=== PATIENT | female | born 1990 | race Caucasian/White ===

== ENCOUNTER 2023-05-03 17:18 | Observation (INO) ==
--- NOTE | 2023-05-03 20:21 | History & Physical Report ---
Date of Service May 03, 2023 Assessment & Plan (1) Hypothyroidism: (2) Pre-diabetes: (3) PCOS (polycystic ovarian syndrome): (4) Class 2 obesity: Plan I reviewed with the patient and her that I don't feel the criteria are met for gestational hypertension and that she is pre-term at 37 weeks and would run the risk of increased likelihood of prolonged induction due to unripe cervix with possible . She will be continued to be monitored in the office with NST's and BP check with office visits. I informed her that if she experiences any change of symptoms to call us. Her BP has not been elevated here in the hospital while on the monitor and she is fine with the plan to go home and f/u in the office. Admission and Anticipated Discharge Date Admission Date: May 03, 2023 History of Present Illness Chief Complaint: induction of labor Primary Care Provider: Lorelei Mccormack 32 F P0000 at 37.3 weeks seen on L&D for IOL for gestational hypertension. No symptoms of headaches, visual changes, nausea or vomiting, dizziness, swelling of face, hands or feet. Normal BP by patient at home numerous occasions. No protein in urine today or previously. Allergies Allergy/AdvReac Type Severity Reaction Status Date / Time No Known Allergies Allergy Unverified 05/03/23 18:22 Home Medications Medication Instructions Recorded Confirmed Type oxycodone 5 mg tablet 5 mg PO Q6H PRN pain #10 tabs 06/28/22 Rx Vitamin D3 2,000 units PO DAILY 05/03/23 05/03/23 History aspirin 81 mg chewable tablet 81 mg PO DAILY 05/03/23 05/03/23 History bismuth txhm-qjlvkt-IpKp-resor BID 05/03/23 History rectal suppository levothyroxine 75 mcg tablet 75 mcg PO DAILY 05/03/23 05/03/23 History potassium 20 mg chewable tablet 20 mg PO TID 05/03/23 05/03/23 History prenat.vits,del,sxw-wbxg-dkcvj 1 tab PO DAILY 05/03/23 05/03/23 History Patient History Medical History Hypothyroidism Pre-diabetes PCOS (polycystic ovarian syndrome) Surgical History History of tonsillectomy Social History Smoking Status: Never smoker Hx Alcohol Use: No Hx Substance Use: No Preferred Language: Ukrainian Supervisor Of Communications Required: No Beliefs That Will Affect Care: None marital status: Current Living Situation: Spouse Current Living Situation Comment: mother in law lives with patient and Feels Safe at Home: Yes Assistive Devices: None 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 no RUQ pain Musculoskeletal: Extremities: extremities normal to inspection Skin: no rashes, warm and dry Neurologic: patellar DTR's 2+ bilat, sensation intact Psychiatric: A+Ox3, euthymic affect Genitourinary: no vaginal lesions, no adnexal mass OB Exam Abdomen: + fundal height and + vertex OB Exam Monitor Tracing: + external FHT monitor used, + external uterine monitor used, + category I and + normal FHT variability Cervix is long/thick/closed/posterior/firm Vertex high patient with unripe cervix Results & Data Vital Signs (Past 12 Hours) Vital Signs Temp Pulse Resp BP 05/03/23 19:21 114 H 124/70 05/03/23 19:17 37.0 C 20 05/03/23 18:44 117 H 130/81 05/03/23 18:37 37.3 C 19 05/03/23 18:34 121 H 128/72 05/03/23 18:24 126 H 126/81 05/03/23 18:15 123 H 122/72 05/03/23 18:04 121 H 117/77 Code Status & VTE Plan VTE Prophylaxis Plan VTE Prophylaxis will be ordered: No Monitoring External Monitor NST Cat 1 no ctx (1) Hypothyroidism Hypothyroidism type: acquired Qualified Code(s): E03.9 - Hypothyroidism, unspecified
--- OUTSIDE RECORDS SUMMARY | 2023-05-04 07:38 | External Medical Summary | Summary of Care ---
Author Name Unknown Organization [facility] Address [address] [place] [address] Phone [phone] Care Team Providers Care Video Library Assistant Name Role Phone Lorelei Mccormack DO Primary Care Provider Encounter Details Date Type Department Care Team (Late st Contact Info) Description 04/26/2023 9:30 AM EDT Office Visit [facility] [employer] Obstetrics Maternal Medicine, [address] [place] [address] Margaret Rosenthal DO [address] [place] [address] Obesity in , antepartum*; Gestational hypertension without significant proteinuria in third trimester; Ultrasound for screening for growth restriction; 36 weeks gestation of Allergies No known active allergiesdocumented as of this encounter (statuses as of 04/26/2023) Medications Medication Sig Dispensed Refills Start Date End Date Status metFORMIN HCl ER 500 MG Oral Tablet Extended Release 24 Hour (Glucophage XR) 0 04/14/2022 Active Levothyroxine Sodium 75 MCG Oral Tablet (Levoxyl) TAKE ONE TABLET BY MOUTH EVERY DAY ON AN EMPTY STOMACH 0 05/21/2022 Active Vitamin D (Cholecalciferol) 50 MCG (1999) Oral Capsule Take by mouth. 0 Active 6.75-0.2 MG Oral Tablet Take by mouth. 0 Active Metoclopramide HCl 10 MG Oral Tablet (Reglan)Indication s: related nausea, antepartum Take 0.5 Tablets by mouth every 8 hours as needed for Nausea. 30 Tablet 0 10/27/2022 Active Additional Information Patient not taking.Reported on 03/23/2023 Aspirin 81 MG Oral Capsule Take by mouth. 0 Active Potassium Chloride Lilibeth ER 20 MEQ Oral Tablet Extended Release Take 1 Tablet by mouth in the morning and 1 Tablet before bedtime. 180 Tablet 3 04/03/2023 Active documented as of this encounter (statuses as of 04/26/2023) Active Problems Problem Noted Date Diagnosed Date High-risk 04/16/2023 Gestational hypertension wit hout significant proteinuria in third trimester 04/03/2023 Overview: Per MFM: Recommend patient be seen by her primary OB provider on weekly basis for BP check, and labwork with AST/ALT and platelets, and urine protein screen. Recommend twice weekly NST or BPP with BP check. Strict bedrest is NOT recommended for these patients. Recommend Maternal Medicine ultrasound for growth within 1 week of GHTN diagnosis and then every 4 weeks thereafter. Recommend delivery at 37w0d or shortly thereafter. If gestational hypertension (GHTN) diagnosis is made after 37 weeks, then delivery should occur within 24-48 hours. Recommend close monitoring of BP s for 72 hours and then again at 7-10 days . BP Readings from Last 9 Encounters: 04/03/23 118/66 03/30/23 122/70 03/30/23 125/81 03/30/23 140/68 03/23/23 126/83 03/23/23 143/84 03/12/23 128/64 02/23/23 120/70 01/26/23 124/66 Currently on aspirin 81 mg therapy Baseline Preeclampsia Labs Lab Results Component Value Date/Time CREATININE - [facility] 0.5 04/13/2023 09:52 AM AST - [facility] 7 (L) 04/13/2023 09:52 AM ALT - [facility] 10 04/13/2023 09:52 AM PROTEIN/ CREATININE RATIO, URINE - [facility] 200 (H) 04/13/2023 09:56 AM Last Assessment & Plan: CONSIDERATIONS: Explained to patient that a woman who has always had normal blood pressures, gestational hypertension (GHTN) is defined as persistent elevations in her BP after 20 weeks gestation. Elevated BP is defined as greater than or equal to 140mmHg systolic or greater than 90mmHg diastolic on two separate occasions at least 4 hours apart after 20 weeks gestation. If the blood pressures are greater than or equal to 160mmHg systolic or greater than or equal to 110mmHg diastolic, gestational hypertension can be confirmed within minutes and appropriate management in the hospital should then occur. RECOMMENDATIONS: Recommend patient be seen by her primary OB provider on weekly basis for BP check, and labwork with AST/ALT and platelets, and urine protein screen. Recommend twice weekly NST or BPP with BP check. Strict bedrest is NOT recommended for these patients. Recommend Maternal Medicine ultrasound for growth within 1 week of GHTN diagnosis and then every 4 weeks thereafter. Recommend delivery at 37w0d or shortly thereafter. If gestational hypertension (GHTN) diagnosis is made after 37 weeks, then delivery should occur within 24-48 hours. Recommend close monitoring of BP s for 72 hours and then again at 7-10 days . Iron deficiency anemia, unspecified 03/20/2023 Antepartum anemia complicating 024 Overview: Hgb 10.5 at 28 weeks IV iron referral placed Obesity in , antepartum 10/30/2022 Overview: Pre gravid BMI: 35.0 Class 2 obesity Pre gravid BMI: 35.0 Class 2 obesity 1 hour GTT ordered but not yet completed by patient - scheduled 11/14/2022 No results found for: 50-G GESTATIONAL GLUCOSE, 100-G GESTATIONAL GLUCOSE, HEMOGLOBIN A1C - [facility] Baseline Preeclampsia Labs Lab Results Component Value Date/Time PLATELET AUTO - [facility] 338 10/27/2022 02:30 PM Last Assessment & Plan: She presents for follow-up of growth secondary to class II obesity and hypothyroidism. Today's ultrasound notes the following: The estimated weight is appropriate for gestational age in the 38th percentile. The visualized anatomy is unremarkable in appearance. The KASSANDRA is normal. Hypothyroidism complicating 10/27/2022 Overview: Managed with Levothyroxine 75 mcg daily Lab Results Component Value Date/Time TSH - [facility] 1.17 02/23/2023 09:04 AM 05/19/2022 TSH = 0.71 Follows with [facility] endocrinology. Follows with Endocrinology every 6 weeks Last Assessment & Plan: TSH Results: Lab Results Component Value Date/Time TSH - [facility] 1.17 02/23/2023 09:04 AM TSH - [facility] 1.085 10/15/2022 12:00 AM Prediabetes 10/27/2022 Overview: On Metformin through Endocrinology. Has since stopped at direction of endocrinology. First trimester A1C was 5.0 achieved with Clomid Class 2 obesity 10/27/2022 Overview: PCOS (polycystic ovarian syndrome) 05/31/2022 Estimated Date of Delivery Comme nts Yes 05/21/2023 Based on Ultraso und documented as of this encounter (statuses as of 04/26/2023) Resolved Problems Problem Noted Date Diagnosed Date Resolved Date with 11 completed weeks gestation 10/31/2022 12/29/2022 Normal 10/30/2022 04/16/2023 Supervision of high risk pre gnancy in first trimester 10/30/2022 04/16/2023 documented as of this encounter (statuses as of 04/26/2023) Immunizations Name Administration Dates Next Due TDAP (age 10 and older)(Boostrix) 02/23/2023 documented as of this encounter Social History Tobacco Use Types Packs/Day Years Used Date Smoking Tobacco: Never Smokeless Tobacco: Never Alcohol Use Standard Drinks/Week Comments Not Currently 0 (1 standard drink = 0.6 oz pur e alcohol) occ PHQ-2 Answer Date Recorded PHQ Adult Total Score 0 04/19/2023 Hunger Vital Sign Answer Date Recorded Within the past 12 months, y ou worried that your food would run out before you got the money to buy more. Never true 12/09/19 23 Within the past 12 months, t he food you bought just didn't last and you didn't have money to get more. Never true 12/08/2022 [place] Depression Scale Answer Date Recorded [place] Depression Scale Total 0 03/12/2023 The thought of harming myself has occurred to me . Never 03/12/2023 Estimated Date of Delivery Comme nts Yes 05/21/2023 Based on Ultraso und Sex and Gender Information Value Date Recorded Sex Assigned at Female 05/31/2022 8:17 AM EDT Gender Identity Female 05/31/2022 8:17 AM EDT Sexual Orientation Straight 05/31/2022 8: 17 AM EDT Job Start Date Occupation Industry Not on file Not on file Not on file documented as of this encounter Progress Notes * Margaret Rosenthal DO - 04/26/2023 11:10 AM EDT Sara presented today at 36w3d for an ultrasound for the following indications: Obesity in , antepartum Gestational hypertension without significant proteinuria in third trimester Ultrasound for screening for growth restriction 36 weeks gestation of Ultrasound summary: Patient presented at 36w 3d for growth assessment. Normal growth with EFW 2911 g at 51%ile. Normal KASSANDRA at 16.3 cm. Cephalic presentation. BPP 09/12. I reviewed the ultrasound images. Sara was given the opportunity to meet with me if she had any questions. Please refer to the ultrasound report for additional details about today's ultrasound examination. RECOMMENDATIONS: Follow up with MFM for ultrasound as clinically indicated. See prior formal MFM consultation note. Thank you for allowing us to participate in the care of this patient. Please call with any questions. Margaret Rosenthal DO 04/26/2023 11:11 AM documented in this encounter Plan of Treatment Upcoming Encounters Date Type Department Care Team (Late st Contact Info) Description 05/01/2023 9:30 AM EDT Office Visit Gynecology/Obstetrics [facility]ag[facility] [address] [place] [address] Miriam Abdi CRNP [address] [place] [address] [place] Non Stress Tests [place] [address] [place] [address] 05/04/2023 2:15 PM EDT Office Visit Gynecology/Obstetrics [facility] Villagomez [address] [place] [address] Miriam Abdi CRNP [address] [place] [address] [place], Non Stress Tests [place] [address] [place] [address] 11/23/2023 1:40 PM EDT Office Visit Nephrology, [facility] [address] [place] [address] Simona Gutierrez MD [address] [facility] [place], [place] [id number] Health Maintenance Due Date Last Done Comments Hepatitis B (1 of 3 - 19+ 3-dose series) 2009 COVID-19 Vaccine (2022-24 season) 2022 Influenza Vaccine (FLU shot) (#1) 2022 TSH 02/24/2024 02/23/2023, 10/15/2022 Depression Screening 04/18/2024 04/19/2023 GFR 04/23/2024 04/24/2023, 04/05, 04/13/2023, Additional history exists Pap Smear 05/31/2025 05/31/2022 Cervical Cancer Screening 06/01/2027 HPV/Co-Test 06/01/2027 05/31/2022 DTaP,Tdap,and Td Vaccines (2 - Td or Tdap) 02/23/2033 02/23/2023 GARDASIL-HPV IMMUNIZATION SERIES Aged Out No longer eligible based on patient's age to complete this topic MENINGOCOCCAL (MENACTRA/MENVEO) Aged Out No longer eligible based on patient's age to complete this topic Pneumococcal Vaccine: Pediatrics (0 to 5 Years) and At-Risk Patients (6 to 64 Years) Aged Out No longer eligible based on patient's age to complete this topic documented as of this encounter Medical Devices Not on filedocumented as of this encounter Visit Diagnoses Diagnosis Obesity in , antepartum- Primary Obesity complicating , childbirth, or the puerperium, antepartum condition or complication Gestational hypertension without significant proteinuria in third trimester Transient hypertension of , antepartum Ultrasound for screening for growth restriction screening for growth retardation using ultrasonics 36 weeks gestation of state, incidental documented in this encounter Care Teams Video Library Assistant Relationship Specialty Start Date End Date Lorelei Mccormack DO [address] [facility] [place] [address] PCP - General Family Medicine 03/07/22 documented as of this encounter
--- OUTSIDE RECORDS SUMMARY | 2023-05-04 07:38 | External Medical Summary | Summary of Care ---
Author Name Unknown Organization [facility] Address [address] [place] [address] Phone [phone] Care Team Providers Care Instruments Sales Representative Name Role Phone Lorelei Mccormack DO Primary Care Provider Reason for Visit * Reason Onset Date Comments Test Results 04/03/2023 Encounter Details Date Type Department Care Team (Late st Contact Info) Description 04/03/2023 Telephone Nephrology, [address] [address] Simona Gutierrez MD [address] [place] [id number] Test Results Allergies No known active allergiesdocumented as of this encounter (statuses as of 05/01/2023) Medications Medication Sig Dispensed Refills Start Date End Date Status metFORMIN HCl ER 500 MG Oral Tablet Extended Release 24 Hour (Glucophage XR) 0 04/14/2022 Active Levothyroxine Sodium 75 MCG Oral Tablet (Levoxyl) TAKE ONE TABLET BY MOUTH EVERY DAY ON AN EMPTY STOMACH 0 05/21/2022 Active Vitamin D (Cholecalciferol ) 50 MCG (1999) Oral Capsule Take by mouth. 0 Acti ve 6.75-0.2 MG Oral Tablet Take by mouth. 0 Active Metoclopramide HCl 10 MG Oral Tablet (Reglan)Indicati ons: related nausea, antepartum Take 0.5 Tablets by [...] before bedtime. 180 Tablet 3 04/03/2023 Active Potassium Chloride Lilibeth ER 20 MEQ Oral Tablet Extended Release Take 1 Tablet by mouth in the morning. 90 Tablet 3 03/23/2023 4 Discontinued documented as of this encounter (statuses as of 05/01/2023) Active Problems Problem Noted Date Diagnosed Date [...] as of this encounter (statuses as of 05/01/2023) Resolved Problems Problem Noted Date Diagnosed Date Resolved Date with 11 completed weeks gestation 10/31/2022 12/29/2022 Normal 10/30/2022 04/16/2023 Supervision of high risk pre gnancy in first trimester 10/30/2022 04/16/2023 documented as of this encounter (statuses as of 05/01/2023) Immunizations Name Administration Dates Next Due TDAP (age 10 and older)(Boostrix) 02/23/2023 documented as of this encounter Social History Tobacco Use Types Packs/Day Years Used Date Smoking Tobacco: Never Smokeless Tobacco: Never Alcohol Use Standard Drinks/Week Comments Yes 0 (1 standard drink = 0.6 oz [...] money to get more. Never true 12/08/2022 [place] Depression Scale Answer Date Recorded [place] Depression Scale Total 0 03/12/2023 The thought [...] on file documented as of this encounter Miscellaneous Notes * Addendum Note - Lila Denton LPN - 05/01/2023 8:38 AM EDTAddended by: LILA DENTON on: 05/01/2023 08:38 AM Modules accepted: Orders * Telephone Encounter - Lila Denton LPN - 05/01/2023 8:36 AM EDT Simona Gutierrez MD Repeat BMP in a week JM Pt is aware. Order placed. * Telephone Encounter - Lila Denton LPN - 04/17/2023 8:09 AM EDT Please see MyG and advise. * Telephone Encounter - Lila Denton LPN - 04/04/2023 2:40 PM EST Let patient know to get blood work on Sunday and I sent prescription for increased dose of potassium chloride 1 [facility] [place]. Detailed message left. Will also send MyG. Lab order in epic. * Telephone Encounter - Simona Gutierrez MD - 04/03/2023 9:56 AM EST Please let patient know to get blood work on Sunday. Dr. Gutierrez documented in this encounter Plan of Treatment Upcoming Encounters Date Type Department Care Team (Late st Contact Info) Description 05/01/2023 9:30 AM EDT Office Visit Gynecology/Obstetrics [facility] [place] [address] [place] [address] Miriam Abdi CRNP [address] [place] [address] [place], Non Stress Tests [place] [address] [place] [address] 11/23/2023 1:40 PM EDT Office Visit Nephrology, [facility] [address] [place] [address] Simona Gutierrez MD [address] [place] [address] [place] [address] Scheduled Orders Name Type Priority Associated Diagnoses Orde r Schedule BASIC METABOLIC PANEL Lab Routine Hypokalemia Expected: 05/08/2023 (Approximate), Expires: 04/30/2024 Health Maintenance Due Date Last Done Comments Hepatitis B (1 of 3 - 19+ 3-dose series) 2009 COVID-19 Vaccine ( - 2022- season) 2022 Influenza Vaccine (FLU shot) (#1) [...] Not on filedocumented as of this encounter Results * (ABNORMAL) BASIC METABOLIC PANEL (04/09/2023 7:15 AM EST) BUN 5(L) 6 - 20 mg/dL 04/09/2023 8:53 AM EST [facility] Creatinine 0.5 0.5 - 1.0 mg/dL 04/09/2023 8:53 AM EST [facility] Estimated Glomerular Filtration Rate >90 >=60 mL/min 04/09/2023 8:53 AM EST [facility] Comment:eGFR is calculated b ased on the CKD-EPI 2020 equation Sodium 140 135 - 146 mmol/L 04/09/2023 8:53 AM EST [facility] Potassium 3.3(L) 3.5 - 5.1 mmol/L 04/09/2023 8:53 AM EST [facility] Chloride 105 98 - 107 mmol/L 04/09/2023 8:53 AM EST [facility] CO2 20(L) 22 - 32 mmol/L 04/09/2023 8:53 AM EST [facility] Anion Gap 15 7 - 15 mmol/L 04/09/2023 8:53 AM EST [facility] Glucose 103 70 - 120 mg/dL 04/09/2023 8:53 AM EST [facility] Calcium 9.3 8.4 - 10.2 mg/dL 04/09/2023 8:53 AM EST [facility] Blood Venous blood specimen / Unknown Venipuncture / Unknown 04/09/2023 7:15 AM EST 04/09/2023 7:15 AM EST Simona Gutierrez MD LAB BLOOD ORDERABLES Performing Organization Address City/State/[facility] Co de Phone Number [phone] [facility] [place] [address] documented in this encounter Visit Diagnoses Diagnosis Hypokalemia- Primary Hypopotassemia documented in this encounter Care Teams Instruments Sales Representative Relationship Specialty Start Date End Date Lorelei Mccormack DO [address] [place] [address] PCP - General Family Medicine 03/07/22 documented as of this encounter
--- OUTSIDE RECORDS SUMMARY | 2023-05-04 07:38 | External Medical Summary | Summary of Care ---
Author Name Unknown Organization [facility] Address [address] [address] Phone [phone] Care Team Providers Care Motor Rebuilder Name Role Phone Lorelei Mccormack DO Primary Care Provider [phone] Reason for Visit * Reason Comments Infusion Venofer / Encounter Details Date Type Department Care Team (Latest Contact Info) Description 03/23/2023 10:15 AM EST Hem/Onc Treatment Hematology/Oncology Treatment, [address] [address] Yandy, Chair 10 Hem Onc [address] [address] Antepartum anemia complicating *; Iron deficiency anemia, unspecified iron deficiency anemia type Allergies No known active allergiesdocumented as of this encounter (statuses as of 04/24/2023) Medications Medication Sig Dispensed Refills Start Date End Date Status metFORMIN HCl ER 500 MG Oral Tablet Extended Release 24 Hour (Glucophage XR) 0 04/14/2022 Acti ve Levothyroxine Sodium 75 MCG Oral Tablet (Levoxyl) TAKE ONE TABLET BY MOUTH EVERY DAY ON AN EMPTY STOMACH 0 05/21/2022 Active Vitamin D (Cholecalciferol) 50 MCG (1999) Oral Capsule Take by mouth. 0 Active 6.75-0.2 MG Oral Tablet Take by mouth. 0 Active Metoclopramide HCl 10 MG Oral Tablet (Reglan)Indications:P regnancy related nausea, antepartum Take 0.5 Tablets by mouth every 8 hours as needed for Nausea. 30 Tablet 0 10/27/2022 Active Aspirin 81 MG Oral Capsule Take by mouth. 0 Active documented as of this encounter (statuses as of 04/24/2023) Active Problems Problem Noted Date Diagnosed Date Iron deficiency anemia, unspecified 03/20/2023 Antepartum anemia [...] as of this encounter (statuses as of 04/24/2023) Resolved Problems Problem Noted Date Diagnosed Date Resolved Date with 11 completed weeks gestation 10/31/2022 12/29/2022 Normal 10/30/2022 04/16/2023 Supervision of high risk pre gnancy in first trimester 10/30/2022 04/16/2023 documented as of this encounter (statuses as of 04/24/2023) Immunizations Name Administration Dates Next Due TDAP (age 10 and older)(Boostrix) 02/23/2023 documented as of this encounter Social History Tobacco Use Types Packs/Day Years Used Date Smoking Tobacco: Never Smokeless Tobacco: Never Alcohol Use Standard Drinks/Week Comments Yes 0 (1 standard drink = 0.6 oz pur e alcohol) occ Hunger Vital Sign Answer Date Recorded Within the past 12 months, y ou worried that your food would run out before you got the money to buy more. Never true 12/09/19 Within the past 12 months, t he food you bought just didn't last and you didn't have money to get more. Never true 12/08/2022 [place] Depression Scale Answer Date Recorded [place] Depression Scale Total 0 03/12/2023 The thought [...] on file documented as of this encounter Last Filed Vital Signs Vital Sign Reading Time Taken Comments Blood Pressure 143/84 03/23/2023 11:53 AM EST Pulse 103 03/23/2023 11:53 AM EST Temperature 36.6 C (97.9 F) 03/23/2023 11:[address] Respiratory Rate 18 03/23/2023 11:53 AM EST Oxygen Saturation 98% 03/23/2023 11:53 AM EST Inhaled Oxygen Concentration - - Weight - - Height - - Body Mass Index - - documented in this encounter Nursing Notes * Arabella Grant LPN - 03/23/2023 12:56 PM EST 1220: Pt tolerated Venofer infusion well. PIV removed intact. Pt to return in one week. Discharged in stable condition. * Arabella Grant LPN - 03/23/2023 11:54 AM EST 1040: Pt arrived for Venofer 1/3 infusion. PIV in LFA. Pt tolerated well. VSS. No complaints at this time. documented in this encounter Plan of Treatment Upcoming Encounters Date Type Department Care Team (Late st Contact Info) Description 04/26/2023 7:30 AM EDT Imaging Maternal Medicine Imaging, [place] Villagomez [address] [place] [phone] 04/26/2023 7:30 AM EDT Office Visit Tire Service Supervisor Obstetrics Maternal Medicine, [place] Villagomez [address] [place] [address] Margaret Rosenthal, DO [address] [place] [address] 04/27/2023 7:45 AM EDT Office Visit Gynecology/Obstetrics Codey Mendozas [address] [place] [address] Karlie Infante PA-C [address] [place] [address] 05/01/2023 9:30 AM EDT Office Visit Gynecology/Obstetrics Yangraleigh Villagomez [address] [place] [address] Miriam Abdi CRNP [address] [place] [address] [place], Non Stress Tests [place] [address] [place] [address] 05/04/2023 2:15 PM EDT Office Visit Gynecology/Obstetrics Codey Villagomez [address] [facility] [address] Miriam Abdi CRNP [address] [place] [address] Villagomez Non Stress Tests [place] [address] [place] [address] 11/23/2023 1:40 PM EDT Office Visit Nephrology, [facility] [address] [place] [address] Simona Gutierrez MD 400 [facility] [place] [phone] Health Maintenance Due Date Last Done Comments Hepatitis B (1 of 3 - 19+ 3-dose series) 2009 COVID-19 Vaccine ( - 2022-24 season) 2022 Influenza Vaccine (FLU shot) (#1) [...] as of this encounter Visit Diagnoses Diagnosis Antepartum anemia complicating - Primary Anemia, antepartum Iron deficiency anemia, unspecified iron deficiency anemia type documented in this encounter Administered Medications Inactive Administered Medications - up to 3 most recent administrations Medication Order MAR Action Action Date Dose Rate Site Iron Sucrose (Venofer) 300 mg in NSS 250 mL ivpb 300 mg, IV Piggyback, ONCE, 1 dose, On Sun03/23/23 at 1215, Administer over 90 Minutes Start Infusion 03/23/2023 10:43 AM EST 300 mg 166.67 mL/hr NSS infusion 500 mL, Intravenous, at 50 mL/hr, CONTINUOUS, Starting on Sun03/23/23 at 1145, Until Sun03/23/23 at 1300 Start Infusion 03/23/2023 10:42 AM EST 500 mL 50 mL/hr documented in this encounter Care Teams Motor Rebuilder Relationship Specialty Start Date End Date Lorelei Mccormack DO [address] [place] [address] PCP - General Family Medicine 03/07/22 documented as of this encounter
--- OUTSIDE RECORDS SUMMARY | 2023-05-04 07:38 | External Medical Summary | Summary of Care ---
Author Name Unknown Organization [facility] Address [address] [facility] [place] [address] Phone [phone] Care Team Providers Care Mastic Man Name Role Phone Lorelei Mccormack DO Primary Care Provider [phone] Reason for Visit * Reason Comments Return Visit Non Stress Test Encounter Details Date Type Department Care Team (Late st Contact Info) Description 05/01/2023 9:30 AM EDT Office Visit Gynecology/Obstetric s [facility] [place] [address] [facility] [place] [address] Miriam Abdi CRNP [address] [place] [address] [place], Non Stress Tests [place] [address] [place] [address] High-risk in third trimester*; Hypothyroidism affecting , antepartum; Prediabetes; Class 2 obesity; Obesity in , antepartum; Antepartum anemia complicating ; Gestational hypertension without significant proteinuria in third trimester Allergies No known active allergiesdocumented as of [...] 05/21/2022 Active Vitamin D (Cholecalciferol) 50 MCG (1999 [place]) Oral Capsule Take by mouth. 0 Active [...] before bedtime. 180 Tablet 3 04/03/2023 Active Hydrocortisone Acetate 25 MG Rectal Suppository (Anusol HC)Indications:Hem orrhoids without complication Administer 1 Suppository into the rectum 2 times a day in the morning and at bedtime as needed for Hemorrhoids. 28 Suppository 0 04/26/2023 Active documented as of this encounter (statuses [...] money to get more. Never true 12/08/2022 [place] Depression Scale Answer Date Recorded [place] Depression Scale Total 0 03/12/2023 The thought [...] Sign Reading Time Taken Comments Blood Pressure 128/66 05/01/2023 9:33 AM EDT Pulse - - Temperature - - Respiratory Rate - - Oxygen Saturation - - Inhaled Oxygen Concentration - - Weight 100.2 kg (221 lb) 05/01/2023 9:33 AM EDT Height 162.6 cm (5' 4") 05/01/2023 9:33 AM EDT Body Mass Index 37.93 05/01/2023 9:33 AM EDT documented in this encounter Progress Notes * Miriam Abdi CRNP - 05/01/2023 9:59 AM EDT 37w1d IOL in 2 days for gestational HTN, nervous about this. No concerns. Baby is active. No contractions, no bleeding or LOF ASSESSMENT assessment with Non-stress Test completed on 05/01/2023 at 37.1weeks gestation for indication of gestational HTN heart baseline: 130 bpm Variability: Moderate Decelerations: absent Accelerations: present Contractions: None NST start time: 925 NST stop time: 950 NST strip reviewed, interpreted, and approved by OB provider, BISI Miles . NST strip stored in clinic storage file documented in this encounter Nursing Notes * Katherine Ny LPN - 05/01/2023 9:41 AM EDT 37w1d NST, JERRY IOL 05/02. documented in this encounter Plan of Treatment Upcoming Encounters Date Type Department Care Team (Late st Contact Info) Description 11/23/2023 1:40 PM EDT Office Visit Nephrology, [facility] 200 [place] [address] Simona Gutierrez MD 400 [facility] [place] [address] Health Maintenance Due Date Last Done Comments [...] as of this encounter Visit Diagnoses Diagnosis High-risk in third trimester- Primary Hypothyroidism affecting , antepartum Prediabetes Other abnormal glucose Class 2 obesity Obesity in , antepartum Obesity complicating , childbirth, or the puerperium, antepartum condition or complication Antepartum anemia complicating Anemia, antepartum Gestational hypertension without significant proteinuria in third trimester Transient hypertension of , antepartum documented in this encounter Care Teams Mastic Man Relationship Specialty Start Date End Date Lorelei Mccormack DO [address] [facility] [place] [address] PCP - General Family Medicine 03/07/22 documented as of this encounter
--- OUTSIDE RECORDS SUMMARY | 2023-05-04 07:38 | External Medical Summary | Summary of Care ---
Author Name Unknown Organization [facility] Address [address] [facility] [place] [address] Phone [phone] Care Team Providers Care Events Assistant Name Role Phone Lorelei Mccormack DO Primary Care Provider [phone] Reason for Visit * Reason Comments Return Visit Non Stress Test Encounter Details Date Type Department Care Team (Late st Contact Info) Description 05/01/2023 9:30 AM EDT Office Visit Gynecology/Obstetric s [facility] [place] [address] [facility] [place] [address] Miriam Abdi CRNP [address] [place] [address] [place], Non Stress Tests [place] [address] [place] [address] High-risk in third trimester*; Hypothyroidism affecting , [...] money to get more. Never true 12/08/2022 [place] Depression Scale Answer Date Recorded [place] Depression Scale Total 0 03/12/2023 The thought [...] 11/23/2023 1:40 PM EDT Office Visit Nephrology, [facility] 200 [place] [address] Simona Gutierrez MD 400 [facility] [place] [address] Health Maintenance Due Date Last [...] antepartum documented in this encounter Care Teams Events Assistant Relationship Specialty Start Date End Date Lorelei Mccormack DO 1400 [facility] [place] [address] PCP - General Family Medicine 03/07/22 documented as of this encounter
--- OUTSIDE RECORDS SUMMARY | 2023-05-04 07:38 | External Medical Summary | Summary of Care ---
Author Name Unknown Organization [facility] Address [address] [place] [facility] [place] [place] [address] Phone [phone] Care Team Providers Care Screen Examiner Name Role Phone Lorelei Mccormack DO Primary Care Provider [phone] Reason for Visit * Reason Comments Return Visit Encounter Details Date Type Department Care Team (Late st Contact Info) Description 04/26/2023 10:30 AM EDT Office Visit Gynecology/Obstetric [facility] 132 [facility] [place] [address] Selina Smith CNM 400 [facility] [place] [address] High-risk in third trimester*; Hemorrhoids without complication Allergies No known active allergiesdocumented as of [...] Active Metoclopramide HCl 10 MG Oral Tablet (Reglan)Indicatio ns: related nausea, antepartum Take 0.5 Tablets by [...] Hydrocortisone Acetate 25 MG Rectal Suppository (Anusol HC)Indications:He morrhoids without complication Administer 1 Suppository into the rectum 2 times a day in the morning and at bedtime as needed for Hemorrhoids. 28 Suppository 0 04/26/2023 Active Hydrocortisone Acetate 25 MG Rectal Suppository (Anusol HC)Indications:He morrhoids without complication Administer 1 Suppository into the rectum 2 times a day in the morning and at bedtime as needed for Hemorrhoids. 28 Suppository 0 04/24/2023 04/26/19 24 Discontinu ed(Refill) documented as of this encounter (statuses as [...] money to get more. Never true 12/08/2022 [place] Depression Scale Answer Date Recorded [place] Depression Scale Total 0 03/12/2023 The thought [...] Sign Reading Time Taken Comments Blood Pressure 122/58 04/26/2023 9:56 AM EDT Pulse - - Temperature - - Respiratory Rate - - Oxygen Saturation - - Inhaled Oxygen Concentration - - Weight 99.3 kg (219 lb) 04/26/2023 9:56 AM EDT Height 162.6 cm (5' 4") 04/26/2023 9:56 AM EDT Body Mass Index 37.59 04/26/2023 9:56 AM EDT documented in this encounter Progress Notes * Selina Smith CNM - 04/26/2023 10:13 AM EDT Patient was here for BPP. BPP 09/12. She had an NST and JERRY visit on 04/24/23. Asking about suppository treatments. Re-ordered Anusol suppositories. Prior pharmacy was not able to fill Rx. Updated pharmacy. This correspondence occurred via nurse Katherine Graff LPN. Patient was not seen today by provider as no visit was indicated. Return for JERRY and NST on 05/01/23. Selina Smith CNM 04/26/23 10:14 AM documented in this encounter Nursing Notes * Katherine Ny LPN - 04/26/2023 10:17 AM EDT Patient seen by ABENA ROWLEY 09/12. Had provider visit on 04/24/23. Having difficulty getting supp from pharmacy. Selina sent to pharmacy and will try to potato picker fromthere. Not seen by provider today. documented in this encounter Plan of Treatment Upcoming Encounters Date Type Department Care Team (Late st Contact Info) Description 05/01/2023 9:30 AM EDT Office Visit Gynecology/Obstetrics Codey Mendozas [address] [place] [address] Miriam Abdi CRNP [address] [place] [address] Jodi Villagomez Stress Tests [place] [address] [place] [address] 05/04/2023 2:15 PM EDT Office Visit Gynecology/Obstetrics Codey Villagomez [address] [place] [address] Miriam Abdi CRNP [address] [place] [address] Jodi Villagomez Stress Tests [place] [address] [place] [address] 11/23/2023 1:40 PM EDT Office Visit Nephrology, Edgardo Lathrop 200 [place] [address] Simona Gutierrez MD [address] [place] [address] [place] [address] Health Maintenance Due Date Last Done Comments Hepatitis B (1 of 3 - 19+ 3-dose series) 2009 COVID-19 Vaccine (1 - 2022-24 season) 2022 Influenza Vaccine (FLU [...] Diagnoses Diagnosis High-risk in third trimester- Primary Hemorrhoids without complication Unspecified hemorrhoids without mention of complication documented in this encounter Care Teams Screen Examiner Relationship Specialty Start Date End Date Lorelei Mccormack DO 1400 [facility] [place] [address] PCP - General Family Medicine 03/07/22 documented as of this encounter
--- OUTSIDE RECORDS SUMMARY | 2023-05-04 07:38 | External Medical Summary | Summary of Care ---
Author Name Unknown Organization [facility] Address [address] [facility] [address] Phone [phone] Care Team Providers Care Re Dye Hand Name Role Phone Lorelei Mccormack DO Primary Care Provider Reason for Visit * Reason Comments IV Therapy Venofer 2/3 Encounter Details Date Type Department Care Team (Latest Contact Info) Description 03/30/2023 8:30 AM EST Hem/Onc Treatment Hematology/Oncology Treatment, [address] [address] [place], Chair 4 Hem Onc [address] [address] Antepartum anemia complicating *; Iron deficiency anemia, [...] money to get more. Never true 12/08/2022 [place] Depression Scale Answer Date Recorded [place] Depression Scale Total 0 03/12/2023 The thought [...] Sign Reading Time Taken Comments Blood Pressure 125/81 03/30/2023 8:40 AM EST Pulse 114 03/30/2023 8:40 AM EST Temperature 36.9 C (98.5 F) 03/30/2023 8:40 AM ES T Respiratory Rate 16 03/30/2023 8:40 AM EST Oxygen Saturation 97% 03/30/2023 8:40 AM EST Inhaled Oxygen Concentration - - Weight - - Height - - Body Mass Index - - documented in this encounter Nursing Notes * Payton Doshi RN - 03/30/2023 10:33 AM EST Goals: Patient will remain free from injury. Possible barriers to meeting goals: ambulating with IV pole Stability of the patient: Moderately stable - low risk of patient condition declining or worsening Summary regarding today's goals: Met: pt remained free of harm today Patient tolerated treatment well without any acute issues or problems, but did feel slightly nauseas and diaphoretic at the end of the infusion. Patient has been having nausea during , however. Patient given water and cranberry juice, and started to feel better. Patient left facility in stable condition and denied any further needs. * Payton Dohsi RN - 03/30/2023 9:06 AM EST Chair 10. IV inserted. Patient here for Venofer 2/3, feeling well overall, no issues with first Venofer infusion. Patient states her BP was in the 140s SBP before she came in here today at her visit this AM and she has to go back at 3pm to have this rechecked. BP here was 125/81. Patient is comfortable and denies further needs at this time. Safety and Risk for Injury Patient will remain free from injury. Ensure appropriate safety devices are available. Provide and maintain safe environment. documented in this encounter Plan of Treatment Upcoming Encounters Date Type Department Care Team (Late st Contact Info) Description 04/24/2023 1:20 PM EDT Laboratory Laboratory, Codey Villagomez [place] 132 [facility] [place] [phone] [facility] [facility] [address] [place] [address] Gestational hypertension without significant proteinuria in third trimester 04/26/2023 7:30 AM EDT Imaging Maternal Medicine Imaging, [place] [address] [place] [address] 04/26/2023 7:30 AM EDT Office Visit Construction Code Administrator Obstetrics Maternal Medicine, [place] [address] [place] [address] Margaret Rosenthal, DO [address] [place] [facility] [place] [address] 04/27/2023 7:45 AM EDT Office Visit Gynecology/Obstetric s Codey Villagomez [address] [place] [address] Karlie Infante PA-C [address] [place] [address] 05/01/2023 9:30 AM EDT Office Visit Gynecology/Obstetric s Codey Villagomez [address] [place] [address] Miriam Abdi CRNP [address] [place] [address] [place], Non Stress Tests [place] [address] [place] [address] 05/04/2023 2:15 PM EDT Office Visit Gynecology/Obstetric s Codey Villagomez [address] [place] [address] Miraim Abdi CRNP [address] [place] [address] [place], Non Stress Tests [place] [address] [place] [address] 11/23/2023 1:40 PM EDT Office Visit Nephrology, [facility] 200 [facility] [address] Simona Gutierrez MD [address] [place] [address] Health Maintenance Due Date Last Done Comments Hepatitis B (1 of 3 - 19+ 3-dose series) 2009 COVID-19 Vaccine ( - season) 2022 Influenza Vaccine (FLU shot) (#1) 2022 TSH 02/24/2024 02/23/2023, 10/15/2022 Depression Screening 04/18/2024 04/19/2023 GFR 04/20/2024 04/21/2023, 0309/2023, 04/09/2023, Additional history exists Pap Smear 05/31/2025 05/31/2022 [...] deficiency anemia, unspecified iron deficiency anemia type Gestational hypertension without significant proteinuria in third trimester Transient hypertension of , antepartum documented in this encounter Administered Medications Inactive Administered Medications - up to 3 most recent administrations Medication Order MAR Action Action Date Dose Rate Site Iron Sucrose (Venofer) 300 mg in NSS 250 mL ivpb 300 mg, IV Piggyback, ONCE, 1 dose, On Sun03/30/23 at 1030, Administer over 90 Minutes Start Infusion 03/30/2023 8:55 AM EST 300 mg 166.67 mL/hr NSS infusion 500 mL, Intravenous, at 50 mL/hr, CONTINUOUS, Starting on Sun03/30/23 at 1000, Until Sun03/30/23 at 1246 Start Infusion 03/30/2023 8:55 AM EST 500 mL 50 mL/hr documented in this encounter Care Teams Re Dye Hand Relationship Specialty Start Date End Date Lorelei Mccormack DO [address] [facility] [place] [address] PCP - General Family Medicine 03/07/22 documented as of this encounter
--- OUTSIDE RECORDS SUMMARY | 2023-05-04 07:38 | External Medical Summary | Summary of Care ---
Author Name Unknown Organization [facility] Address [address] [place] [address] Phone [phone] Care Team Providers Care Cryptologic Technician Name Role Phone Lorelei Mccormack DO Primary Care Provider Encounter Details Date Type Department Care Team (Late st Contact Info) Description 04/26/2023 9:30 AM EDT Office Visit Production Consultant Obstetrics Maternal Medicine, [address] [place] [address] Margaret Rosenthal DO [address] [place] [address] Obesity in , antepartum*; Gestational [...] money to get more. Never true 12/08/2022 [place] Depression Scale Answer Date Recorded [place] Depression Scale Total 0 03/12/2023 The thought [...] Gynecology/Obstetrics Codey Villagomez [address] [place] [address] Miriam Abdi CRNP [address] [place] [address] [place] Non Stress Tests [place] [address] [place] [address] 05/04/2023 2:15 PM EDT Office Visit Gynecology/Obstetrics Codey Villagomez [address] [place] [address] Miriam Abdi CRNP [address] [place] [address] [place], Non Stress Tests [place] [address] [place] [address] 11/23/2023 1:40 PM EDT Office Visit Nephrology, [facility] 200 [place] [address] Simona Gutierrez MD 400 [facility] [place], [place] [phone] Health Maintenance Due Date Last Done Comments [...] incidental documented in this encounter Care Teams Cryptologic Technician Relationship Specialty Start Date End Date Lorelei Mccormack DO 1400 [facility] [place] [address] PCP - General Family Medicine 03/07/22 documented as of this encounter
--- OUTSIDE RECORDS SUMMARY | 2023-05-04 07:39 | External Medical Summary | Summary of Care ---
Author Name Unknown Organization [facility] Address [address] [place] [place] [address] Phone [phone] Care Team Providers Care Hvac Service Technician Name Role Phone Lorelei Mccormack DO Primary Care Provider Reason for Visit * Reason Comments Outpatient Testing Encounter Details Date Type Department Care Team (Late st Contact Info) Description 04/21/2023 12:20 PM EDT Laboratory Laboratory, [facility] [address] [place] [phone] [facility] [address] [place] [address] Hypokalemia Allergies No known active allergiesdocumented as of this encounter (statuses as of 04/21/2023) Medications Medication Sig Dispensed Refills Start Date [...] as of this encounter (statuses as of 04/21/2023) Active Problems Problem Noted Date Diagnosed Date [...] as of this encounter (statuses as of 04/21/2023) Resolved Problems Problem Noted Date Diagnosed Date Resolved Date with 11 completed weeks gestation 10/31/2022 12/29/2022 Normal 10/30/2022 04/16/2023 Supervision of high risk pre gnancy in first trimester 10/30/2022 04/16/2023 documented as of this encounter (statuses as of 04/21/2023) Immunizations Name Administration Dates Next Due TDAP [...] money to get more. Never true 12/08/2022 [place] Depression Scale Answer Date Recorded [place] Depression Scale Total 0 03/12/2023 The thought [...] on file documented as of this encounter Plan of Treatment Upcoming Encounters Date Type Department Care Team (Late st Contact Info) Description 04/24/2023 10:15 AM EDT Office Visit Gynecology/Obstetrics TreyKippanda Villagomez [address] [place] [address] Valentine Barclay CRNP [address] [place] [address] Jodi Villagomez Stress Tests [place] [address] [place] [address] 04/26/2023 7:30 AM EDT Imaging Maternal Medicine Imaging, [place] Villagomez [address] [place] [phone] 04/27/2023 7:45 AM EDT Office Visit Gynecology/Obstetrics Treyraleigh Villagomez [address] [place] [address] Karlie Infante PA-C [address] [place] [address] 05/01/2023 9:30 AM EDT Office Visit Gynecology/Obstetrics Treyraleigh Villagomez [address] [place] [address] Miriam Abdi CRNP [address] [place] [address] Jodi Villagomez Stress Tests [place] [address] [place] [address] 05/04/2023 2:15 PM EDT Office Visit Gynecology/Obstetrics Yang[facility] Villagomez [address] [place] [address] Miriam Abdi CRNP [address] [place] [address] Villagomez, Non Stress Tests [place] [address] [place] [address] 05/08/2023 9:30 AM EDT Office Visit Gynecology/Obstetrics Yang's Villagomez [address] [place] [address] Miriam Abdi CRNP [address] [place] [address] [place] Non Stress Tests [place] [address] [place] [address] 05/11/2023 11:00 AM EDT Office Visit Gynecology/Obstetrics Yang's Villagomez [address] [place] [address] BackValentine mauricio CRNP [address] [place] [address] [place] Non Stress Tests [place] [address] [place] [address] 05/15/2023 11:15 AM EDT Office Visit Gynecology/Obstetrics Yang's Villagomez [address] [place] [address] BackValentine mauricio CRNP [address] [place] [address] Villagomez, Non Stress Tests [place] [address] [place] [address] 05/18/2023 9:15 AM EDT Office Visit Gynecology/Obstetrics Yang[facility] Villagomez [address] [place] [address] Ana Edwards PA-C [address] [place] [address] Villagomez, Non Stress Tests [place] [address] [place] [address] 11/23/2023 1:40 PM EDT Office Visit Nephrology, [address] [place] [address] Simona Gutierrez MD [address] [place] [address] Pending Results Name Type Priority Associated Diagnoses Date /Time BASIC METABOLIC PANEL Lab Routine Hypokalemia 04/21/2023 12:17 PM EDT Health Maintenance Due Date Last Done Comments Hepatitis B (1 of 3 - 19+ 3-dose series) 2009 COVID-19 Vaccine (2022- season) 2022 Influenza Vaccine (FLU shot) (#1) 2022 TSH 02/24/2024 02/23/2023, 10/15/2022 GFR 04/12/2024 04/13/2023, 03/0 05/2023, 03/30/2023, Additional history exists Depression Screening 04/18/2024 04/19/2023 Pap Smear 05/31/2025 05/31/2022 Cervical Cancer Screening [...] as of this encounter Visit Diagnoses Diagnosis Hypokalemia Hypopotassemia documented in this encounter Care Teams Hvac Service Technician Relationship Specialty Start Date End Date Lorelei Mccormack DO [address] [facility] [place] [address] PCP - General Family Medicine 03/07/22 documented as of this encounter
--- OUTSIDE RECORDS SUMMARY | 2023-05-04 07:39 | External Medical Summary | Summary of Care ---
Author Name Unknown Organization [facility] Address [address] [facility] [address] Phone [phone] Care Team Providers Care Fine Arts Packer Name Role Phone Lorelei Mccormack DO Primary Care Provider Reason for Visit * Reason Comments Return Visit Non Stress Test Encounter Details Date Type Department Care Team (Late st Contact Info) Description 04/24/2023 10:15 AM EDT Office Visit Gynecology/Obstetric s [facility] Villagomez [address] [place] [address] Valentine Barclay CRNP [address] [place] [address] [place], Non Stress Tests [place] [address] [place] [address] High-risk in third trimester*; Hypothyroidism affecting in third trimester; Prediabetes; Class 2 obesity; Obesity in , antepartum; Antepartum anemia complicating ; Gestational hypertension without significant proteinuria in third trimester; Hemorrhoids without complication Allergies No known active [...] needed for Hemorrhoids. 28 Suppository 0 04/24/2023 Active documented as of this encounter (statuses [...] 126/83 03/23/23 143/84 03/12/23 128/64 02/23/23 120/70 12/22/23 124/66 Currently on aspirin 81 mg therapy [...] money to get more. Never true 12/08/2022 [place] Depression Scale Answer Date Recorded [place] Depression Scale Total 0 03/12/2023 The thought [...] Sign Reading Time Taken Comments Blood Pressure 138/70 04/24/2023 10:17 AM EDT Pulse - - Temperature - - Respiratory Rate - - Oxygen Saturation - - Inhaled Oxygen Concentration - - Weight 98.9 kg (218 lb) 04/24/2023 10:17 AM EDT Height - - Body Mass Index 37.42 04/13/2023 9:07 AM EST documented in this encounter Progress Notes * Valentine Barclay CRNP - 04/24/2023 10:38 AM EDT 36w1d Doing well. No regular ctx, bleeding. Baby is active. No new MILLAN or epigastric pain. Occasional blurry vision, inconsistent. NST reactive. GHTN, planning induction next week. Will repeat preE labs today. Painful hemorrhoid, tried OTC remedies. Reviewed constipation treatment, Rx Anusol. Discussed induction process. GBS today. Return later in the week for NST. Operations Label Clerk Documentation Provider requested director online marketing. Name of director online marketing: Crystal Goff LPN ASSESSMENT assessment with Non-stress Test completed on 04/24/2023 at 36.1 weeks gestation for indicationof gestational hypertension heart baseline: 140 bpm Variability: Moderate Decelerations: absent Accelerations: present Contractions: None NST start time: 1011 NST stop time: 1044 NST strip reviewed, interpreted, and approved by OB provider, BISI Mcgregor . NST strip stored in clinic storage file documented in this encounter Plan of Treatment Upcoming Encounters Date Type Department Care Team (Late st Contact Info) Description 04/24/2023 1:20 PM EDT [facility] [address] [place] [phone] Nato Villagomez [address] [place] [address] Gestational hypertension without significant proteinuria in third trimester 04/26/2023 7:30 AM EDT Imaging Maternal Medicine Imaging, [place] Villagomez [address] [place] [phone] 04/26/2023 7:30 AM EDT Office Visit Computer Aide Obstetrics Maternal Medicine, [place] [address] Margaret Rosenthal, DO [address] [place] [address] 04/27/2023 7:45 AM EDT Office Visit Gynecology/Obstetric s Codey Villagomez [address] [place] [address] Karlie Infante PA-C [address] [place] [address] 05/01/2023 9:30 AM EDT Office Visit Gynecology/Obstetric s Codey Villagomez [address] [place] [address] Miriam Abdi CRNP [address] [place] [address] [place], Non Stress Tests [place] [address] [facility] [place] [address] 05/04/2023 2:15 PM EDT Office Visit Gynecology/Obstetric s Codey Villagomez [address] [facility] [place] [address] Miriam Abdi CRNP [address] [place] [address] [place], Non Stress Tests [place] [address] [facility] [place] [address] 11/23/2023 1:40 PM EDT Office Visit Nephrology, [address] [place] [address] Simona Gutierrez MD [address] [place] [address] Pending Results Name Type Priority Associated Diagnoses Date /Time GROUP B STREP CULTURE/PCR Lab Routine High-risk in third trimester 04/24/2023 11:24 AM EDT COMPREHENSIVE METABOLIC PANEL Lab Routine Gestational hypertension without significant proteinuria in third trimester 04/24/2023 11:31 AM EDT CBC Lab Routine Gestational hypertension without significant proteinuria in third trimester 04/24/2023 11:31 AM EDT Scheduled Orders Name Type Priority Associated Diagnoses Orde r Schedule COMPREHENSIVE METABOLIC PANEL Lab Routine Gestational hypertension without significant proteinuria in third trimester Expected: 04/24/2023 (Approximate), Expires: 04/23/2024 CBC Lab Routine Gestational hypertension without significant proteinuria in third trimester Expected: 04/24/2023 (Approximate), Expires: 04/23/2024 Health Maintenance Due Date Last Done Comments [...] Not on filedocumented as of this encounter Procedures Procedure Name Priority Date/Time Associated Diagnosis Comments URINALYSIS, POINT OF CARE (ENTER/EDIT) Routine 04/24/2023 High-risk in third trimester Gestational hypertension without significant proteinuria in third trimester documented in this encounter Results * URINALYSIS, POINT OF CARE (ENTER/EDIT) (04/24/2023) Color, Urine Yellow Yellow or Light Yellow Clarity, Urine Clear Clear Glucose, Urine Negative Negative mg/dL Bilirubin, Urine Negative Negative Ketone, Urine Trace Negative mg/dL Specific [place], Urine 1.020 1.003 - 1.030 Blood, Urine Trace-intact Negative pH, Urine 7.0 5.0 - 7.5 units Protein, Urine Negative Negative mg/dL Urobilinogen, Urine 0.2 0.2 - 1.0 mg/dL Nitrite, Urine Negative Negative Esterase, Urine Trace Negative Urine 04/24/2023 Valentine MATHEWS LAB POINT O F CARE TEST ENTER/EDIT ORDERABLES documented in this encounter Visit Diagnoses Diagnosis High-risk in third trimester- Primary Hypothyroidism affecting in third trimester Prediabetes Other abnormal glucose Class 2 obesity Obesity in , antepartum Obesity complicating , childbirth, or the puerperium, antepartum condition or complication Antepartum anemia complicating Anemia, antepartum Gestational hypertension without significant proteinuria in third trimester Transient hypertension of , antepartum Hemorrhoids without complication Unspecified hemorrhoids without mention of complication Gestational hypertension without significant proteinuria in third trimester Transient hypertension of , antepartum documented in this encounter Care Teams Fine Arts Packer Relationship Specialty Start Date End Date Lorelei Mccormack DO [address] [facility] [place] [address] PCP - General Family Medicine 03/07/22 documented as of this encounter
--- OUTSIDE RECORDS SUMMARY | 2023-05-04 07:39 | External Medical Summary ---
Author Name Unknown Address Unknown Organization [facility] [address] [place] [address] Laboratory Report Ordering Provider Test Date Status CARLOZ CRAWFORD 04/21/2023 12:17:33 Final Observation Date Value Abnormality Reference (Units ) Status BUN 04/21/2023 12:17:33 6 6-20 (mg/dL) Final Creatinine 04/21/2023 12:17:33 0.5 0.5-1.0 (mg/dL) Final Glomerular filtration rate/1.73 sq M.predicted [Volume Rate/Area] in Serum, Plasma or Blood by Creatinine-based formula (CKD-EPI) 04/21/2023 12:17:33 >90 >=60 (mL/min) Final eGFR is calculated based on the CKD-EPI 2020 equation SODIUM 04/21/2023 12:17:33 137 135-146 (m mol/L) Final Potassium 04/21/2023 12:17:33 4.0 3.5-5.1 (m mol/L) Final Cl 04/21/2023 12:17:33 103 98-107 (mm ol/L) Final CO2 04/21/2023 12:17:33 22 22-32 (mmo l/L) Final Anion gap 04/21/2023 12:17:33 12 7-15 (mmol /L) Final Glucose 04/21/2023 12:17:33 108 70-120 (mg /dL) Final Calcium 04/21/2023 12:17:33 9.8 8.4-10.2 ( mg/dL) Final [facility] [address] [place] [address]
--- OUTSIDE RECORDS SUMMARY | 2023-05-04 07:39 | External Medical Summary | Summary of Care ---
Author Name Unknown Organization [facility] Address [address] [place] [place] [address] Phone [phone] Care Team Providers Care Senior Net Software Developer Name Role Phone Lorelei Mccormack DO Primary Care Provider Reason for Visit * Reason Comments Non Stress Test Encounter Details Date Type Department Care Team (Late st Contact Info) Description 04/19/2023 1:00 PM EDT Office Visit Gynecology/Obstetri cs Codey Villagomez [address] [facility] [place] [address] Mary Oliveira, ADAM [address] [facility] [place], [place] [id number] [place] Non Stress Tests [place] [address] [place] [address] Hypothyroidism affecting in third trimester*; Prediabetes; Class 2 obesity; Obesity in , antepartum; Antepartum anemia complicating ; Gestational hypertension without significant proteinuria in third trimester; High-risk in third trimester Allergies No known active allergiesdocumented as of this encounter (statuses as of 04/19/2023) Medications Medication Sig Dispensed Refills Start Date [...] as of this encounter (statuses as of 04/19/2023) Active Problems Problem Noted Date Diagnosed Date [...] as of this encounter (statuses as of 04/19/2023) Resolved Problems Problem Noted Date Diagnosed Date Resolved Date with 11 completed weeks gestation 10/31/2022 12/29/2022 Normal 10/30/2022 04/16/2023 Supervision of high risk pre gnancy in first trimester 10/30/2022 04/16/2023 documented as of this encounter (statuses as of 04/19/2023) Immunizations Name Administration Dates Next Due TDAP [...] money to get more. Never true 12/08/2022 [place] Depression Scale Answer Date Recorded [place] Depression Scale Total 0 03/12/2023 The thought [...] Sign Reading Time Taken Comments Blood Pressure 118/62 04/19/2023 1:00 PM EDT Pulse - - Temperature - - Respiratory Rate - - Oxygen Saturation - - Inhaled Oxygen Concentration - - Weight 99.3 kg (219 lb) 04/19/2023 1:00 PM EDT Height - - Body Mass Index 37.59 04/13/2023 9:07 AM EST documented in this encounter Progress Notes * Mary Oliveira CNM - 04/19/2023 1:15 PM EDT ASSESSMENT assessment with Non-stress Test completed on 04/19/2023 at 35weeks gestation for indication ofgestational hypertension heart baseline: 130 bpm Variability: Moderate Decelerations: absent Accelerations: present Contractions: None NST start time: 1255 NST stop time: 1317 NST strip reviewed, interpreted, and approved by OB provider, Dexter Oliveira CNM. NST strip stored in clinic storage file documented in this encounter Plan of Treatment Upcoming Encounters Date Type Department Care Team (Late st Contact Info) Description 04/24/2023 10:15 AM EDT Office Visit Gynecology/Obstetrics Codey Villagomez [address] [place] [address] Valentine Barclay CRNP [address] [place] [address] Villag[place], Non Stress Tests [place] [address] [place] [address] 04/26/2023 7:30 AM EDT Imaging Maternal Medicine Imaging, [place] Villagomez [address] [place] [address] 04/27/2023 7:45 AM EDT Office Visit Gynecology/Obstetrics Codey Mendozas [address] [place] [address] Karlie Infante PA-C [address] [place] [address] 05/01/2023 9:30 AM EDT Office Visit Gynecology/Obstetrics Codey Mendozas [address] [place] [address] Miriam Abdi CRNP [address] [place] [address] [place] Non Stress Tests [place] [address] [place] [address] 05/04/2023 2:15 PM EDT Office Visit Gynecology/Obstetrics Codey Mendozas [address] [place] [address] Miriam Abdi CRNP [address] [place] [address] [place], Non Stress Tests [place] [address] [place] [address] 05/08/2023 9:30 AM EDT Office Visit Gynecology/Obstetrics Codey Mendozas [address] [place] [address] Miriam Abdi CRNP [address] [place] [address] [place] Non Stress Tests [place] [address] [place] [address] 05/11/2023 11:00 AM EDT Office Visit Gynecology/Obstetrics Codey Villagomez [address] [place] [address] Valentine Barclay CRNP [address] [place] [address] [place] Non Stress Tests [place] [address] [place] [address] 05/15/2023 11:15 AM EDT Office Visit Gynecology/Obstetrics Codey Villagomez [address] [place] [address] BackValentine mauricio CRNP [address] [place] [address] [place] Non Stress Tests [place] [address] [place] [address] 05/18/2023 9:15 AM EDT Office Visit Gynecology/Obstetrics Codey Villagomez [address] [place] [address] Ana Edwards PA-C [address] [place] [address] [place] Non Stress Tests [place] [address] [place] [address] 11/23/2023 1:40 PM EDT Office Visit Nephrology, [facility] [address] [facility] [place] [address] Simona Gutierrez MD [address] [place] [address] Health Maintenance Due Date Last Done Comments Depression Screening 2002 Hepatitis B (1 of 3 - 19+ 3-dose series) 2009 COVID-19 Vaccine (1 - 2022-24 season) 2022 Influenza Vaccine (FLU shot) (#1) 2022 TSH 02/24/2024 02/23/2023, 10/15/2022 GFR 04/12/2024 04/13/2023, 03/0 05/2023, 03/30/2023, Additional history exists Pap Smear 05/31/2025 05/31/2022 [...] as of this encounter Visit Diagnoses Diagnosis Hypothyroidism affecting in third trimester- Primary Prediabetes Other abnormal glucose Class 2 obesity Obesity in , antepartum Obesity complicating , childbirth, or the puerperium, antepartum condition or complication Antepartum anemia complicating Anemia, antepartum Gestational hypertension without significant proteinuria in third trimester Transient hypertension of , antepartum High-risk in third trimester documented in this encounter Care Teams Senior Net Software Developer Relationship Specialty Start Date End Date Lorelei Mccormack DO [address] [place] [address] PCP - General Family Medicine 03/07/22 documented as of this encounter
--- OUTSIDE RECORDS SUMMARY | 2023-05-04 07:39 | External Medical Summary ---
Author Name Unknown Address Unknown Organization [facility] [place] [place] [address] [place] [address] Laboratory Report Ordering Provider Test Date Status ROMARIO TERRAZAS 04/24/2023 11:31:46 Final Observation Date Value Abnormality Reference (Units ) Status BUN 04/24/2023 11:31:46 6 6-20 (mg/dL) Final Creatinine 04/24/2023 11:31:46 0.5 0.5-1.0 (mg/dL) Final Glomerular filtration rate/1.73 sq M.predicted [Volume Rate/Area] in Serum, Plasma or Blood by Creatinine-based formula (CKD-EPI) 04/24/2023 11:31:46 >90 >=60 (mL/min) Final eGFR is calculated based on the CKD-EPI 2020 equation SODIUM 04/24/2023 11:31:46 137 135-146 (m mol/L) Final Potassium 04/24/2023 11:31:46 3.9 3.5-5.1 (m mol/L) Final Cl 04/24/2023 11:31:46 104 98-107 (mm ol/L) Final CO2 04/24/2023 11:31:46 21 Below low normal 22- 32 (mmol/L) Final Anion gap 04/24/2023 11:31:46 12 7-15 (mmol /L) Final Glucose 04/24/2023 11:31:46 99 70-120 (mg /dL) Final Albumin 04/24/2023 11:31:46 3.6 Below low normal 3.8 -5.0 (g/dL) Final AST (Aspartate aminotransferase) 04/24/2023 11:31:46 15 10-35 (U/L) Fin al Alk Phos 04/24/2023 11:31:46 118 35-130 (U/ L) Final Bilirubin, Total 04/24/2023 11:31:46 0.2 <=1 .2 (mg/dL) Final Calcium 04/24/2023 11:31:46 10.2 8.4-10.2 ( mg/dL) Final Protein 04/24/2023 11:31:46 6.3 6.0-8.3 (g /dL) Final ALT (Alanine aminotransferase) 04/24/2023 11:31:46 12 10-35 (U/L) John haynes Performing Location [facility] [place] [address] [facility] [address]
--- OUTSIDE RECORDS SUMMARY | 2023-05-04 07:39 | External Medical Summary | Summary of Care ---
Author Name Unknown Organization [facility] Address [address] [place] [address] Phone [phone] Care Team Providers Care Perioperative Educator Name Role Phone Lorelei Mccormack DO Primary Care Provider Reason for Visit * Reason Onset Date Comments Test Results 04/17/2023 Encounter Details Date Type Department Care Team (Late st Contact Info) Description 04/17/2023 Telephone Nephrology, [address] [address] Simona Gutierrez MD [address] [place] [id number] Test Results Allergies No known active [...] money to get more. Never true 12/08/2022 [place] Depression Scale Answer Date Recorded [place] Depression Scale Total 0 03/12/2023 The thought [...] as of this encounter Miscellaneous Notes * Telephone Encounter - Suki Doyle LPN - 04/17/2023 9:06 AM EDT Pt aware of recommendations from Dr Peters who was coving for Dr Gutierrez Pt will repeat BMP in 5 days Lab orders placed at [employer] system Dr Matt GLOVER * Telephone Encounter - Suki Doyle LPN - 04/17/2023 9:05 AM EDT ----- Message from Mague Peters MD sent at 04/13/2023 3:47 PM EST ----- Kidney labs stable and potassium normalized; continue same. Repeat basic metabolic panel in 5 days>> renal nurses please enter order under primary publicity manager documented in this encounter Plan of Treatment Upcoming Encounters Date Type Department Care Team (Late st Contact Info) Description 04/19/2023 1:00 PM EDT Office Visit Gynecology/Obstetrics Codey Villagomez [address] [place] [address] Mary Oliveira, ADAM [address] [place] [address] [place], Non Stress Tests [place] [address] [place] [address] 04/24/2023 10:15 AM EDT Office Visit Gynecology/Obstetrics Codey Villagomez [address] [place] [address] Backer, Valentine Hernandez, COMMUNICATIONS DEPARTMENT HEAD [address] [place] [address] [place] Non Stress Tests [place] [address] [place] [address] 04/26/2023 7:30 AM EDT Imaging Maternal Medicine Imaging, [place] Villagomez [address] [place] [phone] 04/27/2023 7:45 AM EDT Office Visit Gynecology/Obstetrics Codey Mendozas [address] [place] [address] Karlie Infante PA-C [address] [place] [address] 05/01/2023 9:30 AM EDT Office Visit Gynecology/Obstetrics Codey Mendozas [address] [place] [address] Miriam Abdi CRNP [address] [place] [address] [place] Non Stress Tests [place] [address] [place] [address] 05/04/2023 2:15 PM EDT Office Visit Gynecology/Obstetrics Codey Mendozas [address] [place] [address] Miriam Abdi CRNP [address] [place] [address] [place] Non Stress Tests [place] [address] [place] [address] 05/08/2023 9:30 AM EDT Office Visit Gynecology/Obstetrics Codey Mendozas [address] [place] [address] Miriam Abdi CRNP [address] [place] [address] [place] Non Stress Tests [place] [address] [place] [address] 05/11/2023 11:00 AM EDT Office Visit Gynecology/Obstetrics Codey Villagomez [address] [place] [address] Valentine Barclay CRNP [address] [place] [address] [place] Non Stress Tests [place] [address] [place] [address] 05/15/2023 11:15 AM EDT Office Visit Gynecology/Obstetrics Codey Villagomez [address] [place] [address] Valentine Barclay CRNP [address] [place] [address] [place] Non Stress Tests [place] [address] [place] [address] 05/18/2023 9:15 AM EDT Office Visit Gynecology/Obstetrics Codey Villagomez [address] [place] [address] Ana Edwards PA-C [address] [place] [address] [place] Non Stress Tests [place] [address] [place] [address] 11/23/2023 1:40 PM EDT Office Visit Nephrology, [facility] [address] [place] [address] Simona Gutierrez MD [address] [place] [address] Scheduled Orders Name Type Priority Associated Diagnoses Orde r Schedule BASIC METABOLIC PANEL Lab Routine Hypokalemia Expected: 04/17/2023 (Approximate), Expires: 04/16/2024 Health Maintenance Due Date Last Done Comments Depression Screening 2002 Hepatitis B (1 of 3 - 19+ 3-dose series) 2009 COVID-19 Vaccine (2022- season) 2022 Influenza Vaccine (FLU shot) (#1) 2022 TSH 02/24/2024 02/23/2023, 10/15/2022 GFR 04/12/2024 04/13/2023, 05/2023, 03/30/2023, Additional history exists Pap Smear [...] as of this encounter Visit Diagnoses Diagnosis Hypokalemia- Primary Hypopotassemia documented in this encounter Care Teams Perioperative Educator Relationship Specialty Start Date End Date Lorelei Mccormack DO [address] [facility] [place] [address] PCP - General Family Medicine 03/07/22 documented as of this encounter
--- OUTSIDE RECORDS SUMMARY | 2023-05-04 07:39 | External Medical Summary ---
Author Name Unknown Address Unknown Organization [id number]:[facility] [place] [address] Laboratory Report Ordering Provider Test Date Status ROMARIO TERRAZAS 04/24/2023 11:31:46 Final Observation Date Value Abnormality Reference (Units ) Status WBC, Total 04/24/2023 11:31:46 14.17 Above high normal 4 .00-10.80 (K/uL) Final RBC 04/24/2023 11:31:46 3.79 3.85-5.15 (M/uL) Final Hemoglobin 04/24/2023 11:31:46 11.7 Below low normal 12 .0-15.3 (g/dL) Final HCT 04/24/2023 11:31:46 34.6 Below low normal 36. 0-45.2 (%) Final MCV 04/24/2023 11:31:46 91.3 81.5-97.5 (fL) Final MCH 04/24/2023 11:31:46 30.9 27.0-34.0 (pg) Final MCHC 04/24/2023 11:31:46 33.8 32.0-36.0 (g/dL) Final RDW 04/24/2023 11:31:46 16.2 11.5-15.5 (%) Final Platelets 04/24/2023 11:31:46 289 140-400 (K /uL) Final MPV 04/24/2023 11:31:46 9.7 6.6-11.1 ( fL) Final [facility] [address] [facility] [address] [place] [address]
--- OUTSIDE RECORDS SUMMARY | 2023-05-04 07:39 | External Medical Summary | Summary of Care ---
Author Name Unknown Organization [facility] Address [address] [facility] [facility] [address] Phone [phone] Care Team Providers Care Drug Clerk Name Role Phone Lorelei Mccormack DO Primary Care Provider [phone] Reason for Visit * Reason Comments Return Visit Non Stress Test Encounter Details Date Type Department Care Team (Late st Contact Info) Description 04/24/2023 10:15 AM EDT Office Visit Gynecology/Obstetric s [facility] Villagomez [address] [place] [address] Valentine Barclay CRNP [address] [place] [address] [place], Non Stress Tests [place] [address] [place] [address] High-risk in third trimester*; Hypothyroidism affecting in [...] money to get more. Never true 12/08/2022 [place] Depression Scale Answer Date Recorded [place] Depression Scale Total 0 03/12/2023 The thought [...] Return later in the week for NST. 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 Name of practicing md anesthesiologist: Crystal Goff LPN ASSESSMENT assessment with Non-stress [...] [place] Villagomez [address] [place] [phone] 04/26/2023 7:30 AM EDT Office Visit [place] Assessor Obstetrics Maternal Medicine, [place] Villagomez [address] [place] [address] Margaret Rosenthal, DO [address] [place] [address] 04/27/2023 7:45 AM EDT Office Visit Gynecology/Obstetrics [facility] Villagomez [address] [place] [address] Karlie Infante PA-C [address] [place] [address] 05/01/2023 9:30 AM EDT Office Visit Gynecology/Obstetrics [facility] Villagomez [address] [place] [address] Miriam Abdi CRNP [address] [place] [address] [place] Non Stress Tests [place] [address] [place] [address] 05/04/2023 2:15 PM EDT Office Visit Gynecology/Obstetrics [facility]rey[facility]anda Villagomez [address] [place] [address] Miriam Abdi CRNP [address] [place] [address] [place], Non Stress Tests [place] [address] [place] [address] 11/23/2023 1:40 PM EDT Office Visit Nephrology, [address] [place] [address] Simona Gutierrez MD [address] [facility] [place], [place] [phone] Pending Results Name Type Priority Associated Diagnoses Date /Time GROUP B STREP CULTURE/PCR Lab Routine High-risk in third trimester 04/24/2023 11:24 AM EDT Scheduled Orders Name Type Priority [...] Depression Screening 04/18/2024 04/19/2023 GFR 04/20/2024 04/21/2023, 03/0 09/2023, 04/09/2023, Additional history exists Pap Smear 05/31/2025 [...] Negative Ketone, Urine Trace Negative mg/dL Specific [place], Urine 1.020 1.003 - 1.030 Blood, Urine [...] complication documented in this encounter Care Teams Drug Clerk Relationship Specialty Start Date End Date Lorelei Mccormack DO [address] [facility] [place] [address] PCP - General Family Medicine 03/07/22 documented as of this encounter
--- OUTSIDE RECORDS SUMMARY | 2023-05-04 07:39 | External Medical Summary | Summary of Care ---
Author Name Unknown Organization [facility] Address [address] [place] [place] [place] [address] Phone [phone] Care Team Providers Care Tissue Inserter Name Role Phone Lorelei Mccormack DO Primary Care Provider Reason for Visit * Reason Comments Outpatient Testing Encounter Details Date Type Department Care Team (Late st Contact Info) Description 04/24/2023 1:20 PM EDT Laboratory Laboratory, [facility] [address] [place] [phone] [facility] [address] [place] [address] Gestational hypertension without significant proteinuria in third [...] GLUCOSE, 100-G GESTATIONAL GLUCOSE, HEMOGLOBIN A1C - [employer] Baseline Preeclampsia Labs Lab Results Component Value [...] money to get more. Never true 12/08/2022 [place] Depression Scale Answer Date Recorded [place] Depression Scale Total 0 03/12/2023 The thought [...] Medicine Imaging, [place] Villagomez [address] [place] [address] 04/26/2023 7:30 AM EDT Office Visit Department Coordinator Obstetrics Maternal Medicine, [place] Villagomez [address] [place] [address] Margaret Rosenthal, DO [address] [place] [address] 04/27/2023 7:45 AM EDT Office Visit Gynecology/Obstetrics Codey Villagomez [address] [place] [address] Karlie Infante PA-C [address] [place] [address] 05/01/2023 9:30 AM EDT Office Visit Gynecology/Obstetrics Codey Villagomez [address] [place] [address] Miriam Abdi CRNP [address] [place] [address] Jodi Villagomez Stress Tests [place] [address] [place] [address] 05/04/2023 2:15 PM EDT Office Visit Gynecology/Obstetrics Codey Villagomez [address] [place] [address] Miriam Abdi CRNP [address] [place] [address] [place], Non Stress Tests [place] [address] [place] [address] 11/23/2023 1:40 PM EDT Office Visit Nephrology, [facility] [address] [place] [address] Simona Gutierrez MD [address] [facility] [place] [address] Pending Results Name Type Priority Associated Diagnoses Date /Time COMPREHENSIVE METABOLIC PANEL Lab Routine Gestational hypertension without significant proteinuria in third trimester 04/24/2023 11:31 AM EDT CBC Lab Routine Gestational hypertension without significant proteinuria in third trimester 04/24/2023 11:31 AM EDT Health Maintenance Due Date Last Done Comments Hepatitis B (1 of 3 - 19+ 3-dose series) 2009 COVID-19 Vaccine ( season) 2022 Influenza Vaccine (FLU shot) (#1) [...] as of this encounter Visit Diagnoses Diagnosis Gestational hypertension without significant proteinuria in third trimester Transient hypertension of , antepartum documented in this encounter Care Teams Tissue Inserter Relationship Specialty Start Date End Date Lorelei Mccormack DO [address] [facility] [place] [address] PCP - General Family Medicine 03/07/22 documented as of this encounter
--- OUTSIDE RECORDS SUMMARY | 2023-05-04 07:39 | External Medical Summary ---
Author Name Unknown Address Unknown Organization [id number][facility] [place] [facility] [address] [facility] [address] Laboratory Report Ordering Provider Test Date Status ROMARIO TERRAZAS 04/24/2023 11:24:59 Final Observation Date Value Abnormality Reference (Units ) Status Streptococcus agalactiae DNA [Presence] in Specimen by HUANG with probe detection 04/24/2023 11:24:59 Negative Negative Final No Group B Streptococcus det ected by culture-enhanced PCR (amplified probe).
The collection of vaginal/rectal swab specimen combinations (FDA approved specimen type) is optimal for the detection of Group B Streptococcus. Single source collection (vaginal only or rectal only) or alternate specimen sources may lead to false negative results. Performing Location [facility] [place] [address] [place] [address]
--- OUTSIDE RECORDS SUMMARY | 2023-05-04 07:40 | External Medical Summary ---
Author Name Unknown Address Unknown Organization [id number][facility] [place] [facility] [address] [place] [address] Laboratory Report Ordering Provider Test Date Status ISABEL PHAN 04/13/2023 09:56:23 Final Normal: <150 mg/ g creatinine
High: 150-500 mg/g creatinine
Very High: >500 mg/g creatinine
Nephrotic: >3000 mg/g creatinine Observation Date Value Abnormality Reference (Units ) Status Protein/Creatinine [Ratio] in Urine 04/13/2023 09:56:23 200 Above high normal <150 (mg/g ) Final Protein, Urine 04/13/2023 09:56:23 7 (mg/dL) Final Creatinine, Urine 04/13/2023 09:56:23 35 (mg/dL) Final Performing Location [facility] [place] [address] [place] [address]
--- OUTSIDE RECORDS SUMMARY | 2023-05-04 07:40 | External Medical Summary ---
Author Name Unknown Address Unknown Organization K0G:[facility] [address] - [address] [place] [address] Laboratory Report Ordering Provider Test Date Status ISABEL PHAN 04/13/2023 09:52:53 Final Observation Date Value Abnormality Reference (Units ) Status AST (Aspartate aminotransferase) 04/13/2023 09:52:53 7 Below low normal 10-35 (U/L) Final Performing Location [facility] [address] [place] [address]
--- OUTSIDE RECORDS SUMMARY | 2023-05-04 07:40 | External Medical Summary | Summary of Care ---
Author Name Unknown Organization [facility] Address [address] [place] [address] Phone [phone] Care Team Providers Care Payroll Services Analyst Name Role Phone Lorelei Mccormack DO Primary Care Provider [phone] Reason for Visit * Reason Comments Consultation Gestational hyperten antwan * Evaluate & Treat - Unlimited Visits (Within 10 days (routine)) - Authorized Specialty Diagnoses / Procedures Referred By Olu roman Referred To Contact Obstetrics/Gynecology / Maternal Medicine Diagnoses Gestational hypertension without significant proteinuria in third trimester Karlie Infante PA-C [address] [place] [address] Referral ID Status Reason Start Date Expiration Date Visits Requested Visits Authorized [id number] Authorized Specialty Services Required 04/02/2023 04/02/2024 [id number] Encounter Details Date Type Department Care Team ([facility] st Contact Info) Description 04/18/2023 7:30 AM EDT Telemedicine Bag Machine Set Up Operator Obstetrics Maternal Medicine, [place] [address] [facility] [address] [place] [address] Stanislav Frances CRNP [address] [facility] [address] [place] [address] Gestational hypertension without significant proteinuria in third trimester*; Supervision of high risk , antepartum, third trimester; 35 weeks gestation of Allergies No known active allergiesdocumented as of this encounter (statuses as of 04/18/2023) Medications Medication Sig Dispensed Refills Start Date End Date Status metFORMIN HCl ER 500 MG Oral Tablet Extended Release 24 Hour (Glucophage XR) 0 04/14/2022 Active Levothyroxine Sodium 75 MCG Oral Tablet (Levoxyl) TAKE ONE TABLET BY MOUTH EVERY DAY ON AN EMPTY STOMACH 0 05/21/2022 Active Vitamin D (Cholecalciferol) 50 MCG (2000 UT) Oral Capsule Take by mouth. 0 [...] as of this encounter (statuses as of 04/18/2023) Active Problems Problem Noted Date Diagnosed Date [...] as of this encounter (statuses as of 04/18/2023) Resolved Problems Problem Noted Date Diagnosed Date Resolved Date with 11 completed weeks gestation 10/31/2022 12/29/2022 Normal 10/30/2022 04/16/2023 Supervision of high risk pre gnancy in first trimester 10/30/2022 04/16/2023 documented as of this encounter (statuses as of 04/18/2023) Immunizations Name Administration Dates Next Due TDAP [...] money to get more. Never true 12/08/2022 Newcastle Depression Scale Answer Date Recorded Newcastle Depression Scale Total 0 03/12/2023 The thought [...] as of this encounter Progress Notes * Stanislav Frances CRNP - 04/18/2023 7:45 AM EDT MATERNAL MEDICINE CONSULT Sara Basurto 04/18/23 REFERRING PROVIDER: Karlie Infante PA-C Patient location: HOME. I was in a hospital or clinic location. After connecting through [employer],patient was verified with two unique identifiers. Patient (or authorized legal termite control service representative) was then informed that this was a Telemedicine visit and being conducted confidentially over secure lines. Methods to assure confidentiality were taken. Patient acknowledged consent and understanding of pr ivacy and security of the Telemedicine visit. The patient agreed to participate. Sara Basurto is a 32 year old with intrauterine at 35w2d (Estimated Date of Delivery: 05/21/23 by 8w2d ultrasound) who presents today for an MFM consult due to gestational hypertension. Ms. Basurto had a full MFM consult on 10/31/22 due to hypothyroidism, class II obesity and prediabetes Please refer to prior MFM consult and notes for details regarding additional risk factors and recommendations. HPI/CURRENT : pre- BMI=class 2 obesity (92.5 kg (204 lb); 5' 4"); FOB #1; complicated by above. Genetic testing: Opted out OB [facility] Villag[facility] Problems (from 10/19/22 to present) Problem Noted Resolved High-risk Gestational hypertension without significant proteinuria in third trimester Overview Addendum 04/18/2023 7:30 AM by Stanislav Frances CRNP BP Readings from Last 9 Encounters: 04/03/23 [...] - [facility] 200 (H) 04/13/2023 09:56 AM I have reviewed this patient's previous OB ultrasound reports, pertinent labwork and testing provided by her referring OB provider. Current Outpatient Medications Medication Sig Dispense Refill Aspirin 81 MG Oral Capsule Take by mouth. Levothyroxine Sodium 75 MCG Oral Tablet (Levoxyl) TAKE ONE TABLET BY MOUTH EVERY DAY ON AN EMPTY STOMACH metFORMIN HCl ER 500 MG Oral Tablet Extended Release 24 Hour (Glucophage XR) (Patient not taking: Reported on 04/18/2023) Metoclopramide HCl 10 MG Oral Tablet (Reglan) Take 0.5 Tablets by mouth every 8 hours as needed forNausea. (Patient not taking: Reported on 03/23/2023) 30 Tablet 0 Potassium Chloride Lilibeth ER 20 MEQ Oral Tablet Extended Release Take 1 Tablet by mouth in the morning and 1 Tablet before bedtime. 180 Tablet 3 6.75-0.2 MG Oral Tablet Take by mouth. Vitamin D (Cholecalciferol) 50 MCG (2000 UT) Oral Capsule Take by mouth. No current facility-administered medications for this visit. Review of patient's allergies indicates: No Known Allergies OB History Para Term AB Living 1 0 0 0 0 0 SAB IAB Ectopic Multiple Live Births 0 0 0 0 0 # Outcome Date GA Lbr Stephen/2nd Weight Sex Delivery Anes PTL Lv 1 Current Obstetric Comments 2023 FOB Wilfrid Basurto, age 32(she), healthy, no other children Past Medical History: Diagnosis Date Gestational hypertension without significant proteinuria in third trimester 04/03/2023 BP Readings from Last 9 Encounters: 04/03/23 118/66 03/30/23 122/70 03/30/23 125/81 03/30/23 140/ 126/83 03/23/23 143/84 03/12/23 128/64 02/23/23 120/70 01/26/23 124/66 Currently on aspirin 81 mg therapy Hypothyroidism 2011 PCOS (polycystic ovarian syndrome) Vitamin D deficiency Past Surgical History: Procedure Laterality Date CA TONSILLECTOMY & ADENOIDECTOMY AGE 12 OR MORE Family History Problem Relation Age of Onset Autoimmune disease Mother Stomach cancer Grandmother (Paternal) Social History Tobacco Use Smoking status: Never Smokeless tobacco: Never Substance Use Topics Alcohol use: Not Currently Comment: occ Drug use: Never REVIEW OF SYSTEMS: headaches: no nausea/vomiting: denies reports movement: yes abdominal pain/tenderness/cramping/contractions: no vaginal bleeding: no vaginal leaking of fluid: no all other systems negative PHYSICAL EXAM: LMP 08/02/2022 General: Well appearing Psych: Alert to time, place, and person and Pleasant DISCUSSION/RECOMMENDATIONS: Problem List Items Addressed This Visit OB [facility] Gestational hypertension without significant proteinuria in third trimester - Primary CONSIDERATIONS: Explained to patient that a woman [...] If the blood pressures are greater than orequal to 160mmHg systolic or greater than or equal to 110mmHg diastolic, gestational hypertension can be confirmed within minutes and appropriate management in the hospital should then occur. RECOMMENDATIONS: Recommend patient be seen by her primary OB provider on weekly basis for BP check, and labwork withAST/ALT and platelets, and urine protein screen. Recommend [...] within 24-48 hours. Recommend close monitoring of BPs for 72 hours and then again at 7-10 days . Other Visit Diagnoses Supervision of high risk , antepartum, third trimester 35 weeks gestation of Follow up ultrasound with Maternal Medicine is scheduled on 04/26/[address] Rosenthal for growthscan Patient is aware of upcoming MFM appointment. BISI Glynn 04/18/2023 7:58 AM documented in this encounter Miscellaneous Notes * Pt Handout (on AVS) - Stanislav Frances CRNP - 04/18/2023 7:38 AM EDT Images from the original note were not included. [id number] Understanding Preeclampsia Preeclampsia is a condition that can happen in . It includes high blood pressure (hypertension), swelling, and signs of organ problems. It can show up around week 20 of . It often goes away by 12 weeks after you give . It can lead to serious health risks for you and your baby. During your , your healthcare provider will watch your blood pressure. Your blood pressure will be monitored regularly throughout your to help check for preeclampsia. Dangers of preeclampsia If not treated, preeclampsia can cause problems for you and your baby. The placenta is the organ that nourishes your baby. It may tear away from the wall of the uterus. This can put the baby at risk for health problems ( distress). It can put the baby at risk for . Preeclampsia can also cause these health problems in you: Kidney failure or other organ damage Seizures Stroke Who?s at risk for preeclampsia? No one knows what causes preeclampsia. It can happen in any person. But there are things that increase your risk. You may need to take a daily low dose of aspirin if you are at risk for preeclampsia. You?re at higher risk for preeclampsia if you have any of these: Diabetes High blood pressure Obesity Kidney disease Autoimmune disease such as lupus A family history of preeclampsia You?re at higher risk if any of these apply to you: This is your first You are having twins or more You?re under age 18 or over age 40 You used in vitro fertilization You are Black And you?re at higher risk if you had any of these in a past : Preeclampsia Intrauterine growth restriction (IUGR) Placental abruption Symptoms A common symptom of preeclampsia is high blood pressure. Other symptoms may include: Fast weight gain Protein in your urine Headache Belly (abdominal) pain on your right side Vision problems such as flashes or spots Swelling (edema) in your face or hands (this often happens near the end of a normal ) Tests you may have Your healthcare provider will want to check your blood pressure. This will need to be done often inyour . If your blood pressure is high, you may have these tests: Urine tests to look for protein Blood tests to confirm preeclampsia monitoring to make sure that your baby is healthy Treating preeclampsia Preeclampsia almost always ends soon after you give . Until then, your healthcare provider canhelp you manage it. If your symptoms are mild, you may to: Limit your activity Rest in bed Not do heavy lifting If your symptoms are severe, you will stay in the hospital. Treatment here may include: Limits to your activity. This is to help control your blood pressure. You should not lift anything heavy. You will need to spend 8 hours a day lying down with your feet up. Magnesium IV (intravenous) drip. This is done during labor. It's to prevent seizures Induced labor or section. When to call your healthcare provider Call your healthcare provider if your symptoms start quickly or are severe. This includes swelling,weight gain, or other symptoms. Some cases of preeclampsia are more severe than others. Your symptoms also may change or get worse as you get closer to your due date. Once you give In most cases, preeclampsia goes away on its own soon after you give . This is often by the 12th week after you deliver. Within days after you give , your blood pressure, swelling, and other symptoms should get better. But for some people, problems from preeclampsia can continue after . preeclampsia Preeclampsia that starts after is rare. There are 2 types: preeclampsia. This may start in the first 48 hours after . Late-onset preeclampsia. This starts more than 48 hours after . Both of these types are rare. But call your healthcare provider right away if you have symptoms of preeclampsia after you give . How daily issues affect your health Many things in your daily life impact your health. This can include transportation, money problems,housing, access to food, and child care lead teacher. If you can?t get to medical appointments, you may not receive the care you need. When money is tight, it may be difficult to pay for medicines. And living farfrom a grocery store can make it hard to buy healthy food. If you have concerns in any of these or other areas, talk with your healthcare team. They may know of local resources to assist you. Or they may have a staff person who can help. Last Reviewed Date: 11/05/202019995602-2747 [employer]. All rights reserved. This information is not intended as a substitute for professional medical care. Always follow your healthcare professional's instructions. * Pt Handout (on AVS) - Stanislav Frances CRNP - 04/18/2023 7:38 AM EDT [id number] Gestational Hypertension What is gestational hypertension? Gestational hypertension is high blood pressure in . It occurs in about 3 in 50 pregnancies. This condition is different from chronic hypertension. Chronic hypertension happens when a person has high blood pressure before they get . It?s also different from preeclampsia and eclampsia. These are other blood pressure problems in . Gestational hypertension often starts in the second half of . It normally goes away after your baby is born. What causes gestational hypertension? Healthcare providers don't know what causes this condition. The following things may increase your risk: Having high blood pressure before or with a past Having kidney disease Having diabetes Being younger than 20 years of age or older than 40 years of age Being with multiples, such as twins or triplets Being What are the symptoms of gestational hypertension? Symptoms can occur a bit differently in each . The main symptom is high blood pressure in the second half of . High blood pressure in can lead to other serious issues. These can include preeclampsia. You should watch for signs of high blood pressure, but some people don't have any symptoms. They caninclude: Headache that doesn?t go away Edema (swelling) Sudden weight gain Vision changes, such as blurred or double vision Nausea or vomiting Pain in the upper right side of your belly, or pain around your stomach Making small amounts of urine How is gestational hypertension diagnosed? If your blood pressure increases, your healthcare provider may diagnose you with this condition. You may also have the following tests to check for this issue: Blood pressure readings Urine testing to check for protein, which is a sign that your kidneys aren?t working well Checking for swelling Checking your weight more often Liver and kidney function tests Blood clotting tests How is gestational hypertension treated? Blood pressure monitoring Your healthcare provider may check your blood pressure more often. You should also tell your healthcare provider if you have any new symptoms. monitoring Your healthcare provider may do tests to check the health of your baby. These tests may include: movement counting. You?ll keep track of your baby?s kicks and movements. A change in the number of kicks or how often your baby kicks may mean your baby is under stress. Nonstress testing. This test measures your baby?s heart rate in response to its movements. Biophysical profile. This test combines a nonstress test with an ultrasound to watch your baby. Doppler flow studies. This test is a type of ultrasound that uses sound waves to measure the flow of your baby?s blood through a blood vessel. Lab testing Your healthcare provider may test your urine and blood at every checkup. This testing willtell if your condition is getting worse. Medicine Your healthcare provider may give you corticosteroids. These medicines can help your baby?s lungs mature. You?ll get these medicines if it looks like your baby is going to be born early. What are possible complications of gestational hypertension? High blood pressure can affect your blood vessels. It may decrease blood flow in your liver, kidneys, brain, uterus, and placenta. This condition can get worse. It can lead to preeclampsia and eclampsia. These are serious blood pressure problems. These issues can cause the following problems: Placental abruption, when the placenta pulls away from the uterus too early Poor growth (intrauterine growth restriction) Stillbirth Seizures (eclampsia) of the mother and baby Because of these risks, your healthcare provider may decide that you need to have your baby early. This may happen before 37 weeks of . Even if your blood pressure goes back to normal after childbirth, you have a higher chance of having high blood pressure in the future. Can gestational hypertension be prevented? Having this issue diagnosed and treated early may help reduce your risk for complications. That's why it?s important to go to your checkups. Doing so may keep your condition from getting worse. When should I call my healthcare provider? Call your healthcare provider right away if you have signs of high blood pressure. Symptoms can include a headache that doesn?t go away, blurred or double vision, swelling, or making less urine than normal. Crowe points about gestational hypertension Gestational hypertension is a form of high blood pressure in . It occurs in about 3 in 50 pregnancies. This condition can affect the health of both the parent and the baby, depending on how severe the issue is. Call your healthcare provider right away if you have signs of high blood pressure. Symptoms can include a headache that doesn?t go away, blurred or double vision, swelling, or making less urine than normal. The goal of treatment is to prevent the condition from getting worse and causing other problems. Next steps Tips to help you get the most from a visit to your healthcare provider: Know the reason for your visit and what you want to happen. Before your visit, write down questions you want answered. Bring someone with you to help you ask questions and remember what your provider tells you. At the visit, write down the name of a new diagnosis and any new medicines, treatments, or tests. Also write down any new instructions your provider gives you. Know why a new medicine or treatment is prescribed and how it will help you. Also know what the side effects are. Ask if your condition can be treated in other ways. Know why a test or procedure is recommended and what the results could mean. Know what to expect if you do not take the medicine or have the test or procedure. If you have a follow-up appointment, write down the date, time, and purpose for that visit. Know how you can contact your provider if you have questions. Last Reviewed Date: 04/05/202219997785-1445 [employer]. All rights reserved. This information is not intended as a substitute for professional medical care. Always follow your healthcare professional's instructions. * Assessment & Plan Note - Stanislav Frances CRNP - 04/18/2023 7:29 AM EDT Associated Problem(s): Gestational hypertension without significant proteinuria in third trimester CONSIDERATIONS: Explained to patient that a woman [...] If the blood pressures are greater than orequal to 160mmHg systolic or greater than or equal to 110mmHg diastolic, gestational hypertension can be confirmed within minutes and appropriate management in the hospital should then occur. RECOMMENDATIONS: Recommend patient be seen by her primary OB provider on weekly basis for BP check, and labwork withAST/ALT and platelets, and urine protein screen. Recommend [...] within 24-48 hours. Recommend close monitoring of BPs for 72 hours and then again at 7-10 days . documented in this encounter Plan of Treatment Upcoming Encounters Date Type Department Care Team (Late st Contact Info) Description 04/19/2023 1:00 PM EDT Office Visit Gynecology/Obstetrics Codey Villagomez [address] [place] [address] Mary Oliveira, ADAM [address] [facility] [place] [address] [place] Non Stress Tests Austin [address] [place] [address] 04/24/2023 10:15 AM EDT Office Visit Gynecology/Obstetrics Codey Villagomez [address] [place] [address] Backer, Valentine Hernandez, CHIEF MEDICAL TECHNOLOGIST [address] [place] [address] [place], Non Stress Tests Austin [address] [place] [address] 04/26/2023 7:30 AM EDT Imaging Maternal Medicine Imaging, Austin Villagomez [address] [place] [address] 04/27/2023 7:45 AM EDT Office Visit Gynecology/Obstetrics Codey Mendozas [address] [place] [address] Karlie Infante PA-C [address] [place] [address] 05/01/2023 9:30 AM EDT Office Visit Gynecology/Obstetrics Codey Villagomez [address] [place] [address] Miriam Abdi CRNP [address] [place] [address] [place] Non Stress Tests Austin [address] [place] [address] 05/04/2023 2:15 PM EDT Office Visit Gynecology/Obstetrics Codey Mendozas [address] [place] [address] Miriam Abdi CRNP [address] [place] [address] [place] Non Stress Tests Austin [address] [place] [address] 05/08/2023 9:30 AM EDT Office Visit Gynecology/Obstetrics Codey Mendozas [address] [place] [address] Miriam Abdi CRNP [address] [place] [address] [place] Non Stress Tests Austin [address] [place] [address] 05/11/2023 11:00 AM EDT Office Visit Gynecology/Obstetrics Codey Villagomez [address] [place] [address] Valentine Barclay CRNP [address] [place] [address] [place] Non Stress Tests Austin [address] [place] [address] 05/15/2023 11:15 AM EDT Office Visit Gynecology/Obstetrics Codey Villagomez [address] [place] [address] Valentine Barclay CRNP [address] [place] [address] [place] Non Stress Tests Austin [address] [place] [address] 05/18/2023 9:15 AM EDT Office Visit Gynecology/Obstetrics Codey Villagomez [address] [place] [address] Ana Edwards PA-C [address] [place] [address] [place] Non Stress Tests Austin [address] [place] [address] 11/23/2023 1:40 PM EDT Office Visit Nephrology, [facility] [address] [place] [address] Simona Gutierrez MD [address] [place] [address] Scheduled Referrals Name Type Priority Associated Diagnoses Orde r Schedule MATERNAL MEDICINE REFERRAL OP Referral Within 10 days (routine) Gestational hypertension without significant proteinuria in third trimester Ordered: 04/02/2023 Health Maintenance Due Date Last Done Comments [...] Gestational hypertension without significant proteinuria in third trimester- Primary Transient hypertension of , antepartum Supervision of high risk , antepartum, third trimester 35 weeks gestation of state, incidental documented in this encounter Care Teams Payroll Services Analyst Relationship Specialty Start Date End Date Lorelei Mccormack DO [address] [facility] [place] [address] PCP - General Family Medicine 03/07/22 documented as of this encounter
--- OUTSIDE RECORDS SUMMARY | 2023-05-04 07:40 | External Medical Summary ---
Author Name Unknown Address Unknown Organization K01:[facility] [place] - [address] [place] [address] Laboratory Report Ordering Provider Test Date Status ROMARIO TERRAZAS 04/16/2023 10:50:32 Final Observation Date Value Abnormality Reference (Units) Status Bacteria identified in Specimen by Culture 04/16/2023 10:50:32 No significant growth Final Test: Culture, Urine, Quant itative
Specimen Source: Urine, Clean Catch
Specimen Type: Urine
Specimen Date: 04/16/2023 10:50 AM
Result Date: 04/17/2023 11:07 AM
Result Status: Final result
Resulting Lab: [facility]
[address]
[place] [id number]

CULTURE

No significant growth

null Performing Location [facility] [place] - [address] [place] [id number]
--- OUTSIDE RECORDS SUMMARY | 2023-05-04 07:40 | External Medical Summary | Summary of Care ---
Author Name Unknown Organization [facility] Address [address] [place] [address] Phone [phone] Care Team Providers Care Otr Truck Driver Name Role Phone Lorelei Mccormack DO Primary Care Provider Reason for Visit * Reason Onset Date Comments Test Results 04/09/2023 Encounter Details Date Type Department Care Team (Late st Contact Info) Description 04/09/2023 Telephone NephrologyEdgardo [address] [place] [address] Mague Peters MD [address] [place] [address] Test Results Allergies No known active allergiesdocumented as of this encounter (statuses as of 04/10/2023) Medications Medication Sig Dispensed Refills Start Date [...] as of this encounter (statuses as of 04/10/2023) Active Problems Problem Noted Date Diagnosed Date Gestational hypertension wit hout significant proteinuria in third trimester 04/03/2023 Overview: BP Readings from Last 9 Encounters: 04/03/23 118/66 03/30/23 122/70 03/30/23 125/81 03/30/23 140/68 03/23/23 126/83 03/23/23 143/84 03/12/23 128/64 02/23/23 120/70 01/26/23 124/66 Currently on aspirin 81 mg therapy Iron deficiency anemia, unspecified 03/20/2023 Antepartum anemia complicating 024 Overview: Hgb 10.5 at 28 weeks IV iron referral placed Normal 10/30/2022 Supervision of high risk in first trim julio 10/30/2022 Obesity in , antepartum 10/30/2022 Overview: Pre gravid BMI: 35.0 Class 2 obesity Pre gravid BMI: 35.0 Class 2 obesity 1 hour GTT ordered but not yet completed by patient - scheduled 11/14/2022 No results found for: 50-G GESTATIONAL GLUCOSE, 100-G GESTATIONAL GLUCOSE, HEMOGLOBIN A1C - [facility] Baseline Preeclampsia Labs Lab Results Component Value [...] Overview: Managed with Levothyroxine 75 mcg daily No results found for: TSH - [facility] 05/19/2022 TSH = 0.71 Follows with Richard [...] as of this encounter (statuses as of 04/10/2023) Resolved Problems Problem Noted Date Diagnosed Date Resolved Date with 11 completed weeks gestation 10/31/2022 12/29/2022 documented as of this encounter (statuses as of 04/10/2023) Immunizations Name Administration Dates Next Due TDAP [...] encounter Miscellaneous Notes * Addendum Note - Geoffrey Doyle LPN - 04/10/2023 12:51 PM ESTAddended by: GEOFFREY DOYLE on: 04/10/2023 12:51 PM Modules accepted: Orders * Telephone Encounter - Geoffrey Doyle LPN - 04/10/2023 12:48 PM EST Pt is made aware Will increase cirrent K+ dosing to tid Reviewed Potassium rich food list with pt She will get BMP I'm 1 week Order placed in eduPad system * Telephone Encounter - Geoffrey Doyle LPN - 04/10/2023 11:07 AM EST LMM to return call regarding lab results and further recommendations * Telephone Encounter - Mague Peters MD - 04/10/2023 9:25 AM EST Noted and appreciated. Can't use meds we'd often use for low K d/t Recommend -3 servings high K food daily > banana; dark leafy greens; citrus; tomato, potato; black or red beans; if already doing this increase to 5 servings/day -increase K supplement to tid -repeat bmp one week * Telephone Encounter - Geoffrey Doyle LPN - 04/10/2023 8:53 AM EST Spoke with pt Pt has increased K to bid on 04/05/23 Pt does note nausea due to but no vomiting No diarrhea or laxative use Please advise * Telephone Encounter - Krista Recio OSA - 04/10/2023 8:49 AM EST PT returning call [phone] best call back number * Telephone Encounter - Geoffrey Doyle LPN - 04/09/2023 4:14 PM EST LMM to return call to our office * Telephone Encounter - Geoffrey Doyle LPN - 04/09/2023 4:14 PM EST ----- Message from Mague Peters MD sent at 04/09/2023 1:12 PM EST ----- Stable kidney labs but K low still >>pls ask if any n/v, diarrhea, if any laxative use -did she increase potassium to twice daily as advised last week? If not, needs to; if she did increase, when did she do it? If increased last 48 hrs, pls recheck after 4-5 days on higher dose; if already increased, will unfortunately need to increase to 3X daily 20 mEq and recheck BMP plus MAG after 4 days. documented in this encounter Plan of Treatment Upcoming Encounters Date Type Department Care Team (Late st Contact Info) Description 04/10/2023 2:15 PM EST Office Visit Gynecology/Obstetrics Codey Villagomez [address] [place] [address] Miriam Abdi CRNP [address] [place] [address] Jodi Villagomez Stress Tests [place] [address] [place] [address] 04/13/2023 9:15 AM EST Office Visit Gynecology/Obstetrics Codey Villagomez [address] [place] [address] Karlie Infante PA-C [address] [place] [address] [place], Non Stress Tests [place] [address] [place] [address] 04/16/2023 10:15 AM EDT Office Visit Gynecology/Obstetrics Codey Villagomez [address] [place] [address] Valentine Barclay CRNP [address] [place] [address] [place] Non Stress Tests [place] [address] [place] [address] 04/18/2023 7:30 AM EDT Telemedicine Supervising Chef Obstetrics Maternal Medicine, [address] [address] Stanislav Frances CRNP 190 [facility] 112 [place] [address] 04/19/2023 1:00 PM EDT Office Visit Gynecology/Obstetrics Codey Villagomez [address] [place] [address] Mary Oliveira, ADAM 400 [facility] [place] [address] [place] Non Stress Tests [place] [address] [place] [address] 04/24/2023 10:15 AM EDT Office Visit Gynecology/Obstetrics Codey Villagomez [address] [place] [address] Valentine Barclay CRNP [address] [place] [address] [place] Non Stress Tests [place] [address] [place] [address] 04/26/2023 7:30 AM EDT Imaging Maternal Medicine Imaging, [place] Villagomez [address] [place] [address] 04/27/2023 7:45 AM EDT Office Visit Gynecology/Obstetrics Codey Mendozas [address] [place] [address] Karlie Infante PA-C [address] [place] [address] 05/01/2023 9:30 AM EDT Office Visit Gynecology/Obstetrics Codey Mendozas [address] [place] [address] Miriam Abdi CRNP [address] [place] [address] [place] Non Stress Tests [place] [address] [place] [address] 05/04/2023 2:15 PM EDT Office Visit Gynecology/Obstetrics Codey Mendozas [address] [place] [address] Miriam Abdi CRNP [address] [place] [address] [place] Non Stress Tests [place] [address] [place] [address] 05/08/2023 9:30 AM EDT Office Visit Gynecology/Obstetrics Codey Mendozas [address] [place] [address] Miriam Abdi CRNP [address] [place] [address] [place] Non Stress Tests [place] [address] [place] [address] 05/11/2023 11:00 AM EDT Office Visit Gynecology/Obstetrics Codey Villagomez [address] [place] [address] Valentine Barclay CRNP [address] [place] [address] Jodi Villagomez Stress Tests [place] [address] [place] [address] 05/15/2023 11:15 AM EDT Office Visit Gynecology/Obstetrics Codey Villagomez [address] [place] [address] Valentine Barclay CRNP [address] [place] [address] Jodi Villagomez Stress Tests [place] [address] [place] [address] 05/18/2023 9:15 AM EDT Office Visit Gynecology/Obstetrics Codey Villagomez [address] [place] [address] Ana Edwards PA-C [address] [place] [address] [place] Non Stress Tests [place] [address] [place] [address] 11/23/2023 1:40 PM EDT Office Visit Nephrology, [facility] 200 [place] [address] Simona Gutierrez MD [address] [place] [address] Scheduled Orders Name Type Priority Associated Diagnoses Orde r Schedule BASIC METABOLIC PANEL Lab Routine Hypokalemia Expected: 04/10/2023 (Approximate), Expires: 04/09/2024 Health Maintenance Due Date Last Done Comments Depression Screening 2002 Hepatitis B (1 of 3 - 19+ 3-dose series) 2009 COVID-19 Vaccine (1 - 2022-2 4 season) 2022 Influenza Vaccine (FLU shot) (#1) 2022 TSH 02/24/2024 02/23/2023, 10/15/2022 GFR 04/08/2024 04/09/2023, 03/30/2023, 02/23/2023 Pap Smear 05/31/2025 05/31/2022 Cervical Cancer Screening 06/01/2027 HPV/Co-Test 06/01/2027 05/31/2022 DTaP,Tdap,and Td Vaccines (2 - Td or Tdap) 02/23/2033 02/23/2023 GARDASIL-HPV IMMUNIZATION SERIES Aged Out No longer eligible b ased on patient's age to complete this topic MENINGOCOCCAL (MENACTRA/MENVEO) Aged Out No longer eligible b ased on patient's age to complete this topic Pneumococcal Vaccine: Pediatrics (0 to 5 Years) and At-Risk Patients (6 to 64 Years) Aged Out No longer eligible b ased on patient's age to complete this topic documented as of this encounter Medical Devices Not on filedocumented as of this encounter Visit Diagnoses Diagnosis Hypokalemia- Primary Hypopotassemia documented in this encounter Care Teams Otr Truck Driver Relationship Specialty Start Date End Date Lorelei Mccormack DO [address] [facility] [place] [address] PCP - General Family Medicine 03/07/22 documented as of this encounter
--- OUTSIDE RECORDS SUMMARY | 2023-05-04 07:40 | External Medical Summary | Summary of Care ---
Author Name Unknown Organization [facility] Address [address] [facility] [place] [address] Phone [phone] Care Team Providers Care Clinical Operations Specialist Name Role Phone Lorelei Mccormack DO Primary Care Provider Reason for Visit * Reason Comments Outpatient Testing Encounter Details Date Type Department Care Team (Late st Contact Info) Description 04/13/2023 10:10 AM EST Laboratory Laboratory, [facility] 132 [place] [phone] [facility] 132 [place] [address] Hypokalemia; Supervision of high risk in first trimester; Gestational hypertension without significant proteinuria in third trimester Allergies No known active allergiesdocumented as of this encounter (statuses as of 04/13/2023) Medications Medication Sig Dispensed Refills Start Date [...] as of this encounter (statuses as of 04/13/2023) Active Problems Problem Noted Date Diagnosed Date [...] Normal 10/30/2022 Supervision of [facility] in [facility] julio 10/30/2022 Obesity in , antepartum 10/30/2022 [...] daily No results found for: TSH - [facility] 05/19/2022 TSH = 0.71 Follows with Richard [...] as of this encounter (statuses as of 04/13/2023) Resolved Problems Problem Noted Date Diagnosed Date Resolved Date with 11 completed weeks gestation 10/31/2022 12/29/2022 documented as of this encounter (statuses as of 04/13/2023) Immunizations Name Administration Dates Next Due TDAP [...] money to get more. Never true 12/08/2022 [place] Depression Scale Answer Date Recorded [place] Depression Scale Total 0 03/12/2023 The thought [...] Care Team (Late st Contact Info) Description 04/16/2023 10:15 AM EDT Office Visit Gynecology/Obstetrics Treyraleigh [place] [address] [place] [address] Valentine Barclay CRNP [address] [place] [address] [place] Non Stress Tests [place] [address] [place] [address] 04/18/2023 7:30 AM EDT Telemedicine Echo Tech Obstetrics Maternal Medicine, [address] [place] [address] Stanislav Frances CRNP 190 [facility] 112 [place] [address] 04/19/2023 1:00 PM EDT Office Visit Gynecology/Obstetrics Yangraleigh [place] [address] [place] [address] Mary Oliveira, LLOYD 400 [facility] [place] [address] [place] Non Stress Tests [place] [address] [place] [address] 04/24/2023 10:15 AM EDT Office Visit Gynecology/Obstetrics Cdoey [place] [address] [place] [address] Valentine Barclay CRNP [address] [place] [address] Villagomez, Non Stress Tests [place] [address] [place] [address] 04/26/2023 7:30 AM EDT Imaging Maternal Medicine Imaging, [place] Villagomez [address] [place] [address] 04/27/2023 7:45 AM EDT Office Visit Gynecology/Obstetrics Codey Villagomez [address] [place] [address] Karlie Infante PA-C [address] [place] [address] 05/01/2023 9:30 AM EDT Office Visit Gynecology/Obstetrics Codey Villagomez [address] [place] [address] Miriam Abdi CRNP [address] [place] [address] [place] Non Stress Tests [place] [address] [place] [address] 05/04/2023 2:15 PM EDT Office Visit Gynecology/Obstetrics Codey Villagomez [address] [place] [address] Miriam Abdi CRNP [address] [place] [address] [place] Non Stress Tests [place] [address] [place] [address] 05/08/2023 9:30 AM EDT Office Visit Gynecology/Obstetrics Codey Villagomez [address] [place] [address] Miriam Abdi [employer]IOR [employer] [address] [place] [address] [place], Non Stress Tests [place] [address] [place] [address] 05/11/2023 11:00 AM EDT Office Visit Gynecology/Obstetrics Codey Villagomez [address] [place] [address] Backer, BISI Duncan [address] [place] [address] [place] Non Stress Tests [place] [address] [place] [address] 05/15/2023 11:15 AM EDT Office Visit Gynecology/Obstetrics Codey Villagomez [address] [place] [address] Backer, BISI Duncan [address] [place] [address] [place] Non Stress Tests [place] [address] [place] [address] 05/18/2023 9:15 AM EDT Office Visit Gynecology/Obstetrics Codey Villagomez [address] [place] [address] Ana Edwards PA-C [address] [place] [address] [place] Non Stress Tests [place] [address] [place] [address] 11/23/2023 1:40 PM EDT Office Visit Nephrology, [facility] 200 [facility] [place] [address] Simona Gutierrez MD [address] [place] [address] Pending Results Name Type Priority Associated Diagnoses Date /Time BASIC METABOLIC PANEL Lab Routine Hypokalemia 04/13/2023 9:52 AM EST AST Lab Routine Supervision of high risk in first trimester Gestational hypertension without significant proteinuria in third trimester 04/13/2023 9:52 AM EST ALT Lab Routine Supervision of high risk in first trimester Gestational hypertension without significant proteinuria in third trimester 04/13/2023 9:52 AM EST Health Maintenance Due Date Last Done Comments [...] Procedure Name Priority Date/Time Associated Diagnosis Comments PLT Routine 04/13/2023 9:52 AM EST Supervision of high risk in first trimester Gestational hypertension without significant proteinuria in third trimester documented in this encounter Results * PLT (04/13/2023 9:52 AM EST) PLT 312 140 - 400 K/uL 04/13/2023 10:12 AM EST LABORATORY [place] 57-10 Blood Venous blood specimen / Unknown Venipuncture / Unknown 04/13/2023 9:52 AM EST 04/13/2023 9:52 AM EST Karlie Infante PA-C LAB BLOOD ORDERABLES LABORATORY [place] 57-10 132 [facility] [place] [address] documented in this encounter Visit Diagnoses Diagnosis Hypokalemia Hypopotassemia Supervision of high risk in first trimester Unspecified high-risk Gestational hypertension without significant proteinuria in third trimester Transient hypertension of , antepartum documented in this encounter Care Teams Clinical Operations Specialist Relationship Specialty Start Date End Date Lorelei Mccormack DO 1400 [facility] [place] [address] PCP - General Family Medicine 03/07/22 documented as of this encounter
--- OUTSIDE RECORDS SUMMARY | 2023-05-04 07:40 | External Medical Summary | Summary of Care ---
Author Name Unknown Organization [facility] Address [address] [place] [address] Phone [phone] Care Team Providers Care Pulling Unit Floorhand Name Role Phone Lorelei Mccormack DO Primary Care Provider Encounter Details Date Type Department Care Team (Late st Contact Info) Description 04/09/2023 Telephone Nephrology, Edgardo Kebede 200 [facility] [place] [address] Mague Peters MD 200 [facility] [place] [address] Allergies No known active allergiesdocumented as of [...] GLUCOSE, 100-G GESTATIONAL GLUCOSE, HEMOGLOBIN A1C - [facility] Baseline Preeclampsia Labs Lab Results Component Value [...] daily No results found for: TSH - KENDY 05/19/2022 TSH = 0.71 Follows with Richard [...] money to get more. Never true 12/08/2022 Shepherd Depression Scale Answer Date Recorded Shepherd Depression Scale Total 0 03/12/2023 The thought [...] Telephone Encounter - Suki Doyle LPN - 04/10/2023 11:07 AM EST [...] bmp one week * Telephone Encounter - Suki Doyle LPN - 04/10/2023 8:53 AM EST Spoke with pt Pt has increased K to bid on 04/05/23 Pt does note nausea due to but no vomiting No diarrhea or laxative use Please advise * Telephone Encounter - Krista Recio OSA - 04/10/2023 8:49 AM EST PT returning call [phone] best call back number * Telephone Encounter - Suki Doyle LPN - 04/09/2023 4:14 PM EST LMM to return call to our office * Telephone Encounter - Suki Doyle LPN - 04/09/2023 4:14 PM EST [...] 04/10/2023 2:15 PM EST Office Visit Gynecology/Obstetrics Yang[facility] [address] [place] [address] Miriam Abdi CRNP [address] [place] [address] [place] Non Stress Tests [facility] [address] [place] [address] 04/13/2023 9:15 AM EST Office Visit Gynecology/Obstetrics Codey [facility] [address] [place] [address] Karlie Infante PA-C [address] [place] [address] [place] Non Stress Tests [place] [address] [place] [address] 04/16/2023 10:15 AM EDT Office Visit Gynecology/Obstetrics Codey Mendozas [address] [place] [address] Valentine Barclay CRNP [address] [place] [address] [place] Non Stress Tests [place] [address] [place] [address] 04/18/2023 7:30 AM EDT Telemedicine Drapery Counselor Obstetrics Maternal Medicine, [place] [facility] 114 [place] [address] Stanislav Frances CRNP 190 [facility] 112 [place] [address] 04/19/2023 1:00 PM EDT Office Visit Gynecology/Obstetrics Codey Mendozas [address] [place] [address] Mary Oliveira, LLOYD [address] [place] [address] [place] Non Stress Tests [place] [address] [place] [address] 04/24/2023 10:15 AM EDT Office Visit Gynecology/Obstetrics Codey Mendozas [address] [place] [address] Valentine Barclay CRNP [address] [place] [address] [place] Non Stress Tests [place] [address] [place] [address] 04/26/2023 7:30 AM EDT Imaging Maternal Medicine Imaging, [place] Mendozas [address] [place] [phone] 04/27/2023 7:45 AM EDT Office Visit Gynecology/Obstetrics Codey Villagomez [address] [place] [address] Karlie Infante PA-C [address] [place] [address] 05/01/2023 9:30 AM EDT Office Visit Gynecology/Obstetrics Trey's Villagomez [address] [place] [address] Miriam Abdi CRNP [address] [place] [address] [place] Non Stress Tests [place] [address] [place] [address] 05/04/2023 2:15 PM EDT Office Visit Gynecology/Obstetrics Trey's Villagomez [address] [place] [address] Miriam Abdi CRNP [address] [place] [address] [place] Non Stress Tests [place] [address] [place] [address] 05/08/2023 9:30 AM EDT Office Visit Gynecology/Obstetrics Codey Mendozas [address] [place] [address] Miriam Abdi CRNP [address] [place] [address] [place] Non Stress Tests [place] [address] [place] [address] 05/11/2023 11:00 AM EDT Office Visit Gynecology/Obstetrics Zains Villagomez [address] [place] [address] Valentine Barclay CRNP [address] [place] [address] [place] Non Stress Tests [place] [address] [place] [address] 05/15/2023 11:15 AM EDT Office Visit Gynecology/Obstetrics Codey Villagomez [address] [facility] [place] [address] Valentine Barclay CRNP [address] [facility] [place] [address] [place] Non Stress Tests [place] [address] [place] [address] 05/18/2023 9:15 AM EDT Office Visit Gynecology/Obstetrics Codey Villagomez [address] [facility] [place] [address] Ana Edwards PA-C 400 [place], [place] [phone] VillagomezJodi Stress Tests [place] [address] [place] [address] 11/23/2023 1:40 PM EDT Office Visit Nephrology, [facility] 200 [place] [address] Simona Gutierrez MD 400 [place], [place] [phone] Health Maintenance Due Date Last Done Comments Depression Screening 2002 Hepatitis B (1 of 3 - 19+ 3-dose series) 2009 COVID-19 Vaccine (2022-2 4 season) 2022 Influenza Vaccine (FLU shot) [...] Not on filedocumented as of this encounter Care Teams Pulling Unit Floorhand Relationship Specialty Start Date End Date Lorelei Mccormack DO 1400 [facility] [place] [address] PCP - General Family Medicine 03/07/22 documented as of this encounter
--- OUTSIDE RECORDS SUMMARY | 2023-05-04 07:40 | External Medical Summary ---
Author Name Unknown Address Unknown Organization [facility]:LABORATORY [facility] 57-[address] - [address] [place] [address] Laboratory Report Ordering Provider Test Date Status ISABEL PHAN 04/13/2023 09:52:53 Final Observation Date Value Abnormality Reference (Units ) Status Platelets 04/13/2023 09:52:53 312 140-400 (K /uL) Final Performing Location [facility] 0 - [address] [place] [address]
--- OUTSIDE RECORDS SUMMARY | 2023-05-04 07:40 | External Medical Summary ---
Author Name Unknown Address Unknown Organization [facility]:LABORATORY [facility] [place] 57-[address] - [address] [place] [address] Laboratory Report Ordering Provider Test Date Status ANSHUL NAGEL 04/13/2023 09:52:53 Final Observation Date Value Abnormality Reference (Units ) Status BUN 04/13/2023 09:52:53 4 Below low normal 6-20 (mg/dL) Final Creatinine 04/13/2023 09:52:53 0.5 0.5-1.0 (mg/dL) Final Glomerular filtration rate/1.73 sq M.predicted [Volume Rate/Area] in Serum, Plasma or Blood by Creatinine-based formula (CKD-EPI) 04/13/2023 09:52:53 >90 >=60 (mL/min) Final eGFR is calculated based on the CKD-EPI 2020 equation SODIUM 04/13/2023 09:52:53 136 135-146 (m mol/L) Final Potassium 04/13/2023 09:52:53 4.0 3.5-5.1 (m mol/L) Final Cl 04/13/2023 09:52:53 103 98-107 (mm ol/L) Final CO2 04/13/2023 09:52:53 19 Below low normal 22- 32 (mmol/L) Final Anion gap 04/13/2023 09:52:53 14 7-15 (mmol /L) Final Glucose 04/13/2023 09:52:53 82 70-120 (mg /dL) Final Calcium 04/13/2023 09:52:53 9.7 8.4-10.2 ( mg/dL) Final Performing Location LABORATORY [facility] [place] 57-1 0 - [address] [place] [address]
--- OUTSIDE RECORDS SUMMARY | 2023-05-04 07:40 | External Medical Summary | Summary of Care ---
Author Name Unknown Organization [facility] Address [address] [facility] [place] [address] Phone [phone] Care Team Providers Care Box Repairer Name Role Phone Lorelei Mccormack DO Primary Care Provider [phone] Reason for Visit * Reason Comments Return Visit Non Stress Test Encounter Details Date Type Department Care Team (Latest Contact Info) Description 04/10/2023 2:15 PM EST Office Visit Gynecology/Obstetri zi Villagomez [address] [facility] [place] [address] Miriam Abdi CRNP [address] [place] [address] [place] Non Stress Tests [place] [address] [place] [address] Hypothyroidism affecting , antepartum*; Supervision of high risk in third trimester; Prediabetes; Class 2 obesity; [...] Normal 10/30/2022 Supervision of high risk in [facility] 10/30/2022 Obesity in , antepartum 10/30/2022 Overview: [...] money to get more. Never true 12/08/2022 Townsend Depression Scale Answer Date Recorded Townsend Depression Scale Total 0 03/12/2023 The thought [...] Sign Reading Time Taken Comments Blood Pressure 116/62 04/10/2023 2:07 PM EST Pulse - - Temperature - - Respiratory Rate - - Oxygen Saturation - - Inhaled Oxygen Concentration - - Weight 100.2 kg (221 lb) 04/10/2023 2:07 PM EST Height 162.6 cm (5' 4") 04/10/2023 2:07 PM EST Body Mass Index 37.93 04/10/2023 2:07 PM EST documented in this encounter Progress Notes * Miriam Abdi CRNP - 04/10/2023 3:56 PM EST ASSESSMENT assessment with Non-stress Test completed on 04/10/2023 at 34.1weeks gestation for indication of chronic hypertension heart baseline: 130 bpm Variability: Moderate Decelerations: absent Accelerations: present Contractions: None NST start time: 1407 NST stop time: 1433 NST strip reviewed, interpreted, and approved by OB providerMiriam CRNP . NST strip stored in clinic storage file documented in this encounter Nursing Notes * Katherine Ny LPN - 04/10/2023 2:38 PM EST 34w1d NST Denies concerns. documented in this encounter Plan of Treatment Upcoming Encounters Date Type Department Care Team (Late st Contact Info) Description 04/13/2023 9:15 AM EST Office Visit Gynecology/Obstetrics Codey Mendozas [address] [place] [address] Karile Infante PA-C [address] [place] [address] [place], Non Stress Tests [place] [address] [place] [address] 04/16/2023 10:15 AM EDT Office Visit Gynecology/Obstetrics Codey Mendozas [address] [place] [address] Valentine Barclay CRNP [address] [place] [address] [place] Non Stress Tests [place] [address] [place] [address] 04/18/2023 7:30 AM EDT Telemedicine Washtub Worker Helper Obstetrics Maternal Medicine, [place] [address] [facility] 114 [place] [address] Stanislav Frances CRNP [address] [facility] 112 [place] [address] 04/19/2023 1:00 PM EDT Office Visit Gynecology/Obstetrics Codey Villagomez [address] [place] [address] Mary Oliveira, ADAM 400 [facility] [place] [address] [place], Non Stress Tests [place] [address] [place] [address] 04/24/2023 10:15 AM EDT Office Visit Gynecology/Obstetrics Codey Mendozas [address] [place] [address] Valentine Barclay CRNP [address] [place] [address] [place], Non Stress Tests [place] [address] [place] [address] 04/26/2023 7:30 AM EDT Imaging Maternal Medicine Imaging, [place] Villagomez [address] [place] [address] 04/27/2023 7:45 AM EDT Office Visit Gynecology/Obstetrics Codey Mendozas [address] [place] [address] Karlie Infante PA-C [address] [place] [address] 05/01/2023 9:30 AM EDT Office Visit Gynecology/Obstetrics Codey Mendozas [address] [place] [address] Miriam Abdi CRNP [address] [place] [address] [place] Non Stress Tests [place] [address] [place] [address] 05/04/2023 2:15 PM EDT Office Visit Gynecology/Obstetrics Zains Villagomez [address] [place] [address] Miriam Abdi CRNP [address] [place] [address] [place] Non Stress Tests [place] [address] [place] [address] 05/08/2023 9:30 AM EDT Office Visit Gynecology/Obstetrics Codey Mendozas [address] [place] [address] Miriam Abdi CRNP [address] [place] [address] [place] Non Stress Tests [place] [address] [place] [address] 05/11/2023 11:00 AM EDT Office Visit Gynecology/Obstetrics Codey Villagomez [address] [place] [address] Valentine Barclay CRNP [address] [place] [address] [place] Non Stress Tests [place] [address] [place] [address] 05/15/2023 11:15 AM EDT Office Visit Gynecology/Obstetrics Treyraleigh Villagomez [address] [place] [address] Valentine Barclay CRNP [address] [place] [address] [place] Non Stress Tests [place] [address] [place], [place] [address] 05/18/2023 9:15 AM EDT Office Visit Gynecology/Obstetrics Yangraleigh Villagomez [address] [place] [address] Ana Edwards PA-C [address] [place] [address] [place] [address] [place] Non Stress Tests [place] [address] [place] [address] 11/23/2023 1:40 PM EDT Office Visit Nephrology, [facility] 200 [facility] [place] [address] Simona Gutierrez MD [address] [place] [address] Health Maintenance Due Date Last Done Comments [...] this encounter Visit Diagnoses Diagnosis Hypothyroidism affecting , antepartum- Primary Supervision of high risk in third trimester Unspecified high-risk Prediabetes Other abnormal glucose Class 2 obesity Obesity in , antepartum Obesity complicating , childbirth, or the puerperium, antepartum condition or complication Antepartum anemia complicating Anemia, antepartum Gestational hypertension without significant proteinuria in third trimester Transient hypertension of , antepartum documented in this encounter Care Teams Box Repairer Relationship Specialty Start Date End Date Lorelei Mccormack DO [address] [place] [address] PCP - General Family Medicine 03/07/22 documented as of this encounter
--- OUTSIDE RECORDS SUMMARY | 2023-05-04 07:40 | External Medical Summary | Summary of Care ---
Author Name Unknown Organization [facility] Address [address] [facility] [place] [address] Phone [phone] Care Team Providers Care Oral Hygienist Name Role Phone Lorelei Mccormack DO Primary Care Provider [phone] Reason for Visit * Reason Comments Non Stress Test Encounter Details Date Type Department Care Team (Late st Contact Info) Description 04/16/2023 10:15 AM EDT Office Visit Gynecology/Obstetric s [facility] [place] [address] [facility] [place] [address] Valentine Barclay CRNP [address] [place] [address] [place] Non Stress Tests [place] [address] [place] [address] High-risk in third trimester*; Hypothyroidism affecting in third trimester; Prediabetes; Obesity in , antepartum; Antepartum anemia complicating ; Gestational hypertension without significant proteinuria in third trimester Allergies No known active allergiesdocumented as of this encounter (statuses as of 04/16/2023) Medications Medication Sig Dispensed Refills Start Date [...] as of this encounter (statuses as of 04/16/2023) Active Problems Problem Noted Date Diagnosed Date [...] as of this encounter (statuses as of 04/16/2023) Resolved Problems Problem Noted Date Diagnosed Date Resolved Date with 11 completed weeks gestation 10/31/2022 12/29/2022 Normal 10/30/2022 04/16/2023 Supervision of high risk pre gnancy in first trimester 10/30/2022 04/16/2023 documented as of this encounter (statuses as of 04/16/2023) Immunizations Name Administration Dates Next Due TDAP [...] money to get more. Never true 12/08/2022 [place] Depression Scale Answer Date Recorded [place]cad[place] Depression Scale Total 0 03/12/2023 The thought [...] Sign Reading Time Taken Comments Blood Pressure 108/62 04/16/2023 10:20 AM EDT Pulse - - Temperature - - Respiratory Rate - - Oxygen Saturation - - Inhaled Oxygen Concentration - - Weight 99.3 kg (219 lb) 04/16/2023 10:20 AM EDT Height - - Body Mass Index 37.59 04/13/2023 9:07 AM EST documented in this encounter Progress Notes * Valentine Barclay CRNP - 04/16/2023 10:14 AM EDT ASSESSMENT assessment with Non-stress Test completed on 04/16/2023 at 35 weeks gestation for indication of gestational hypertension heart baseline: 130 bpm Variability: Moderate Decelerations: absent Accelerations: present Contractions: None NST start time: 09 NST stop time: 936 Time not changed on EFM to reflect DST NST strip reviewed, interpreted, and approved by OB provider, BISI Mcgregor NST strip stored in clinic storage file Urine cloudy with + leuks, sending culture. BISI Mcgregor documented in this encounter Plan of Treatment Upcoming Encounters Date Type Department Care Team (Late st Contact Info) Description 04/18/2023 7:30 AM EDT Telemedicine Supervisor Speech Obstetrics Maternal Medicine, [place] [address] Stanislav Frances CRNP [address] [address] 04/19/2023 1:00 PM EDT Office Visit Gynecology/Obstetrics Codey Villagomez [address] [place] [address] Mary Oliveira, LLOYD 400 [facility] [place] [address] [place], Non Stress Tests [place] [address] [place] [address] 04/24/2023 10:15 AM EDT Office Visit Gynecology/Obstetrics Codey Villagomez [address] [place] [address] Valentine Barclay CRNP [address] [place] [address] [place] Non Stress Tests [place] [address] [place] [address] 04/26/2023 7:30 AM EDT Imaging Maternal Medicine Imaging, [place] Villagomez [address] [place] [id number] 04/27/2023 7:45 AM EDT Office Visit Gynecology/Obstetrics Codey Villagomez [address] [place] [address] Karlie Infante PA-C [address] [place] [address] 05/01/2023 9:30 AM EDT Office Visit Gynecology/Obstetrics Codey Villagomez [address] [place] [address] Miriam Abdi CRNP [address] [place] [address] [place], Non Stress Tests [place] [address] [place] [address] 05/04/2023 2:15 PM EDT Office Visit Gynecology/Obstetrics Trey's Villagomez [address] [place] [address] Miriam Abdi CRNP [address] [place] [address] [place], Non Stress Tests [place] [address] [place] [address] 05/08/2023 9:30 AM EDT Office Visit Gynecology/Obstetrics Zains Villagomez [address] [place] [address] Miriam Abdi CRNP [address] [place] [address] [place] Non Stress Tests [place] [address] [place] [address] 05/11/2023 11:00 AM EDT Office Visit Gynecology/Obstetrics Zains Villagomez [address] [place] [address] Valentine Barclay CRNP [address] [place] [address] [place], Non Stress Tests [place] [address] [place] [address] 05/15/2023 11:15 AM EDT Office Visit Gynecology/Obstetrics Trey's Villagomez [address] [place] [address] BackValentine mauricio CRNP [address] [place] [address] [place], Non Stress Tests [place] [address] [facility] [place] [address] 05/18/2023 9:15 AM EDT Office Visit Gynecology/Obstetrics Codey Villagomez [address] [place] [address] Ana Edwards PA-C [address] [place] [phone] [place], Non Stress Tests [place] 132 [facility] [place] [address] 11/23/2023 1:40 PM EDT Office Visit Nephrology, [address] [place] [address] Simona Gutierrez MD 400 [facility] [place] [id number] Pending Results Name Type Priority Associated Diagnoses Date /Time CULTURE, URINE, QUANTITATIVE Lab Routine High-risk in third trimester Gestational hypertension without significant proteinuria in third trimester 04/16/2023 10:50 AM EDT Health Maintenance Due Date Last [...] Comments URINALYSIS, POINT OF CARE (ENTER/EDIT) Routine 04/16/2023 High-risk in third trimester Gestational hypertension without significant proteinuria in third trimester documented in this encounter Results * URINALYSIS, POINT OF CARE (ENTER/EDIT) (04/16/2023) Color, Urine Yellow Yellow or Light Yellow Clarity, Urine Slightly Cloudy Clear Glucose, Urine Negative Negative mg/dL Bilirubin, Urine Negative Negative Ketone, Urine Negative Negative mg/dL Specific Marion, Urine 1.020 1.003 - 1.030 Blood, Urine Trace-intact Negative pH, Urine 7.5 5.0 - 7.5 units Protein, Urine Negative Negative mg/dL Urobilinogen, Urine 0.2 0.2 - 1.0 mg/dL Nitrite, Urine Negative Negative Esterase, Urine Small Negative Urine 04/16/2023 Valentine MATHEWS LAB POINT O F CARE TEST ENTER/EDIT ORDERABLES documented in this encounter Visit Diagnoses Diagnosis High-risk in third trimester- Primary Hypothyroidism affecting in third trimester Prediabetes Other abnormal glucose Obesity in , antepartum Obesity complicating , childbirth, or the puerperium, antepartum condition or complication Antepartum anemia complicating Anemia, antepartum Gestational hypertension without significant proteinuria in third trimester Transient hypertension of , antepartum documented in this encounter Care Teams Oral Hygienist Relationship Specialty Start Date End Date Lorelei Mccormack DO [address] [place] [address] PCP - General Family Medicine 03/07/22 documented as of this encounter
--- OUTSIDE RECORDS SUMMARY | 2023-05-04 07:40 | External Medical Summary ---
Author Name Unknown Address Unknown Organization [facility] [address] [place] [address] Laboratory Report Ordering Provider Test Date Status ISABEL PHAN 04/13/2023 09:52:53 Final Observation Date Value Abnormality Reference (Units ) Status ALT (Alanine aminotransferase) 04/13/2023 09:52:53 10 10-35 (U/L) Final Performing Location [facility] [place] [address]
--- OUTSIDE RECORDS SUMMARY | 2023-05-04 07:40 | External Medical Summary | Summary of Care ---
Author Name Unknown Organization [facility] Address [address] [place] [address] Phone [phone] Care Team Providers Care Solutions Consultant Name Role Phone Lorelei Mccormack DO Primary Care Provider Reason for Visit * Reason Onset Date Comments Test Results 04/03/2023 Encounter Details Date Type Department Care Team (Late st Contact Info) Description 04/03/2023 Telephone Nephrology, [address] [address] Simona Gutierrez MD [address] [place] [id number] Test Results Allergies No known active allergiesdocumented as of this encounter (statuses as of 04/17/2023) Medications Medication Sig Dispensed Refills Start Date [...] in the morning. 90 Tablet 3 03/23/2023 Discontinued documented as of this encounter (statuses as of 04/17/2023) Active Problems Problem Noted Date Diagnosed Date [...] as of this encounter (statuses as of 04/17/2023) Resolved Problems Problem Noted Date Diagnosed Date Resolved Date with 11 completed weeks gestation 10/31/2022 12/29/2022 Normal 10/30/2022 04/16/2023 Supervision of high risk pre gnancy in first trimester 10/30/2022 04/16/2023 documented as of this encounter (statuses as of 04/17/2023) Immunizations Name Administration Dates Next Due TDAP [...] money to get more. Never true 12/08/2022 [place] Depression Scale Answer Date Recorded Wil[place] Depression Scale Total 0 03/12/2023 The thought [...] encounter Miscellaneous Notes * Telephone Encounter - Palak Denton LPN - 04/17/2023 8:09 AM EDT Please see MyG and advise. * Telephone Encounter - Palak Denton LPN - 04/04/2023 2:40 PM EST Let patient know to get blood work on Sunday and I sent prescription for increased dose of potassium chloride 1 tablet twice daily to her pharmacy [address] Matt ROWLAND by phone. Detailed message left. Will also send MyG. Lab order in [facility] Not Give Back. * Telephone Encounter - Simona Gutierrez MD - 04/03/2023 9:56 AM EST Please let patient know to get blood work on Sunday. Dr. Gutierrez documented in this encounter Plan of Treatment Upcoming Encounters Date Type Department Care Team (Late st Contact Info) Description 04/18/2023 7:30 AM EDT Telemedicine Affirmative Action Officer Obstetrics Maternal Medicine, [place] 190 [facility] 114 [place] [address] Stanislav Frances CRNP 190 [facility] 112 [place] [address] 04/19/2023 1:00 PM EDT Office Visit Gynecology/Obstetrics Codey Villagomez [address] [place] [address] Mary Oliveira, [facility] [address] [place] [address] [place], Non Stress Tests [place] [address] [place] [address] 04/24/2023 10:15 AM EDT Office Visit Gynecology/Obstetrics Codey Villagomez [address] [place] [address] Valentine Barclay CRNP [address] [place] [address] [place] Non Stress Tests [place] [address] [place] [address] 04/26/2023 7:30 AM EDT Imaging Maternal Medicine Imaging, [place] Villagomez [address] [place] [phone] 04/27/2023 7:45 AM EDT Office Visit Gynecology/Obstetrics Codey Villagomez [address] [place] [address] Karlie Infante PA-C [address] [place] [address] 05/01/2023 9:30 AM EDT Office Visit Gynecology/Obstetrics Codey Villagomez [address] [place] [address] Miriam Abdi CRNP [address] [place] [address] [place], Non Stress Tests [place] [address] [place] [address] 05/04/2023 2:15 PM EDT Office Visit Gynecology/Obstetrics Trey'panda Mendozas [address] [place] [address] Miriam Abdi CRNP [address] [place] [address] [place], Non Stress Tests [place] [address] [place] [address] 05/08/2023 9:30 AM EDT Office Visit Gynecology/Obstetrics Trey's Villagomez [address] [place] [address] Miriam Abdi CRNP [address] [place] [address] [place] Non Stress Tests [place] [address] [place] [address] 05/11/2023 11:00 AM EDT Office Visit Gynecology/Obstetrics Codey Mendozas [address] [place] [address] Valentine Barclay CRNP [address] [place] [address] [place] Non Stress Tests [place] [address] [place] [address] 05/15/2023 11:15 AM EDT Office Visit Gynecology/Obstetrics Codey Mendozas [address] [place] [address] Valentine Barclay CRNP [address] [place] [address] [place], Non Stress Tests [place] [address] [place] [address] 05/18/2023 9:15 AM EDT Office Visit Gynecology/Obstetrics Codey Villagomez 132 [facility] [place] [address] Ana Edwards PA-C 400 [facility] [place] [place] [phone] [place], Non Stress Tests [place] 132 [facility] [place] [address] 11/23/2023 1:40 PM EDT Office Visit Nephrology, [facility] 200 [place] [address] Simona Gutierrez MD 400 [place], [place] [phone] Health Maintenance Due Date Last Done Comments [...] EST Simona Gutierrez MD LAB BLOOD ORDERABLES [facility] [place] [facility] [place] [address] documented in this encounter Visit Diagnoses Diagnosis Hypokalemia- Primary Hypopotassemia documented in this encounter Care Teams Solutions Consultant Relationship Specialty Start Date End Date Lorelei Mccormack DO [address] [place] [address] PCP - General Family Medicine 03/07/22 documented as of this encounter
--- OUTSIDE RECORDS SUMMARY | 2023-05-04 07:40 | External Medical Summary | Summary of Care ---
Author Name Unknown Organization [facility] Address [address] [facility] [place] [address] Phone [phone] Care Team Providers Care Sheet Heater Name Role Phone Lorelei Mccormack DO Primary Care Provider Reason for Visit * Reason Comments Return Visit Non Stress Test Encounter Details Date Type Department Care Team (Late st Contact Info) Description 04/13/2023 9:15 AM EST Office Visit Gynecology/Obstetric s Codey Villagomez [address] [place] [address] Karlie Infante PA-C [address] [employer] [place] [address] [place] Non Stress Tests [place] [address] [place] [address] Supervision of high risk in first trimester*; Hypothyroidism affecting in third trimester; Prediabetes; [...] Normal 10/30/2022 [facility] 10/30/2022 Obesity in , antepartum 10/30/2022 Overview: [...] money to get more. Never true 12/08/2022 [place] Depression Scale Answer Date Recorded [place] Depression Scale Total 0 03/12/2023 The thought [...] Sign Reading Time Taken Comments Blood Pressure 118/68 04/13/2023 9:07 AM EST Pulse - - Temperature - - Respiratory Rate - - Oxygen Saturation - - Inhaled Oxygen Concentration - - Weight - - Height 162.6 cm (5' 4") 04/13/2023 9:07 AM EST Body Mass Index - - documented in this encounter Progress Notes * Karlie Infante PA-C - 04/13/2023 9:20 AM EST 34w4d Had a few episodes of dizziness/blurry vision while eating breakfast and then lunch other day. Blood pressure good at home around 120/78. Repeat PEC labs today given GHTN. Has MFM consult upcoming on04/18/2023. BP's have been normotensive without meds here in office. Delivery plan pending MFM consult. ASSESSMENT assessment with Non-stress Test completed on 04/13/2023 at 34.4 weeks gestation for indication of GHTN heart baseline: 130 bpm Variability: Moderate Decelerations: absent Accelerations: present Contractions: None NST start time: 09:07 NST stop time: 09:33 NST strip reviewed, interpreted, and approved by OB provider, Karlie Infante PA-C. NST strip stored in clinic storage file Continue twice weekly NST Karlie Infante PA-C documented in this encounter Nursing Notes * Katherine Ny LPN - 04/13/2023 9:13 AM EST 34w4d NST Had a few episodes of dizziness and blurry vision around mealtimes. Bps have been good at home, around 120/78. documented in this encounter Plan of Treatment Upcoming Encounters Date Type Department Care Team (Late st Contact Info) Description 04/16/2023 10:15 AM EDT Office Visit Gynecology/Obstetrics Codey Villagomez [address] [place] [address] Valentine Barclay CRNP [address] [place] [address] Jodi Villagomez Stress Tests [place] [address] [place] [address] 04/18/2023 7:30 AM EDT Telemedicine Graduate Assistant Athletic Trainer Obstetrics Maternal Medicine, [address] [place] [address] Stanislav Frances CRNP 190 [facility] 112 [place] [address] 04/19/2023 1:00 PM EDT Office Visit Gynecology/Obstetrics TreyKippanda Villagomez [address] [place] [address] Mary Oliveira, [address] [place] [address] Jodi Villagomze Stress Tests [place] [address] [place] [address] 04/24/2023 10:15 AM EDT Office Visit Gynecology/Obstetrics TreyKippanda Villagomez [address] [place] [address] Valentine Barclay CRNP [address] [place] [address] Villagomez, Non Stress Tests [place] [address] [place] [address] 04/26/2023 7:30 AM EDT Imaging Maternal Medicine Imaging, [place] Villagomez [address] [place] [address] 04/27/2023 7:45 AM EDT Office Visit Gynecology/Obstetrics Codey Mendozas [address] [place] [address] Karlie Infante PA-C [address] [place] [address] 05/01/2023 9:30 AM EDT Office Visit Gynecology/Obstetrics Codey Villagomez [address] [place] [address] Miriam Abdi CRNP [address] [place] [address] [place] Non Stress Tests [place] [address] [place] [address] 05/04/2023 2:15 PM EDT Office Visit Gynecology/Obstetrics Codey Villagomez [address] [place] [address] Miriam Abdi CRNP [address] [place] [address] Villagomez, Non Stress Tests [place] [address] [place] [address] 05/08/2023 9:30 AM EDT Office Visit Gynecology/Obstetrics Codey Mendozas [address] [place] [address] Miriam Abdi LABOR TRAINING MANAGER [address] [place] [address] Villagomez, Non Stress Tests [place] [address] [place] [address] 05/11/2023 11:00 AM EDT Office Visit Gynecology/Obstetrics Codey Villagomez [address] [place] [address] Backer, BISI Duncan [address] [place] [address] Villagomez, Non Stress Tests [place] [address] [place] [address] 05/15/2023 11:15 AM EDT Office Visit Gynecology/Obstetrics Codey Villagomez [address] [place] [address] Backer, BISI Duncan [address] [place] [address] [place] Non Stress Tests [place] [address] [place] [address] 05/18/2023 9:15 AM EDT Office Visit Gynecology/Obstetrics Codey Villagomez [address] [place] [address] Ana Edwards PA-C [address] [place] [address] [place] Non Stress Tests [place] [address] [place] [address] 11/23/2023 1:40 PM EDT Office Visit Nephrology, [facility] 200 [place] [address] Simona Gutierrez MD [address] [place] [address] Pending Results Name Type Priority Associated Diagnoses Date /Time PROTEIN/ CREATININE RATIO, URINE Lab Routine Supervision of high risk in first trimester Gestational hypertension without significant proteinuria in third trimester 04/13/2023 9:56 AM EST Health Maintenance Due Date Last Done Comments Depression Screening 2002 Hepatitis B (1 of 3 - 19+ 3-dose series) 2009 COVID-19 Vaccine ( season) 2022 Influenza Vaccine (FLU shot) (#1) 2022 TSH 02/24/2024 02/23/2023, 10/15/2022 GFR 04/12/2024 04/13/2023, 0305/2023, 03/30/2023, Additional history exists Pap Smear 05/31/2025 [...] filedocumented as of this encounter Results * ALT (04/13/2023 9:52 AM EST) ALT 10 10 - 35 U/L 04/13/2023 11:11 AM EST [facility] [place] 57-10 Blood Venous blood specimen / Unknown Venipuncture / Unknown 04/13/2023 9:52 AM EST 04/13/2023 9:52 AM EST Karlie Infante PA-C LAB BLOOD ORDERABLES [facility] [place] 57-10 [address] [place] [address] * (ABNORMAL) AST (04/13/2023 9:52 AM EST) AST 7(L) 10 - 35 U/L 04/13/2023 11:11 AM EST [facility] [place] 57-10 Blood Venous blood specimen / Unknown Venipuncture / Unknown 04/13/2023 9:52 AM EST 04/13/2023 9:52 AM EST Karlie Infante PA-C LAB BLOOD ORDERABLES [facility] [place] 57-10 [address] [place] [address] * PLT (04/13/2023 9:52 AM EST) PLT 312 140 - 400 K/uL 04/13/2023 10:12 AM EST [facility] [place] 57-10 Blood Venous blood specimen / Unknown Venipuncture / Unknown 04/13/2023 9:52 AM EST 04/13/2023 9:52 AM EST Karlie Infante PA-C LAB BLOOD ORDERABLES [facility] [place] 57-10 [address] [place] [address] documented in this encounter Visit Diagnoses Diagnosis Supervision of high risk in first trimester- Primary Unspecified high-risk Hypothyroidism affecting in third trimester Prediabetes Other abnormal glucose Class 2 obesity Obesity in , antepartum Obesity complicating , childbirth, or the puerperium, antepartum condition or complication Antepartum anemia complicating Anemia, antepartum Gestational hypertension without significant proteinuria in third trimester Transient hypertension of , antepartum documented in this encounter Care Teams Sheet Heater Relationship Specialty Start Date End Date Lorelei Mccormack DO [address] [facility] [place] [address] PCP - General Family Medicine 03/07/22 documented as of this encounter
--- OUTSIDE RECORDS SUMMARY | 2023-05-04 07:41 | External Medical Summary | Summary of Care ---
Author Name Unknown Organization [facility] Address [address] [place] [address] Phone [phone] Care Team Providers Care Assembler Fluorescent Lights Name Role Phone Lorelei Mccormack DO Primary Care Provider Encounter Details Date Type Department Care Team (Late st Contact Info) Description 04/09/2023 Telephone Nephrology, Edgardo Kebede 200 [facility] [place] [address] Mague Peters MD 200 [facility] [place] [address] Allergies No known active allergiesdocumented as of [...] GLUCOSE, 100-G GESTATIONAL GLUCOSE, HEMOGLOBIN A1C - [facility] Baseline Preeclampsia Labs Lab Results Component [...] money to get more. Never true 12/08/2022 [place] Depression Scale Answer Date Recorded [place] Depression Scale Total 0 03/12/2023 The thought [...] 04/10/2023 8:49 AM EST PT returning call [phone] best call back number * Telephone Encounter [...] 04/10/2023 2:15 PM EST Office Visit Gynecology/Obstetrics [address] [place] [address] Miriam Abdi CRNP [address] [place] [address] [place] Non Stress Tests [place] [address] [place] [address] 04/13/2023 9:15 AM EST Office Visit Gynecology/Obstetrics Codey Mendozas [address] [place] [address] Karlie Infante PA-C [address] [place] [address] Jodi Villagomez Stress Tests [place] [address] [place] [address] 04/16/2023 10:15 AM EDT Office Visit Gynecology/Obstetrics Codey Mendozas [address] [place] [address] Valentine Barclay CRNP [address] [place] [address] Jodi Villagomez Stress Tests [place] [address] [place] [address] 04/18/2023 7:30 AM EDT Telemedicine Account Manager Obstetrics Maternal Medicine, [address] [place] [address] Stanislav Frances CRNP 190 [facility] 112 [place] [address] 04/19/2023 1:00 PM EDT Office Visit Gynecology/Obstetrics Codey Villagomez [address] [place] [address] Mary Oliveira, ADAM [address] [place] [address] [place] [address] Villagomez, Non Stress Tests [place] [address] [place] [address] 04/24/2023 10:15 AM EDT Office Visit Gynecology/Obstetrics Codey Villagomez [address] [place] [address] Valentine Barclay CRNP [address] [place] [address] Villagomez, Non Stress Tests [place] [address] [place] [address] 04/26/2023 7:30 AM EDT Imaging Maternal Medicine Imaging, [place] Villagomez [address] [place] [address] 04/27/2023 7:45 AM EDT Office Visit Gynecology/Obstetrics Codey Villagomez [address] [place] [address] Karlie Ifnante PA-C [address] [place] [address] 05/01/2023 9:30 AM EDT Office Visit Gynecology/Obstetrics Codey Villagomez [address] [place] [address] Miriam Abdi CRNP [address] [place] [address] [place], Non Stress Tests [place] [address] [place] [address] 05/04/2023 2:15 PM EDT Office Visit Gynecology/Obstetrics Codey Villagomez [address] [place] [address] Miriam Abdi CRNP [address] [place] [address] Villagomez, Non Stress Tests [place] [address] [place] [address] 05/08/2023 9:30 AM EDT Office Visit Gynecology/Obstetrics Trey's Villagomez [address] [place] [address] Miriam Abdi CRNP [address] [place] [address] Villagomez, Non Stress Tests [place] [address] [place] [address] 05/11/2023 11:00 AM EDT Office Visit Gynecology/Obstetrics Zains Villagomez [address] [place] [address] Valentine Barclay CRNP [address] [place] [address] [place], Non Stress Tests [place] [address] [place] [address] 05/15/2023 11:15 AM EDT Office Visit Gynecology/Obstetrics Codey Mendozas [address] [place] [address] Valentine Barclay CRNP [address] [place] [address] [place], Non Stress Tests [place] [address] [place] [address] 05/18/2023 9:15 AM EDT Office Visit Gynecology/Obstetrics Trey's Villagomez [address] [place] [address] Ana Edwards PA-C [address] [place] [address] [place] [address] Villagomez, Jodi Stress Tests [place] [address] [place] [address] 11/23/2023 1:40 PM EDT Office Visit Nephrology, [facility] 200 [place] [address] Simona Gutierrez MD [address] [place] [address] Health Maintenance Due Date [...] filedocumented as of this encounter Care Teams Assembler Fluorescent Lights Relationship Specialty Start Date End Date Lorelei Mccormack DO [address] [place] [address] PCP - General Family Medicine 03/07/22 documented as of this encounter
--- OUTSIDE RECORDS SUMMARY | 2023-05-04 07:41 | External Medical Summary | Summary of Care ---
Author Name Unknown Organization [facility] Address [address] [place] [address] Phone [phone] Care Team Providers Care Cheesemaking Laborer Name Role Phone Lorelei Mccormack DO Primary Care Provider Encounter Details Date Type Department Care Team (Late st Contact Info) Description 04/09/2023 Telephone Nephrology, Edgardo Kebede 200 [facility] [place] [address] Mague Peters MD 200 [facility] [place] [address] Allergies No known active allergiesdocumented as of [...] 100-G GESTATIONAL GLUCOSE, HEMOGLOBIN A1C - [facility] Baseline Preeclampsia Labs Lab Results Component [...] money to get more. Never true 12/08/2022 [place] Depression Scale Answer Date Recorded [place] Depression Scale Total 0 03/12/2023 The thought [...] 04/10/2023 8:49 AM EST PT returning call [phone] best call back number * Telephone Encounter [...] 04/10/2023 2:15 PM EST Office Visit Gynecology/Obstetrics [address] [place] [address] Miriam Abdi CRNP [address] [place] [address] [place] Non Stress Tests [place] [address] [place] [address] 04/13/2023 9:15 AM EST Office Visit Gynecology/Obstetrics Codey Mendozas [address] [place] [address] Karlie Infante PA-C [address] [place] [address] Jodi Villagomez Stress Tests [place] [address] [place] [address] 04/16/2023 10:15 AM EDT Office Visit Gynecology/Obstetrics Codey Mendozas [address] [place] [address] Valentine Barclay CRNP [address] [place] [address] Jodi Villagomez Stress Tests [place] [address] [place] [address] 04/18/2023 7:30 AM EDT Telemedicine Principal Developer Obstetrics Maternal Medicine, [address] 114 [place] [address] Stanislav Frances CRNP 190 [facility] 112 [place] [address] 04/19/2023 1:00 PM EDT Office Visit Gynecology/Obstetrics Codey Villagomez [address] [place] [address] Mary Oliveira, ADAM [address] [place] [address] [place] [address] Villagomez, Non Stress Tests [place] [address] [place] [address] 04/24/2023 10:15 AM EDT Office Visit Gynecology/Obstetrics Codey Villagomez [address] [place] [address] Valentine Barclay CRNP [address] [place] [address] Villagomez, Non Stress Tests [place] [address] [place] [address] 04/26/2023 7:30 AM EDT Imaging Maternal Medicine Imaging, [place] Villagomez [address] [place] [address] 04/27/2023 7:45 AM EDT Office Visit Gynecology/Obstetrics Codey Villagomez [address] [place] [address] Karlie Infante PA-C [address] [place] [address] 05/01/2023 9:30 AM EDT Office Visit Gynecology/Obstetrics Codey Villagomez [address] [place] [address] Miriam Abdi CRNP [address] [place] [address] [place], Non Stress Tests [place] [address] [place] [address] 05/04/2023 2:15 PM EDT Office Visit Gynecology/Obstetrics Codey Villagomez [address] [place] [address] Miriam Abdi CRNP [address] [place] [address] Villagomez, Non Stress Tests [place] [address] [place] [address] 05/08/2023 9:30 AM EDT Office Visit Gynecology/Obstetrics Trey's Villagomez [address] [place] [address] Miriam Abdi CRNP [address] [place] [address] Villagomez, Non Stress Tests [place] [address] [place] [address] 05/11/2023 11:00 AM EDT Office Visit Gynecology/Obstetrics Zains Villagomez [address] [place] [address] Valentine Barclay CRNP [address] [place] [address] [place], Non Stress Tests [place] [address] [place] [address] 05/15/2023 11:15 AM EDT Office Visit Gynecology/Obstetrics Codey Mendozas [address] [place] [address] Valentine Barclay CRNP [address] [place] [address] [place], Non Stress Tests [place] [address] [place] [address] 05/18/2023 9:15 AM EDT Office Visit Gynecology/Obstetrics Trey's Villagomez [address] [place] [address] Ana Edwards PA-C [address] [place] [address] [place] [address] Villagomez, Jodi Stress Tests [place] [address] [place] [address] 11/23/2023 1:40 PM EDT Office Visit Nephrology, [facility] 200 [facility] [place] [address] Simona Gutierrez MD [address] [place] [address] Health Maintenance Due Date [...] filedocumented as of this encounter Care Teams Cheesemaking Laborer Relationship Specialty Start Date End Date Lorelei Mccormack DO [address] [place] [address] PCP - General Family Medicine 03/07/22 documented as of this encounter
--- OUTSIDE RECORDS SUMMARY | 2023-05-04 07:41 | External Medical Summary | Summary of Care ---
Author Name Unknown Organization [facility] Address [address] [place] [address] Phone [phone] Care Team Providers Care Manager Of Applications Development Name Role Phone Lorelei Mccormack DO Primary Care Provider Encounter Details Date Type Department Care Team (Late st Contact Info) Description 04/09/2023 Telephone Nephrology, Edgardo Kebede 200 [facility] [place] [address] Mague Peters MD 200 [facility] [place] [address] Allergies No known active allergiesdocumented as of [...] GLUCOSE, 100-G GESTATIONAL GLUCOSE, HEMOGLOBIN A1C - [facility] Baseline Preeclampsia Labs Lab Results Component Value [...] money to get more. Never true 12/08/2022 [place] Depression Scale Answer Date Recorded [place] Depression Scale Total 0 03/12/2023 The thought [...] encounter Miscellaneous Notes * Telephone Encounter - Mague Peters MD [...] 04/10/2023 8:49 AM EST PT returning call [phone] best call back number * Telephone Encounter [...] 04/10/2023 2:15 PM EST Office Visit Gynecology/Obstetrics Yangraleigh Mendozas [address] [place] [address] Miriam Abdi CRNP [address] [place] [address] [place] Non Stress Tests [place] [address] [place] [address] 04/13/2023 9:15 AM EST Office Visit Gynecology/Obstetrics Yangraleigh Mendozas [address] [place] [address] Karlie Infante PA-C [address] [place] [address] [place] Non Stress Tests [place] [address] [place] [address] 04/16/2023 10:15 AM EDT Office Visit Gynecology/Obstetrics Yangraleigh Villagomez [address] [place] [address] Valentine Barclay CRNP [address] [place] [address] [place] Non Stress Tests [place] [address] [place] [address] 04/18/2023 7:30 AM EDT Telemedicine Disassembler Obstetrics Maternal Medicine, [place] [address] [place] [address] Stanislav Frances CRNP 190 [facility] 112 [place] [address] 04/19/2023 1:00 PM EDT Office Visit Gynecology/Obstetrics Trey's Villagomez [address] [place] [address] Mary Oliveira, ADAM [address] [place] [address] Villagomez, Non Stress Tests [place] [address] [place] [address] 04/24/2023 10:15 AM EDT Office Visit Gynecology/Obstetrics Trey's Villagomez [address] [place] [address] Valentine Barclay CRNP [address] [place] [address] [place] Non Stress Tests [place] [address] [place] [address] 04/26/2023 7:30 AM EDT Imaging Maternal Medicine Imaging, [place] Mendozas [address] [place] [phone] 04/27/2023 7:45 AM EDT Office Visit Gynecology/Obstetrics Yang's Villagomez [address] [place] [address] Karlie Infante PA-C [address] [place] [address] 05/01/2023 9:30 AM EDT Office Visit Gynecology/Obstetrics Trey's Villagomez [address] [place], [place] [address] Miriam Abdi CRNP [address] [place] [address] Villagomez, Non Stress Tests [place] [address] [place] [address] 05/04/2023 2:15 PM EDT Office Visit Gynecology/Obstetrics Trey's Villagomez [address] [place] [address] Miriam Abdi CRNP [address] [place] [address] Villagomez, Non Stress Tests [place] [address] [place] [address] 05/08/2023 9:30 AM EDT Office Visit Gynecology/Obstetrics Trey's Villagomez [address] [place] [address] Miriam Abdi CRNP [address] [place] [address] [place] Non Stress Tests [place] [address] [place] [address] 05/11/2023 11:00 AM EDT Office Visit Gynecology/Obstetrics Trey's Villagomez [address] [place] [address] Valentine Barclay CRNP [address] [place] [address] Villagomez, Non Stress Tests [place] [address] [place] [address] 05/15/2023 11:15 AM EDT Office Visit Gynecology/Obstetrics Trey's Villagomez [address] [place] [address] Valentine Barclay CRNP [address] [place] [address] [place], Non Stress Tests [place] [address] [facility] [place] [address] 05/18/2023 9:15 AM EDT Office Visit Gynecology/Obstetrics Codey Villagomez [address] [facility] [place] [address] Ana Edwards PA-C [address] [place] [address] [place], Non Stress Tests [place] [address] [facility] [place] [address] 11/23/2023 1:40 PM EDT Office Visit Nephrology, [facility] 200 [place] [address] Simona Gutierrez MD 400 [facility] [place] [address] Health Maintenance Due Date Last Done Comments [...] filedocumented as of this encounter Care Teams Manager Of Applications Development Relationship Specialty Start Date End Date Lorelei Mccormack DO 1400 [facility] [place] [address] PCP - General Family Medicine 03/07/22 documented as of this encounter
--- OUTSIDE RECORDS SUMMARY | 2023-05-04 07:41 | External Medical Summary | Summary of Care ---
Author Name Unknown Organization [facility] Address [address] [place] [address] Phone [phone] Care Team Providers Care Media Manager Name Role Phone Lorelei Mccormack DO Primary Care Provider Reason for Visit * Reason Onset Date Comments Referral 04/02/2023 Encounter Details Date Type Department Care Team (Late st Contact Info) Description 04/02/2023 Telephone Plumber Supervisor Obstetrics Maternal Medicine, [place] [address] [place] [address] [place], Nurse Plumber Supervisor [facility] [address] [place] [address] Referral Allergies No known active allergiesdocumented as of this encounter (statuses as of 04/09/2023) Medications Medication Sig Dispensed Refills Start Date [...] as of this encounter (statuses as of 04/09/2023) Active Problems Problem Noted Date Diagnosed Date [...] as of this encounter (statuses as of 04/09/2023) Resolved Problems Problem Noted Date Diagnosed Date Resolved Date with 11 completed weeks gestation 10/31/2022 12/29/2022 documented as of this encounter (statuses as of 04/09/2023) Immunizations Name Administration Dates Next Due TDAP [...] money to get more. Never true 12/08/2022 [place] Depression Scale Answer Date Recorded [place] Depression Scale Total 0 03/12/2023 The thought [...] encounter Miscellaneous Notes * Telephone Encounter - Arabella Cortez CCMA - 04/09/2023 8:02 AM EST Patient cancelled SERVICE WRITER ADVISOR consult 04/10/23, please contact to reschedule. * Telephone Encounter - Lolita Horton OSA - 04/03/2023 7:43 AM EST Spoke with Sara. Appointment scheduled. Patient aware of date, time and location of Maternal Medicine appointment. Gave her phone number to schedule NSTs at [facility] * Telephone Encounter - Arabella Cortez CCMA - 04/02/2023 4:14 PM EST Estimated Date of Delivery: 05/21/23 Please schedule for 45 MINUTE CONSULT SIMPLE MEDICAL WITH SERVICE WRITER ADVISOR, in time frame of within 1 week at location [facility] with the indication of GHTN. Please schedule twice weekly NSTs starting NOW. Patient has follow-up ultrasound scheduled 04/26/23 at [facility]. Referring Provider: Karlie Infante PA-C documented in this encounter Plan of Treatment Upcoming Encounters Date Type Department Care Team (Late st Contact Info) Description 04/10/2023 2:15 PM EST Office Visit Gynecology/Obstetrics [facility] [address] [place] [address] Miriam Abdi CRNP [address] [place] [address] Jodi Villagomez Stress Tests [facility] [address] [place] [address] 04/13/2023 9:15 AM EST Office Visit Gynecology/Obstetrics Codey Villagomez [address] [place] [address] Karlie Infante PA-C [address] [place] [address] [place] Non Stress Tests [place] [address] [place] [address] 04/16/2023 10:15 AM EDT Office Visit Gynecology/Obstetrics Codey Villagomez [address] [place] [address] Valentine Barclay CRNP [address] [place] [address] [place] Non Stress Tests [place] [address] [place] [address] 04/19/2023 1:00 PM EDT Office Visit Gynecology/Obstetrics Codey Villagomez [address] [place] [address] Mary Oliveira, [facility] [address] [facility] [place] [address] [place] Non Stress Tests [place] [address] [place] [address] 04/24/2023 10:15 AM EDT Office Visit Gynecology/Obstetrics Codey Villagomez [address] [place] [address] Valentine Barclay CRNP [address] [place] [address] [place] Non Stress Tests [place] [address] [place] [address] 04/26/2023 7:30 AM EDT Imaging Maternal Medicine Imaging, [place] Villagomez [address] [place] [address] 04/27/2023 7:45 AM EDT Office Visit Gynecology/Obstetrics Codey Mendozas [address] [place] [address] Karlie Infante PA-C [address] [place] [address] 05/01/2023 9:30 AM EDT Office Visit Gynecology/Obstetrics Codey Villagomez [address] [place] [address] Miriam Abdi CRNP [address] [place] [address] [place], Non Stress Tests [place] [address] [place] [address] 05/04/2023 2:15 PM EDT Office Visit Gynecology/Obstetrics Codey Mendozas [address] [place] [address] Miriam Abdi CRNP [address] [place] [address] [place], Non Stress Tests [place] [address] [place] [address] 05/08/2023 9:30 AM EDT Office Visit Gynecology/Obstetrics Codey Mendozas [address] [place] [address] Miriam Abdi CRNP [address] [place] [address] [place], Non Stress Tests [place] [address] [place] [address] 05/11/2023 11:00 AM EDT Office Visit Gynecology/Obstetrics Codey Villagomez [address] [place] [address] Valentine Barclay CRNP [address] [place] [address] Jodi Villagomez Stress Tests [place] [address] [place] [address] 05/15/2023 11:15 AM EDT Office Visit Gynecology/Obstetrics Codey Villagomez [address] [place] [address] Valentine Barclay CRNP [address] [place] [address] Jodi Villagomez Stress Tests [place] [address] [place] [address] 05/18/2023 9:15 AM EDT Office Visit Gynecology/Obstetrics Codey Mendozas [address] [place] [address] Ana Edwards PA-C [address] [place] [id number] Jodi Villagomez Stress Tests [place] [address] [place] [address] 11/23/2023 1:40 PM EDT Office Visit Nephrology, Edgardo Kebede [address] [facility] [address] Simona Gutierrez MD [address] [facility] [place] [address] Health Maintenance Due Date Last Done Comments Depression Screening 2002 Hepatitis B (1 of 3 - 19+ 3-dose series) 2009 COVID-19 Vaccine (1 - 2022-2 4 season) 2022 Influenza Vaccine (FLU shot) (#1) 2022 TSH 02/24/2024 02/23/2023, 10/15/2022 GFR 03/30/2024 03/30/2023, 02/23/2023 Pap Smear 05/31/2025 05/31/2022 Cervical [...] filedocumented as of this encounter Care Teams Media Manager Relationship Specialty Start Date End Date Lorelei Mccormack DO [address] [place] [address] PCP - General Family Medicine 03/07/22 documented as of this encounter
--- OUTSIDE RECORDS SUMMARY | 2023-05-04 07:41 | External Medical Summary ---
Author Name Unknown Address Unknown Organization [facility] [address] [place] [address] Laboratory Report Ordering Provider Test Date Status CARLOZ CRAWFORD 04/09/2023 07:15:20 Final Observation Date Value Abnormality Reference (Units ) Status BUN 04/09/2023 07:15:20 5 Below low normal 6-20 (mg/dL) Final Creatinine 04/09/2023 07:15:20 0.5 0.5-1.0 (mg/dL) Final Glomerular filtration rate/1.73 sq M.predicted [Volume Rate/Area] in Serum, Plasma or Blood by Creatinine-based formula (CKD-EPI) 04/09/2023 07:15:20 >90 >=60 (mL/min) Final eGFR is calculated based on the CKD-EPI 2020 equation SODIUM 04/09/2023 07:15:20 140 135-146 (m mol/L) Final Potassium 04/09/2023 07:15:20 3.3 Below low normal 3.5 -5.1 (mmol/L) Final Cl 04/09/2023 07:15:20 105 98-107 (mm ol/L) Final CO2 04/09/2023 07:15:20 20 Below low normal 22- 32 (mmol/L) Final Anion gap 04/09/2023 07:15:20 15 7-15 (mmol /L) Final Glucose 04/09/2023 07:15:20 103 70-120 (mg /dL) Final Calcium 04/09/2023 07:15:20 9.3 8.4-10.2 ( mg/dL) Final Performing Location [facility] [address] [place] [address]
--- OUTSIDE RECORDS SUMMARY | 2023-05-04 07:41 | External Medical Summary | Summary of Care ---
Author Name Unknown Organization [facility] Address [address] [place] [address] Phone [phone] Care Team Providers Care Management Accounts Manager Name Role Phone Lorelei Mccormack DO Primary Care Provider [phone] Reason for Visit * Reason Onset Date Comments Referral 04/02/2023 Encounter Details Date Type Department Care Team (Late st Contact Info) Description 04/02/2023 Telephone Professor Of Violin Obstetrics Maternal Medicine, [place] [address] [place] [address] [place], Nurse Professor Of Violin [facility] [address] [place] [address] Referral Allergies No known active allergiesdocumented as [...] money to get more. Never true 12/08/2022 [place] Depression Scale Answer Date Recorded [place] Depression Scale Total 0 03/12/2023 The thought [...] encounter Miscellaneous Notes * Telephone Encounter - Lolita Horton OSA - 04/09/2023 2:53 PM EST Spoke with Sara. Appointment scheduled. Patient aware of date, time and location of Maternal Medicine appointment. * Telephone Encounter - Lolita Horton OSA - 04/09/2023 2:06 PM EST Phone call to patient. Left message on Sara's voice mail. Encouraged patient to return call to [facility] to assist with scheduling. * Telephone Encounter - Arabella Cortez CCMA - 04/09/2023 8:02 AM EST Patient cancelled ADJUNCT TRAINER consult 04/10/23, please contact to reschedule. * Telephone Encounter - Lolita Horton OSA - 04/03/2023 7:43 AM EST Spoke with Sara. Appointment scheduled. Patient aware of date, time and location of Maternal Medicine appointment. Gave her phone number to schedule NSTs at [facility] * Telephone Encounter - Arabella Cortez CCMA - 04/02/2023 4:14 PM EST Estimated Date of Delivery: 05/21/23 Please schedule for 45 MINUTE CONSULT SIMPLE MEDICAL WITH ADJUNCT TRAINER, in time frame of within 1 week at location [facility] with the indication of GHTN. Please schedule twice weekly NSTs starting NOW. Patient has follow-up ultrasound scheduled 04/26/23 at [facility]. Referring Provider: Karlie Infante PA-C documented in this encounter Plan of Treatment Upcoming Encounters Date Type Department Care Team (Late st Contact Info) Description 04/10/2023 2:15 PM EST Office Visit Gynecology/Obstetrics Codey Villagomez [address] [place] [address] Miriam Abdi CRNP [address] [place] [address] [place], Non Stress Tests [place] [address] [place] [address] 04/13/2023 9:15 AM EST Office Visit Gynecology/Obstetrics Codey Villagomez [address] [place] [address] Karlie Infante PA-C [address] [place] [address] [place] Non Stress Tests [place] [address] [place] [address] 04/16/2023 10:15 AM EDT Office Visit Gynecology/Obstetrics Codey Villagomez [address] [place] [address] Valentine Barclay CRNP [address] [place] [address] [place], Non Stress Tests [place] [address] [place] [address] 04/18/2023 7:30 AM EDT Telemedicine Professor Of Violin Obstetrics Maternal Medicine, [place] [address] [facility] [address] [place] [address] Stanislav Frances CRNP [address] [facility] [address] [place] [address] 04/19/2023 1:00 PM EDT Office Visit Gynecology/Obstetrics Codey Villagomez [address] [place] [address] Mary Oliveira, CN [address] [place] [address] [place] Non Stress Tests [place] [address] [place] [address] 04/24/2023 10:15 AM EDT Office Visit Gynecology/Obstetrics Codey Villagomez [address] [place] [address] Valentine Barclay CRNP [address] [place] [address] Jodi Villagomez Stress Tests [place] [address] [place] [address] 04/26/2023 7:30 AM EDT Imaging Maternal Medicine Imaging, [place] Villagomez [address] [place] [phone] 04/27/2023 7:45 AM EDT Office Visit Gynecology/Obstetrics Codey Villagomez [address] [place] [address] Karlie Infante PA-C [address] [place] [address] 05/01/2023 9:30 AM EDT Office Visit Gynecology/Obstetrics Codey Villagomez [address] [place] [address] Miriam Abdi CRNP [address] [place] [address] [place] Non Stress Tests [place] [address] [place] [address] 05/04/2023 2:15 PM EDT Office Visit Gynecology/Obstetrics Codey Mendozas [address] [place] [address] Miriam Abdi CRNP [address] [place] [address] [place] Non Stress Tests [place] [address] [place] [address] 05/08/2023 9:30 AM EDT Office Visit Gynecology/Obstetrics Codey Mendozas [address] [place] [address] Miriam Abdi CRNP [address] [place] [address] Jodi Villagomez Stress Tests [place] [address] [place] [address] 05/11/2023 11:00 AM EDT Office Visit Gynecology/Obstetrics Codey Mendozas [address] [place] [address] Valentine Barclay CRNP [address] [place] [address] Jodi Villagomez Stress Tests [place] [address] [place] [address] 05/15/2023 11:15 AM EDT Office Visit Gynecology/Obstetrics Codey Mendozas [address] [place] [address] Valentine Barclay CRNP [address] [place] [address] [place] Non Stress Tests [place] [address] [place] [address] 05/18/2023 9:15 AM EDT Office Visit Gynecology/Obstetrics Codey Villagomez 132 [facility] [place] [address] Ana Edwards PA-C 400 [facility] [place] [address] [place], Jodi Stress Tests [place] 132 [facility] [place] [address] 11/23/2023 1:40 PM EDT Office Visit Nephrology, [facility] 200 [place] [address] Simona Gutierrez MD [address] [place], [place] [id number] Health Maintenance Due Date Last Done Comments [...] filedocumented as of this encounter Care Teams Management Accounts Manager Relationship Specialty Start Date End Date Lorelei Mccormack DO [address] [facility] [place] [address] PCP - General Family Medicine 03/07/22 documented as of this encounter
--- OUTSIDE RECORDS SUMMARY | 2023-05-04 07:41 | External Medical Summary | Summary of Care ---
Author Name Unknown Organization [facility] Address [address] [place] [facility] [facility] [place] [address] Phone [phone] Care Team Providers Care Relief Charge Nurse Name Role Phone Lorelei Mccormack DO Primary Care Provider Reason for Visit * Reason Comments Infusion Venofer 04/07 Encounter Details Date Type Department Care Team (Latest Contact Info) Description 04/06/2023 11:45 AM EST Hem/Onc Treatment Hematology/Oncology Treatment, [address] [phone] [place], Chair 10 Hem On[address] [address] Antepartum anemia complicating *; Iron deficiency anemia, unspecified iron deficiency anemia type Allergies No known active allergiesdocumented as of this encounter (statuses as of 04/06/2023) Medications Medication Sig Dispensed Refills Start Date [...] as of this encounter (statuses as of 04/06/2023) Active Problems Problem Noted Date Diagnosed Date [...] Normal 10/30/2022 Supervision of high risk in [facility] trim julio 10/30/2022 Obesity in , antepartum [...] as of this encounter (statuses as of 04/06/2023) Resolved Problems Problem Noted Date Diagnosed Date Resolved Date with 11 completed weeks gestation 10/31/2022 12/29/2022 documented as of this encounter (statuses as of 04/06/2023) Immunizations Name Administration Dates Next Due TDAP [...] money to get more. Never true 12/08/2022 [place] Depression Scale Answer Date Recorded [place] Depression Scale Total 0 03/12/2023 The thought [...] Sign Reading Time Taken Comments Blood Pressure 138/83 04/06/2023 1:36 PM EST Pulse 102 04/06/2023 1:36 PM EST Temperature 36.9 C (98.5 F) 04/06/2023 1:36 PM ES T Respiratory Rate 18 04/06/2023 1:36 PM EST Oxygen Saturation 98% 04/06/2023 1:36 PM EST Inhaled Oxygen Concentration - - Weight - - Height - - Body Mass Index - - documented in this encounter Nursing Notes * Arabella Grant LPN - 04/06/2023 1:37 PM EST 1210: Pt arrived for Venofer 3/3 infusion. PIV in RFA. Pt tolerated well. VSS. No complaints at this time. 1350: Pt tolerated Venofer infusion well. PIV removed intact. Pt to follow up with MD. Discharged in stable condition. documented in this encounter Plan of Treatment Upcoming Encounters Date Type Department Care Team (Late st Contact Info) Description 04/10/2023 2:15 PM EST Office Visit Gynecology/Obstetrics Codey Mendozas [address] [place] [address] Miriam Abdi CRNP [address] [place] [address] Villagomez, Non Stress Tests [place] [address] [place] [address] 04/13/2023 9:15 AM EST Office Visit Gynecology/Obstetrics [place] [address] [place] [address] Karlie Infante PA-C [address] [place] [address] Villagomez, Non Stress Tests [place] [address] [place] [address] 04/16/2023 10:15 AM EDT Office Visit Gynecology/Obstetrics Codey Mendozas [address] [place] [address] Valentine Barclay CRNP [address] [place] [address] Villagomez, Non Stress Tests [place] [address] [place] [address] 04/19/2023 1:00 PM EDT Office Visit Gynecology/Obstetrics Codey Mendozas [address] [place] [address] Mary Oliveira, [address] [place] [address] Villagomez, Non Stress Tests [place] [address] [place] [address] 04/24/2023 10:15 AM EDT Office Visit Gynecology/Obstetrics Codey Mendozas [address] [place] [address] Valentine Barclay CRNP [address] [place] [address] Villagomez, Non Stress Tests [place] [address] [place] [address] 04/26/2023 7:30 AM EDT Imaging Maternal Medicine Imaging, [place] Villagomez [address] [place] [address] 04/27/2023 7:45 AM EDT Office Visit Gynecology/Obstetrics [facility] Villagomez [address] [place] [address] Karlie Infante PA-C [address] [place] [address] 05/01/2023 9:30 AM EDT Office Visit Gynecology/Obstetrics [facility] Villagomez [address] [place] [address] Miriam Abdi CRNP [address] [place] [address] Villagomez, Non Stress Tests [place] [address] [place] [address] 05/04/2023 2:15 PM EDT Office Visit Gynecology/Obstetrics [facility] Villagomez [address] [place] [address] Miriam Abdi CRNP [address] [place] [address] Villagomez, Non Stress Tests [place] [address] [place] [address] 05/08/2023 9:30 AM EDT Office Visit Gynecology/Obstetrics [facility] Villagomez [address] [place] [address] Miriam Abdi CRNP [address] [place] [address] Villagomez, Non Stress Tests [place] [address] [place] [address] 05/11/2023 11:00 AM EDT Office Visit Gynecology/Obstetrics [facility] Villagomez [address] [place] [address] Valentine Barclay CRNP [address] [place] [address] Villagomez, Non Stress Tests [place] [address] [place] [address] 05/15/2023 11:15 AM EDT Office Visit Gynecology/Obstetrics Codey Villagomez [address] [place] [address] BackerValentine CRNP [address] [place] [address] Villagomez, Non Stress Tests [place] [address] [place] [address] 05/18/2023 9:15 AM EDT Office Visit Gynecology/Obstetrics Codey Villagomez [address] [place] [address] Ana Edwards PA-C [address] [place] [address] Villagomez, Non Stress Tests [place] [address] [place] [address] 11/23/2023 1:40 PM EDT Office Visit Nephrology, [facility] 200 [place] [address] Simona Gutierrez MD [address] [place] [address] Health Maintenance Due Date Last Done Comments Depression Screening 2002 Hepatitis B (1 of 3 - 19+ 3-dose series) 2009 COVID-19 Vaccine ( - 2022-2 4 season) 2022 Influenza Vaccine [...] type documented in this encounter Administered Medications Active Administered Medications - up to 3 most recent administrations Medication Order MAR Action Action Date Dose Rate Site diphenhydrAMINE (Benadryl) inj 50 mg 50 mg, IV Push, ONCE PRN Other, Hypersensitivity Reaction, Starting on Sun04/06/23 at 1140, Until 04/07/23 at 1139, For 24 hours EPINEPHrine 1 MG/ML inj 0.3 mg 0.3 mg, Intramuscular, ONCE PRN Other, Hypersensitivity Reaction or Anaphylaxis, Starting on Sun04/06/23 at 1140, Until 04/07/23 at 1139, For 24 hours hEParin 100 UNIT/ML Lock Flush inj 500 Units 500 Units (5 mL), IV Lock, PRN Other, IV Flush, Starting on Sun04/06/23 at 1140, Until 04/07/23 at 1139, For 24 hours, Do not flush if lock, PICC, or central line not in place; IV infusing or unable to flush. Hydrocortisone Sod Suc (PF) (Solu-Cortef) inj 100 mg 100 mg, IV Push, ONCE PRN Other, Hypersensitivity Reaction, Starting on Sun04/06/23 at 1140, Until 04/07/23 at 1139, For 24 hours NSS infusion 500 mL, Intravenous, at 50 mL/hr, CONTINUOUS, Starting on Sun04/06/23 at 1245, Until Sun04/06/23 at 2244 Start Infusion 04/06/2023 12:12 PM EST 500 mL 50 mL/hr oxygen GAS Inhalation, OXYGEN, First dose on Sun04/06/23 at 1600, Until Discontinued, Device/Managed by: Low Flow Device, Goal SPO2 (%): 91-95, Starting Device: Nasal Cannula, Initial Flow Rate (LPM): 2, Lowest Support: Nasal Cannula: Flow 0-6 LPM. Titrate up/down by 1 LPM., Higher Support: Non-Rebreather (NRB) Mask: Minimum of 10 LPM. Titrate to maintain bag inflation., Titration Interval: Q2 minutes and as needed., Notify Provider: For sudden DECREASE in resting SPO2 to less than 85% and when escalating delivery device., Wean patient off Oxygen when the oxygen saturation is greater than or equal to 93% sodium chloride 0.9 % flush central line 10 mL 10 mL, IV Push, PRN Other, IV Flush, Starting on Sun04/06/23 at 1140, Until 04/07/23 at 1139, For 24 hours, Do not flush if lock, PICC, or central line not in place; IV infusing or unable to flush. Inactive Administered Medications - up to 3 most recent administrations Medication Order MAR Action Action Date Dose Rate Site Iron Sucrose (Venofer) 300 mg in NSS 250 mL ivpb 300 mg, IV Piggyback, ONCE, 1 dose, On Sun04/06/23 at 1315, Administer over 90 Minutes Start Infusion 04/06/2023 12:12 PM EST 300 mg 166.67 mL/hr documented in this encounter Care Teams Relief Charge Nurse Relationship Specialty Start Date End Date Lorelei Mccormack DO [address] [place] [address] PCP - General Family Medicine 03/07/22 documented as of this encounter
--- OUTSIDE RECORDS SUMMARY | 2023-05-04 07:41 | External Medical Summary | Summary of Care ---
Author Name Unknown Organization [facility] Address [address] [facility] [address] Phone [phone] Care Team Providers Care Web Designer Name Role Phone Lorelei Mccormack DO Primary Care Provider Reason for Visit * Reason Onset Date Comments Test Results 04/03/2023 Encounter Details Date Type Department Care Team (Late st Contact Info) Description 04/03/2023 Telephone Nephrology, [address] [address] Simona Gutierrez MD [address] [place] [id number] Test Results Allergies No known active [...] daily No results found for: TSH - JUDYER 05/19/2022 TSH = 0.71 Follows with Richard [...] money to get more. Never true 12/08/2022 [place] Depression Scale Answer Date Recorded [place] Depression Scale Total 0 03/12/2023 The thought [...] 1 tablet twice daily to her pharmacy [place] [address] Matt ROWLAND by phone. Detailed message left. Will also send MyG. Lab order in [place]. * Telephone Encounter - Simona Gutierrez MD - 04/03/2023 9:56 AM EST Please let patient know to get blood work on Sunday. Dr. Gutierrez documented in this encounter Plan of Treatment Upcoming Encounters Date Type Department Care Team (Late st Contact Info) Description 04/10/2023 2:15 PM EST Office Visit Gynecology/Obstetrics Codey Mendozas [address] [place] [address] Miriam Abdi CRNP [address] [place] [address] [place], Non Stress Tests [place] [address] [place] [address] 04/13/2023 9:15 AM EST Office Visit Gynecology/Obstetrics Yang Villagomez [address] [place] [address] Karlie Infante PA-C [address] [place] [address] [place], Non Stress Tests [place] [address] [place] [address] 04/16/2023 10:15 AM EDT Office Visit Gynecology/Obstetrics Codey Mendozas [address] [place] [address] Valentine Barclay CRNP [address] [place] [address] [place], Non Stress Tests [place] [address] [place] [address] 04/19/2023 1:00 PM EDT Office Visit Gynecology/Obstetrics Codey Mendozas [address] [place] [address] Mary Oliveira, LLOYD[address] [place] [address] Villagomez, Non Stress Tests [place] [address] [place] [address] 04/24/2023 10:15 AM EDT Office Visit Gynecology/Obstetrics Codey Villagomez [address] [place] [address] Valentine Barclay CRNP [address] [place] [address] Villagomez, Non Stress Tests [place] [address] [place] [address] 04/26/2023 7:30 AM EDT Imaging Maternal Medicine Imaging, [place] Villagomez [address] [place] [phone] 04/27/2023 7:45 AM EDT Office Visit Gynecology/Obstetrics Codey Mendozas [address] [place] [address] Karlie Infante PA-C [address] [place] [address] 05/01/2023 9:30 AM EDT Office Visit Gynecology/Obstetrics Yang's Villagomez [address] [place] [address] Miriam Abdi CRNP [address] [place] [address] Villagomez, Non Stress Tests [place] [address] [place] [address] 05/04/2023 2:15 PM EDT Office Visit Gynecology/Obstetrics Yang's Villagomez [address] [place] [address] Miriam Abdi CRNP [address] [place] [address] Villagomez, Non Stress Tests [place] [address] [place] [address] 05/08/2023 9:30 AM EDT Office Visit Gynecology/Obstetrics Yang's Villagomez [address] [place] [address] Miriam Abdi CRNP [address] [place] [address] Villagomez, Non Stress Tests [place] [address] [place] [address] 05/11/2023 11:00 AM EDT Office Visit Gynecology/Obstetrics Yang's Villag[place] [address] [place] [address] Valentine Barclay CRNP [address] [place] [address] [place], Non Stress Tests [place] [address] [place] [address] 05/15/2023 11:15 AM EDT Office Visit Gynecology/Obstetrics Codey Villagomez [address] [place] [address] BackerValentine CRNP [address] [place] [address] [place], Non Stress Tests [place] [address] [place] [address] 05/18/2023 9:15 AM EDT Office Visit Gynecology/Obstetrics Codey Villagomez [address] [facility] [place] [address] Ana Edwards PA-C [address] [place] [address] [place], Non Stress Tests [place] [address] [place] [address] 11/23/2023 1:40 PM EDT Office Visit Nephrology, [address] [place] [address] Simona Gutierrez MD [address] [place] [address] Scheduled Orders Name Type Priority Associated Diagnoses Orde r Schedule BASIC METABOLIC PANEL Lab Routine Hypokalemia Expected: 04/09/2023, Expires: 04/03/2024 Health Maintenance Due Date Last Done Comments [...] Hypopotassemia documented in this encounter Care Teams Web Designer Relationship Specialty Start Date End Date Lorelei Mccormack DO [address] [place] [address] PCP - General Family Medicine 03/07/22 documented as of this encounter
--- OUTSIDE RECORDS SUMMARY | 2023-05-04 07:41 | External Medical Summary | Summary of Care ---
Author Name Unknown Organization [facility] Address [address] [place] [facility] [place] [address] Phone [phone] Care Team Providers Care System Planning Engineer Name Role Phone Lorelei Mccormack DO Primary Care Provider Reason for Visit * Reason Comments Outpatient Testing Encounter Details Date Type Department Care Team (Late st Contact Info) Description 04/09/2023 7:20 AM EST Laboratory Laboratory, [facility] [address] [place] [phone] [facility] [address] [place] [address] Hypokalemia Allergies No known active allergiesdocumented as [...] money to get more. Never true 12/08/2022 [place] Depression Scale Answer Date Recorded [place] Depression Scale Total 0 03/12/2023 The thought [...] Codey Villagomez [address] [place] [address] Miriam Abdi CRNP [address] [place] [address] [place] Non Stress Tests [place] [address] [place] [address] 04/13/2023 9:15 AM EST Office Visit Gynecology/Obstetrics Codey Villagomez [address] [place] [address] Karlie Infante PA-C [address] [place] [address] [place] Non Stress Tests [place] [address] [place] [address] 04/16/2023 10:15 AM EDT Office Visit Gynecology/Obstetrics Codey Villagomez [address] [place] [address] Valentine Barclay CRNP [address] [place] [address] [place] Non Stress Tests [place] [address] [place] [address] 04/19/2023 1:00 PM EDT Office Visit Gynecology/Obstetrics Codey Mendozas [address] [place] [address] Mary Oliveira, ADMA [address] [place] [address] [place] [address] Villagomez, Non Stress Tests [place] [address] [place] [address] 04/24/2023 10:15 AM EDT Office Visit Gynecology/Obstetrics Trey[facility] Villagomez [address] [place] [address] Valentine Barclay CRNP [address] [place] [address] Villagomez, Non Stress Tests [place] [address] [place] [address] 04/26/2023 7:30 AM EDT Imaging Maternal Medicine Imaging, [place] Villagomez [address] [place] [phone] 04/27/2023 7:45 AM EDT Office Visit Gynecology/Obstetrics Codey Mendozas [address] [place] [address] Karlie Infante PA-C [address] [place] [address] 05/01/2023 9:30 AM EDT Office Visit Gynecology/Obstetrics Codey Mendozas [address] [place] [address] Miriam Abdi CRNP [address] [place] [address] [place], Non Stress Tests [place] [address] [place] [address] 05/04/2023 2:15 PM EDT Office Visit Gynecology/Obstetrics Zains Villagomez [address] [place] [address] Miriam Abdi CRNP [address] [place] [address] Villagomez, Non Stress Tests [place] [address] [place] [address] 05/08/2023 9:30 AM EDT Office Visit Gynecology/Obstetrics [facility] Villag[place] [address] [place] [address] Miriam Abdi CRNP [address] [place] [address] Villagomez, Non Stress Tests [place] [address] [place] [address] 05/11/2023 11:00 AM EDT Office Visit Gynecology/Obstetrics Trey[facility] Villagomez [address] [place] [address] Valentine Barclay CRNP [address] [place] [address] [place], Non Stress Tests [place] [address] [place] [address] 05/15/2023 11:15 AM EDT Office Visit Gynecology/Obstetrics Trey's Villag[place] [address] [place] [address] Valentine Barclay CRNP [address] [place] [address] Vill[place], Non Stress Tests [place] [address] [place] [address] 05/18/2023 9:15 AM EDT Office Visit Gynecology/Obstetrics Trey[facility] Villagomez [address] [place] [address] Ana Edwards PA-C [address] [place] [address] [place] [address] Villagomez, Jodi Stress Tests [place] [address] [place] [address] 11/23/2023 1:40 PM EDT Office Visit Nephrology, [facility] [address] [facility] [address] Simona Gutierrez MD [address] [place] [phone] Pending Results Name Type Priority Associated Diagnoses Date /Time BASIC METABOLIC PANEL Lab Routine Hypokalemia 04/09/2023 7:15 AM EST Health Maintenance Due Date Last [...] Hypopotassemia documented in this encounter Care Teams System Planning Engineer Relationship Specialty Start Date End Date Lorelei Mccormack DO [address] [place] [address] PCP - General Family Medicine 03/07/22 documented as of this encounter
--- OUTSIDE RECORDS SUMMARY | 2023-05-04 07:41 | External Medical Summary | Summary of Care ---
Author Name Unknown Organization [facility] Address [address] [place] [address] Phone [phone] Care Team Providers Care Big Data Solutions Architect Name Role Phone Lroelei Mccormack DO Primary Care Provider Reason for Visit * Reason Onset Date Comments Referral 04/02/2023 Encounter Details Date Type Department Care Team (Late st Contact Info) Description 04/02/2023 Telephone Diver Tender Obstetrics Maternal Medicine, [place] [address] [place] [address] [place], Nurse Diver Tender [facility] [address] [place] [address] Referral Allergies No known active allergiesdocumented as [...] money to get more. Never true 12/08/2022 [place] Depression Scale Answer Date Recorded [place] Depression Scale Total 0 03/12/2023 The thought [...] mail. Encouraged patient to return call to [facility] to assist with scheduling. * Telephone Encounter - Arabella Cortez CCMA - 04/09/2023 8:02 AM EST Patient cancelled COMMUTATOR REPAIRER consult 04/10/23, please contact to reschedule. * Telephone Encounter - Lolita Horton OSA - 04/03/2023 7:43 AM EST Spoke with Sara. Appointment scheduled. Patient aware of date, time and location of Maternal Medicine appointment. Gave her phone number to schedule NSTs at [facility] * Telephone Encounter - Arabella Cortez CCMA - 04/02/2023 4:14 PM EST Estimated Date of Delivery: 05/21/23 Please schedule for 45 MINUTE CONSULT SIMPLE MEDICAL WITH COMMUTATOR REPAIRER, in time frame of within 1 week at location [facility] with the indication of GHTN. Please schedule twice weekly NSTs starting NOW. Patient has follow-up ultrasound scheduled 04/26/[address] [facility]. Referring Provider: Karlie Infante PA-C documented in this encounter Plan of Treatment Upcoming Encounters Date Type Department Care Team (Late st Contact Info) Description 04/10/2023 2:15 PM EST Office Visit Gynecology/Obstetrics [facility] [place] [address] [place] [address] Miriam Abdi CRNP [address] [place] [address] [place], Non Stress Tests [place] [address] [place] [address] 04/13/2023 9:15 AM EST Office Visit Gynecology/Obstetrics Yang's [place] [address] [place] [address] Karlie Infante PA-C [address] [place] [address] [place] Non Stress Tests [place] [address] [place] [address] 04/16/2023 10:15 AM EDT Office Visit Gynecology/Obstetrics Zains Villagomez [address] [place] [address] Valentine Barclay CRNP [address] [place] [address] [place] Non Stress Tests [place] [address] [place] [address] 04/19/2023 1:00 PM EDT Office Visit Gynecology/Obstetrics Zains Villagomez [address] [place] [address] Mary Oliveira, LLOYD [address] [place] [address] [place], Non Stress Tests [place] [address] [place] [address] 04/24/2023 10:15 AM EDT Office Visit Gynecology/Obstetrics [facility]rey[facility] Villagomez [address] [place] [address] Valentine Barclay CRNP [address] [place] [address] Villag[place], Non Stress Tests [place] [address] [place] [address] 04/26/2023 7:30 AM EDT Imaging Maternal Medicine Imaging, [place] Villagomez [address] [place] [address] 04/27/2023 7:45 AM EDT Office Visit Gynecology/Obstetrics Codey Mendozas [address] [place] [address] Karlie Infante PA-C [address] [place] [address] 05/01/2023 9:30 AM EDT Office Visit Gynecology/Obstetrics Codey Mendozas [address] [place] [address] Miriam Abdi CRNP [address] [place] [address] [place] Non Stress Tests [place] [address] [place] [address] 05/04/2023 2:15 PM EDT Office Visit Gynecology/Obstetrics Codey Villagomez [address] [place] [address] Miriam Abdi CRNP [address] [place] [address] [place], Non Stress Tests [place] [address] [place] [address] 05/08/2023 9:30 AM EDT Office Visit Gynecology/Obstetrics Codey Mendozas [address] [place] [address] Miriam Abdi CRNP [address] [place] [address] [place] Non Stress Tests [place] [address] [place] [address] 05/11/2023 11:00 AM EDT Office Visit Gynecology/Obstetrics Codey Villagomez [address] [place] [address] BackerValentine CRNP [address] [place] [address] Jodi Villagomez Stress Tests [place] [address] [place] [address] 05/15/2023 11:15 AM EDT Office Visit Gynecology/Obstetrics Yangraleigh Villagomez [address] [place] [address] BackerValentine CRNP [address] [place] [address] Jodi Villagomez Stress Tests [place] [address] [place] [address] 05/18/2023 9:15 AM EDT Office Visit Gynecology/Obstetrics Yangraleigh Villagomez [address] [place] [address] Ana Edwards PA-C [address] [place] [address] [place] [address] [place] Non Stress Tests [place] [address] [place] [address] 11/23/2023 1:40 PM EDT Office Visit Nephrology, [facility] [address] [facility] [place] [address] Simona Gutierrez MD [address] [place] [address] Health Maintenance Due Date [...] filedocumented as of this encounter Care Teams Big Data Solutions Architect Relationship Specialty Start Date End Date Lorelei Mccormack DO [address] [facility] [place] [address] PCP - General Family Medicine 03/07/22 documented as of this encounter
--- OUTSIDE RECORDS SUMMARY | 2023-05-04 07:42 | External Medical Summary | Summary of Care ---
Author Name Unknown Organization [facility] Address [address] [place] [address] Phone [phone] Care Team Providers Care Boathouse Keeper Name Role Phone Lorelei Mccormack DO Primary Care Provider Reason for Visit * Reason Onset Date Comments Anemia Follow-Up 03/27/2023 Encounter Details Date Type Department Care Team (Late st Contact Info) Description 03/27/2023 10:00 AM [facility] Pharm[facility] Pharmacy, [place] [address] [place] [address] Clinic, Anemia [address] [place] [address] Iron deficiency anemia, unspecified iron deficiency anemia type* Allergies No known active allergiesdocumented as of this encounter (statuses as of 03/27/2023) Medications Medication Sig Dispensed Refills Start Date [...] Active Metoclopramide HCl 10 MG Oral Tablet (Reglan)Indications : related nausea, antepartum Take 0.5 Tablets by mouth every 8 hours as needed for Nausea. 30 Tablet 0 10/27/2022 Active Additional Information Patient not taking.Reported on 03/23/2023 Aspirin 81 MG Oral Capsule Take by mouth. 0 Active Potassium Chloride Lilibeth ER 20 MEQ Oral Tablet Extended Release Take 1 Tablet by mouth in the morning. 90 Tablet 3 03/23/2023 Active documented as of this encounter (statuses as of 03/27/2023) Active Problems Problem Noted Date Diagnosed Date [...] GLUCOSE, 100-G GESTATIONAL GLUCOSE, HEMOGLOBIN A1C - [facility] Baseline Preeclampsia Labs Lab Results Component Value [...] daily No results found for: [facility]SH [facility] TSH = 0.71 Follows with [facility] endocrinology. Follows with Endocrinology every 6 weeks Last Assessment & Plan: CONSIDERATIONS: Discussed with the patient that uncontrolled maternal hypothyroidism is associated with compromised neuropsychological development of the developing fetus in addition to an increased risk of miscarriage, , preeclampsia, placental abruption, low weight infants, and IUFD. These risks are modifiable with thyroid-replacement medications. Thyroid-replacement therapies are safe to use during and essential to normal development. One third of hypothyroid patients will require increased T4 supplementation in . Discussed that she should space her thyroxine dose and her vitamin, iron or calcium doses by 2-3 hours as these can interfere with thyroxine absorption. If hypothyroidism is due to treated Graves' disease, the fetus may be at risk for or goiter/hyperthyroidism due to the residual presence of maternal thyroid receptor antibodies (TRAb). RECOMMENDATIONS: In women with pre- diagnosis of hypothyroidism, recommend assessing TSH every 4-6 weeks until the patient is euthyroid based on TSH (first trimester, 0.1-2.5 mIU/L; second trimester, 0.2-2.5 mIU/L; third trimester, 0.3-2.5 mIU/L). After any adjustment of thyroid replacement dosing, recheck TSH 4-6 weeks later. Once euthyroidism is attained, TSH should be assessed every trimester. In those with previous radioiodine ablation or thyroidectomy, anticipatory increases of T4 replacement by 25% are suggested to decrease the likelihood of significant hypothyroidism in . Maternal Medicine ultrasound is only indicated if patient requires an adjustment of her thyroid replacement therapy dosing after the first trimester of . Refer back to MFM if this occurs. She should continue to have growth assessments with MFM while she is clinically hypothyroid. If patient experiences thyroid goiter or nodule during , we recommend that she be referred to endocrinology for evaluation and management. is not a contraindication to fine needle aspiration but should be handled at the discretion of the grocery store clerk. For women with a history of treated Graves' disease, third trimester MFM ultrasound should be performed to evaluate for goiter. Please refer immediately back to MFM for persistent tachycardia on office evaluation as this may also be a symptom of hyperthyroidism. Please check TSI/TRAb after 20 weeks and notify MFM if positive. We will alert pediatrics to the need for possible follow-up. If hypothyroidism is poorly controlled, consider weekly NSTs at 32 weeks. Prediabetes 10/27/2022 Overview: On Metformin through Endocrinology. Has since stopped at direction of endocrinology. First trimester A1C was 5.0 achieved with Clomid Class 2 obesity 10/27/2022 Overview: PCOS (polycystic ovarian syndrome) 05/31/2022 Estimated Date of Delivery Comme nts Yes 05/21/2023 Based on Ultraso und documented as of this encounter (statuses as of 03/27/2023) Resolved Problems Problem Noted Date Diagnosed Date Resolved Date with 11 completed weeks gestation 10/31/2022 12/29/2022 documented as of this encounter (statuses as of 03/27/2023) Immunizations Name Administration Dates Next Due TDAP [...] money to get more. Never true 12/08/2022 [place] Depression Scale Answer Date Recorded [place] Depression Scale Total 0 03/12/2023 The thought [...] as of this encounter Progress Notes * Britt Almanzar, [facility] - 03/27/2023 1:32 PM EST Patient received first dose of Venofer 300 mg x 3 repletion series on 03/23 and appeared to have tolerated it without issue. Next scheduled: 03/30 Scheduled to be completed: 04/05 GA: [id number] Estimated Date of Delivery: 05/21/23 Follow-up after completion of series to schedule repeat labs if appropriate prior to delivery. Anemia Clinic will continue to follow. Thank you for allowing us to participate in the care of thispatient. Thanks, Britt Almanzar, [facility] Clinical Pharmacist [facility] (P: [phone]) 03/27/2023 1:43 PM documented in this encounter Plan of Treatment Upcoming Encounters Date Type Department Care Team (Late st Contact Info) Description 03/29/2023 10:15 AM EST Office Visit [facility] [address] [place] [address] Margaret Rosenthal, DO [address] [place] [address] 03/29/2023 10:15 AM EST [facility] [address] [place] [phone] 03/30/2023 7:45 AM EST [facility] [address] [place] [address] Karlie Infante PA-C [address] [place] [address] 03/30/2023 8:30 AM EST Hem/Onc Treatment Hematology/Oncology Treatment, [address] [place] [phone] Park, Chair 4 Hem Onc [address] [address] 04/06/2023 11:45 AM EST Hem/Onc Treatment Hematology/Oncology Treatment, [address], [place] [phone] [place], Chair 10 Hem Onc [address] [address] 04/13/2023 7:45 AM EST [facility] [address] [place] [address] Karlie Infante PA-C [address] [place] [address] 04/27/2023 7:45 AM EDT Office Visit Gynecology/Obstetrics [facility] [address] [place] [address] Karlie Infante PA-C [address] [place] [address] 05/04/2023 7:45 AM EDT Office Visit Gynecology/Obstetrics [facility] [address] [facility] [place] [address] Karlie Infante PA-C [address] [place] [address] 11/23/2023 1:40 PM EDT Office Visit Nephrology, [facility] [address] [place] [address] Simona Gutierrez MD [address] [place] [address] Health Maintenance Due Date Last Done Comments Depression Screening 2002 Hepatitis B (1 of 3 - 19+ 3-dose series) 2009 COVID-19 Vaccine (2022-2 4 season) 2022 Influenza Vaccine (FLU shot) (#1) 2022 TSH 02/24/2024 02/23/2023, 10/15/2022 Pap Smear 05/31/2025 05/31/2022 Cervical Cancer Screening [...] as of this encounter Visit Diagnoses Diagnosis Iron deficiency anemia, unspecified iron deficiency anemia type- Primary documented in this encounter Care Teams Boathouse Keeper Relationship Specialty Start Date End Date Lorelei Mccormack DO [address] [facility] [place] [address] PCP - General Family Medicine 03/07/22 documented as of this encounter
--- OUTSIDE RECORDS SUMMARY | 2023-05-04 07:42 | External Medical Summary ---
Author Name Unknown Address Unknown Organization [facility] [place] [address] [place] [address] Laboratory Report Ordering Provider Test Date Status ISABEL PHAN 03/30/2023 08:15:05 Final Observation Date Value Abnormality Reference (Units ) Status Platelets 03/30/2023 08:15:05 334 140-400 (K /uL) Final [facility] [place] [address]
--- OUTSIDE RECORDS SUMMARY | 2023-05-04 07:42 | External Medical Summary | Summary of Care ---
Author Name Unknown Organization [facility] Address [address] [facility] [address] Phone [phone] Care Team Providers Care Welt Insole Channeler Name Role Phone Lorelei Mccormack DO Primary Care Provider [phone] Reason for Visit * Reason Comments NEW PATIENT * Evaluate & Treat - Unlimited Visits (Within 3 days (urgent)) - Pending Review Specialty Diagnoses / Procedures Referred By Olu roman Referred To Contact Nephrology Diagnoses Supervision of high risk in first trimester Chronic hypokalemia Karlie Infante PA-C [address] [place] [address] Referral ID Status Reason Start Date Expiration Date Visits Requested Visits Authorized [id number] Pending Review Specialty Services Required 03/12/[phone] Encounter Details Date Type Department Care Team (Late st Contact Info) Description 03/23/2023 1:00 PM EST Office Visit Nephrology, [facility] [address] [place] [address] Simona Gutierrez MD [address] [facility] [place], [place] [id number] Hypokalemia*; Supervision of high risk in first trimester Allergies No known active allergiesdocumented as of this encounter (statuses as of 03/23/2023) Medications Medication Sig Dispensed Refills Start Date [...] as of this encounter (statuses as of 03/23/2023) Active Problems Problem Noted Date Diagnosed Date [...] daily No results found for: TSH - ROSA ISELA 05/19/2022 TSH = 0.71 Follows with [facility]. Follows with Endocrinology every 6 weeks [...] be handled at the discretion of the offline cutter. For women with a history of treated [...] as of this encounter (statuses as of 03/23/2023) Resolved Problems Problem Noted Date Diagnosed Date Resolved Date with 11 completed weeks gestation 10/31/2022 12/29/2022 documented as of this encounter (statuses as of 03/23/2023) Immunizations Name Administration Dates Next Due TDAP (age 10 and older)(Boostrix) 02/23/2023 documented as of this encounter Social History Tobacco Use Types Packs/Day Years Used Date Smoking Tobacco: Never Smokeless Tobacco: Never Tobacco Cessation:Counseling Given: Not Answered Alcohol Use Standard Drinks/Week Comments Yes 0 [...] money to get more. Never true 12/08/2022 [place] Depression Scale Answer Date Recorded [place] Depression Scale Total 0 03/12/2023 The thought [...] Sign Reading Time Taken Comments Blood Pressure 126/83 03/23/2023 1:01 PM EST Pulse 111 03/23/2023 1:01 PM EST Temperature 36.4 C (97.5 F) 03/23/2023 1:01 PM ES T Respiratory Rate 18 03/23/2023 1:01 PM EST Oxygen Saturation 96% 03/23/2023 1:01 PM EST Inhaled Oxygen Concentration - - Weight 101.2 kg (223 lb) 03/23/2023 1:01 PM EST Height - - Body Mass Index 38.28 12/22/2022 2:52 PM EST documented in this encounter Progress Notes * Simona Gutierrez MD - 03/23/2023 1:09 PM EST REASON FOR CONSULT: Hypokalemia in Requesting physician:Karlie Infante PA-C HPI: Sara Basurto is a 32 year old female seen in initial consultation for hypokalemia in . She is G1 at 31 and 4 days . Past medical history of hypothyroidism, polycystic ovarian syndrome, vitamin-D deficiency, diabetes and hypokalemia. Potassium in June and October 2022 was 3.5, inDec 2022 3.2 and then 2.9 on 03/05/23. Potassium last month was 3.4. Patient also found have a potassium of 2.9 and was sent to the ED at [facility]. She reports high potassium diet now. No vomitingnow. Had some vomiting early on but that has resolved. She is seeing [facility] [place]othy[place]. She otherwise feels well. She is concerned about leg swelling. Is also concerned about high heart rate. Recent labs reviewed with patient and mother. Review of Systems: General ROS: negative for - chills or fever Psychological ROS: negative for - mood swings ENT ROS: negative for - nasal congestion or nasal discharge Endocrine ROS: negative Respiratory ROS: no cough, shortness of breath, or wheezing Cardiovascular ROS: no chest pain or dyspnea on exertion Gastrointestinal ROS: no abdominal pain, change in bowel habits, or black or bloody stools Genito-Urinary ROS: no dysuria, trouble voiding, or hematuria Musculoskeletal ROS: negative for - muscle pain Neurological ROS: no TIA or stroke symptoms Dermatological ROS: negative for rash Past Medical History: Diagnosis Date Hypothyroidism 2011 PCOS (polycystic ovarian syndrome) Vitamin D deficiency Past Surgical History: Procedure Laterality Date RI TONSILLECTOMY & ADENOIDECTOMY AGE 12 OR MORE Review of patient's allergies indicates: No Known Allergies Current Outpatient Medications Medication Sig Dispense Refill Levothyroxine Sodium 75 MCG Oral Tablet (Levoxyl) TAKE ONE TABLET BY MOUTH EVERY DAY ON AN EMPTY STOMACH Vitamin D (Cholecalciferol) 50 MCG (2000 UT) Oral Capsule Take by mouth. 6.75-0.2 MG Oral Tablet Take by mouth. Aspirin 81 MG Oral Capsule Take by mouth. Potassium Chloride Lilibeth ER 20 MEQ Oral Tablet Extended Release Take 1 Tablet by mouth in the morning. 90 Tablet 3 metFORMIN HCl ER 500 MG Oral Tablet Extended Release 24 Hour (Glucophage XR) (Patient not taking: Reported on 10/31/2022) Metoclopramide HCl 10 MG Oral Tablet (Reglan) Take 0.5 Tablets by mouth every 8 hours as needed forNausea. (Patient not taking: Reported on 03/23/2023) 30 Tablet 0 No current facility-administered medications for this visit. Family History Problem Relation Age of Onset Autoimmune disease Mother Stomach cancer Grandmother (Paternal) Social History Socioeconomic History Marital status: Spouse name: Not on file Number of children: Not on file Years of education: Not on file Highest education level: Not on file Occupational History Not on file Tobacco Use Smoking status: Never Smokeless tobacco: Never Substance and Sexual Activity Alcohol use: Yes Comment: occ Drug use: Never Sexual activity: Yes Partners: Male Other Topics Concern Not on file Social History Narrative Not on file Social Determinants of Health Financial Resource Strain: Not on file Food Insecurity: No Food Insecurity (12/08/2022) Hunger Vital Sign Worried About Running Out of Food in the Last Year: Never true Ran Out of Food in the Last Year: Never true Transportation Needs: Not on file Physical Activity: Not on file Stress: Not on file Social Connections: Not on file Intimate Partner Violence: Not on file Housing Stability: Not on file Filed Vitals: 03/23/23 1301 BP: 126/83 Pulse: 111 Resp: 18 Temp: 36.4 C (97.5 F) SpO2: 96% Weight: 101.2 kg (223 lb) PHYSICAL EXAM: GENERAL: Well-appearing, Alert, in no acute distress. EYES: PERRL, conjunctivae anicteric. ENT: Mucous membranes moist, oropharynx clear. NECK: Supple, no JVD. LYMPH: No cervical or supraclavicular lymphadenopathy. LUNGS: Clear to auscultation bilaterally, no respiratory distress. CARDIAC: Tachycardic, normal S1-S2. ABDOMEN: Gravid EXT/MSK: No clubbing, cyanosis, 1+ edema. SKIN: No rash, no jaundice. NEURO: Oriented x3, No tremor, no asterixis. LABS/STUDIES: Recent Labs Units 03/02/23 0000 02/23/23 0904 10/15/22 0000 POTASSIUM-OUTSIDE LAB MMOL/L 3.4* -- 3.5* CREATININE - [facility] mg/dL -- 0.5 -- Recent Labs Units 02/23/23 0904 10/27/22 1430 WBC AUTO - [facility] K/uL 13.80* 13.73* HGB - [facility] g/dL 10.5* 12.2 PLATELET AUTO - [facility] K/uL [id number] No results for input(s): "CA", "PHOSPHORUS", "25OHVITAMIND", "PTHINTACT" in the last 67375 hours. Recent Labs Units 10/15/22 0000 HEMOGLOBIN, [id number] LAB 5.3 No results for input(s): "MICROALBUMIN", "PROCRRATIO" in the last 86917 hours. ASSESSMENT/PLAN: Sara was seen today for new patient. Diagnoses and all orders for this visit: Hypokalemia Patient with chronic hypokalemia but likely exacerbated in setting of . Patient may have increased urinary losses of potassium. She is also having 3 bowel movements daily and may have GI losses. Will start on potassium chloride supplements 20 mEq daily. She will continue high potassium diet. She will repeat a BMP next week Supervision of high risk in first trimester Her appears to be progressing well. She is on levothyroxine and closely monitored by Endocrinology. Will give potassium supplements as above. Blood pressure is controlled. She has edema but this is physiologic. Tachycardia also appears physiologic. Patient received IV iron today. Other orders - Potassium Chloride Lilibeth ER 20 MEQ Oral Tablet Extended Release; Take 1 Tablet by mouth in the morning. Follow Up: Return in about 4 months (around 07/22/2023). Simona Gutierrez MD Nephrology, [address] [place] [address] This note was generated with the help of voice recognition software. Please excuse for errors. documented in this encounter Nursing Notes * Sandra Lamb RN - 03/23/2023 1:03 PM EST New patient today. Pt is expecting her first child. 31weeks . Mother present in room today.Is anemic and had 1st of 3 iron infusions today. Potassium was 2.9 when checked by Endocrinology. Was sent to ER for IV although they only gave her oral supplements. documented in this encounter Plan of Treatment Upcoming Encounters Date Type Department Care Team (Late st Contact Info) Description 03/27/2023 10:00 AM EST [facility] [address] [place] [address] Clinic, Anemia [address] [place] [address] 03/29/2023 10:15 AM EST Office Visit Land Management Supervisor Obstetrics Maternal Medicine, [address] [address] Margaret Rosenthal, DO [address] [place] [address] 03/29/2023 10:15 AM EST Imaging Maternal Medicine Imaging, [address] [phone] 03/30/2023 7:45 AM EST Office Visit Gynecology/Obstetrics [facility] [address] [facility] [place] [address] Karlie Infante PA-C [address] [facility] [place] [address] 03/30/2023 8:30 AM EST Hem/Onc Treatment Hematology/Oncology Treatment, [place] [address] [facility] [address] Yandy, Chair 4 Hem Onc [address] [place] [address] 04/06/2023 11:45 AM EST Hem/Onc Treatment Hematology/Oncology Treatment, [place] [address] [facility] [address] Yandy, Chair 10 Hem Onc [address] [place] [address] 04/13/2023 7:45 AM EST Office Visit Gynecology/Obstetrics [facility] [address] [place] [address] Karlie Infante PA-C [address] [place] [address] 04/27/2023 7:45 AM EDT Office Visit Gynecology/Obstetrics [facility] [address] [place] [address] Karlie Infante PA-C [address] [place] [address] 05/04/2023 7:45 AM EDT Office Visit Gynecology/Obstetrics [facility] [address] [place] [address] Karlie Infante PA-C [address] [place] [address] 11/23/2023 1:40 PM EDT Office Visit Nephrology, [address] [place] [address] Simona Gutierrez MD [address] [place] [address] Health Maintenance Due Date Last Done Comments [...] encounter Visit Diagnoses Diagnosis Hypokalemia- Primary Hypopotassemia Supervision of high risk in first trimester Unspecified high-risk documented in this encounter Care Teams Welt Insole Channeler Relationship Specialty Start Date End Date Lorelei Mccormack DO [address] [place] [address] PCP - General Family Medicine 03/07/22 documented as of this encounter
--- OUTSIDE RECORDS SUMMARY | 2023-05-04 07:42 | External Medical Summary ---
Author Name Unknown Address Unknown Organization [facility] [facility] [address] [place] [address] Laboratory Report Ordering Provider Test Date Status ISABEL PHAN 03/30/2023 08:15:05 Final Observation Date Value Abnormality Reference (Units ) Status Creatinine 03/30/2023 08:15:05 0.4 Below low normal 0.5-1.0 (mg/dL) Final Glomerular filtration rate/1.73 sq M.predicted [Volume Rate/Area] in Serum, Plasma or Blood by Creatinine-based formula (CKD-EPI) 03/30/2023 08:15:05 >90 >=60 (mL/min) Final eGFR is calculated based on the CKD-EPI 2020 equation Performing Location [facility] [place] [address] [place] [address]
--- OUTSIDE RECORDS SUMMARY | 2023-05-04 07:42 | External Medical Summary | Summary of Care ---
Author Name Unknown Organization [facility] Address [address] [facility] [place] [address] Phone [phone] Care Team Providers Care Senior Ios Developer Name Role Phone Lorelei Mccormack DO Primary Care Provider Reason for Visit * Reason Comments Return Visit Encounter Details Date Type Department Care Team (Late st Contact Info) Description 03/30/2023 7:45 AM EST Office Visit Gynecology/Obstetric [facility] Villagomez [address] [place] [address] Karlie Infante PA-C [address] [place] [address] Supervision of high risk in first trimester*; Hypothyroidism affecting in third trimester; Prediabetes; Class 2 obesity; Obesity in , antepartum; Antepartum anemia complicating Allergies No known active allergiesdocumented as of this encounter (statuses as of 03/30/2023) Medications Medication Sig Dispensed Refills Start Date [...] as of this encounter (statuses as of 03/30/2023) Active Problems Problem Noted Date Diagnosed Date [...] as of this encounter (statuses as of 03/30/2023) Resolved Problems Problem Noted Date Diagnosed Date Resolved Date with 11 completed weeks gestation 10/31/2022 12/29/2022 documented as of this encounter (statuses as of 03/30/2023) Immunizations Name Administration Dates Next Due TDAP [...] money to get more. Never true 12/08/2022 [place] Depression Scale Answer Date Recorded [place] Depression Scale Total 0 03/12/2023 The thought [...] Sign Reading Time Taken Comments Blood Pressure 140/68 03/30/2023 7:40 AM EST Pulse - - Temperature - - Respiratory Rate - - Oxygen Saturation - - Inhaled Oxygen Concentration - - Weight - - Height 162.6 cm (5' 4") 03/30/2023 7:40 AM EST Body Mass Index - - documented in this encounter Progress Notes * Karlie Infante PA-C - 03/30/2023 7:44 AM EST 32w4d BP elevated today upon arrival: 140/68. Did not improve on recheck. Had elevated BP on 03/23 at 143/84 before iron infusion. However, check later that day at Nephrology appointment and normal at 126/83. Pt states does get nervous with iron infusion. Pt reports no symptoms. Has swelling hands and legs but nothing beyond what she has been experiencing. No proteins by site dip. PEC labs ordered. Planto return later today for repeat BP check. Has iron infusion after this. Reports has home BP cuff. Takes BP on occasion and never elevated. Met with Nephrology regarding hypokalemia, started on K supplement. Denies bleeding, LOF, contractions. Pos fm. Patient did return for BP check after appointment. BP normal 122/70. Of note, she had normal BP with iron infusion early this morning after appointment with us at 125/81. Phone call to patient after BP check in office. Advised check BP twice daily over weekend and record. Notify office of measures on Sunday. Offered appointment for BP check in office on Sunday. Would like to hold on that at this time until she checks BP over weekend. If continues to be elevated willrule in for GHTN and referral back to MFM. Blood work WNL as reviewed with her on phone. Pr-cr urine in process. Pt comfortable with this plan. She was advised to call if any BP 160/110. Karlie Infante PA-C documented in this encounter Nursing Notes * Gaviota Parry RN - 03/30/2023 7:41 AM EST Patient here for JERRY 32w4d No leaking or bleeding +FM documented in this encounter Plan of Treatment Upcoming Encounters Date Type Department Care Team (Late st Contact Info) Description 03/30/2023 3:00 PM EST Nurse Only Gynecology/Obstetrics [facility] Mendozas [address] [place] [address] Gw, Nurse Obgyn Injection [address] [place] [address] Arrived 04/06/2023 11:45 AM EST Hem/Onc Treatment Hematology/Oncology Treatment, [place] [address] [facility] [phone] Yandy, Chair 10 Hem Onc [address] [address] 04/13/2023 7:45 AM EST Office Visit Gynecology/Obstetrics Codey Villagomez [address] [place] [address] Karlie Infante PA-C [address] [place] [address] 04/26/2023 7:30 AM EDT Imaging Maternal Medicine Imaging, [place] Villagomez [address] [place] [phone] 04/27/2023 7:45 AM EDT Office Visit Gynecology/Obstetrics Codey Mendozas [address] [place] [address] Karlie Infante PA-C [address] [place] [address] 05/04/2023 7:45 AM EDT Office Visit Gynecology/Obstetrics [facility] Mendozas [address] [place] [address] Karlie Infante PA-C [address] [place] [address] 11/23/2023 1:40 PM EDT Office Visit Nephrology, [facility] 200 [facility], [place] [address] Simona Gutierrez MD [address] [place] [address] [place] [address] Pending Results Name Type Priority Associated Diagnoses Date /Time PROTEIN/ CREATININE RATIO, URINE Lab Routine Supervision of high risk in first trimester 03/30/2023 8:51 AM EST Health Maintenance Due Date Last [...] Comments URINALYSIS, POINT OF CARE (ENTER/EDIT) Routine 03/30/2023 Supervision of high risk in first trimester documented in this encounter Results * (ABNORMAL) BUN (03/30/2023 8:15 AM EST) BUN 5(L) 6 - 20 mg/dL 03/30/2023 9:29 AM EST LABORATORY [facility] 57-10 Blood Venous blood specimen / Unknown Venipuncture / Unknown 03/30/2023 8:15 AM EST 03/30/2023 8:15 AM EST Karlie Infante PA-C LAB BLOOD ORDERABLES [facility] [place] [address] [place] [address] * (ABNORMAL) CREATININE (03/30/2023 8:15 AM EST) Creatinine 0.4(L) 0.5 - 1.0 mg/dL 03/30/2023 9:29 AM EST [facility] [place] [facility] Estimated Glomerular Filtration Rate >90 >=60 mL/min 03/30/2023 9:29 AM EST [facility] [place] [facility] Comment:eGFR is calculated b ased on the CKD-EPI 2020 equation Blood Venous blood specimen / Unknown Venipuncture / Unknown 03/30/2023 8:15 AM EST 03/30/2023 8:15 AM EST Karlie Infante PA-C LAB BLOOD ORDERABLES [facility] [place] [address] [place] [address] * PLT (03/30/2023 8:15 AM EST) PLT 334 140 - 400 K/uL 03/30/2023 8:35 AM EST [facility] [place] [facility] Blood Venous blood specimen / Unknown Venipuncture / Unknown 03/30/2023 8:15 AM EST 03/30/2023 8:15 AM EST Karlie Infante PA-C LAB BLOOD ORDERABLES [facility] [place] [address] [place] [address] * ALT (03/30/2023 8:15 AM EST) ALT 10 10 - 35 U/L 03/30/2023 9:29 AM EST [facility] [place] [facility] Blood Venous blood specimen / Unknown Venipuncture / Unknown 03/30/2023 8:15 AM EST 03/30/2023 8:15 AM EST Karlie Infante PA-C LAB BLOOD ORDERABLES Performing Organization Address City/[facility]/ZIP Co de Phone Number [facility]ORY [facility] [place] [address] [facility] [place] [address] * AST (03/30/2023 8:15 AM EST) AST 15 10 - 35 U/L 03/30/2023 9:29 AM EST [facility] [place] Blood Venous blood specimen / Unknown Venipuncture / Unknown 03/30/2023 8:15 AM EST 03/30/2023 8:15 AM EST Karlie Infante PA-C LAB BLOOD ORDERABLES Performing Organization Address City/[facility] Co de Phone Number LAB[facility]ATORY [facility] [place] [address] [facility] [place] [address] * URINALYSIS, POINT OF CARE (ENTER/EDIT) (03/30/2023) Color, Urine Yellow Yellow or Light Yellow Clarity, Urine Clear Clear Glucose, Urine Negative Negative mg/dL Bilirubin, Urine Negative Negative Ketone, Urine Negative Negative mg/dL Specific [place], Urine 1.020 1.003 - 1.030 Blood, Urine Negative Negative pH, Urine 7.0 5.0 - 7.5 units Protein, Urine Negative Negative mg/dL Urobilinogen, Urine 0.2 0.2 - 1.0 mg/dL Nitrite, Urine Negative Negative Esterase, Urine Trace Negative Urine 03/30/2023 Karlie Infante PA-C LAB POINT OF CARE TE ST ENTER/EDIT ORDERABLES documented in this encounter Visit Diagnoses Diagnosis Supervision of high risk in first trimester- Primary Unspecified high-risk Hypothyroidism affecting in third trimester Prediabetes Other abnormal glucose Class 2 obesity Obesity in , antepartum Obesity complicating , childbirth, or the puerperium, antepartum condition or complication Antepartum anemia complicating Anemia, antepartum documented in this encounter Care Teams Senior Ios Developer Relationship Specialty Start Date End Date Lorelei Mccormack DO [address] [facility] [place] [address] PCP - General Family Medicine 03/07/22 documented as of this encounter
--- OUTSIDE RECORDS SUMMARY | 2023-05-04 07:42 | External Medical Summary | Summary of Care ---
Author Name Unknown Organization [facility] Address [address] [place] [facility] [place] [address] Phone [phone] Care Team Providers Care Bobbin Inspector Name Role Phone Lorelei Mccormack DO Primary Care Provider Reason for Visit * Reason Comments Outpatient Testing Encounter Details Date Type Department Care Team (Late st Contact Info) Description 03/30/2023 10:40 AM EST Laboratory Laboratory, [facility] 132 [place] [phone] [facility] [address] [place] [address] Gestational hypertension without significant proteinuria in third [...] money to get more. Never true 12/08/2022 [place] Depression Scale Answer Date Recorded [place] Depression Scale Total 0 03/12/2023 The thought [...] 03/30/2023 3:00 PM EST Nurse Only [facility] [address] [place] [address] Gw, Nurse Obgyn Injection [address] [place] [address] 04/06/2023 11:45 AM EST Hem/Onc Treatment Hematology/Oncology Treatment, [place] 200 [facility], [place] [phone] Yandy, Chair 10 Hem Onc [facility] 200 [facility] [place] [address] 04/13/2023 7:45 AM EST Office Visit Gynecology/Obstetrics [facility] [address] [place] [address] Karlie Infante PA-C [address] [place] [address] 04/26/2023 7:30 AM EDT Imaging [facility] [address] [place] [phone] 04/27/2023 7:45 AM EDT Office Visit Gynecology/Obstetrics [facility] [address] [place] [address] Karlie Infante PA-C [address] [place] [address] 05/04/2023 7:45 AM EDT Office Visit Gynecology/Obstetrics [facility] [address] [place] [address] Karlie Infante PA-C [address] [place] [address] 11/23/2023 1:40 PM EDT Office Visit Nephrology, [facility] 200 [facility] [place] [address] Simona Gutierrez MD [address] [place] [address] [place] [address] Pending Results Name Type Priority Associated Diagnoses Date /Time AST Lab Routine Gestational hypertension without significant proteinuria in third trimester 03/30/2023 8:15 AM EST ALT Lab Routine Gestational hypertension without significant proteinuria in third trimester 03/30/2023 8:15 AM EST PLT Lab Routine Gestational hypertension without significant proteinuria in third trimester 03/30/2023 8:15 AM EST CREATININE Lab Routine Gestational hypertension without significant proteinuria in third trimester 03/30/2023 8:15 AM EST BUN Lab Routine Gestational hypertension without significant proteinuria in third trimester 03/30/2023 8:15 AM EST Health Maintenance Due Date Last [...] antepartum documented in this encounter Care Teams Bobbin Inspector Relationship Specialty Start Date End Date Lorelei Mccormack DO [address] [place] [address] PCP - General Family Medicine 03/07/22 documented as of this encounter
--- OUTSIDE RECORDS SUMMARY | 2023-05-04 07:42 | External Medical Summary | Summary of Care ---
Author Name Unknown Organization [facility] Address [address] [place] [address] Phone [phone] Care Team Providers Care Career And Transition Teacher Name Role Phone Lorelei Mccormack DO Primary Care Provider Reason for Visit * Reason Onset Date Comments Referral 04/02/2023 Encounter Details Date Type Department Care Team (Late st Contact Info) Description 04/02/2023 Telephone Human Resources District Manager Obstetrics Maternal Medicine, [place] [address] [place] [address] [place], Nurse Human Resources District Manager [facility] [address] [place] [address] Referral Allergies No known active allergiesdocumented as of this encounter (statuses as of 04/03/2023) Medications Medication Sig Dispensed Refills Start Date [...] as of this encounter (statuses as of 04/03/2023) Active Problems Problem Noted Date Diagnosed Date [...] as of this encounter (statuses as of 04/03/2023) Resolved Problems Problem Noted Date Diagnosed Date Resolved Date with 11 completed weeks gestation 10/31/2022 12/29/2022 documented as of this encounter (statuses as of 04/03/2023) Immunizations Name Administration Dates Next Due TDAP [...] money to get more. Never true 12/08/2022 [place] Depression Scale Answer Date Recorded Jackson Depression Scale Total 0 03/12/2023 The thought [...] her phone number to schedule NSTs at [facility] * Telephone Encounter - Arabella Cortez CCMA - 04/02/2023 4:14 PM EST Estimated Date of Delivery: 05/21/23 Please schedule for 45 MINUTE CONSULT SIMPLE MEDICAL WITH SHEET METAL DUCT INSTALLER HELPER, in time frame of within 1 week at location [facility] with the indication of GHTN. Please schedule twice weekly NSTs starting NOW. Patient has follow-up ultrasound scheduled 04/26/23 at [facility]. Referring Provider: Karlie Infante PA-C documented in this encounter Plan of Treatment Upcoming Encounters Date Type Department Care Team (Late st Contact Info) Description 04/03/2023 11:30 AM EST Office Visit Gynecology/Obstetrics [facility] [address] [place] [address] Miriam Abdi CRNP [address] [place] [address] [facility] Non Stress Tests [facility] [address] [place] [address] 04/06/2023 11:45 AM EST Hem/Onc Treatment Hematology/Oncology Treatment, [place] [address] [place] [address] Yandy, Chair 10 Hem Onc Scenery 200 [facility] [place] [address] 04/10/2023 7:30 AM EST Telemedicine Human Resources District Manager Obstetrics Maternal Medicine, [place] 190 [facility] [address] [place] [address] Stanislav Frances CRNP 190 [facility] 112 [place] [address] 04/13/2023 7:45 AM EST Office Visit Gynecology/Obstetrics [facility] [address] [place] [address] Karlie Infante PA-C [address] [place] [address] 04/26/2023 7:30 AM EDT Imaging Maternal Medicine Imaging, [facility] [address] [place] [address] 04/27/2023 7:45 AM EDT Office Visit Gynecology/Obstetrics [facility] [address] [place] [address] Karlie Infante PA-C [address] [place] [address] 05/04/2023 7:45 AM EDT Office Visit Gynecology/Obstetrics [facility] [address] [place] [address] Karlei Infante PA-C [address] [place] [address] 11/23/2023 1:40 PM EDT Office Visit Nephrology, [facility] 200 [facility] [place] [address] Simona Gutierrez MD 400 [facility] [place] [address] Health Maintenance Due Date Last Done Comments [...] filedocumented as of this encounter Care Teams Career And Transition Teacher Relationship Specialty Start Date End Date Lorelei Mccormack DO 1400 [facility] [place] [address] PCP - General Family Medicine 03/07/22 documented as of this encounter
--- OUTSIDE RECORDS SUMMARY | 2023-05-04 07:42 | External Medical Summary | Summary of Care ---
Author Name Unknown Organization [facility] Address [address] [place] [address] Phone [phone] Care Team Providers Care Manhole Stripper Name Role Phone Lorelei Mccormack DO Primary Care Provider Encounter Details Date Type Department Care Team (Late st Contact Info) Description 03/29/2023 10:15 AM EST Office Visit In Flight Refueling System Repairer Obstetrics Maternal Medicine, [address] [place] [address] Margaret Rosenthal DO [address] [place] [address] Obesity in , antepartum*; Hypothyroidism affecting in third trimester; Ultrasound for screening for growth restriction; 32 weeks gestation of Allergies No known active allergiesdocumented as of this encounter (statuses as of 03/29/2023) Medications Medication Sig Dispensed Refills Start Date [...] as of this encounter (statuses as of 03/29/2023) Active Problems Problem Noted Date Diagnosed Date [...] as of this encounter (statuses as of 03/29/2023) Resolved Problems Problem Noted Date Diagnosed Date Resolved Date with 11 completed weeks gestation 10/31/2022 12/29/2022 documented as of this encounter (statuses as of 03/29/2023) Immunizations Name Administration Dates Next Due TDAP [...] money to get more. Never true 12/08/2022 [place] Depression Scale Answer Date Recorded [place] Depression Scale Total 0 03/12/2023 The thought [...] of this encounter Progress Notes * Margaret Rosenthal, - 03/29/2023 10:45 AM EST Sara presented today at 32w3d for an ultrasound for the following indications: Obesity in , antepartum Hypothyroidism affecting in third trimester Assessment & Plan: TSH Results: Lab Results Component Value Date/Time TSH - [facility] 1.17 02/23/2023 09:04 AM TSH - OUTSIDE LAB 1.085 10/15/2022 12:00 AM Ultrasound for screening for growth restriction 32 weeks gestation of Ultrasound summary: Patient presented at 32w 3d for growth assessment. Normal growth with EFW 2026 g at 48%ile. Normal KASSANDRA at 17.4 cm. Cephalic presentation. I reviewed the ultrasound images. Sara was given the opportunity to meet with me if she had any questions. Please refer to the ultrasound report for additional details about today's ultrasound examination. RECOMMENDATIONS: Recommend follow up ultrasound with MFM in 4-6 weeks for growth secondary to above indications. See prior formal MFM consultation note. Thank you for allowing us to participate in the care of this patient. Please call with any questions. Margaret Rosenthal DO 03/29/2023 10:45 AM documented in this encounter Miscellaneous Notes * Assessment & Plan Note - Margaret Rosenthal DO - 03/29/2023 10:45 AM EST Associated Problem(s): Hypothyroidism complicating TSH Results: Lab Results Component Value Date/Time TSH - [facility] 1.17 02/23/2023 09:04 AM TSH - OUTSIDE LAB 1.085 10/15/2022 12:00 AM documented in this encounter Plan of Treatment Upcoming Encounters Date Type Department Care Team (Late st Contact Info) Description 03/30/2023 7:45 AM EST Office Visit Gynecology/Obstetrics Yangraleigh Villagomez [address] [place] [address] Karlie Infante PA-C [address] [place] [address] 03/30/2023 8:30 AM EST Hem/Onc Treatment Hematology/Oncology Treatment, [place] [facility] [phone] Yandy, Chair 4 Hem Onc [facility] 200 [facility] [place] [address] 04/06/2023 11:45 AM EST Hem/Onc Treatment Hematology/Oncology Treatment, [place] [address] [place] [phone] [place], Chair 10 Hem Onc Scenery 200 [facility] [place] [address] 04/13/2023 7:45 AM EST Office Visit Gynecology/Obstetrics [facility] [address] [place] [address] Karlie Infante PA-C [address] [place] [address] 04/26/2023 7:30 AM EDT Imaging Maternal Medicine Imaging, [facility] [address] [place] [address] 04/27/2023 7:45 AM EDT Office Visit Gynecology/Obstetrics [facility] [address] [place] [address] Karlie Infante PA-C [address] [place] [address] 05/04/2023 7:45 AM EDT Office Visit Gynecology/Obstetrics [facility] [address] [place] [address] Karlie Infante PA-C [address] [place] [address] 11/23/2023 1:40 PM EDT Office Visit Nephrology, [facility] [address] [facility] [place] [address] Simona Gutierrez MD [address] [place] [phone] Health Maintenance Due Date Last Done Comments [...] or the puerperium, antepartum condition or complication Hypothyroidism affecting in third trimester Ultrasound for screening for growth restriction screening for growth retardation using ultrasonics 32 weeks gestation of state, incidental documented in this encounter Care Teams Manhole Stripper Relationship Specialty Start Date End Date Lorelei Mccormack DO 1400 [facility] [place] [address] PCP - General Family Medicine 03/07/22 documented as of this encounter
--- OUTSIDE RECORDS SUMMARY | 2023-05-04 07:42 | External Medical Summary ---
Author Name Unknown Address Unknown Organization [facility] - [address] [place] [address] Laboratory Report Ordering Provider Test Date Status ISABEL PHAN 03/30/2023 08:15:05 Final Observation Date Value Abnormality Reference (Units ) Status AST (Aspartate aminotransferase) 03/30/2023 08:15:05 15 10-35 (U/L) Final Performing Location [facility] 0 - [address] [place] [address]
--- OUTSIDE RECORDS SUMMARY | 2023-05-04 07:42 | External Medical Summary | Summary of Care ---
Author Name Unknown Organization [facility] Address [address] [place] [address] Phone [phone] Care Team Providers Care Product Development Engineer Name Role Phone Lorelei Mccormack DO Primary Care Provider [phone] Encounter Details Date Type Department Care Team (Late st Contact Info) Description 03/29/2023 10:15 AM EST Office Visit Veterinarian Small Animal Obstetrics Maternal Medicine, [address] [place] [address] Margaret Rosenthal DO [address] [place] [address] Obesity in , antepartum*; Hypothyroidism [...] money to get more. Never true 12/08/2022 [place] Depression Scale Answer Date Recorded [place] Depression Scale Total 0 03/12/2023 The thought [...] Visit Gynecology/Obstetrics Yangraleigh Villagomez [address] [place] [address] Karlie Infante PA-C [address] [place] [address] 03/30/2023 8:30 AM EST Hem/Onc Treatment Hematology/Oncology Treatment, [place] [facility] [phone] Yandy, Chair 4 Hem Onc [facility] 200 [facility] [place] [address] 04/06/2023 11:45 AM EST Hem/Onc Treatment Hematology/Oncology Treatment, [place] [address] [place] [phone] [place], Chair 10 Hem Onc Scenery 200 [facility] [place] [address] 04/13/2023 7:45 AM EST Office Visit Gynecology/Obstetrics [facility] [address] [place] [address] Karlie Infante PA-C [address] [place] [address] 04/26/2023 7:30 AM EDT Imaging Maternal Medicine Imaging, [facility] [address] [place] [address] 04/27/2023 7:45 AM EDT Office Visit Gynecology/Obstetrics [facility] [address] [place] [address] Karlie Infante PA-C [address] [place] [address] 05/04/2023 7:45 AM EDT Office Visit Gynecology/Obstetrics [facility] [address] [place] [address] Karlie Infante PA-C [address] [place] [address] 11/23/2023 1:40 PM EDT Office Visit Nephrology, [facility] [address] [facility] [address] [place] [address] Simona Gutierrez MD [address] [place] [phone] Health Maintenance Due Date Last Done Comments [...] incidental documented in this encounter Care Teams Product Development Engineer Relationship Specialty Start Date End Date Lorelei Mccormack DO 1400 [facility] [place] [address] PCP - General Family Medicine 03/07/22 documented as of this encounter
--- OUTSIDE RECORDS SUMMARY | 2023-05-04 07:42 | External Medical Summary | Summary of Care ---
Author Name Unknown Organization [facility] Address [address] [place] [facility] [address] Phone [phone] Care Team Providers Care Central Office Worker Name Role Phone Lorelei Mccormack DO Primary Care Provider [phone] Reason for Visit * Reason Comments IV Therapy Venofer 2/3 Encounter Details Date Type Department Care Team (Latest Contact Info) Description 03/30/2023 8:30 AM EST Hem/Onc Treatment Hematology/Oncology Treatment, [address] [address] Yandy, Chair 4 Hem On[address] [address] Antepartum anemia complicating *; Iron deficiency anemia, [...] money to get more. Never true 12/08/2022 [place] Depression Scale Answer Date Recorded [place] Depression Scale Total 0 03/12/2023 The thought [...] and denied any further needs. * Payton Doshi RN - 03/30/2023 9:06 AM EST Chair [...] 03/30/2023 3:00 PM EST Nurse Only [facility] [address] [place] [address] Gw, Nurse Obgyn Injection [address] [place] [address] 04/06/2023 11:45 AM EST Hem/Onc Treatment Hematology/Oncology Treatment, [place] 200 [facility] [place] [phone] [place], Chair 10 Hem On[address] [place] [address] 04/13/2023 7:45 AM EST Office Visit Gynecology/Obstetrics [facility] [address] [place] [address] Karlie Infante PA-C [address] [place] [address] 04/26/2023 7:30 AM EDT Imaging Maternal Medicine Imaging, [place] [facility] [address] [place] [address] 04/27/2023 7:45 AM EDT Office Visit Gynecology/Obstetrics [facility] [address] [place] [address] Karlie Infante PA-C [address] [place] [address] 05/04/2023 7:45 AM EDT Office Visit Gynecology/Obstetrics [facility] [address] [place] [address] Karlie Infante PA-C [address] [place] [address] 11/23/2023 1:40 PM EDT Office Visit Nephrology, [address] [place] [address] Simona Gutierrez MD [address] [place] [address] [place] [address] Health Maintenance Due Date Last Done Comments [...] ONCE PRN Other, Hypersensitivity Reaction, Starting on Sun03/30/23 at 0857, Until 03/31/23 at 0856, For 24 hours EPINEPHrine 1 MG/ML inj 0.3 mg 0.3 mg, Intramuscular, ONCE PRN Other, Hypersensitivity Reaction or Anaphylaxis, Starting on Sun03/30/23 at 0857, Until 03/31/23 at 0856, For 24 hours hEParin 100 UNIT/ML Lock Flush inj 500 Units 500 Units (5 mL), IV Lock, PRN Other, IV Flush, Starting on Sun03/30/23 at 0857, Until 03/31/23 at 0856, For 24 hours, Do not flush if lock, PICC, or central line not in place; IV infusing or unable to flush. Hydrocortisone Sod Suc (PF) (Solu-Cortef) inj 100 mg 100 mg, IV Push, ONCE PRN Other, Hypersensitivity Reaction, Starting on Sun03/30/23 at 0857, Until 03/31/23 at 0856, For 24 hours NSS infusion 500 mL, Intravenous, at 50 mL/hr, CONTINUOUS, Starting on Sun03/30/23 at 1000, Until Sun03/30/23 at 1959 Start Infusion 03/30/2023 8:55 AM EST 500 mL 50 mL/hr oxygen GAS Inhalation, OXYGEN, First dose on Sun03/30/23 at 0930, Until Discontinued, Device/Managed by: Low Flow Device, [...] Push, PRN Other, IV Flush, Starting on Sun03/30/23 at 0857, Until 03/31/23 at 0856, For 24 hours, Do not flush if [...] 8:55 AM EST 300 mg 166.67 mL/hr documented in this encounter Care Teams Central Office Worker Relationship Specialty Start Date End Date Lorelei Mccormack DO [address] [place] [address] PCP - General Family Medicine 03/07/22 documented as of this encounter
--- OUTSIDE RECORDS SUMMARY | 2023-05-04 07:42 | External Medical Summary ---
Author Name Unknown Address Unknown Organization [facility]-[address] - [address] [place] [address] Laboratory Report Ordering Provider Test Date Status ISABEL PHAN 03/30/2023 08:15:05 Final Observation Date Value Abnormality Reference (Units ) Status ALT (Alanine aminotransferase) 03/30/2023 08:15:05 10 10-35 (U/L) Final Performing Location [facility] 57-[address] 0 - [address] [place] [address]
--- OUTSIDE RECORDS SUMMARY | 2023-05-04 07:42 | External Medical Summary ---
Author Name Unknown Address Unknown Organization [facility] - [address] [place] [address] Laboratory Report Ordering Provider Test Date Status ISABEL PHAN 03/30/2023 08:51:07 Final Normal: <150 mg/ g creatinine
High: 150-500 mg/g creatinine
Very High: >500 mg/g creatinine
Nephrotic: >3000 mg/g creatinine Observation Date Value Abnormality Reference (Units ) Status Protein/Creatinine [Ratio] in Urine 03/30/2023 08:51:07 176 Above high normal <150 (mg/g ) Final Protein, Urine 03/30/2023 08:51:07 9 (mg/dL) Final Creatinine, Urine 03/30/2023 08:51:07 51 (mg/dL) Final Performing Location [facility] - [address] [place] [address]
--- OUTSIDE RECORDS SUMMARY | 2023-05-04 07:42 | External Medical Summary | Summary of Care ---
Author Name Unknown Organization [facility] Address [address] [facility] [address] Phone [phone] Care Team Providers Care Staff Interpreter Name Role Phone Lorelei Mccormack DO Primary Care Provider [phone] Encounter Details Date Type Department Care Team (Late st Contact Info) Description 03/30/2023 3:00 PM EST Nurse Only Gynecology/Obstetrics [facility] 132 [facility] [place] [address] Gw, Nurse Obgyn Injection 132 [facility] [place] [address] Arrived Allergies No known active allergiesdocumented as of [...] money to get more. Never true 12/08/2022 [place] Depression Scale Answer Date Recorded [place] Depression Scale Total 0 03/12/2023 The thought [...] Sign Reading Time Taken Comments Blood Pressure 122/70 03/30/2023 12:44 PM EST Pulse - - Temperature - - Respiratory Rate - - Oxygen Saturation - - Inhaled Oxygen Concentration - - Weight - - Height - - Body Mass Index - - documented in this encounter Nursing Notes * Gaviota Parry RN - 03/30/2023 12:51 PM EST Patient here for nurse visit for BP check. BP 122/70. No concerning symptoms. Patient advised to monitor at home daily and make us aware of any elevated readings 140/90 or greater . Made aware to call with any new or concerning sx.. Patient verbalized understanding. documented in this encounter Plan of Treatment Upcoming Encounters Date Type Department Care Team (Late st Contact Info) Description 04/06/2023 11:45 AM EST Hem/Onc Treatment Hematology/Oncology [address], [address] [phone] Yandy, Chair 10 Hem Onc [address] [address] 04/13/2023 7:45 AM EST Office Visit Gynecology/Obstetrics Code[facility] Villagomez [address] [place] [address] Karlie Infante PA-C [address] [place] [address] 04/26/2023 7:30 AM EDT Imaging Maternal Medicine Imaging, Austin Villagomez [address] [place] [address] 04/27/2023 7:45 AM EDT Office Visit Gynecology/Obstetrics Codey Villagomez [address] [place] [address] Karlie Infante PA-C [address] [place] [address] 05/04/2023 7:45 AM EDT Office Visit Gynecology/Obstetrics Yangraleigh Mendozas [address] [place] [address] Karlie Infante PA-C [address] [place] [address] 11/23/2023 1:40 PM EDT Office Visit Nephrology, [address] [address] Simona Gutierrez MD [address] [place] [phone] Health Maintenance Due Date Last Done Comments [...] filedocumented as of this encounter Care Teams Staff Interpreter Relationship Specialty Start Date End Date Lorelei Mccormack DO 1400 [facility] [place] [address] PCP - General Family Medicine 03/07/22 documented as of this encounter
--- OUTSIDE RECORDS SUMMARY | 2023-05-04 07:42 | External Medical Summary ---
Author Name Unknown Address Unknown Organization [facility]-[address] - [address] [place] [address] Laboratory Report Ordering Provider Test Date Status ISABEL PHAN 03/30/2023 08:15:05 Final Observation Date Value Abnormality Reference (Units ) Status BUN 03/30/2023 08:15:05 5 Below low normal 6-2 0 (mg/dL) Final Performing Location [facility] 57-1 0 - [address] [place] [address]
--- OUTSIDE RECORDS SUMMARY | 2023-05-04 07:42 | External Medical Summary | Summary of Care ---
Author Name Unknown Organization [facility] Address [address] [facility] [place] [address] Phone [phone] Care Team Providers Care Hand Wrapper Operator Name Role Phone Lorelei Mccormack DO Primary Care Provider Encounter Details Date Type Department Care Team (Late st Contact Info) Description 04/04/2023 Orders Only PATIENT PORTAL DO NOT DELETE THIS DEPT USED BY [place] [id number] Allergies No known active allergiesdocumented as of this encounter (statuses as of 04/04/2023) Medications Medication Sig Dispensed Refills Start Date [...] as of this encounter (statuses as of 04/04/2023) Active Problems Problem Noted Date Diagnosed Date Gestational hypertension wit hout significant proteinuria in third trimester 04/03/2023 Iron deficiency anemia, unspecified 03/20/2023 Antepartum anemia [...] as of this encounter (statuses as of 04/04/2023) Resolved Problems Problem Noted Date Diagnosed Date Resolved Date with 11 completed weeks gestation 10/31/2022 12/29/2022 documented as of this encounter (statuses as of 04/04/2023) Immunizations Name Administration Dates Next Due TDAP [...] money to get more. Never true 12/08/2022 [place] Depression Scale Answer Date Recorded [place] Depression Scale Total 0 03/12/2023 The thought [...] 11:45 AM EST Hem/Onc Treatment Hematology/Oncology Treatment, [place] [address] [place] [address] Yandy, Chair 10 Hem Onc Scenery [address] [place] [address] 04/10/2023 7:30 AM EST Telemedicine Dressmaker Garment Fitter Obstetrics Maternal Medicine, [place] 190 [facility] 114 [place] [address] Stanislav Frances CRNP 190 [facility] 112 [place] [address] 04/10/2023 2:15 PM EST Office Visit Gynecology/Obstetrics [facility] Villagomez [address] [place] [address] Miriam Abdi CRNP [address] [place] [address] Villagomez, Non Stress Tests [place] [address] [place] [address] 04/13/2023 9:15 AM EST Office Visit Gynecology/Obstetrics [facility] [place] [address] [place] [address] Karlie Infante PA-C [address] [place] [address] [place], Non Stress Tests [place] [address] [place] [address] 04/16/2023 10:15 AM EDT Office Visit Gynecology/Obstetrics [facility] [place] [address] [place] [address] Valentine Barclay CRNP [address] [place] [address] [place], Non Stress Tests [place] [address] [place] [address] 04/19/2023 1:00 PM EDT Office Visit Gynecology/Obstetrics [facility] [place] [address] [place] [address] Mary Oliveira, ADAM [address] [place], [place] [address] [address] Villagomez, Non Stress Tests [place] [address] [place] [address] 04/24/2023 10:15 AM EDT Office Visit Gynecology/Obstetrics Codey Mendozas [address] [place] [address] Valentine Barclay CRNP [address] [place] [address] Villagomez, Non Stress Tests [place] [address] [place] [address] 04/26/2023 7:30 AM EDT Imaging Maternal Medicine Imaging, [place] Villagomez [address] [place] [id number] 04/27/2023 7:45 AM EDT Office Visit Gynecology/Obstetrics Codey Villagomez [address] [place] [address] Karlie Infante PA-C [address] [place] [address] 05/01/2023 9:30 AM EDT Office Visit Gynecology/Obstetrics Codey Villagomez [address] [place] [address] Miriam Abdi CRNP [address] [place] [address] [place], Non Stress Tests [place] [address] [place] [address] 05/04/2023 2:15 PM EDT Office Visit Gynecology/Obstetrics Codey Mendozas [address] [place] [address] Miriam Abdi CRNP [address] [place] [address] [place], Non Stress Tests [place] [address] [place] [address] 05/08/2023 9:30 AM EDT Office Visit Gynecology/Obstetrics Trey's Villagomez [address] [place] [address] Miriam Abdi CRNP [address] [place] [address] [place], Non Stress Tests [place] [address] [place] [address] 05/11/2023 11:00 AM EDT Office Visit Gynecology/Obstetrics Codey Mendozas [address] [place] [address] Valentine Barclay CRNP [address] [place] [address] [place] Non Stress Tests [place] [address] [place] [address] 05/15/2023 11:15 AM EDT Office Visit Gynecology/Obstetrics Trey's [place]ag[place] [address] [place] [id number] Valentine Barclay CRNP [address] [place] [address] [place], Non Stress Tests [place] [address] [place] [address] 05/18/2023 9:15 AM EDT Office Visit Gynecology/Obstetrics [facility]rey's [place]ag[place] [address] [place], [place] [address] Ana Edwards PA-C [address] [place] [address] [place] [address] Villagomez, Jodi Stress Tests [place] [address] [place] [address] 11/23/2023 1:40 PM EDT Office Visit [facility]phrology, [facility] [address] Simona Gutierrez MD [address] [place] [address] Health Maintenance Due Date Last Done Comments [...] filedocumented as of this encounter Care Teams Hand Wrapper Operator Relationship Specialty Start Date End Date Lorelei Mccormack DO [address] [place] [address] PCP - General Family Medicine 03/07/22 documented as of this encounter
--- OUTSIDE RECORDS SUMMARY | 2023-05-04 07:42 | External Medical Summary | Summary of Care ---
Author Name Unknown Organization [facility] Address [address] [place] [facility] [address] Phone [phone] Care Team Providers Care Pinking Sewing Machine Operator Name Role Phone Lorelei Mccormack DO Primary Care Provider [phone] Reason for Visit * Reason Comments Non Stress Test Encounter Details Date Type Department Care Team (Late st Contact Info) Description 04/03/2023 11:30 AM EST Office Visit Gynecology/Obstetric s Trey'panda Villagomez [address] [facility] [place] [address] Miriam Abdi CRNP [address] [facility] [place] [address] [place] Non Stress Tests [place] [address] [facility] [place] [address] Supervision of high risk in third trimester*; Prediabetes; Class 2 obesity; Normal in third trimester; Obesity in , antepartum; Hypothyroidism affecting in third trimester; Antepartum anemia complicating ; Gestational hypertension without [...] GLUCOSE, 100-G GESTATIONAL GLUCOSE, HEMOGLOBIN A1C - [facility] Baseline Preeclampsia Labs Lab Results Component Value [...] daily No results found for: TSH - [employer]END[employer] 05/19/2022 TSH = 0.71 Follows with Richard [...] money to get more. Never true 12/08/2022 [place] Depression Scale Answer Date Recorded [place] Depression Scale Total 0 03/12/2023 The thought [...] Sign Reading Time Taken Comments Blood Pressure 118/66 04/03/2023 11:32 AM EST Pulse - - Temperature - - Respiratory Rate - - Oxygen Saturation - - Inhaled Oxygen Concentration - - Weight 100.2 kg (221 lb) 04/03/2023 11:32 AM EST Height 162.6 cm (5' 4") 04/03/2023 11:32 AM EST Body Mass Index 37.93 04/03/2023 11:32 AM EST documented in this encounter Progress Notes * Miriam Abdi CRNP - 04/03/2023 11:38 AM EST ASSESSMENT assessment with Non-stress Test completed on 04/03/2023 at 33.1weeks gestation for indication of gestational HTN heart baseline: 130 bpm Variability: Moderate Decelerations: absent Accelerations: present Contractions: None NST start time: 1132 NST stop time: 1156 NST strip reviewed, interpreted, and approved by OB provider, BISI Miles . NST strip stored in clinic storage file documented in this encounter Nursing Notes * Katherine Ny LPN - 04/03/2023 11:48 AM EST 33w1d NST documented in this encounter Plan of Treatment Upcoming Encounters Date Type Department Care Team (Late st Contact Info) Description 04/06/2023 11:45 AM EST Hem/Onc Treatment Hematology/Oncology Treatment, [place] [address] [place] [address] Yandy, Chair 10 Hem Onc Scenery [address] [facility] [place] [address] 04/10/2023 7:30 AM EST Telemedicine Awning Spreader Obstetrics Maternal Medicine, [place] 190 [facility] 114 [place] [address] Stanislav Frances CRNP 190 [facility] 112 [place] [address] 04/26/2023 7:30 AM EDT Imaging Maternal Medicine Imaging, [place] Villagomez [address] [place] [address] 04/27/2023 7:45 AM EDT Office Visit Gynecology/Obstetrics Codey Mendozas [address] [place] [address] Karlie Infante PA-C [address] [place] [address] 05/01/2023 9:30 AM EDT Office Visit Gynecology/Obstetrics Codey Mendozas [address] [place] [address] Miriam Abdi CRNP [address] [place] [address] Villagomez, Non Stress Tests [place] [address] [place] [address] 05/04/2023 2:15 PM EDT Office Visit Gynecology/Obstetrics Trey'panda Mendozas [address] [place] [address] Miriam Abdi CRNP [address] [place] [address] Villagomez, Non Stress Tests [place] [address] [place] [address] 05/08/2023 9:30 AM EDT Office Visit Gynecology/Obstetrics Trey's Villagomez [address] [place] [address] Miriam Abdi CRNP [address] [place] [address] Villagomez, Non Stress Tests [place] [address] [place] [address] 05/11/2023 11:00 AM EDT Office Visit Gynecology/Obstetrics Trey's Villagomez [address] [place] [address] BackValentine mauricio CRNP [address] [place] [address] [place], Non Stress Tests [place] [address] [place] [address] 05/15/2023 11:15 AM EDT Office Visit Gynecology/Obstetrics Codey Villagomez [address] [place] [address] Valentine Barclay CRNP [address] [place] [address] [place] Non Stress Tests [place] [address] [place] [address] 05/18/2023 9:15 AM EDT Office Visit Gynecology/Obstetrics Codey Villagomez [address] [place] [address] Ana Edwards PA-C [address] [place] [phone] Villagomez, Non Stress Tests [place] [address] [place] [address] 11/23/2023 1:40 PM EDT Office Visit Nephrology, [address] [place] [address] Simona Gutierrez MD [address] [place] [place] [address] Health Maintenance Due Date Last Done Comments [...] as of this encounter Visit Diagnoses Diagnosis Supervision of high risk in third trimester- Primary Unspecified high-risk Prediabetes Other abnormal glucose Class 2 obesity Normal in third trimester Obesity in , antepartum Obesity complicating , childbirth, or the puerperium, antepartum condition or complication Hypothyroidism affecting in third trimester Antepartum anemia complicating Anemia, antepartum Gestational hypertension without significant proteinuria in third trimester Transient hypertension of , antepartum documented in this encounter Care Teams Pinking Sewing Machine Operator Relationship Specialty Start Date End Date Lorelei Mccormack DO [address] [place] [address] PCP - General Family Medicine 03/07/22 documented as of this encounter
--- OUTSIDE RECORDS SUMMARY | 2023-05-04 07:42 | External Medical Summary | Summary of Care ---
Author Name Unknown Organization [facility] Address 100 [facility] [place] [address] Phone [phone] Care Team Providers Care Information Security Name Role Phone Lorelei Mccormack DO Primary Care Provider [phone] Reason for Visit * Reason Onset Date Comments Test Results 04/03/2023 Encounter Details Date Type Department Care Team (Late st Contact Info) Description 04/03/2023 Telephone Nephrology, [address] [address] Simona Gutierrez MD [address] [place] [address] Test Results Allergies No known active [...] money to get more. Never true 12/08/2022 [place] Depression Scale Answer Date Recorded [place] Depression Scale Total 0 03/12/2023 The thought [...] 1 tablet twice daily to her pharmacy [place] Matt ROWLAND by phone. Detailed message [...] 11:45 AM EST Hem/Onc Treatment Hematology/Oncology Treatment, [place] [address] [place] [address] Yandy, Chair 10 Hem Onc Scenery 200 [facility] [place] [address] 04/10/2023 7:30 AM EST Telemedicine Donor Services Team Leader Obstetrics Maternal Medicine, [place] [facility] 114 [place] [address] Stanislav Frances CRNP [facility] 112 [place] [address] 04/10/2023 2:15 PM EST Office Visit Gynecology/Obstetrics [facility] [place] [address] [facility] [place] [address] Miriam Abdi CRNP [address] [place] [address] [place], Non Stress Tests [place] [address] [place] [address] 04/13/2023 9:15 AM EST Office Visit Gynecology/Obstetrics Trey's [place] [address] [place] [address] Karlie Infante PA-C [address] [place] [address] [place], Non Stress Tests [place] [address] [place] [address] 04/16/2023 10:15 AM EDT Office Visit Gynecology/Obstetrics Trey's Villagomez [address] [place] [address] Valentine Barclay CRNP [address] [place] [address] [place], Non Stress Tests [place] [address] [place] [address] 04/19/2023 1:00 PM EDT Office Visit Gynecology/Obstetrics [place] Villagomez [address] [place] [address] Mary Oliveira, [address] [address] [place], Non Stress Tests [place] [address] [place] [address] 04/24/2023 10:15 AM EDT Office Visit Gynecology/Obstetrics Trey's Villagomez [address] [place] [address] Valentine Barclay CRNP [address] [place] [address] [place], Non Stress Tests [place] [address] [place] [address] 04/26/2023 7:30 AM EDT Imaging Maternal Medicine Imaging, [place] Villagomez [address] [place] [address] 04/27/2023 7:45 AM EDT Office Visit Gynecology/Obstetrics Codey Mendozas [address] [place] [address] Karlie Infante PA-C [address] [place] [address] 05/01/2023 9:30 AM EDT Office Visit Gynecology/Obstetrics Codey Mendozas [address] [place] [address] Miriam Abdi CRNP [address] [place] [address] Villagomez, Non Stress Tests [place] [address] [place] [address] 05/04/2023 2:15 PM EDT Office Visit Gynecology/Obstetrics Codey Mendozas [address] [place] [address] Miriam Abdi CRNP [address] [place] [address] Villagomez, Non Stress Tests [place] [address] [place] [address] 05/08/2023 9:30 AM EDT Office Visit Gynecology/Obstetrics Codey Mendozas [address] [place] [address] Miriam Abdi CRNP [address] [place] [address] Villagomez, Non Stress Tests [place] [address] [place] [address] 05/11/2023 11:00 AM EDT Office Visit Gynecology/Obstetrics Codey Villag[place] [address] [place] [address] Valentine Barclay CRNP [address] [place] [address] Villagomez, Non Stress Tests [place] [address] [place] [address] 05/15/2023 11:15 AM EDT Office Visit Gynecology/Obstetrics Codey [place]ag[place] [address] [place] [address] Valentine Barclay CRNP [address] [place] [address] [place] Non Stress Tests [place] [address] [place] [address] 05/18/2023 9:15 AM EDT Office Visit Gynecology/Obstetrics Codey Villagomez [address] [place] [address] Ana Edwards PA-C [address] [place] [address] [place] Non Stress Tests [place] [address] [place] [address] 11/23/2023 1:40 PM EDT Office Visit Nephrology, [facility] [address] [facility] [place] [address] Simona Gutierrez MD [address] [place] [address] Scheduled Orders Name Type Priority Associated [...] Hypopotassemia documented in this encounter Care Teams Information Security Relationship Specialty Start Date End Date Lorelei Mccormack DO [address] [place] [address] PCP - General Family Medicine 03/07/22 documented as of this encounter
--- OUTSIDE RECORDS SUMMARY | 2023-05-04 07:43 | External Medical Summary | Summary of Care ---
Author Name Unknown Organization [facility] Address [address] [facility] [address] Phone [phone] Care Team Providers Care Master Glazier Name Role Phone Lorelei Mccormack DO Primary Care Provider Reason for Visit * Reason Comments Infusion Venofer / Encounter Details Date Type Department Care Team (Latest Contact Info) Description 03/23/2023 10:15 AM EST Hem/Onc Treatment Hematology/Oncology Treatment, [address] [address] Yandy, Chair 10 Hem Onc [address] [address] Antepartum anemia complicating *; Iron deficiency anemia, [...] GLUCOSE, 100-G GESTATIONAL GLUCOSE, HEMOGLOBIN A1C - [facility] Baseline Preeclampsia Labs Lab Results Component Value [...] be handled at the discretion of the farm management teacher. For women with a history of treated [...] money to get more. Never true 12/08/2022 [place] Depression Scale Answer Date Recorded [place] Depression Scale Total 0 03/12/2023 The thought [...] in this encounter Nursing Notes * Arabella Grant, JALYN - 03/23/2023 12:56 PM EST 1220: Pt [...] Info) Description 03/27/2023 10:00 AM EST Pharmacy Pharmacy, [place] [address] [place], [place] [phone] Clinic, [facility] [address] [place] [address] 03/29/2023 10:15 AM EST Office Visit Fertilizer Mixer Obstetrics Maternal Medicine, [place] [facility] [place] [address] Margaret Rosenthal, [address] [place] [address] 03/29/2023 10:15 AM EST Imaging Maternal Medicine Imaging, [place] [facility] [facility] [place] [phone] 03/30/2023 7:45 AM EST Office Visit Gynecology/Obstetrics [facility] [address] [facility] [place] [address] Karlie Infante PA-C [address] [facility] [place] [address] 03/30/2023 8:30 AM EST Hem/Onc Treatment Hematology/Oncology Treatment, [place] [address] [place] [address] Yandy, Chair 4 Hem Onc Scenery [address] [place] [address] 04/06/2023 11:45 AM EST Hem/Onc Treatment Hematology/Oncology Treatment, [place] [address] [place] [address] Yandy, Chair 10 Hem Onc Scenery [address] [place] [address] 04/13/2023 7:45 AM EST Office Visit Gynecology/Obstetrics [facility] [address] [place] [address] Karlie Infante PA-C [address] [place] [address] 04/27/2023 7:45 AM EDT Office Visit Gynecology/Obstetrics [facility] [address] [place] [address] Karlie Infante PA-C [address] [place] [address] 05/04/2023 7:45 AM EDT Office Visit [facility] [address] [place] [address] Karlie Infante PA-C [address] [place] [address] Health Maintenance Due Date Last Done Comments [...] mL/hr documented in this encounter Care Teams Master Glazier Relationship Specialty Start Date End Date Lorelei Mccormack DO [address] [place] [address] PCP - General Family Medicine 03/07/22 documented as of this encounter
--- OUTSIDE RECORDS SUMMARY | 2023-05-04 07:43 | External Medical Summary | Summary of Care ---
Author Name Unknown Organization [facility] Address [address] [facility] [address] Phone [phone] Care Team Providers Care Gear Room Keeper Name Role Phone Lorelei Mccormack DO Primary Care Provider Reason for Visit * Reason Onset Date Comments Appointment 03/20/2023 Sandra Encounter Details Date Type Department Care Team (Late st Contact Info) Description 03/20/2023 Telephone Hematology/Oncology [facility] [place] [address] [facility] [address] Karlie Infante PA-C [address] [facility] [place] [address] Appointment (Sandra) Allergies No known active allergiesdocumented as of this encounter (statuses as of 03/22/2023) Medications Medication Sig Dispensed Refills Start Date [...] as of this encounter (statuses as of 03/22/2023) Active Problems Problem Noted Date Diagnosed Date [...] be handled at the discretion of the resolute professional. For women with a history of treated [...] as of this encounter (statuses as of 03/22/2023) Resolved Problems Problem Noted Date Diagnosed Date Resolved Date with 11 completed weeks gestation 10/31/2022 12/29/2022 documented as of this encounter (statuses as of 03/22/2023) Immunizations Name Administration Dates Next Due TDAP [...] money to get more. Never true 12/08/2022 [place] Depression Scale Answer Date Recorded [place] Depression Scale Total 0 03/12/2023 The thought [...] encounter Miscellaneous Notes * Telephone Encounter - Grace King OSA - 03/22/2023 8:21 AM EST Called and spoke to patient and she is scheduled for venofer for 03/23/23. * Telephone Encounter - Kassandra Collins RN - 03/22/2023 7:57 AM EST [place] is signed. Scheduling: please call patient to schedule 2 hour appt "venofer 02/07" (Karlie Infante). Thanks! Patient will need venofer once a week x3. * Telephone Encounter - Ayden Bonner RN - 03/20/2023 2:55 PM EST Venofer orders received. [place] plan built and routed for signature. No auth required, can scheduleonce signed. documented in this encounter Plan of Treatment Upcoming Encounters Date Type Department Care Team (Late st Contact Info) Description 03/23/2023 10:15 AM EST Hem/Onc Treatment Hematology/Oncology Treatment, [place] 200 [facility] [place] [address] Yandy, Chair 10 Hem Onc [address] [place] [address] 03/23/2023 1:00 PM EST Office Visit Nephrology, [address] [place] [address] Simona Gutierrez MD [address] [place] [address] 03/27/2023 10:00 AM EST Pharmacy Pharmacy, [place] [address] [place] [address] Clinic, [place] [address] [place] [address] 03/29/2023 10:15 AM EST Office Visit Caustics Loader Obstetrics Maternal Medicine, [place] [address] [place] [address] [place] [address] Margaret Rosenthal, DO [address] [place] [address] 03/29/2023 10:15 AM EST Imaging Maternal Medicine Imaging, [place] Villagomez [facility] [place] [phone] 03/30/2023 7:45 AM EST Office Visit Gynecology/Obstetrics Code[place] [address] [place] [address] [place] [address] Karlie Infante PA-C [address] [place] [address] 04/13/2023 7:45 AM EST Office Visit Gynecology/Obstetrics [facility] [address] [place] [address] Karlie Infante PA-C [address] [place] [address] 04/27/2023 7:45 AM EDT Office Visit Gynecology/Obstetrics [facility] [address] [place] [address] Karlie Infante PA-C [address] [place] [address] 05/04/2023 7:45 AM EDT Office Visit Gynecology/Obstetrics [facility] [address] [place] [address] Karlie Infante PA-C [address] [place] [address] Health Maintenance Due Date Last Done Comments Hepatitis B (1 of 3 - 3-dose series) 1990 COVID-19 Vaccine (#1) 1990 Depression Screening 2002 Influenza Vaccine (FLU shot) (#1) 2022 TSH [...] filedocumented as of this encounter Care Teams Gear Room Keeper Relationship Specialty Start Date End Date Lorelei Mccormack DO [address] [place] [address] PCP - General Family Medicine 03/07/22 documented as of this encounter
--- OUTSIDE RECORDS SUMMARY | 2023-05-04 07:43 | External Medical Summary | Summary of Care ---
Author Name Unknown Organization [facility] Address [address] [facility] [address] Phone [phone] Care Team Providers Care Jet Operator Name Role Phone Lorelei Mccormack DO Primary Care Provider Reason for Visit * Reason Onset Date Comments Appointment 03/20/2023 Sandra Encounter Details Date Type Department Care Team (Late st Contact Info) Description 03/20/2023 Telephone Hematology/Oncology [facility] [place] [address] [facility] [address] Karlie Infante PA-C [address] [place] [place] [address] Appointment (Sandra) Allergies No known active allergiesdocumented [...] be handled at the discretion of the carton wrapper. For women with a history of treated [...] money to get more. Never true 12/08/2022 [place] Depression Scale Answer Date Recorded [place] Depression Scale Total 0 03/12/2023 The thought [...] encounter Miscellaneous Notes * Telephone Encounter - Kassandra Collins RN - 03/22/2023 7:57 AM EST [place] is signed. Scheduling: please call patient to schedule 2 hour appt "venofer 02/07" (Karlie Infante). Thanks! Patient will need venofer once a week x3. * Telephone Encounter - Ayden Bonner RN - 03/20/2023 2:55 PM EST Venofer orders received. [place] plan built and routed for signature. No auth required, can scheduleonce signed. documented in this encounter Plan of Treatment Upcoming Encounters Date Type Department Care Team (Late st Contact Info) Description 03/23/2023 1:00 PM EST Office Visit Nephrology, [facility] [address] [place] [address] Simona Gutierrez MD [address] [place] [address] 03/27/2023 10:00 AM EST Pharmacy Pharmacy, [place] [address] [place], [place] [id number] [facility], [facility] [address] [place], [place] [id number] 03/29/2023 10:15 AM EST Office Visit Head Sulfide Operator Obstetrics Maternal Medicine, [place] Mendozas [address] [place] [address] Margaret Rosenthal, [address] [place] [address] 03/29/2023 10:15 AM EST Imaging Maternal Medicine Imaging, [place] Mendozas [address] [place] [phone] 03/30/2023 7:45 AM EST Office Visit Gynecology/Obstetrics YangKippanda Villagomez [address] [place] [address] Karlie Infante PA-C [address] [place] [address] 04/13/2023 7:45 AM EST Office Visit Gynecology/Obstetrics Codey Mendozas [address] [place] [address] Karlie Infante PA-C [address] [place] [address] 04/27/2023 7:45 AM EDT Office Visit Gynecology/Obstetrics Zainpanda Mendozas [address] [place] [address] Karlie Infante PA-C [address] [place] [address] 05/04/2023 7:45 AM EDT Office Visit Gynecology/Obstetrics Codey Villagomez [address] [place] [address] Karlie Infante PA-C [address] [place] [address] Health Maintenance Due Date Last Done Comments [...] filedocumented as of this encounter Care Teams Jet Operator Relationship Specialty Start Date End Date Lorelei Mccormack DO [address] [place] [address] PCP - General Family Medicine 03/07/22 documented as of this encounter
--- OUTSIDE RECORDS SUMMARY | 2023-05-04 07:43 | External Medical Summary | Summary of Care ---
Author Name Unknown Organization [facility] Address [address] [facility] [address] Phone [phone] Care Team Providers Care Motor Carrier Inspector Name Role Phone Lorelei Mccormack DO Primary Care Provider Encounter Details Date Type Department Care Team (Late st Contact Info) Description 03/20/2023 Orders Only [facility]ematology[facility] [address] [facility] [address] Karlie Infante PA-C [address] [place] [address] Allergies No known active allergiesdocumented as of this encounter (statuses as of 03/20/2023) Medications Medication Sig Dispensed Refills Start Date [...] as of this encounter (statuses as of 03/20/2023) Active Problems Problem Noted Date Diagnosed Date [...] daily No results found for: [facility] T[facility] = 0.71 Follows with Richard [...] be handled at the discretion of the pouncer machine. For women with a history of treated [...] as of this encounter (statuses as of 03/20/2023) Resolved Problems Problem Noted Date Diagnosed Date Resolved Date with 11 completed weeks gestation 10/31/2022 12/29/2022 documented as of this encounter (statuses as of 03/20/2023) Immunizations Name Administration Dates Next Due TDAP [...] money to get more. Never true 12/08/2022 [place] Depression Scale Answer Date Recorded [place] Depression Scale Total 0 03/12/2023 The thought [...] Team (Late st Contact Info) Description 03/20/2023 4:00 PM EST Pharmacy Pharmacy, [address] [id number] Clinic, [place] [address] [place] [address] Iron deficiency anemia, unspecified iron deficiency anemia type* 03/23/2023 1:00 PM EST Office Visit Nephrology, Edgardo Kebede 200 [place] [address] Simona Gutierrez MD 400 [place] [address] 03/27/2023 10:00 AM EST Pharmacy Pharmacy, [address] [address] Clinic, [place] [address] [place] [address] 03/29/2023 10:15 AM EST Office Visit Photographer Apprentice Lithographic Obstetrics Maternal Medicine, [place] Villagomez [address] [place] [address] AriadnaMargaret Bauer, DO [address] [place] [address] 03/29/2023 10:15 AM EST Imaging Maternal Medicine Imaging, Austin Villagomez [address] [place] [address] 03/30/2023 7:45 AM EST Office Visit Gynecology/Obstetric s Codey Mendozas [address] [place] [address] Karlie Infante PA-C [address] [place] [address] 04/13/2023 7:45 AM EST Office Visit Gynecology/Obstetric s Codey Mendozas [address] [place] [address] Karlie Infante PA-C [address] [place] [address] 04/27/2023 7:45 AM EDT Office Visit Gynecology/Obstetric s Codey Mendozas [address] [place] [address] Karlie Infante PA-C [address] [place] [address] 05/04/2023 7:45 AM EDT Office Visit Gynecology/Obstetric s Trey'panda Mendozas [address] [place] [address] Karlie Infante PA-C [address] [place] [address] Health Maintenance Due Date Last Done Comments [...] filedocumented as of this encounter Care Teams Motor Carrier Inspector Relationship Specialty Start Date End Date Lorelei Mccormack DO [address] [place] [address] PCP - General Family Medicine 03/07/22 documented as of this encounter
--- OUTSIDE RECORDS SUMMARY | 2023-05-04 07:43 | External Medical Summary | Summary of Care ---
Author Name Unknown Organization [facility] Address [address] [facility] [address] Phone [phone] Care Team Providers Care Card Assembler Name Role Phone Lorelei Mccormack DO Primary Care Provider [phone] Reason for Visit * Reason Onset Date Comments Appointment 03/20/2023 Sandra Encounter Details Date Type Department Care Team (Late st Contact Info) Description 03/20/2023 Telephone Hematology/Oncology [facility] [place] [address] [facility] [address] Karlie Infante PA-C [address] [place] [address] Appointment (Sandra) Allergies No known active allergiesdocumented [...] be handled at the discretion of the preschool aide. For women with a history of treated [...] money to get more. Never true 12/08/2022 [place] Depression Scale Answer Date Recorded [place] Depression Scale Total 0 03/12/2023 The thought [...] encounter Miscellaneous Notes * Telephone Encounter - Ayden Bonner RN - 03/20/2023 2:55 PM EST Venofer orders received. [place] plan built and routed for signature. No auth required, can scheduleonce signed. documented in this encounter Plan of Treatment Upcoming Encounters Date Type Department Care Team (Late st Contact Info) Description 03/20/2023 4:00 PM EST Pharmacy Pharmacy, [place] [address] [place] [address] Clinic, [place] [address] [place] [address] Iron deficiency anemia, unspecified iron deficiency anemia type* 03/23/2023 1:00 PM EST Office Visit Nephrology, [facility] 200 [place] [address] Simona Gutierrez MD [address] [place] [address] 03/27/2023 10:00 AM EST Pharmacy Pharmacy, [place] [address] [place], [place] [id number] Clinic, [place] [address] [place] [address] 03/29/2023 10:15 AM EST Office Visit Heavy Equipment Rental Manager Obstetrics Maternal Medicine, [place] Mendozas [address] [place] [address] Margaret Rosenthal, DO [address] [place] [address] 03/29/2023 10:15 AM EST Imaging Maternal Medicine Imaging, Austin Mendozas [address] [place] [phone] 03/30/2023 7:45 AM EST Office Visit Gynecology/Obstetric s Yang's Villagomez [address] [place] [address] Karlie Infante PA-C [address] [place] [address] 04/13/2023 7:45 AM EST Office Visit Gynecology/Obstetric s Yang's Villagomez [address] [place] [address] Karlie Infante PA-C [address] [place] [address] 04/27/2023 7:45 AM EDT Office Visit Gynecology/Obstetric s Yang's Villagomez [address] [place] [address] Karlie Infante PA-C [address] [place] [address] 05/04/2023 7:45 AM EDT Office Visit Gynecology/Obstetric s Codey Villagomez [address] [place] [address] Karlie Infante PA-C [address] [place] [address] Health Maintenance Due Date Last Done Comments [...] filedocumented as of this encounter Care Teams Card Assembler Relationship Specialty Start Date End Date Lorelei Mccormack DO [address] [facility] [place] [address] PCP - General Family Medicine 03/07/22 documented as of this encounter
--- OUTSIDE RECORDS SUMMARY | 2023-05-04 07:43 | External Medical Summary | Summary of Care ---
Author Name Unknown Organization [facility] Address [address] [facility] [place] [address] Phone [phone] Care Team Providers Care Payroll Specialist Name Role Phone Lorelei Mccormack DO Primary Care Provider [phone] Reason for Visit * Reason Onset Date Comments Appointment 03/20/2023 Sandra Encounter Details Date Type Department Care Team (Late st Contact Info) Description 03/20/2023 Telephone Hematology/Oncology [facility] [place] [address] [facility] [address] Karlie Infante PA-C [address] [facility] [place] [address] Appointment (Sandra) Allergies No known active allergiesdocumented as of this encounter (statuses as of 03/21/2023) Medications Medication Sig Dispensed Refills Start Date [...] as of this encounter (statuses as of 03/21/2023) Active Problems Problem Noted Date Diagnosed Date [...] be handled at the discretion of the cut plug packer. For women with a history of treated [...] as of this encounter (statuses as of 03/21/2023) Resolved Problems Problem Noted Date Diagnosed Date Resolved Date with 11 completed weeks gestation 10/31/2022 12/29/2022 documented as of this encounter (statuses as of 03/21/2023) Immunizations Name Administration Dates Next Due TDAP [...] money to get more. Never true 12/08/2022 [place] Depression Scale Answer Date Recorded [place] Depression Scale Total 0 03/12/2023 The thought [...] 03/20/2023 2:55 PM EST Venofer orders received. [place] plan built and routed for signature. No auth required, can scheduleonce signed. documented in this encounter Plan of Treatment Upcoming Encounters Date Type Department Care Team (Late st Contact Info) Description 03/23/2023 1:00 PM EST Office Visit Nephrology, [facility] 200 [facility] [place] [address] Simona Gutierrez MD [address] [place], [place] [address] [address] 03/27/2023 10:00 AM EST Pharmacy Pharmacy, [place] [address] [place] [address] Clinic, [facility] [address] [place] [address] 03/29/2023 10:15 AM EST Office Visit Drilling Manager Obstetrics Maternal Medicine, Austin Villagomez [address] [place] [address] Margaret Rosenthal, [address] [place] [address] 03/29/2023 10:15 AM EST Imaging Maternal Medicine Imaging, Austin Villagomez [address] [place] [address] 03/30/2023 7:45 AM EST Office Visit Gynecology/Obstetrics Codey Mendozas [address] [place] [address] Karlie Infante PA-C [address] [place] [address] 04/13/2023 7:45 AM EST Office Visit Gynecology/Obstetrics Codey Villagomez [address] [place] [address] Karlie Infante PA-C [address] [place] [address] 04/27/2023 7:45 AM EDT Office Visit Gynecology/Obstetrics Codey Villagomez [address] [place] [address] Karlie Infante PA-C [address] [place] [address] 05/04/2023 7:45 AM EDT Office Visit Gynecology/Obstetrics Codey Villagomez [address] [place] [address] Karlie Infante PA-C [address] [place] [address] Health Maintenance Due Date Last Done Comments [...] filedocumented as of this encounter Care Teams Payroll Specialist Relationship Specialty Start Date End Date Lorelei Mccormack DO [address] [place] [address] PCP - General Family Medicine 03/07/22 documented as of this encounter
--- OUTSIDE RECORDS SUMMARY | 2023-05-04 07:43 | External Medical Summary | Summary of Care ---
Author Name Unknown Organization [facility] Address [address] [place] [address] Phone [phone] Care Team Providers Care Lacquer Sprayer Name Role Phone Lorelei Mccormack DO Primary Care Provider [phone] Encounter Details Date Type Department Care Team (Late st Contact Info) Description 03/21/2023 Orders Only Pharmacy, [place] [address] [place], [place] [id number] [facility] [address] [place] [address] Allergies No known active allergiesdocumented as of [...] daily No results found for: TSH - [facility] 05/19/2022 TSH = 0.71 Follows with Richard [...] be handled at the discretion of the banking assistant. For women with a history of treated [...] money to get more. Never true 12/08/2022 [place] Depression Scale Answer Date Recorded [place] Depression Scale Total 0 03/12/2023 The thought [...] 03/23/2023 1:00 PM EST Office Visit Nephrology, [address] [place] [address] Simona Gutierrez MD [address] [place] [address] 03/27/2023 10:00 AM EST Pharmacy Pharmacy, [place] [address] [facility] [place] [address] Clinic, [facility] [address] [facility] [place] [address] 03/29/2023 10:15 AM EST Office Visit Physician Allergist Immunologist Obstetrics Maternal Medicine, [facility] [address] [facility] [place] [address] Margaret Rosenthal, DO [address] [place] [facility] [place] [address] 03/29/2023 10:15 AM EST Imaging Maternal Medicine Imaging, Austin Villagomez [address] [place] [phone] 03/30/2023 7:45 AM EST Office Visit Gynecology/Obstetrics Codey Mendozas [address] [place] [address] Karlie Infante PA-C [address] [place] [address] 04/13/2023 7:45 AM EST Office Visit Gynecology/Obstetrics Codey Mendozas [address] [place] [address] Karlie Infante PA-C [address] [place] [address] 04/27/2023 7:45 AM EDT Office Visit Gynecology/Obstetrics Codey Villagomez [address] [place] [address] Karlie Infante PA-C [address] [place] [address] 05/04/2023 7:45 AM EDT Office Visit Gynecology/Obstetrics Codey Mendozas [address] [place] [address] Karlie Infante PA-C [address] [place] [address] Health Maintenance Due Date Last Done Comments [...] filedocumented as of this encounter Care Teams Lacquer Sprayer Relationship Specialty Start Date End Date Lorelei Mccormack DO [address] [place] [address] PCP - General Family Medicine 03/07/22 documented as of this encounter
--- OUTSIDE RECORDS SUMMARY | 2023-05-04 07:43 | External Medical Summary | Summary of Care ---
Author Name Unknown Organization [facility] Address [address] [facility] [address] Phone [phone] Care Team Providers Care Cattle Dehorner Name Role Phone Lorelei Mccormack DO Primary Care Provider Encounter Details Date Type Department Care Team (Late st Contact Info) Description 03/20/2023 Orders Only Gynecology/Obstetrics Codey Villagomez [address] [place] [address] Karlie Infante PA-C [address] [place] [address] Iron deficiency anemia, unspecified iron deficiency anemia [...] Active Problems Problem Noted Date Diagnosed Date Antepartum anemia complicating 024 Overview: Hgb 10.5 [...] daily No results found [facility]: [facility] T[facility] = 0.71 Follows with [...] be handled at the discretion of the new car get ready mechanic. For women with a history of treated [...] money to get more. Never true 12/08/2022 [place] Depression Scale Answer Date Recorded [place] Depression Scale Total 0 03/12/2023 The thought [...] Description 03/20/2023 4:00 PM EST Pharmacy Pharmacy, [address] [id number] Clinic, [place] [address] [place] [address] Iron deficiency anemia, unspecified iron deficiency anemia type* 03/23/2023 1:00 PM EST Office Visit Nephrology, Edgardo Kebede 200 [place] [address] Simona Gutierrez MD [address] [place] [address] 03/27/2023 10:00 AM EST Pharmacy Pharmacy, [address] [address] Clinic, [place] [address] [place] [address] 03/29/2023 10:15 AM EST Office Visit Video Game Producer Obstetrics Maternal Medicine, Austin Villagomez [address] [place] [address] AriadnaMargaret Bauer, DO [address] [place] [address] 03/29/2023 10:15 AM EST Imaging Maternal Medicine Imaging, Austin Villagomez [address] [place] [address] 03/30/2023 7:45 AM EST Office Visit Gynecology/Obstetric s Codey Mendozas [address] [place] [address] Karlie Infante PA-C [address] [place] [address] 04/13/2023 7:45 AM EST Office Visit Gynecology/Obstetric s Codey Mendozas [address] [place] [address] Karlie Infante PA-C [address] [place] [address] 04/27/2023 7:45 AM EDT Office Visit Gynecology/Obstetric s Codey Mendozas [address] [place] [address] Karlie Infante PA-C [address] [place] [address] 05/04/2023 7:45 AM EDT Office Visit Gynecology/Obstetric s Trey'panda Mendozas [address] [place] [address] Karlie Infante PA-C [address] [place] [address] Health Maintenance Due Date Last Done Comments [...] anemia, unspecified iron deficiency anemia type- Primary Iron deficiency anemia, unspecified iron deficiency anemia type- Primary documented in this encounter Care Teams Cattle Dehorner Relationship Specialty Start Date End Date Lorelei Mccormack DO [address] [place] [address] PCP - General Family Medicine 03/07/22 documented as of this encounter
--- OUTSIDE RECORDS SUMMARY | 2023-05-04 07:44 | External Medical Summary | Summary of Care ---
Author Name Unknown Organization [facility] Address [address] [facility] [place] [address] Phone [phone] Care Team Providers Care Groundhand Name Role Phone Lorelei Mccormack DO Primary Care Provider [phone] Reason for Visit * Reason Onset Date Comments Test Results 02/26/2023 Encounter Details Date Type Department Care Team (Late st Contact Info) Description 02/26/2023 Telephone [facility] [address] [place] [address] Karlie Infante PA-C [address] [place] [address] Test Results Allergies No known active allergiesdocumented as of this encounter (statuses as of 03/02/2023) Medications Medication Sig Dispensed Refills Start Date [...] as of this encounter (statuses as of 03/02/2023) Active Problems Problem Noted Date Diagnosed Date Normal 10/30/2022 Supervision of high risk in first trim julio 10/30/2022 Obesity in , antepartum 10/30/2022 Overview: Pre gravid BMI: 35.0 Class 2 obesity Pre gravid BMI: 35.0 Class 2 obesity 1 hour GTT ordered but not yet completed by patient - scheduled 11/14/2022 No results found for: 50-G GESTATIONAL GLUCOSE, 100-G GESTATIONAL GLUCOSE, [facility]GLOBIN [facility] Preecl[facility] Labs Lab Results Component Value [...] daily No results found for: TSH - [facility] 05/19/2022 TSH = 0.71 Follows with [...] be handled at the discretion of the crane operator cab. For women with a history of treated [...] as of this encounter (statuses as of 03/02/2023) Resolved Problems Problem Noted Date Diagnosed Date Resolved Date with 11 completed weeks gestation 10/31/2022 12/29/2022 documented as of this encounter (statuses as of 03/02/2023) Immunizations Name Administration Dates Next Due TDAP [...] money to get more. Never true 12/08/2022 [place] Depression Scale Answer Date Recorded [place] Depression Scale Total 0 10/27/2022 The thought of harming myself has occurred to me . Never 10/27/2022 Estimated Date of Delivery Comme nts Yes [...] encounter Miscellaneous Notes * Telephone Encounter - Gaviota Parry RN - 03/02/2023 3:[address] referral for IV iron * Telephone Encounter - Gaviota Parry RN - 02/26/2023 1:17 PM EST Patient called and made aware of below. She is agreeable to referral for IV iron. Advised her to call back with any questions . * Telephone Encounter - Shonna Leigh LPN - 02/26/2023 1:10 PM EST left message for patient to call office * Telephone Encounter - Karlie Infante PA-C - 02/26/2023 12:51 PM EST Please call patient. Passed 1 hour glucose. She is anemic. Hemoglobin 10.5. Would recommend IV irongiven level. If agreeable, will place order for blood management. Karlie Infante PA-C documented in this encounter Plan of Treatment Upcoming Encounters Date Type Department Care Team (Late st Contact Info) Description 03/12/2023 7:45 AM EST Office Visit Gynecology/Obstetrics Yangpanda Mendozas [address] [place] [address] Karlie Infante PA-C [address] [place] [address] 03/29/2023 10:15 AM EST Office Visit Polishing Machine Tender [facility]st[facility] [address] [place] [address] Margaret Rosenthal, DO [address] [place] [address] 03/29/2023 10:15 AM EST Imaging Maternal Medicine Imaging, Austin Villagomez [address] [place] [phone] 03/30/2023 7:45 AM EST Office Visit Gynecology/Obstetrics Yangpanda Villagomez [address] [place] [address] Karlie Infante PA-C [address] [place] [address] Health Maintenance Due Date Last Done Comments [...] filedocumented as of this encounter Care Teams Groundhand Relationship Specialty Start Date End Date Lorelei Mccormack DO [address] [facility] [place] [address] PCP - General Family Medicine 03/07/22 documented as of this encounter
--- OUTSIDE RECORDS SUMMARY | 2023-05-04 07:44 | External Medical Summary | Summary of Care ---
Author Name Unknown Organization [facility] Address [address] [address] Phone [phone] Care Team Providers Care Phytochemistry Professor Name Role Phone Lorelei Mccormack DO Primary Care Provider [phone] Reason for Referral * (Within 10 days (routine)) Specialty Diagnoses / Procedures Referred By Olu t Referred To Contact Emilie Infante PA-C [address] [employer] [place] [address] Referral ID Status Reason Start Date Expiration Date Visits Re quested Visits Authorized Question Answer Referral Priority Within 10 days (routine) Where should this appointment be scheduled? [facility] Reason for Visit * Reason Onset Date Comments Test Results 02/26/2023 Encounter Details Date Type Department Care Team (Late Contact Info) Description 02/26/2023 Telephone Gynecology/Obstetrics [facility] [address] [place] [address] Emilie Infante PA-C [address] [place] [address] Test Results Allergies No known active allergiesdocumented [...] GLUCOSE, 100-G GESTATIONAL GLUCOSE, HEMOGLOBIN A1C - [facility] Baseline Preeclampsia Labs Lab Results Component Value [...] daily No results found for: TSH - [facility] 05/19/2022 TSH = 0.71 Follows with Richard [...] be handled at the discretion of the animal park code enforcement officer. For women with a history of treated [...] money to get more. Never true 12/08/2022 [place] Depression Scale Answer Date Recorded [place] Depression Scale Total 0 10/27/2022 The thought of harming myself has occurred to me . Never 10/27/2022 Estimated Date of Delivery Comme nts Yes 05/21/2023 Based on Ultraso und Sex and Gender Information Value Date Recorded Sex Assigned at Female 05/31/2022 8:17 AM EDT Gender Identity Female 05/31/2022 8:17 AM EDT Sexual Orientation Straight 05/31/2022 8 :17 AM EDT Job Start Date Occupation Industry Not on file Not on file Not on file documented as of this encounter Miscellaneous Notes * Addendum Note - Emilie Infante PA-C - 03/02/2023 4:59 PM ESTAddended by: EMILIE INFANTE on: 03/02/2023 04:59 PM Modules accepted: Orders * Telephone Encounter - Emilie Infante PA-C - 03/02/2023 4:58 PM EST Blood management referral placed. * Telephone Encounter - Gaviota Parry RN [...] to call office * Telephone Encounter - Emilie Infante PA-C - 02/26/2023 12:51 PM EST Please call patient. Passed 1 hour glucose. She is anemic. Hemoglobin 10.5. Would recommend IV irongiven level. If agreeable, will place order for blood management. Emilie Infante PA-C documented in this encounter Plan of Treatment Upcoming Encounters Date Type Department Care Team (Late st Contact Info) Description 03/12/2023 7:45 AM EST Office [facility] [address] [facility] [place] [address] Emilie Infante PA-C [address] [place] [address] 03/29/2023 10:15 AM EST Office Visit Instructor Flying Obstetrics Maternal Medicine, Austin Mendozas [address] [facility] [place] [address] Ariadna Margaretsophia Lynchi, DO [address] [place] [address] 03/29/2023 10:15 AM EST Imaging Maternal Medicine Imaging, Austin Mendozas [address] [place] [address] 03/30/2023 7:45 AM EST Office Visit Gynecology/Obstetrics [facility] [address] [place] [address] Emilie Infante PA-C [address] [place] [address] Scheduled Referrals Name Type Priority Associated Diagnoses Orde r Schedule BLOOD MANAGEMENT REFERRAL Referral Within 10 days (routine) Antepartum anemia complicating Ordered: 03/02/2023 Health Maintenance Due Date Last Done Comments [...] Antepartum anemia complicating - Primary Anemia, antepartum documented in this encounter Care Teams Phytochemistry Professor Relationship Specialty Start Date End Date Lorelei Mccormack DO [address] [facility] [place] [address] PCP - General Family Medicine 03/07/22 documented as of this encounter
--- OUTSIDE RECORDS SUMMARY | 2023-05-04 07:44 | External Medical Summary | Summary of Care ---
Author Name Unknown Organization [facility] Address [address] [facility] [address] Phone [phone] Care Team Providers Care Supervisor Pig Machine Name Role Phone Lorelei Mccormack DO Primary Care Provider Reason for Referral * Evaluate & Treat - Unlimited Visits (Within 3 days (urgent)) - Pending Review Specialty Diagnoses / Procedures Referred By Olu roman Referred To Contact Nephrology Diagnoses Supervision of high risk in first trimester Chronic hypokalemia Karlie Infante PA-C [address] [place] [address] Referral ID Status Reason Start Date Expiration Date Visits Requested Visits Authorized [id number] Pending Review Specialty Services Required 03/12/2023 999 999 Question Answer Referral Priority Within 3 days (urgent) Where should this appointment be scheduled? [facility] What condition is this patient being seen for? Electrolyte Problem Comments Acute on chronic hypokalemia, currently Reason for Visit * Reason Comments Return Visit Encounter Details Date Type Department Care Team (Late st Contact Info) Description 03/12/2023 7:45 AM EST Office Visit Gynecology/Obstetric s [facility] Villagomez [address] [place] [address] Karlie Infante PA-C [address] [place] [address] Supervision of high risk in first trimester*; Hypothyroidism affecting in third trimester; Prediabetes; Class 2 obesity; Normal in third trimester; Obesity in , antepartum; Antepartum anemia complicating ; Chronic hypokalemia Allergies No known active allergiesdocumented as of this encounter (statuses as of 03/12/2023) Medications Medication Sig Dispensed Refills Start Date [...] as of this encounter (statuses as of 03/12/2023) Active Problems Problem Noted Date Diagnosed Date [...] 75 mcg daily No results found for: ZAIDA NATARAJAN 05/19/2022 TSH = 0.71 Follows with Richard and [facility] endocrinology. Follows with Endocrinology every 6 weeks [...] be handled at the discretion of the digital solutions architect. For women with a history of treated [...] as of this encounter (statuses as of 03/12/2023) Resolved Problems Problem Noted Date Diagnosed Date Resolved Date with 11 completed weeks gestation 10/31/2022 12/29/2022 documented as of this encounter (statuses as of 03/12/2023) Immunizations Name Administration Dates Next Due TDAP [...] money to get more. Never true 12/08/2022 [place] Depression Scale Answer Date Recorded [place] Depression Scale Total 0 03/12/2023 The thought [...] Sign Reading Time Taken Comments Blood Pressure 128/64 03/12/2023 7:31 AM EST Pulse - - Temperature - - Respiratory Rate - - Oxygen Saturation - - Inhaled Oxygen Concentration - - Weight 99.2 kg (218 lb 12.8 oz) 03/12/2023 7:31 AM EST Height - - Body Mass Index 37.56 12/22/2022 2:52 PM EST documented in this encounter Progress Notes * Karlie Infante PA-C - 03/12/2023 8:13 AM EST 30w0d Sent to ER by [facility] Endocrinology about 2 weeks ago for hypokalemia. Level 2.9 at time. Reports chronic issue for her before . Never known cause. Has been fine, checked by Endocrinology q4 wks throughout . Received PO K in ER. Repeat lab 3.4. I unfortunately cannot see all her records from [facility] Endocrinology. Pt states Endocrinology plans to recheck within week, offered to recheck today through our lab. She declines given upcoming check through Endocrinology. She has been increasing potassium in her diet. Denies palpations, n/v. No history of kidney disease. Offered Nephrology referral, patient accepts and referral placed. Plans IV iron given Hgb 10.5. Reviewed with her. Discussed indications. Increased swelling in lowerlegs, no redness or pain. Reviewed compression stockings, elevating legs. BP WNL. Denies bleeding, leaking, contractions. Pos fm. RTC in 2 weeks Karlie Infante PA-C * Arabella Kebede RN - 03/12/2023 7:31 AM EST Increased swelling. Headaches off and on. Relieved by tylenol documented in this encounter Plan of Treatment Upcoming Encounters Date Type Department Care Team (Late st Contact Info) Description 03/29/2023 10:15 AM EST Office Visit Zone Maintenance Technician Obstetrics Maternal Medicine, Austin Villagomez [address] [place] [address] Margaret Rosenthal, DO [address] [place] [address] 03/29/2023 10:15 AM EST Imaging Maternal Medicine Imaging, Austin Villagomez [address] [place] [phone] 03/30/2023 7:45 AM EST Office Visit Gynecology/Obstetrics Codey Mendozas [address] [place] [address] Karlie Infante PA-C [address] [place] [address] 04/13/2023 7:45 AM EST Office Visit Gynecology/Obstetrics Codey Mendozas [address] [place] [address] Karlie Infante PA-C [address] [place] [address] 04/27/2023 7:45 AM EDT Office Visit Gynecology/Obstetrics Codey Villagomez [address] [place] [address] Karlie Infante PA-C [address] [place] [address] 05/04/2023 7:45 AM EDT Office Visit Gynecology/Obstetrics Codey Mendozas [address] [place] [address] Karlie Infante PA-C [address] [place] [address] Scheduled Referrals Name Type Priority Associated Diagnoses Orde r Schedule NEPHROLOGY REFERRAL OP Referral Within 3 days (urgent) Supervision of high risk in first trimester Chronic hypokalemia Ordered: 03/12/2023 Health Maintenance Due Date Last Done Comments [...] or complication Antepartum anemia complicating Anemia, antepartum Chronic hypokalemia Hypopotassemia documented in this encounter Care Teams Supervisor Pig Machine Relationship Specialty Start Date End Date Lorelei Mccormack DO [address] [place] [address] PCP - General Family Medicine 03/07/22 documented as of this encounter
--- OUTSIDE RECORDS SUMMARY | 2023-05-04 07:44 | External Medical Summary | Summary of Care ---
Author Name Unknown Organization [facility] Address [address] [place] [address] Phone [phone] Care Team Providers Care Rn Wound Care Name Role Phone Lorelei Mccormack DO Primary Care Provider [phone] Encounter Details Date Type Department Care Team (Late st Contact Info) Description 03/01/2023 1:45 PM EST Office Visit Dividend Deposit Entry Clerk Obstetrics Maternal Medicine, [address] [place] [address] Margaret Rosenthal DO [address] [place] [address] Obesity in , antepartum*; Ultrasound for screening for growth restriction; 28 weeks gestation of Allergies No known active [...] be handled at the discretion of the foam dispenser. For women with a history of treated [...] money to get more. Never true 12/08/2022 [place] Depression Scale Answer Date Recorded [place] Depression Scale Total 0 10/27/2022 The thought [...] Progress Notes * Margaret Rosenthal DO - 03/02/2023 9:24 AM EST Sara presented for an ultrasound for the following indications: Obesity in , antepartum Ultrasound for screening for growth restriction 28 weeks gestation of Ultrasound summary: Patient presented at 28w 3d for growth assessment. Normal growth with EFW 1275 g at 48%ile. Normal KASSANDRA at 14.9 cm. Cephalic presentation. I reviewed the ultrasound [...] call with any questions. Margaret Rosenthal DO 03/02/2023 9:24 AM documented in this encounter Plan of Treatment Upcoming Encounters Date Type Department Care Team (Late st Contact Info) Description 03/12/2023 7:45 AM EST Office Visit Gynecology/Obstetrics Codey Villagomez [address] [place] [address] Karlie Infante PA-C [address] [place] [address] 03/29/2023 10:15 AM EST Office Visit Dividend Deposit Entry Clerk Obstetrics Maternal Medicine, Austin Mendozas [address] [place] [address] Margaret Rosenthal DO [address] [facility] [address] 03/29/2023 10:15 AM EST Imaging Maternal Medicine Imaging, Austin Villagomez [address] [place] [address] 03/30/2023 7:45 AM EST Office Visit Gynecology/Obstetrics Codey Mendozas [address] [place] [address] Karlie Infante PA-C [address] [place] [address] Health Maintenance Due Date Last Done Comments [...] or the puerperium, antepartum condition or complication Ultrasound for screening for growth restriction screening for growth retardation using ultrasonics 28 weeks gestation of state, incidental documented in this encounter Care Teams Rn Wound Care Relationship Specialty Start Date End Date Lorelei Mccormack DO [address] [facility] [place] [address] PCP - General Family Medicine 03/07/22 documented as of this encounter
--- OUTSIDE RECORDS SUMMARY | 2023-05-04 07:44 | External Medical Summary | Summary of Care ---
Author Name Unknown Organization [facility] Address [address] [place] [address] Phone [phone] Care Team Providers Care Fruit Sprayer Name Role Phone Lorelei Mccormack DO Primary Care Provider [phone] Reason for Visit * Reason Onset Date Comments Anemia Follow-Up 03/20/2023 * Evaluate & Treat - Unlimited Visits (Within 10 days (routine)) - Pending Review Specialty Diagnoses / Procedures Referred By Olu roman Referred To Contact Pharmacist / Pharmacy Diagnoses MARILYNN (iron deficiency anemia) Karlie Infante PA-C [address] [place] [address] Referral ID Status Reason Start Date Expiration Date Visits Requested Visits Authorized [id number] Pending Review Specialty Services Required 03/12/2023 99 99 Encounter Details Date Type Department Care Team (Late st Contact Info) Description 03/20/2023 4:00 PM [facility] Pharmacy Pharmacy, [place] [address] [place] [address] Clinic, Anemia [address] [place] [address] Iron deficiency anemia, unspecified iron deficiency anemia [...] GLUCOSE, 100-G GESTATIONAL GLUCOSE, HEMOGLOBIN A1C - [facility] Baseline Preeclampsia Labs Lab Results Component [...] daily No results found for: TSH - [facility] 05/19/2022 TSH = 0.71 Follows with [...] be handled at the discretion of the first line supervisor. For women with a history of treated [...] money to get more. Never true 12/08/2022 [place] Depression Scale Answer Date Recorded [place] Depression Scale Total 0 03/12/2023 The thought [...] of this encounter Progress Notes * Britt Brown, [facility] - 03/20/2023 1:34 PM EST Patient Phone Numbers Patient referred by Karlie Infante PA-C for evaluation of anemia by the Anemia Clinic. Called patient to introduce role/clinic and to review labs from 02/23. Hgb: 10.5 g/dL TSAT: 16 % Ferritin: 13 ng/mL B12: 317 pg/mL FA: 14.4 ng/mL GA: 31w1d Estimated Date of Delivery: 05/21/23 Hgb is below target range for the third trimester. Iron studies within target range. B12 level within target range. FA level within target range. Patient reports feeling extra tired. Patient qualifies for IV iron repletion. Plan: Venofer 300 mg IV weekly x 3 doses at . Orders placed and routed to appropriate parties. Patient agreeable to intervention. Follow-up labs to be scheduled ~4-6 weeks after iron repletion completed if appropriate prior to delivery. Anemia Clinic will continue to follow. Thank you for allowing us to participate in the care of thispatient. Thanks, Britt Brown [facility] Clinical Pharmacist [facility] Anemia Clinic (P: [phone]) 03/20/2023 1:34 PM documented in this encounter Miscellaneous Notes * Addendum Note - Britt Brown RPh - 03/20/2023 2:14 PM ESTAddended by: BRITT BROWN on: 03/20/2023 02:14 PM Modules accepted: Orders documented in this encounter Plan of Treatment Upcoming Encounters Date Type Department Care Team (Late st Contact Info) Description 03/23/2023 1:00 PM EST Office Visit Nephrology, [facility] [address] [place] [address] Simona Gutierrez MD [address] [place] [address] [place] [phone] 03/27/2023 10:00 AM EST Pharmacy Pharmacy, [place] [address] [place] [address] Clinic, Anemia [address] [place] [address] 03/29/2023 10:15 AM EST Office Visit Resident Care Aide Obstetrics Maternal Medicine, Austin Villagomez [address] [place] [address] Margaret Rosenthal, DO [address] [place] [address] 03/29/2023 10:15 AM EST Imaging Maternal Medicine Imaging, Austin Mendozas [address] [place] [address] 03/30/2023 7:45 AM EST Office Visit Gynecology/Obstetrics Codey Mendozas [address] [place] [address] Karlie Infante PA-C [address] [place] [address] 04/13/2023 7:45 AM EST Office Visit Gynecology/Obstetrics Codey Mendozas [address] [place] [address] Karlie Infante PA-C [address] [place] [address] 04/27/2023 7:45 AM EDT Office Visit Gynecology/Obstetrics Codey Mendozas [address] [place] [address] Karlie Infante PA-C [address] [place] [address] 05/04/2023 7:45 AM EDT Office Visit Gynecology/Obstetrics Codey Mendozas [address] [place] [address] Karlie Infante PA-C [address] [place] [address] Scheduled Referrals Name Type Priority Associated Diagnoses Orde r Schedule PHARMACIST MEDS THERAPY MGMT REFERRAL OP Referral Within 10 days (routine) MARILYNN (iron deficiency anemia) Ordered: 03/12/2023 Health Maintenance Due Date Last [...] Primary documented in this encounter Care Teams Fruit Sprayer Relationship Specialty Start Date End Date Lorelei Mccormack DO [address] [facility] [place] [address] PCP - General Family Medicine 03/07/22 documented as of this encounter
--- OUTSIDE RECORDS SUMMARY | 2023-05-04 07:44 | External Medical Summary | Summary of Care ---
Author Name Unknown Organization [facility] Address [address] [facility] [address] Phone [phone] Care Team Providers Care Reproduction Order Processor Name Role Phone Lorelei Mccormack DO Primary Care Provider [phone]- [phone] Reason for Referral * Evaluate & Treat - Unlimited Visits (Within 10 days (routine)) - Pending Review Specialty Diagnoses / Procedures Referred By Olu roman Referred To Contact Pharmacist / Pharmacy Diagnoses MARILYNN (iron deficiency anemia) Karlie Infante PA-C [address] [place] [address] Referral ID Status Reason Start Date Expiration Date Visits Requested Visits Authorized [id number] Pending Review Specialty Services Required 03/12/2023 99 99 Question Answer Referral Priority Within 10 days (routine) Where should this appointment be scheduled? [facility] Referring Provider Role: Specialist Specialty: field sampling technician Reason for Referral: Anemia Comments Pharmacist Medication Therapy Management: Iron deficiency anemia Flakito Hendricks RN Reason for Visit * Reason Onset Date Comments Blood Management Program 03/12/2023 Encounter Details Date Type Department Care Team (Late st Contact Info) Description 03/12/2023 Telephone Patient Blood Management, [facility] [address] [place] [address] Karlie Infante PA-C [address] [employer] [place] [address] Blood Management Program Allergies No known active allergiesdocumented as of this encounter (statuses as of 03/19/2023) Medications Medication Sig Dispensed Refills Start Date [...] as of this encounter (statuses as of 03/19/2023) Active Problems Problem Noted Date Diagnosed Date [...] GLUCOSE, 100-G GESTATIONAL GLUCOSE, HEMOGLOBIN A1C - [facility] Baseline Preeclampsia Labs Lab Results Component Value [...] be handled at the discretion of the glazing superintendent. For women with a history of treated [...] as of this encounter (statuses as of 03/19/2023) Resolved Problems Problem Noted Date Diagnosed Date Resolved Date with 11 completed weeks gestation 10/31/2022 12/29/2022 documented as of this encounter (statuses as of 03/19/2023) Immunizations Name Administration Dates Next Due TDAP [...] money to get more. Never true 12/08/2022 [place] Depression Scale Answer Date Recorded [place] Depression Scale Total 0 03/12/2023 The thought [...] encounter Miscellaneous Notes * Telephone Encounter - Flakito Hendricks RN - 03/12/2023 10:19 AM EST Recommend IV iron per OB MTM guidelines. Patient agreeable, infusion at [facility]. documented in this encounter Plan of Treatment Upcoming Encounters Date Type Department Care Team (Late st Contact Info) Description 03/20/2023 4:00 PM EST Pharmacy Pharmacy, [place] [address] [place] [address] Clinic, Anemia [address] [place] [address] 03/23/2023 1:00 PM EST Office Visit Nephrology, [address] [address] Simona Gutierrez MD [address] [place] [address] 03/29/2023 10:15 AM EST Office Visit Tv News Director Obstetrics Maternal Medicine, Austin Villagomez [address] [place] [address] Margaret Rosenthal, [address] [place] [address] 03/29/2023 10:15 AM EST Imaging Maternal Medicine Imaging, Austin Villagomez [address] [place] [phone] 03/30/2023 7:45 AM EST Office Visit Gynecology/Obstetrics Codey Villagomez [address] [place] [address] Karlie Infante PA-C [address] [place] [address] 04/13/2023 7:45 AM EST Office Visit Gynecology/Obstetrics Codey Villagomez [address] [place] [address] Karlie Infante PA-C [address] [place] [address] 04/27/2023 7:45 AM EDT Office Visit Gynecology/Obstetrics [facility] [address] [place] [address] Karlie Infante PA-C [address] [place] [address] 05/04/2023 7:45 AM EDT Office Visit Gynecology/Obstetrics [facility] [address] [place] [address] Karlie Infante PA-C [address] [place] [address] Scheduled Referrals Name Type Priority Associated Diagnoses [...] as of this encounter Visit Diagnoses Diagnosis MARILYNN (iron deficiency anemia)- Primary Iron deficiency anemia, unspecified documented in this encounter Care Teams Reproduction Order Processor Relationship Specialty Start Date End Date Lorelei Mccormack DO [address] [facility] [place] [address] PCP - General Family Medicine 03/07/22 documented as of this encounter
--- OUTSIDE RECORDS SUMMARY | 2023-05-04 07:44 | External Medical Summary | Summary of Care ---
Author Name Unknown Organization [facility] Address [address] [facility] [place] [address] Phone [phone] Care Team Providers Care Terrazzo Layer Helper Name Role Phone Lorelei Mccormack DO Primary Care Provider Reason for Referral * Evaluate & Treat - Unlimited Visits (Within 3 days (urgent)) - Pending Review Specialty Diagnoses / Procedures Referred By Olu roman Referred To Contact Nephrology Diagnoses Supervision of high risk in first trimester Chronic hypokalemia Karlie Infante PA-C [address] [place] [address] Referral ID Status Reason Start Date Expiration Date Visits Requested Visits Authorized [id number] Pending Review Specialty Services Required 03/12/2023 999 [...] s Zainpanda Villagomez [address] [place] [address] Karlie Infante PA-C [address] [place] [address] Supervision of high risk in first trimester*; [...] be handled at the discretion of the litharge mill operator. For women with a history of treated [...] money to get more. Never true 12/08/2022 Kermit Depression Scale Answer Date Recorded Kermit Depression Scale Total 0 03/12/2023 The thought [...] AM EST 30w0d Sent to ER by [facility] about 2 weeks ago for hypokalemia. Level 2.9 at time. Reports chronic issue for her before . Never known cause. Has been fine, checked by Endocrinology q4 wks throughout . Received PO K in ER. Repeat lab 3.4. Pt states endocrinology plans to recheck within week, offered to recheck today through our lab. She declines given upcoming check through Endocrinology. Denies palpations, n/v. No history of kidney [...] Description 03/29/2023 10:15 AM EST Office Visit Oxygen Therapist Obstetrics Maternal Medicine, [place] [address] [place] [address] Margaret Rosenthal, DO [address] [place] [address] 03/29/2023 10:15 AM EST Imaging Maternal Medicine Imaging, [place] [address] [place] [phone] 03/30/2023 7:45 AM EST Office Visit Gynecology/Obstetrics [facility] [address] [place] [address] Karlie Infante PA-C [address] [place] [address] 04/13/2023 7:45 AM EST Office Visit Gynecology/Obstetrics [facility] [address] [place] [address] Karlie Infante PA-C [address] [place] [address] 04/27/2023 7:45 AM EDT Office Visit Gynecology/Obstetrics [facility] [address] [place] [address] Karlie Infante PA-C [address] [place] [address] 05/04/2023 7:45 AM EDT Office Visit Gynecology/Obstetrics [facility] [address] [place] [address] Karlie Infante PA-C [address] [place] [address] Scheduled Referrals Name Type Priority Associated Diagnoses [...] Hypopotassemia documented in this encounter Care Teams Terrazzo Layer Helper Relationship Specialty Start Date End Date Lorelei Mccormack DO [address] [facility] [place] [address] PCP - General Family Medicine 03/07/22 documented as of this encounter
--- OUTSIDE RECORDS SUMMARY | 2023-05-04 07:44 | External Medical Summary | Summary of Care ---
Author Name Unknown Organization [facility] Address [address] [place] [address] Phone [phone] Care Team Providers Care Building Performance Specialist Name Role Phone Lorelei Mccormack DO Primary Care Provider Reason for Visit * Reason Comments Blood Management Program Encounter Details Date Type Department Care Team (Late st Contact Info) Description 03/05/2023 Documentation Patient Blood Management, [place] [address] [place] [address] Flakito Hendricks, RN Allergies No known active allergiesdocumented as of [...] GLUCOSE, 100-G GESTATIONAL GLUCOSE, HEMOGLOBIN A1C - [facility] Baseline Preeclampsia Labs Lab Results Component Value Date/Time PLATELET AUTO - [facility] 338 10/27/2022 02:30 PM Last Assessment & [...] be handled at the discretion of the pharm spec. For women with a history of treated [...] money to get more. Never true 12/08/2022 Picher Depression Scale Answer Date Recorded Picher Depression Scale Total 0 03/12/2023 The thought [...] as of this encounter Progress Notes * Flakito Hendricks RN - 03/05/2023 9:39 AM EST REFERRAL - Patient Blood Management Name: Sara Basurto REQUESTING SERVICE: [facility] OB REASON FOR REFERRAL: new evaluation outpatient, a Anemia Evaluation: Latest Reference Range & Units 02/23/23 09:04 HGB 12.0 - 15.3 g/dL 10.5 (L) HCT 36.0 - 45.2 % 31.3 (L) Iron 33 - 151 ug/dL 68 Iron Binding Capacity 250 - 425 ug/dL 413 Transferrin Saturation Percent 15 - 55 % 16 Ferritin 13 - 150 ng/mL 13 Vitamin B12 232 - 1,245 pg/mL 317 Folic Acid >4.5 ng/mL 14.4 Immature Reticuloctye Fraction 2.5 - 20.6 % 38.0 (H) Reticulocyte Hemoglobin 29.7 - 37.4 pg 31.5 (L): Data is abnormally low (H): Data is abnormally high Current Patient Medications: Medications that may impair hemostasis: bASA Medications that may impair iron absorption: none Patient Refused Blood Transfusion? (e.g. Mormonism): no Possible Contributing Factors: iron deficiency Treatment Recommendations: IV iron per OB MTM guidelines. 03/05 - Called patient to discuss recommendations. No answer, left voicemail for return call. myG sent. 03/12 - myG read, per Naresh BUSTOS note today- patient plans for IV iron. Will submit. Thank you for allowing Blood Management to participate in the care of this patient. documented in this encounter Plan of Treatment Upcoming Encounters Date Type Department Care Team (Late st Contact Info) Description 03/29/2023 10:15 AM EST Office Visit Pediatrics Physician Obstetrics Maternal Medicine, [place] [address] [place] [address] Margaret Rosenthal, DO [address] [place] [address] 03/29/2023 10:15 AM EST Imaging Maternal Medicine Imaging, [place] Villagomez [address] [place] [phone] 03/30/2023 7:45 AM EST Office Visit Gynecology/Obstetrics [place] [address] [place] [address] Karlie Infante PA-C [address] [place] [address] 04/13/2023 7:45 AM EST Office Visit Gynecology/Obstetrics [place] [address] [place] [address] Karlie Infante PA-C [address] [place] [address] 04/27/2023 7:45 AM EDT Office Visit Gynecology/Obstetrics [place] [address] [place] [address] Karlie Infante PA-C [address] [place] [address] 05/04/2023 7:45 AM EDT Office Visit Gynecology/Obstetrics [place] [facility]ag[place] [address] [place] [address] Karlie Infante PA-C [address] [place] [address] Health Maintenance Due Date Last Done Comments [...] filedocumented as of this encounter Care Teams Building Performance Specialist Relationship Specialty Start Date End Date Lorelei Mccormack DO [address] [place] [address] PCP - General Family Medicine 03/07/22 documented as of this encounter
--- OUTSIDE RECORDS SUMMARY | 2023-05-04 07:44 | External Medical Summary | Summary of Care ---
Author Name Unknown Organization [facility] Address [address] [facility] [place] [address] Phone [phone] Care Team Providers Care Quality Control Tester Name Role Phone Lorelei Mccormack DO Primary Care Provider Encounter Details Date Type Department Care Team (Late st Contact Info) Description 03/02/2023 Orders Only [facility] [address] [place] [address] Miriam Abdi CRNP [address] [place] [address] Allergies No known active allergiesdocumented as of [...] GLUCOSE, 100-G GESTATIONAL GLUCOSE, HEMOGLOBIN A1C - [employer] Baseline Preeclampsia Labs Lab Results Component Value Date/Time PLATELET AUTO - [facility] 338 10/27/2022 02:30 PM Last Assessment & [...] daily No results found for: [facility] TSH = 0.71 Follows with [...] be handled at the discretion of the design checker. For women with a history of treated [...] money to get more. Never true 12/08/2022 Masterson Depression Scale Answer Date Recorded Masterson Depression Scale Total 0 10/27/2022 The thought [...] EST Office Visit Gynecology/Obstetrics [place] Villagomez [address] [facility] [place] [address] Karlie Infante PA-C [address] [place] [address] 03/29/2023 10:15 AM EST Office Visit Prospecting Observer Obstetrics Maternal Medicine, [place] Villag[place] [address] [facility] [place] [address] Margaret Rosenthal, DO [address] [facility] [place] [address] 03/29/2023 10:15 AM EST Imaging Maternal Medicine Imaging, [place] Villagomez [address] [facility] [place] [phone] 03/30/2023 7:45 AM EST Office Visit Gynecology/Obstetrics [place] [address] [place] [address] Karlie Infante PA-C [address] [place] [address] Health Maintenance Due Date Last Done Comments [...] Procedure Name Priority Date/Time Associated Diagnosis Comments POTASSIUM Routine 03/02/2023 documented in this encounter Results * (ABNORMAL) POTASSIUM (03/02/2023) POTASSIUM-OUTS MO LAB 3.4(L) 3.6 - 5.0 MMOL/L OUTSIDE LAB (SEE SCANNED REPORT) Blood Venous blood specimen / Unknown 03/02/2023 History Per Patient LAB BLOOD ORDERABLES OUTSIDE LAB (SEE SCANNED REPORT) documented in this encounter Care Teams Quality Control Tester Relationship Specialty Start Date End Date Lorelei Mccormack DO [address] [place] [address] PCP - General Family Medicine 03/07/22 documented as of this encounter
--- OUTSIDE RECORDS SUMMARY | 2023-05-04 07:44 | External Medical Summary | Summary of Care ---
Author Name Unknown Organization [facility] Address [address] [place] [address] Phone [phone] Care Team Providers Care Wellness Director Name Role Phone Lorelei Mccormack DO Primary Care Provider [phone] Reason for Visit * Reason Onset Date Comments Anemia Follow-Up 03/20/2023 * Evaluate & Treat - Unlimited Visits (Within 10 days (routine)) - Pending Review Specialty Diagnoses / Procedures Referred By Olu roman Referred To Contact Pharmacist / Pharmacy Diagnoses MARILYNN (iron deficiency anemia) Karlie Infante PA-C [address] [place] [address] Referral ID Status Reason Start Date Expiration Date Visits Requested Visits Authorized [id number] Pending Review Specialty Services Required 03/12/2023 99 99 Encounter Details Date Type Department Care Team (Late st Contact Info) Description 03/20/2023 4:00 PM [facility] Pharmacy Pharmacy, [place] [address] [place] [address] Clinic, Anemia [address] [place] [address] Iron deficiency anemia, unspecified iron deficiency anemia [...] GLUCOSE, 100-G GESTATIONAL GLUCOSE, HEMOGLOBIN A1C - [facility] Baseline Preeclampsia Labs Lab Results Component Value [...] daily No results found for: TSH - [facility] 05/19/2022 TSH = 0.71 Follows with Richard [...] be handled at the discretion of the block bolter mule operator. For women with a history of [...] money to get more. Never true 12/08/2022 Ringtown Depression Scale Answer Date Recorded Ringtown Depression Scale Total 0 03/12/2023 The thought [...] this encounter Progress Notes * Britt Almanzar, [facility] - 03/20/2023 1:34 PM EST Patient Phone [...] range. FA level within target range. Patient qualifies for IV iron repletion. Tentative Plan: Venofer 300 mg IV weekly x 3 doses at . Orders need to be placed and routed to appropriate parties if patient agreeable to intervention. Follow-up labs to be scheduled ~4-6 weeks after iron repletion completed if appropriate prior to delivery. Anemia Clinic will continue to follow. Thank you for allowing us to participate in the care of thispatient. Thanks, Britt Almanzar [facility] Clinical Pharmacist [facility] (P: [phone]) 03/20/2023 1:34 PM documented in this encounter Plan of Treatment Upcoming Encounters Date Type Department Care Team (Late st Contact Info) Description 03/23/2023 1:00 PM EST Office Visit Nephrology, [address] [place] [address] Simona Gutierrez MD [address] [place] [address] 03/27/2023 4:00 PM EST [facility] [address] [place], [place] [id number] Clinic, Anemia [address] [place] [address] 03/29/2023 10:15 AM EST Office Visit Letterpress Setter Obstetrics Maternal Medicine, [facility] [address] [facility] [place] [address] Margaret Rosenthal, [address] [place] [address] 03/29/2023 10:15 AM EST Imaging Maternal Medicine Imaging, [place]oz[place] [address] [place] [address] 03/30/2023 7:45 AM EST Office Visit Gynecology/Obstetrics [facility] [address] [place] [address] Karlie Infante PA-C [address] [place] [address] 04/13/2023 7:45 AM EST Office Visit Gynecology/Obstetrics [facility] [address] [place] [address] Karlie Infante PA-C [address] [place] [address] 04/27/2023 7:45 AM EDT Office Visit Gynecology/Obst[facility]s [facility] [address] [place] [address] Karlie Infante PA-C [address] [place] [address] 05/04/2023 7:45 AM EDT Office Visit Gynecology/Obstetrics [facility] [address] [place] [address] Karlie Infante PA-C [address] [place] [address] Scheduled Referrals Name Type Priority Associated Diagnoses [...] Primary documented in this encounter Care Teams Wellness Director Relationship Specialty Start Date End Date Lorelei Mccormack DO [address] [facility] [place] [address] PCP - General Family Medicine 03/07/22 documented as of this encounter
--- OUTSIDE RECORDS SUMMARY | 2023-05-04 07:45 | External Medical Summary | Summary of Care ---
Author Name Unknown Organization [facility] Address [address] [place] [address] Phone [phone] Care Team Providers Care Database Dba Name Role Phone Lorelei Mccormack DO Primary Care Provider Reason for Visit * Reason Comments Ultrasound * Evaluate & Treat - Unlimited Visits (Within 10 days (routine)) - Authorized Specialty Diagnoses / Procedures Referred By Olu roman Referred To Contact Obstetrics/Gynecology / Maternal Medicine Diagnoses Hypothyroidism affecting in first trimester Supervision of high-risk , unspecified trimester Prediabetes Class 2 obesity Karlie Infante PA-C [address] [place] [address] Referral ID Status Reason Start Date Expiration Date Visits Requested Visits Authorized [id number] Authorized Specialty Services Required 10/27/2022 10/28/2023 999 999 Encounter Details Date Type Department Care Team (Late st Contact Info) Description 02/02/2023 8:45 AM EST Office Visit Heel Trimmer Obstetrics Maternal Medicine, [place] [address] [place] [address] Quincy Bronw DO [address] [place] [address] Obesity in , antepartum*; Class 2 obesity; Hypothyroidism affecting in second trimester; 24 weeks gestation of Allergies No known active allergiesdocumented as of this encounter (statuses as of 02/02/2023) Medications Medication Sig Dispensed Refills Start Date [...] as of this encounter (statuses as of 02/02/2023) Active Problems Problem Noted Date Diagnosed Date [...] GLUCOSE, 100-G GESTATIONAL GLUCOSE, HEMOGLOBIN A1C - [facility] Baseline Preeclampsia Labs Lab Results Component [...] daily No results found for: TSH - [facility] 05/19/2022 TSH = 0.71 Follows with [...] be handled at the discretion of the workforce investment act career manager. For women with a history of treated [...] as of this encounter (statuses as of 02/02/2023) Resolved Problems Problem Noted Date Diagnosed Date Resolved Date with 11 completed weeks gestation 10/31/2022 12/29/2022 documented as of this encounter (statuses as of 02/02/2023) Social History Tobacco Use Types Packs/Day Years [...] money to get more. Never true 12/08/2022 Antler Depression Scale Answer Date Recorded Antler Depression Scale Total 0 10/27/2022 The thought [...] as of this encounter Progress Notes * Quincy Brown, - 02/02/2023 1:02 PM EST MATERNAL MEDICINE VISIT Sara Basurto is at 24w4d who presents to [facility] for an ultrasound. She is being seen today by Maternal- Medicine for the following reasons: Problem List Items Addressed This Visit Hypothyroidism complicating Class 2 obesity Obesity in , antepartum - Primary She presents for follow-up of growth secondary to class II obesity and hypothyroidism. Today's ultrasound notes the following: The estimated weight is appropriate for gestational age in the 38th percentile. The visualized anatomy is unremarkable in appearance. The KASSANDRA is normal. Other Visit Diagnoses 24 weeks gestation of For full report, please refer to ultrasound report provided separately. RECOMMENDATIONS: Recommend surveillance starting at 37 weeks secondary to class II obesity. Recommend follow up ultrasound with MFM in 4 weeks for growth. Thank you for allowing us to participate in the care of this patient. Please call with any questions. Quincy Brown DO 02/02/2023 1:05 PM documented in this encounter Miscellaneous Notes * Assessment & Plan Note - Quincy Brown DO - 02/02/2023 1:02 PM EST Associated Problem(s): Obesity in , antepartum She presents for follow-up of growth secondary to class II obesity and hypothyroidism. Today's ultrasound notes the following: The estimated weight is appropriate for gestational age in the 38th percentile. The visualized anatomy is unremarkable in appearance. The KASSANDRA is normal. documented in this encounter Plan of Treatment Upcoming Encounters Date Type Department Care Team (Late st Contact Info) Description 02/23/2023 8:10 AM EST [facility] [address] [place] [phone] [facility] [address] [place] [address] 02/23/2023 8:30 AM EST Office Visit Gynecology/Obstetrics [facility] [address] [place] [address] Miriam Abdi CRNP [address] [place] [address] 03/01/2023 1:45 PM EST Office Visit Heel Trimmer Obstetrics Maternal Medicine, [facility] [address] [place] [address] Margaret Rosenthal, DO [address] [place] [address] 03/01/2023 1:45 PM EST Imaging Maternal Medicine Imaging, [place] Mendozas [address] [facility] [place] [phone] 03/29/2023 10:15 AM EST Office Visit Heel Trimmer [facility] [address] [facility] [place] [address] [place] Margaret De Radha, DO [address] [place] [address] 03/29/2023 10:15 AM EST Imaging Maternal Medicine Imaging, [place] Mendozas [address] [facility] [place] [address] Health Maintenance Due Date Last Done Comments Hepatitis B (1 of 3 - 3-dose series) 1990 COVID-19 Vaccine (#1) 1990 Depression Screening 2002 DTaP,Tdap,and Td Vaccines (1 - Tdap) 2009 Influenza Vaccine (FLU shot) (#1) 2022 TSH 10/16/2023 10/15/2022 Pap Smear 05/31/2025 05/31/2022 Cervical Cancer Screening 06/01/2027 HPV/Co-Test 06/01/2027 05/31/2022 GARDASIL-HPV IMMUNIZATION SERIES Aged Out No longer eligible based on patient's age to complete this topic MENINGOCOCCAL (MENACTRA/MENVEO) Aged Out No longer eligible based on patient's age to complete this topic Pneumococcal Vaccine: Pediat rics (0 to 5 Years) and At-Risk Patients (6 to 64 Years) Aged Out No longer eligi ble based on patient's age to complete this topic documented as of this encounter Medical Devices Not on filedocumented as of this encounter Visit Diagnoses Diagnosis Obesity in , antepartum- Primary Obesity complicating , childbirth, or the puerperium, antepartum condition or complication Class 2 obesity Hypothyroidism affecting in second trimester 24 weeks gestation of state, incidental documented in this encounter Care Teams Database Dba Relationship Specialty Start Date End Date Lorelei Mccormack DO [address] [place] [address] PCP - General Family Medicine 03/07/22 documented as of this encounter
--- OUTSIDE RECORDS SUMMARY | 2023-05-04 07:45 | External Medical Summary ---
Author Name Unknown Address Unknown Organization [id number]:[place] [facility] [place] [address] [place] [address] Laboratory Report Ordering Provider Test Date Status ISABEL PHAN 02/23/2023 09:04:42 Final Observation Date Value Abnormality Reference (Units ) Status Vitamin B12 02/23/2023 09:04:42 612 303-4994 (pg/mL) Final Performing Location [facility] [facility] [facility] [place] [address] [place] [address]
--- OUTSIDE RECORDS SUMMARY | 2023-05-04 07:45 | External Medical Summary ---
Author Name Unknown Address Unknown Organization [id number][place] [place] [address] [place] [address] Laboratory Report Ordering Provider Test Date Status ISABEL PHAN 02/23/2023 09:04:42 Final Observation Date Value Abnormality Reference (Units ) Status Iron 02/23/2023 09:04:42 68 33-151 (ug /dL) Final Iron-binding capacity 02/23/2023 09:04:42 413 250-425 (ug/dL) Final Transferrin Sat % 02/23/2023 09:04:42 16 15 -55 (%) Final Performing Location [facility] [place] [address] [place] [address]
--- OUTSIDE RECORDS SUMMARY | 2023-05-04 07:45 | External Medical Summary ---
Author Name Unknown Address Unknown Organization [id number] [address] [place] [address] Laboratory Report Ordering Provider Test Date Status ISABEL PHAN 02/23/2023 09:04:42 Final Observation Date Value Abnormality Reference (Units ) Status SYNC LEUKOCYTES IN BLOOD BY AUTOMATED COUNT 02/23/2023 09:04:42 13.80 Above high normal 4.00-10.80 (K/uL) Final Segs 02/23/2023 09:04:42 83.4 Above high normal 40.0-75.0 (%) Final Lymphs % 02/23/2023 09:04:42 12.0 Below low normal 18.0-42.0 (%) Final Monos 02/23/2023 09:04:42 4.1 1.0-11.0 (%) Final Eosinophils 02/23/2023 09:04:42 0.4 0.0-6.0 (%) Final Basos 02/23/2023 09:04:42 0.1 0.0-2.0 (%) Final Absolute Segs 02/23/2023 09:04:42 11.52 Above high normal 1.80-7.70 (K/uL) Final Lymphs, absolute 02/23/2023 09:04:42 1.65 1.00-4.80 (K/ul) Final Monos, Abs 02/23/2023 09:04:42 0.56 0.00-1.10 (K/uL) Final Eos, Abs 02/23/2023 09:04:42 0.06 0.00-0.70 (K/uL) Final Basos, Abs 02/23/2023 09:04:42 0.01 0.00-0.20 (K/uL) Final Performing Location LABORATORY [facility] [place] [facility] 0 - [address] [place] [address]
--- OUTSIDE RECORDS SUMMARY | 2023-05-04 07:45 | External Medical Summary ---
Author Name Unknown Address Unknown Organization [id number]:LABORATORY [facility] - [address] [place] [address] Laboratory Report Ordering Provider Test Date Status ISABEL PHAN 02/23/2023 09:04:42 Final Observation Date Value Abnormality Reference (Units ) Status WBC, Total 02/23/2023 09:04:42 13.80 Above high normal 4 .00-10.80 (K/uL) Final RBC 02/23/2023 09:04:42 3.47 3.85-5.15 (M/uL) Final Hemoglobin 02/23/2023 09:04:42 10.5 Below low normal 12 .0-15.3 (g/dL) Final Anemia reflex testing trigge rs on a HGB < 12.0 for Females and HGB < 13.0 for Males in accordance with the WHO Anemia Guidelines
Anemia reflex testing triggers on a HGB < 12.0 for Females and HGB < 13.0 for Males in accordance with the WHO Anemia Guidelines HCT 02/23/2023 09:04:42 31.3 Below low normal 36. 0-45.2 (%) Final MCV 02/23/2023 09:04:42 90.2 81.5-97.5 (fL) Final MCH 02/23/2023 09:04:42 30.3 27.0-34.0 (pg) Final MCHC 02/23/2023 09:04:42 33.5 32.0-36.0 (g/dL) Final RDW 02/23/2023 09:04:42 14.7 11.5-15.5 (%) Final Platelets 02/23/2023 09:04:42 335 140-400 (K /uL) Final MPV 02/23/2023 09:04:42 9.5 6.6-11.1 ( fL) Final Performing Location LABORATORY [facility] 0 - [address] [place] [address]
--- OUTSIDE RECORDS SUMMARY | 2023-05-04 07:45 | External Medical Summary ---
Author Name Unknown Address Unknown Organization [id number]:LABORATORY [facility] [place] - [address] [place] [address] Laboratory Report Ordering Provider Test Date Status ISABEL PHAN 02/23/2023 09:04:42 Final Observation Date Value Abnormality Reference (Units ) Status Creatinine 02/23/2023 09:04:42 0.5 0.5-1.0 (mg/dL) Final Glomerular filtration rate/1.73 sq M.predicted [Volume Rate/Area] in Serum, Plasma or Blood by Creatinine-based formula (CKD-EPI) 02/23/2023 09:04:42 >90 >=60 (mL/min) Final eGFR is calculated based on the CKD-EPI 2020 equation Performing Location LABORATORY [facility] [place] - [address] [place] [address]
--- OUTSIDE RECORDS SUMMARY | 2023-05-04 07:45 | External Medical Summary ---
Author Name Unknown Address Unknown Organization [id number]:LABORATORY [facility] [place] [address] [place] [address] Laboratory Report Ordering Provider Test Date Status ISABEL PHAN 02/23/2023 09:04:42 Final Observation Date Value Abnormality Reference (Units ) Status Folic Acid 02/23/2023 09:04:42 14.4 >4.5 (ng/ mL) Final Performing Location LABORATORY [facility] [place] [address] [place] [place] [address]
--- OUTSIDE RECORDS SUMMARY | 2023-05-04 07:45 | External Medical Summary ---
Author Name Unknown Address Unknown Organization [id number]:LABORATORY [facility] [place] - [address] [facility] [address] [place] [address] Laboratory Report Ordering Provider Test Date Status ISABEL PHAN 02/23/2023 09:04:42 Final Observation Date Value Abnormality Reference (Units ) Status Ferritin 02/23/2023 09:04:42 13 13-150 (ng /mL) Final Performing Location LABORATORY [facility] - [address] [place] [address]
--- OUTSIDE RECORDS SUMMARY | 2023-05-04 07:45 | External Medical Summary | Summary of Care ---
Author Name Unknown Organization [facility] Address [address] [facility] [place] [address] Phone [phone] Care Team Providers Care Rn Imcu Name Role Phone Lorelei Mccormack DO Primary Care Provider Reason for Visit * Reason Onset Date Comments Test Results 02/26/2023 Encounter Details Date Type Department Care Team (Late st Contact Info) Description 02/26/2023 Telephone [facility] [address] [place] [address] Karlie Infante PA-C [address] [place] [address] Test Results Allergies No known active allergiesdocumented as of this encounter (statuses as of 02/26/2023) Medications Medication Sig Dispensed Refills Start Date [...] as of this encounter (statuses as of 02/26/2023) Active Problems Problem Noted Date Diagnosed Date [...] GLUCOSE, 100-G GESTATIONAL GLUCOSE, HEMOGLOBIN A1C - [facility] Baseline Preeclampsia Labs Lab Results Component Value [...] daily No results found for: TSH - [facility] 05/19/2022 TSH = 0.71 Follows with Richard [...] be handled at the discretion of the collection systems consultant. For women with a history of treated [...] as of this encounter (statuses as of 02/26/2023) Resolved Problems Problem Noted Date Diagnosed Date Resolved Date with 11 completed weeks gestation 10/31/2022 12/29/2022 documented as of this encounter (statuses as of 02/26/2023) Immunizations Name Administration Dates Next Due TDAP [...] money to get more. Never true 12/08/2022 [place] Depression Scale Answer Date Recorded [place] Depression Scale Total 0 10/27/2022 The thought [...] Description 03/01/2023 1:45 PM EST Office Visit Addictions Therapist Obstetrics Maternal Medicine, Austin Villagomez [address] [facility] [place] [address] Margaret Rosenthal, DO [address] [place] [address] 03/01/2023 1:45 PM EST Imaging Maternal Medicine Imaging, Austin Villagomez [address] [place] [phone] 03/12/2023 7:45 AM EST Office Visit Gynecology/Obstetrics Codey Mendozas [address] [place] [address] Karlie Infante PA-C [address] [place] [address] 03/29/2023 10:15 AM EST Office Visit Addictions Therapist Obstetrics Maternal Medicine, Austin Mendozas [address] [place] [address] Margaret Rosenthal, DO [address] [place], [place] [phone] 03/29/2023 10:15 AM EST Imaging Maternal Medicine Imaging, Austin Villagomez [address] [place] [phone] Health Maintenance Due Date Last Done Comments [...] filedocumented as of this encounter Care Teams Rn Imcu Relationship Specialty Start Date End Date Lorelei Mccormack DO [address] [facility] [place] [address] PCP - General Family Medicine 03/07/22 documented as of this encounter
--- OUTSIDE RECORDS SUMMARY | 2023-05-04 07:45 | External Medical Summary ---
Author Name Unknown Address Unknown Organization [id number]:LABORATORY [facility] [place] - [address] [place] [address] Laboratory Report Ordering Provider Test Date Status ISABEL PHAN 02/23/2023 09:04:42 Final Observation Date Value Abnormality Reference (Units ) Status Treponema pallidum Ab [Presence] in Serum by Immunoassay 02/23/2023 09:04:42 Nonreactive Nonreactive Final No serologic evidence of syp hilis. No additional testing clinicially indicated at this time. Consider repeat testing in 2-4 weeks if acute or primary syphilis is suspected. Performing Location LABORATORY [facility] [place] - [address] [place] [address]
--- OUTSIDE RECORDS SUMMARY | 2023-05-04 07:45 | External Medical Summary | Summary of Care ---
Author Name Unknown Organization [facility] Address [address] [facility] [place] [address] Phone [phone] Care Team Providers Care Animal Care Technician Name Role Phone Lorelei Mccormack DO Primary Care Provider Reason for Visit * Reason Comments Outpatient Testing Encounter Details Date Type Department Care Team (Late st Contact Info) Description 02/23/2023 8:10 AM EST Laboratory Laboratory, [facility] [address] [facility] [phone] [facility] [address] [place] [address] Normal in second trimester Allergies No known active allergiesdocumented as of this encounter (statuses as of 02/23/2023) Medications Medication Sig Dispensed Refills Start Date [...] as of this encounter (statuses as of 02/23/2023) Active Problems Problem Noted Date Diagnosed Date [...] GLUCOSE, 100-G GESTATIONAL GLUCOSE, HEMOGLOBIN A1C - [facility] Baseline Preeclampsia Labs Lab Results Component Value [...] daily No results found for: TSH - [facility] 05/19/2022 TSH = 0.71 Follows with Richard [...] be handled at the discretion of the well treatment offsider. For women with a history of treated [...] as of this encounter (statuses as of 02/23/2023) Resolved Problems Problem Noted Date Diagnosed Date Resolved Date with 11 completed weeks gestation 10/31/2022 12/29/2022 documented as of this encounter (statuses as of 02/23/2023) Immunizations Name Administration Dates Next Due TDAP [...] money to get more. Never true 12/08/2022 [place] Depression Scale Answer Date Recorded [place] Depression Scale Total 0 10/27/2022 The thought [...] Description 03/01/2023 1:45 PM EST Office Visit Prenatal Nurse Obstetrics Maternal Medicine, [place] Villagomez [address] [place] [address] [place] [address] Margaret Rosenthal, DO [address] [place] [address] 03/01/2023 1:45 PM EST Imaging Maternal Medicine Imaging, Austin Villagomez [address] [facility] [place] [phone] 03/12/2023 7:45 AM EST Office [facility] [place] [address] Karlie Infante PA-C [address] [place] [address] 03/29/2023 10:15 AM EST Office Visit Prenatal Nurse Obstetrics Maternal Medicine, Austin Mendozas [address] [facility] [place] [address] Margaret Rosenthal, DO [address] [place] [address] 03/29/2023 10:15 AM EST Imaging Maternal Medicine Imaging, Austin Mendozas [address] [place] [phone] Pending Results Name Type Priority Associated Diagnoses Date /Time 50-G GESTATIONAL GLUCOSE, 1 HOUR Lab Routine Normal in second trimester 02/23/2023 9:04 AM EST CBC WITH WBC DIFFERENTIAL AND ANEMIA REFLEX WORKUP Lab Routine Normal in second trimester 02/23/2023 9:04 AM EST SYPHILIS ANTIBODY SCREEN WITH REFLEX TO RPR Lab Routine Normal in second trimester 02/23/2023 9:04 AM EST ANEMIA CBC Lab Routine Normal in second trimester 02/23/2023 9:04 AM EST DIFFERENTIAL, AUTOMATED Lab Routine Normal in second trimester 02/23/2023 9:04 AM EST ANEMIA REFLEX CHEMISTRY HOLD Lab Routine Normal in second trimester 02/23/2023 9:04 AM EST SYPHILIS ANTIBODY SCREEN Lab Routine Normal in second trimester 02/23/2023 9:04 AM EST Health Maintenance Due Date Last [...] as of this encounter Visit Diagnoses Diagnosis Normal in second trimester documented in this encounter Care Teams Animal Care Technician Relationship Specialty Start Date End Date Lorelei Mccormack DO [address] [facility] [place] [address] PCP - General Family Medicine 03/07/22 documented as of this encounter
--- OUTSIDE RECORDS SUMMARY | 2023-05-04 07:45 | External Medical Summary ---
Author Name Unknown Address Unknown Organization K0G:LABORATORY [facility] [place] [facility] - [address] [place] [address] Laboratory Report Ordering Provider Test Date Status ISABEL PHAN 02/23/2023 09:04:42 Final Observation Date Value Abnormality Reference (Units ) Status Glucose [Moles/volume] in Serum or Plasma --1 hour post 50 g glucose PO 02/23/2023 09:04:42 111 70-129 (mg/dL) Final Performing Location LABORATORY [facility] [place] [facility] 0 - [address] [place] [address]
--- OUTSIDE RECORDS SUMMARY | 2023-05-04 07:45 | External Medical Summary ---
Author Name Unknown Address Unknown Organization K01:LABORATORY [facility] - [address] [place] [address] Laboratory Report Ordering Provider Test Date Status ISABEL PHAN 02/23/2023 09:04:42 Final Observation Date Value Abnormality Reference (Units ) Status TSH 02/23/2023 09:04:42 1.17 0.27-4.20 (uIU/mL) Final Performing Location LABORATORY [facility] - [address] [place] [address]
--- OUTSIDE RECORDS SUMMARY | 2023-05-04 07:45 | External Medical Summary | Summary of Care ---
Author Name Unknown Organization [facility] Address [address] [facility] [place] [address] Phone [phone] Care Team Providers Care Photoengraving Etcher Name Role Phone Lorelei Mccormack DO Primary Care Provider Encounter Details Date Type Department Care Team (Late st Contact Info) Description 01/26/2023 Telephone Gynecology/Obstetrics Codey Villagomez [address] [place] [employer] [address] [place] [address] Karlie Infante PA-C [address] [place] [employer] [place] [address] Allergies No known active allergiesdocumented as of this encounter (statuses as of 01/30/2023) Medications Medication Sig Dispensed Refills Start Date [...] as of this encounter (statuses as of 01/30/2023) Active Problems Problem Noted Date Diagnosed Date [...] Last Assessment & Plan: She presents for a anatomy survey secondary to class II obesity and hypothyroidism. Labs reviewed: -- early 1 hour GCT normal -- TSH 1.085 on 10/15/22 -- encouraged monitoring at least each trimester We reviewed the results of today's ultrasound. The estimated weight is appropriate for gestational age. The visualized anatomy is unremarkable in appearance. The amniotic fluid amount appears normal. We discussed that ultrasound is not able to identify all anomalies, but it is reassuring that no anomalies were seen today. Hypothyroidism complicating 10/27/2022 Overview: Managed with Levothyroxine 75 mcg daily No results found for: TSH - [facility] 05/19/2022 TSH = 0.71 Follows with [...] be handled at the discretion of the blood bank technologist. For women with a history of treated [...] as of this encounter (statuses as of 01/30/2023) Resolved Problems Problem Noted Date Diagnosed Date Resolved Date with 11 completed weeks gestation 10/31/2022 12/29/2022 documented as of this encounter (statuses as of 01/30/2023) Social History Tobacco Use Types Packs/Day Years [...] money to get more. Never true 12/08/2022 [place] Depression Scale Answer Date Recorded [place] Depression Scale Total 0 10/27/2022 The thought [...] Description 02/02/2023 8:45 AM EST Office Visit Educational Guidance Counselor Obstetrics Maternal Medicine, [address] [address] Quincy Brown, [address] [place] [address] 02/02/2023 8:45 AM EST Imaging Radiology [facility] [place] [address] [place] [address] 02/23/2023 8:10 AM EST Laboratory Laboratory, [facility] [address] [facility] [place] [phone] VillagomezNato mosqueda [address] [place] [address] 02/23/2023 8:30 AM EST Office Visit Gynecology/Obstetrics Codey Villagomez [address] [facility] [place] [address] Miriam Abdi CRNP [address] [place] [address] 03/01/2023 1:45 PM EST Office Visit Educational Guidance Counselor Obstetrics Maternal Medicine, [place] Doming[place]ga[place] [address] [facility] [place] [address] Margaret Rosenthal, DO [address] [place] [address] 03/01/2023 1:45 PM EST Imaging Maternal Medicine Imaging, [place] [phone] 03/29/2023 10:15 AM EST Office Visit Educational Guidance Counselor Obstetrics Maternal Medicine, Austin Villagomez [address] [place] [address] Margaret Rosenthal, DO [address] [place] [address] 03/29/2023 10:15 AM EST Imaging Maternal Medicine Imaging, [place] [phone] Health Maintenance Due Date Last Done Comments [...] filedocumented as of this encounter Care Teams Photoengraving Etcher Relationship Specialty Start Date End Date Lorelei Mccormack DO [address] [facility] [place] [address] PCP - General Family Medicine 03/07/22 documented as of this encounter
--- OUTSIDE RECORDS SUMMARY | 2023-05-04 07:45 | External Medical Summary | Summary of Care ---
Author Name Unknown Organization [facility] Address [address] [place] [facility] [place] [place] [address] Phone [phone] Care Team Providers Care Caustic Liquor Maker Name Role Phone Lorelei Mccormack DO Primary Care Provider Reason for Visit * Reason Comments Return Visit Encounter Details Date Type Department Care Team (Late st Contact Info) Description 02/23/2023 8:30 AM EST Office Visit Gynecology/Obstetric s Codey Villagomez [address] [place] [address] Miriam Abdi CRNP [address] [place] [address] Normal in third trimester*; Hypothyroidism affecting in third trimester; Prediabetes; Class 2 obesity; Supervision of high risk in first trimester; Obesity in , antepartum; Need for prophylactic vaccination with combined fyoidkfaxe-hfrrfcv-jq rtussis (DTP) vaccine Allergies No known active allergiesdocumented as of [...] GLUCOSE, 100-G GESTATIONAL GLUCOSE, HEMOGLOBIN A1C - [facility] Baseline Preeclampsia Labs Lab Results Component Value [...] be handled at the discretion of the automotive service professional. For women with a history of [...] money to get more. Never true 12/08/2022 [place] Depression Scale Answer Date Recorded [place] Depression Scale Total 0 10/27/2022 The thought [...] Sign Reading Time Taken Comments Blood Pressure 120/70 02/23/2023 8:20 AM EST Pulse - - Temperature - - Respiratory Rate - - Oxygen Saturation - - Inhaled Oxygen Concentration - - Weight 98.4 kg (217 lb) 02/23/2023 8:20 AM EST Height - - Body Mass Index 37.25 12/22/2022 2:52 PM EST documented in this encounter Progress Notes * Miriam Abdi CRNP - 02/23/2023 8:35 AM EST 27w4d Feeling well overall. Baby is active. No contractions or bleeding. Has endocrinology appt next week, also MFM appt next week. Glucola, TDAP today. BISI Miles * Joy Pena LPN - 02/23/2023 8:20 AM EST 27w4d Doing glucola today documented in this encounter Nursing Notes * Joy Pena LPN - 02/23/2023 8:36 AM EST Patient here for tdap injection. Patient doing well no complaints. Injection given IM as ordered. Patient tolerated well. Patient to follow up as directed. Patient instructed to call if any complications. Patient verbalized understanding of instructions given and her follow up appt for 2 weeks Injection site: Right Deltoid Medication Source: Dispensed stock medication documented in this encounter Plan of Treatment Upcoming Encounters Date Type Department Care Team (Late st Contact Info) Description 03/01/2023 1:45 PM EST Office Visit Foam Rubber Fabricator Obstetrics Maternal Medicine, [place] Villagomez [address] [place] [address] Margaret Rosenthal, DO [address] [place] [address] 03/01/2023 1:45 PM EST Imaging Maternal Medicine Imaging, Austin Villagomez [address] [place] [phone] 03/12/2023 7:45 AM EST Office Visit Gynecology/Obstetrics Codey Villagomez [address] [place] [address] Karlie Infante PA-C [address] [place] [address] 03/29/2023 10:15 AM EST Office Visit Foam Rubber Fabricator Obstetrics Maternal Medicine, Austin Villagomez [address] [place] [address] Margaret Rosenthal DO [address] [place] [address] 03/29/2023 10:15 AM EST Imaging Maternal Medicine Imaging, [facility] [address] [facility] [place] [phone] Health Maintenance Due Date Last Done [...] this encounter Visit Diagnoses Diagnosis Normal in third trimester- Primary Hypothyroidism affecting in third trimester Prediabetes Other abnormal glucose Class 2 obesity Supervision of high risk in first trimester Unspecified high-risk Obesity in , antepartum Obesity complicating , childbirth, or the puerperium, antepartum condition or complication Need for prophylactic vaccination with combined sidgtqdisz-yygpxvk-nzthcvxqb (DTP) vaccine documented in this encounter Care Teams Caustic Liquor Maker Relationship Specialty Start Date End Date Lorelei Mccormack DO [address] [facility] [place] [address] PCP - General Family Medicine 03/07/22 documented as of this encounter
--- OUTSIDE RECORDS SUMMARY | 2023-05-04 07:45 | External Medical Summary ---
Author Name Unknown Address Unknown Organization K01:LABORATORY [facility] [place] - [facility] [place] [address] Laboratory Report Ordering Provider Test Date Status ISABEL PHAN 02/23/2023 09:04:42 Final Observation Date Value Abnormality Reference (Units ) Status Retic, % (auto) 02/23/2023 09:04:42 2.53 Above high normal 0.80-1.90 (%) Final Reticulocytes, Absolute 02/23/2023 09:04:42 87.0 31.3-100.1 (K/uL) Final Reticulocyte fraction, immature 02/23/2023 09:04:42 38.0 Above high normal 2.5-20.6 (%) Final Reticulocyte HGB 02/23/2023 09:04:42 31.5 29.7-37.4 (pg) Final Performing Location LABORATORY [facility] [place] - [facility] [place] [address]
--- OUTSIDE RECORDS SUMMARY | 2023-05-04 07:46 | External Medical Summary | Summary of Care ---
Author Name Unknown Organization [facility] Address [address] [facility] [place] [address] Phone [phone] Care Team Providers Care Brick Cleaner Name Role Phone Lorelei Mccormack DO Primary Care Provider Reason for Visit * Reason Comments Return Visit Encounter Details Date Type Department Care Team (Late st Contact Info) Description 12/22/2022 2:45 PM EST Office Visit Gynecology/Obstetric s Yangpanda Villagomez [address] [place] [address] Miriam Abdi CRNP [address] [place] [address] Normal in second trimester*; Hypothyroidism affecting in second trimester; Prediabetes; Class 2 obesity; Supervision of high risk in first trimester; Obesity in , antepartum Allergies No known active allergiesdocumented as of this encounter (statuses as of 12/22/2022) Medications Medication Sig Dispensed Refills Start Date [...] as of this encounter (statuses as of 12/22/2022) Active Problems Problem Noted Date Diagnosed Date with 11 completed weeks gestation 10/07 Normal 10/30/2022 Supervision of high risk in [...] 10/27/2022 02:30 PM Last Assessment & Plan: CONSIDERATIONS: Discussed obstetrical risks associated with class III obesity (pre- BMI of greater than or equal to 40) Reviewed that the accuracy of ultrasound at diagnosing anomalies is significantly decreased for women with an increased BMI. RECOMMENDATIONS: Recommend restricting weight gain during to 11-20 pounds. Patient should be referred for a nutrition consult. Recommend evaluation for signs and symptoms (snoring, excessive daytime sleepiness witnessed apnea or unexplained hypoxia) of obstructive sleep apnea. If any of these are present, referral to Sleep Medicine specialist for further evaluation should be considered. Recommend performing gestational diabetes mellitus screen now (if not performed at first visit) and repeat again at 26-28 weeks if early screen is normal. Recommend Maternal- Medicine ultrasound for anatomy at 20 weeks and for growth every 4 weeks thereafter. For patients with Class 3 obesity, we recommend baseline preeclamptic labs with CBC, serum AST/ALT/creatinine and 24 hour urine protein MAIKOL if not already done. For patients with Class 3 obesity, we recommend weekly surveillance starting at 34 weeks and delivery by EDC. Recommend anesthesia consult during the antepartum period. Hypothyroidism complicating 10/27/2022 Overview: Managed with Levothyroxine [...] be handled at the discretion of the superintendent cemetery. For women with a history of treated [...] as of this encounter (statuses as of 12/22/2022) Social History Tobacco Use Types Packs/Day Years [...] money to get more. Never true 12/08/2022 [place] Depression Scale Answer Date Recorded [place] Depression Scale Total 0 10/27/2022 The thought [...] Sign Reading Time Taken Comments Blood Pressure 130/70 12/22/2022 3:53 PM EST Pulse - - Temperature - - Respiratory Rate - - Oxygen Saturation - - Inhaled Oxygen Concentration - - Weight 94.7 kg (208 lb 12.8 oz) 12/22/2022 2:52 PM EST Height 162.6 cm (5' 4") 12/22/2022 2:52 PM EST Body Mass Index 35.84 12/22/2022 2:52 PM EST documented in this encounter Progress Notes * Miriam Abdi CRNP - 12/22/2022 3:22 PM EST 18w4d Nausea improved. BP elevated today 140/70, no history of HTN. Protein/creatinine ratio sent. Feeling well overall. Hasn't felt FM yet. No bleeding. Anatomy u/s scheduled with MFM. BISI Miles * Shelly Murdock LPN - 12/22/2022 3:01 PM EST 18w4d Pt denies any concerns documented in this encounter Plan of Treatment Upcoming Encounters Date Type Department Care Team (Late st Contact Info) Description 12/29/2022 1:30 PM EST Office Visit Early Morning Obstetrics Maternal Medicine, [place] [address] [place] [address] Quincy Brown, [address] [place] [address] 12/29/2022 1:30 PM EST Imaging [facility] [address] [place] [address] 01/26/2023 9:15 AM EST Office Visit Gynecology/Obstetrics [facility] [address] [place] [address] Karlie Infante PA-C [address] [place] [address] Pending Results Name Type Priority Associated Diagnoses Date /Time PROTEIN/ CREATININE RATIO, URINE Lab Routine Supervision of high risk in first trimester 12/22/2022 3:54 PM EST Health Maintenance Due Date Last Done [...] Comments URINALYSIS, POINT OF CARE (ENTER/EDIT) Routine 12/22/2022 Supervision of high risk in first trimester documented in this encounter Results * URINALYSIS, POINT OF CARE (ENTER/EDIT) (12/22/2022) Color, Urine Yellow Yellow or Light Yellow Clarity, Urine Clear Clear Glucose, Urine Negative Negative mg/dL Bilirubin, Urine Negative Negative Ketone, Urine Negative Negative mg/dL Specific [place], Urine 1.025 1.003 - 1.030 Blood, Urine Trace-intact Negative pH, Urine 7.0 5.0 - 7.5 units Protein, Urine Negative Negative mg/dL Urobilinogen, Urine 0.2 0.2 - 1.0 mg/dL Nitrite, Urine Negative Negative Esterase, Urine Negative Negative Urine 12/22/2022 Miriam MATHEWS LAB POINT OF CARE TE ST ENTER/EDIT ORDERABLES documented in this encounter Visit Diagnoses Diagnosis Normal in second trimester- Primary Hypothyroidism affecting in second trimester Prediabetes Other abnormal glucose Class 2 obesity Supervision of high risk in first trimester Unspecified high-risk Obesity in , antepartum Obesity complicating , childbirth, or the puerperium, antepartum condition or complication documented in this encounter Care Teams Brick Cleaner Relationship Specialty Start Date End Date Lorelei Mccormack DO [address] [facility] [place] [address] PCP - General Family Medicine 03/07/22 documented as of this encounter
--- OUTSIDE RECORDS SUMMARY | 2023-05-04 07:46 | External Medical Summary | Summary of Care ---
Author Name Unknown Organization [facility] Address [address] [facility] [place] [address] Phone [phone] Care Team Providers Care Motor Coach Bus Driver Name Role Phone Lorelei Mccormack DO Primary Care Provider Encounter Details Date Type Department Care Team (Late st Contact Info) Description 01/26/2023 Telephone Gynecology/Obstetrics Codey Villagomez [address] [place] [address] Karlie Infante PA-C [address] [address] [place] [address] Allergies No known active allergiesdocumented as of this encounter (statuses as of 01/26/2023) Medications Medication Sig Dispensed Refills Start Date [...] as of this encounter (statuses as of 01/26/2023) Active Problems Problem Noted Date Diagnosed Date [...] daily No results found for: TSH - [facility] 05/19/2022 TSH = 0.71 Follows with Richard [...] be handled at the discretion of the loft worker head. For women with a history of treated [...] as of this encounter (statuses as of 01/26/2023) Resolved Problems Problem Noted Date Diagnosed Date Resolved Date with 11 completed weeks gestation 10/31/2022 12/29/2022 documented as of this encounter (statuses as of 01/26/2023) Social History Tobacco Use Types Packs/Day Years [...] money to get more. Never true 12/08/2022 [place] Depression Scale Answer Date Recorded [place] Depression Scale Total 0 10/27/2022 The thought [...] Description 02/02/2023 8:45 AM EST Office Visit Bow Making Machine Operator Obstetrics Maternal Medicine, [address] [address] Quincy Brown, [address] [place] [address] 02/02/2023 8:45 AM EST Imaging [facility] [place] [address] [place] [address] 02/23/2023 8:10 AM EST Laboratory Laboratory, [facility] [address] [facility] [place] [phone] VillagomezNato mosqueda [address] [place] [address] 02/23/2023 8:30 AM EST Office Visit Gynecology/Obstetrics Codey Villagomez [address] [facility] [place] [address] Miriam Abdi CRNP [address] [facility] [place] [address] 03/01/2023 1:45 PM EST Office Visit Bow Making Machine Operator Obstetrics Maternal Medicine, [place] [facility] [place] [address] Margaret Rosenthal, DO [address] [place] [address] 03/01/2023 1:45 PM EST Imaging Maternal Medicine Imaging, [place] [address] 03/29/2023 10:15 AM EST Office Visit Bow Making Machine Operator Obstetrics Maternal Medicine, [place] Villagomez [address] [facility] [place] [address] Margaret Rosenthal, DO [address] [place] [address] 03/29/2023 10:15 AM EST Imaging Maternal Medicine Imaging, [place] [address] Health Maintenance Due Date Last Done Comments [...] as of this encounter Care Teams Motor Coach Bus Driver Relationship Specialty Start Date End Date Lorelei Mccormack DO [address] [facility] [place] [address] PCP - General Family Medicine 03/07/22 documented as of this encounter
--- OUTSIDE RECORDS SUMMARY | 2023-05-04 07:46 | External Medical Summary | Summary of Care ---
Author Name Unknown Organization [facility] Address [address] [facility] [place] [address] Phone [phone] Care Team Providers Care Correctional Maintenance Technician Name Role Phone Lorelei Mccormack DO Primary Care Provider Reason for Visit * Reason Comments Return Visit Encounter Details Date Type Department Care Team Description 11/24/2022 Office Visit Gynecology/Obstetrics [facility] [address] [place] [address] Miriam Abdi CRNP [address] [place] [address] Normal in second trimester*; Hypothyroidism affecting in second trimester; Prediabetes; Class 2 obesity; Supervision of high risk in first trimester; Obesity in , antepartum Allergies No known active allergiesdocumented as of this encounter (statuses as of 11/24/2022) Medications Medication Sig Dispensed Refills Start Date [...] as of this encounter (statuses as of 11/24/2022) Active Problems Problem Noted Date with 11 completed weeks gestat ion 10/31/2022 Normal 10/30/2022 Supervision of high risk in fi rst trimester 10/30/2022 Obesity in , antepartum 023 Overview: Pre gravid BMI: 35.0 Class 2 [...] consult during the antepartum period. Hypothyroidism complicating Overview: Managed with Levothyroxine 75 mcg daily [...] be handled at the discretion of the dressing machine operator. For women with a history of [...] obesity 10/27/2022 Overview: PCOS (polycystic ovarian syndrome) 05/31 Estimated Date of Delivery Comme nts Yes 05/21/2023 Based on Ultraso und documented as of this encounter (statuses as of 11/24/2022) Social History Tobacco Use Types Packs/Day Years Used Date Smoking Tobacco: Never Smokeless Tobacco: Never Alcohol Use Standard Drinks/Week Comments Yes 0 (1 standard drink = 0.6 oz pur e alcohol) occ Food Insecurity Answer Date Recorded Within the past 12 months, y ou worried that your food would run out before you got money to buy more. Never true 05/31/2022 Within the past 12 months, t he food you bought just didn't last and you didn't have money to get more. Never true 05/31/2022 Estimated Date of Delivery Comme nts Yes 05/21/2023 Based on Ultraso und Sex Assigned at Date Recorded Female 05/31/2022 8:17 AM E DT Job Start Date Occupation Industry Not on file Not on file Not on file documented as of this encounter Last Filed Vital Signs Vital Sign Reading Time Taken Comments Blood Pressure 128/62 11/24/2022 1:09 PM EDT Pulse - - Temperature - - Respiratory Rate - - Oxygen Saturation - - Inhaled Oxygen Concentration - - Weight 94.4 kg (208 lb 3.2 oz) 11/24/2022 1:09 P M EDT Height 162.6 cm (5' 4") 11/24/2022 1:09 PM EDT Body Mass Index 35.74 11/24/2022 1:09 PM EDT documented in this encounter Progress Notes * BISI Miles - 11/24/2022 1:57 PM EDT 14w4d Started getting migraines a few times a week. Headache cocktail given to pt. If not improving, recommend PCP for evaluation, as this is a new finding for her. No other concerns. Completing early glucola today. Declines genetics. BISI Miles * Shelly Murdock LPN - 11/24/2022 1:33 PM EDT 14w4d Pt reports new onset of migraines, started about 2 weeks ago, can not look at light, pressure in between eyes, occasional blurry vision, pt denies RUQ pain, abnormal swelling. Has eye appt coming up. No hx of migraines. Pt denies any other concerns, doing early gtt today. documented in this encounter Plan of Treatment Upcoming Encounters Date Type Specialty Care Team Description 12/22/2022 Office Visit Gynecology Obstetrics Miriam Abdi CRNP [address] [place] [address] 12/29/2022 Office Visit Maternal Medicine Quincy Brown, DO [address] [place] [address] 12/29/2022 Imaging Radiology Health Maintenance Due Date Last Done Comments [...] complication documented in this encounter Care Teams Correctional Maintenance Technician Relationship Specialty Start Date End Date Lorelei Mccormack DO [address] [facility] [place] [address] PCP - General Family Medicine 03/07/22 documented as of this encounter
--- OUTSIDE RECORDS SUMMARY | 2023-05-04 07:46 | External Medical Summary ---
Author Name Unknown Address Unknown Organization : Laboratory Report Ordering Provider Test Date Status ISABEL PHAN 01/26/2023 09:51:31 Final Observation Date Value Abnormality Reference (Units ) Status Thyroid stimulating immunoglobulins [Units/volume] in Serum 01/26/2023 09:51:31 <89 <140 (% baseline) Final Thyroid stimulating immunogl obulins (TSI) can engage
the TSH receptors resulting in hyperthyroidism in
Graves' disease patients. TSI levels can be useful in
monitoring the clinical outcome of Graves' disease as
well as assessing the potential for hyperthyroidism
from maternal- transfer. TSI results greater than
or equal to (>=) 140% of the Reference Control are
considered positive.
NOTE:
A serum TSH level greater than 350 micro-International
Units/mL can interfere with the TSI bioassay and
potentially give false positive results.
Patients who are and are suspected of having
hyperthyroidism should have both TSI and human
Chorionic Gonadotropin(hCG) tests measured. A serum
hCG level greater than 40,625 mIU/mL can interfere
with the TSI bioassay and may give false negative
results. In these patients it is recommended that
a second TSI be obtained when the hCG concentration
falls below 40,625 mIU/mL (usually after approximately
20- weeks gestation).
The analytical performance characteristics of this
assay have been determined by [facility] [place], [place]. The modifications
have not been cleared or approved by the FDA. This
assay has been validated pursuant to the CLIA
regulations and is used for clinical purposes.

Test Performed at:
[facility]
[address] [facility]
[place] [address]
Ayden Duvall M.D., Ph.D.,Director of Laboratories Performing Location
--- OUTSIDE RECORDS SUMMARY | 2023-05-04 07:46 | External Medical Summary | Summary of Care ---
Author Name Unknown Organization [facility] Address [address] [facility] [place] [address] Phone [phone] Care Team Providers Care It Support Consultant Name Role Phone Lorelei Mccormack DO Primary Care Provider Reason for Visit * Reason Comments Outpatient Testing Encounter Details Date Type Department Care Team Description 11/24/2022 Laboratory Laboratory, [facility] [address] [facility] [place] [phone] [facility] [place] [address] Supervision of high-risk , unspecified trimester; Prediabetes Allergies No known active allergiesdocumented as of [...] for Nausea. 30 Tablet 0 10/27/2022 Active documented as of this encounter (statuses [...] be handled at the discretion of the occupational health and safety manager. For women with a history of [...] Obstetrics Miriam Abdi CRNP [address] [place] [address] 12/29/2022 Office Visit Maternal Medicine Quincy Brown, DO [address] [place] [facility] [place] [address] 12/29/2022 Imaging Radiology Pending Results Name Type Priority Associated Diagnoses Date /Time 50-G GESTATIONAL GLUCOSE, 1 HOUR Lab Routine Supervision of high-risk , unspecified trimester Prediabetes 11/24/2022 1:57 PM EDT Health Maintenance Due Date Last [...] this encounter Visit Diagnoses Diagnosis Supervision of high-risk , unspecified trimester Prediabetes Other abnormal glucose documented in this encounter Care Teams It Support Consultant Relationship Specialty Start Date End Date Lorelei Mccormack DO [address] [place] [address] PCP - General Family Medicine 03/07/22 documented as of this encounter
--- OUTSIDE RECORDS SUMMARY | 2023-05-04 07:46 | External Medical Summary | Summary of Care ---
Author Name Unknown Organization [facility] Address [address] [facility] [address] Phone [phone] Care Team Providers Care Field Account Manager Name Role Phone Lorelei Mccormack DO Primary Care Provider Encounter Details Date Type Department Care Team (Late st Contact Info) Description 01/26/2023 9:15 AM EST Office Visit Gynecology/Obstetric s Codey Villagomez [address] [place] [address] Karlie Infante PA-C [address] [place] [address] Normal in second trimester*; Hypothyroidism affecting in second trimester; Obesity in , antepartum; Prediabetes; Class 2 obesity; Supervision of high risk in first trimester [...] be handled at the discretion of the editor index. For women with a history of treated [...] money to get more. Never true 12/08/2022 [place] Depression Scale Answer Date Recorded [place] Depression Scale Total 0 10/27/2022 The thought [...] Sign Reading Time Taken Comments Blood Pressure 124/66 01/26/2023 9:22 AM EST Pulse - - Temperature - - Respiratory Rate - - Oxygen Saturation - - Inhaled Oxygen Concentration - - Weight - - Height - - Body Mass Index - - documented in this encounter Progress Notes * Karlie Infante PA-C - 01/26/2023 9:27 AM EST 23w4d No complaints, doing well. Anatomy complete with MFM. Has growth next week 02/02/2023 with them. Following with endocrinology q4 weeks. Last appointment 1 week ago. Gets TSH/T4 levels monthly. Currently taking 75 mcg daily, doubling dose on Sunday's and Sunday's only. Second trimester dose change. Agreeable TSI/TRAB as advised by MFM. Orders placed. Denies bleeding, leaking, contractions. Pos fm. Reviewed third tri labs RTC in 4 weeks Karlie Infante PA-C documented in this encounter Nursing Notes * Katherine Ny LPN - 01/26/2023 9:19 AM EST 23w4d Carpal tunnel- recently got wrist splint to help. documented in this encounter Plan of Treatment Upcoming Encounters Date Type Department Care Team (Latest Contact Info) Description 01/26/2023 10:20 AM EST Laboratory Laboratory, [facility] [address] [facility] [place] [phone] Nato Villagomez [address] [facility] [place] [address] Hypothyroidism affecting in second trimester 02/02/2023 8:45 AM EST Office Visit Enforcement Officer Obstetrics Maternal Medicine, [place] [address] [place] [address] Quincy Brown, [address] [place] [address] 02/02/2023 8:45 AM EST Imaging [facility] [place] [address] [place] [address] 02/23/2023 8:10 AM EST Laboratory Laboratory, [facility] [address] [facility] [place] [phone] Nato Villagomez [address] [facility] [place] [address] 02/23/2023 8:30 AM EST [facility] [address] [place] [address] Miriam Abdi CRNP [address] [place] [address] 03/01/2023 1:45 PM EST Office Visit Enforcement Officer Obstetrics Maternal Medicine, [place] Villagomez [address] [place] [address] Margaret Rosenthal, DO [address] [place] [address] 03/01/2023 1:45 PM EST Imaging Maternal Medicine Imaging, [place] [facility] [place] [address] 03/29/2023 10:15 AM EST Office Visit Enforcement Officer Obstetrics Maternal Medicine, [place] Villagomez [address] [facility] [address] Margaret Rosenthal, DO [address] [place] [address] 03/29/2023 10:15 AM EST Imaging Maternal Medicine Imaging, [place] [address] [place] [address] Pending Results Name Type Priority Associated Diagnoses Date /Time TSI (THYROID STIMULATING IMMUNOGLOBULIN) Lab Routine Hypothyroidism affecting in second trimester 01/26/2023 9:51 AM EST TRAB (TSH RECEPTOR BINDING ANTIBODY) Lab Routine Hypothyroidism affecting in second trimester 01/26/2023 9:51 AM EST Scheduled Orders Name Type Priority Associated Diagnoses Orde r Schedule TSI (THYROID STIMULATING IMMUNOGLOBULIN) Lab Routine Hypothyroidism affecting in second trimester Expected: 01/26/2023, Expires: 01/27/2024 TRAB (TSH RECEPTOR BINDING ANTIBODY) Lab Routine Hypothyroidism affecting in second trimester Expected: 01/26/2023, Expires: 01/27/2024 50-G GESTATIONAL GLUCOSE, 1 HOUR Lab Routine Normal in second trimester Expected: 02/26/2023 (Approximate), Expires: 01/27/2024 CBC WITH WBC DIFFERENTIAL AND ANEMIA REFLEX WORKUP Lab Routine Normal in second trimester Expected: 02/26/2023 (Approximate), Expires: 01/27/2024 SYPHILIS ANTIBODY SCREEN WITH REFLEX TO RPR Lab Routine Normal in second trimester Expected: 02/26/2023 (Approximate), Expires: 01/27/2024 Health Maintenance Due Date Last Done Comments [...] trimester- Primary Hypothyroidism affecting in second trimester Obesity in , antepartum Obesity complicating , childbirth, or the puerperium, antepartum condition or complication Prediabetes Other abnormal glucose Class 2 obesity Supervision of high risk in first trimester Unspecified high-risk Hypothyroidism affecting in second trimester documented in this encounter Care Teams Field Account Manager Relationship Specialty Start Date End Date Lorelei Mccormack DO [address] [place] [address] PCP - General Family Medicine 03/07/22 documented as of this encounter
--- OUTSIDE RECORDS SUMMARY | 2023-05-04 07:46 | External Medical Summary | Summary of Care ---
Author Name Unknown Organization [facility] Address [address] [facility] [address] Phone [phone] Care Team Providers Care Various Exceptionalities Teacher Name Role Phone Lorelei Mccormack DO Primary Care Provider Reason for Visit * Reason Comments Return Visit Encounter Details Date Type Department Care Team (Late st Contact Info) Description 12/22/2022 2:45 PM EST Office Visit Gynecology/Obstetric s Yangpanda Villagomez [address] [place] [address] Miriam Abdi CRNP [address] [place] [address] Normal in second trimester*; Hypothyroidism affecting in [...] serum AST/ALT/creatinine and 24 hour urine protein MAIKLO if not already done. For patients with Class 3 obesity, we recommend weekly surveillance starting at 34 weeks and delivery by EDC. Recommend anesthesia consult during the antepartum period. Hypothyroidism complicating 10/27/2022 Overview: Managed with Levothyroxine 75 mcg daily No results found for: ZAIDA [place]AR[place] 05/19/2022 TSH = 0.71 Follows with [facility] endocrinology. Follows with Endocrinology every [...] be handled at the discretion of the field traffic investigator. For women with a history of treated [...] money to get more. Never true 12/08/2022 [place] Depression Scale Answer Date Recorded [place] Depression Scale Total 0 10/27/2022 The thought [...] Description 12/29/2022 1:30 PM EST Office Visit Mri Specialist Obstetrics Maternal Medicine, [place] [address] [place] [address] Quincy Brown, [address] [place] [address] 12/29/2022 1:30 PM EST Imaging Radiology [facility] [address] [place] [address] 01/26/2023 9:15 AM EST Office Visit Gynecology/Obstetrics [facility] [address] [place] [address] Karlie Infante PA-C [address] [place] [address] Pending Results Name Type Priority Associated Diagnoses [...] Negative Ketone, Urine Negative Negative mg/dL Specific [place], Urine 1.025 1.003 - 1.030 Blood, Urine [...] complication documented in this encounter Care Teams Various Exceptionalities Teacher Relationship Specialty Start Date End Date Lorelei Mccormack DO [address] [facility] [place] [address] PCP - General Family Medicine 03/07/22 documented as of this encounter
--- OUTSIDE RECORDS SUMMARY | 2023-05-04 07:46 | External Medical Summary | Summary of Care ---
Author Name Unknown Organization [facility] Address [address] [place] [place] [place] [address] Phone [phone] Care Team Providers Care Supervisor Mails Name Role Phone Lorelei Mccormack DO Primary Care Provider Reason for Visit * Reason Comments Outpatient Testing Encounter Details Date Type Department Care Team (Late st Contact Info) Description 01/26/2023 10:20 AM EST Laboratory Laboratory, [facility] 132 [place] [phone] [facility] [address] [place], [place] [phone] Hypothyroidism affecting in second trimester Allergies No known active [...] GLUCOSE, 100-G GESTATIONAL GLUCOSE, HEMOGLOBIN A1C - [facility] Baseline Preeclampsia Labs Lab Results Component Value [...] be handled at the discretion of the music box mechanic. For women with a history of [...] money to get more. Never true 12/08/2022 [place] Depression Scale Answer Date Recorded [place] Depression Scale Total 0 10/27/2022 The thought [...] Description 02/02/2023 8:45 AM EST Office Visit Stencil Maker Obstetrics Maternal Medicine, [address] [address] Quincy Brown DO [address] [place] [address] 02/02/2023 8:45 AM EST Imaging [facility] [place] [address] [place] [address] 02/23/2023 8:10 AM EST Laboratory Laboratory, [facility] 132 [facility] [place] [phone] [facility] [place] [address] 02/23/2023 8:30 AM EST Office Visit Gynecology/Obstetrics Codey Mendozas 132 [place] [address] Miriam Abdi CRNP 132 [facility], [place] [address] 03/01/2023 1:45 PM EST Office Visit Stencil Maker Obstetrics Maternal Medicine, [place] Villagomez [facility] [place] [address] Margaret Rosenthal, DO [address], [place] [phone] 03/01/2023 1:45 PM EST Imaging Maternal Medicine Imaging, [place] [facility] [place] [phone] 03/29/2023 10:15 AM EST Office Visit Stencil Maker Obstetrics Maternal Medicine, [place] Villagomez [address] [place] [address] [place] [address] Margaret Rosenthal, DO [address], [place] [phone] 03/29/2023 10:15 AM EST Imaging Maternal Medicine Imaging, [place] [facility] [place] [phone] Pending Results Name Type Priority Associated Diagnoses Date /Time TSI (THYROID STIMULATING IMMUNOGLOBULIN) Lab Routine Hypothyroidism affecting in second trimester 01/26/2023 9:51 AM EST TRAB (TSH RECEPTOR BINDING ANTIBODY) Lab Routine Hypothyroidism affecting in second trimester 01/26/2023 9:51 AM EST Health Maintenance Due Date Last [...] encounter Visit Diagnoses Diagnosis Hypothyroidism affecting in second trimester documented in this encounter Care Teams Supervisor Mails Relationship Specialty Start Date End Date Lorelei Mccormack DO [address] [place] [address] PCP - General Family Medicine 03/07/22 documented as of this encounter
--- OUTSIDE RECORDS SUMMARY | 2023-05-04 07:46 | External Medical Summary ---
Author Name Unknown Address Unknown Organization [id number]:[facility] [address] [place] [address] Laboratory Report Ordering Provider Test Date Status ISABEL PHAN 11/24/2022 13:57:39 Final Observation Date Value Abnormality Reference (Units ) Status Glucose [Moles/volume] in Serum or Plasma --1 hour post 50 g glucose PO 11/24/2022 13:57:39 116 70-129 (mg/dL) Final Performing Location [facility] [address] [place] [address]
--- OUTSIDE RECORDS SUMMARY | 2023-05-04 07:46 | External Medical Summary | Summary of Care ---
Author Name Unknown Organization [facility] Address [address] [facility] [place] [address] Phone [phone] Care Team Providers Care Suspension Cord Tier Name Role Phone Lorelei Mccormack DO Primary Care Provider Reason for Visit * Reason Onset Date Comments Referral 10/30/2022 Encounter Details Date Type Department Care Team (Late st Contact Info) Description 10/30/2022 Telephone Gynecology/Obstetrics [facility] [address] [place] [address] Karlie Infante PA-C [address] [place] [address] Referral Allergies No known active allergiesdocumented as of this encounter (statuses as of 01/29/2023) Medications Medication Sig Dispensed Refills Start Date [...] as of this encounter (statuses as of 01/29/2023) Active Problems Problem Noted Date Diagnosed Date [...] GLUCOSE, 100-G GESTATIONAL GLUCOSE, HEMOGLOBIN A1C - [facility] Baseline Preeclampsia Labs Lab Results Component Value [...] daily No results found for: TSH - [facility] 05/19/2022 TSH = 0.71 Follows with [...] be handled at the discretion of the photocopy operator. For women with a history of [...] as of this encounter (statuses as of 01/29/2023) Resolved Problems Problem Noted Date Diagnosed Date Resolved Date with 11 completed weeks gestation 10/31/2022 12/29/2022 documented as of this encounter (statuses as of 01/29/2023) Social History Tobacco Use Types Packs/Day Years [...] money to get more. Never true 12/08/2022 [place] Depression Scale Answer Date Recorded [place] Depression Scale Total 0 10/27/2022 The thought [...] encounter Miscellaneous Notes * Telephone Encounter - Veena Guzman OSA - 10/30/2022 10:27 AM EDT Appointments scheduled * Telephone Encounter - Veena Guzman OSA - 10/30/2022 10:09 AM EDT Called patient, no answer, left VM, sent MyG * Telephone Encounter - Sara Arthur LPN - 10/30/2022 7:51 AM EDT Dating Scan Complete Estimated Date of Delivery: Estimated Date of Delivery: 05/21/23 Please schedule for 45 MINUTE CONSULT SIMPLE MEDICAL WITH ACCOUNTS RECEIVABLE MANAGER, in time frame of within 1 week at [facility] with the indication of Hypothyroidism, Class II and Pre-Diabetic. Please schedule anatomy between 19-21 weeks (12/24/22-01/07/23). Referring Provider: Karlie Infante Sent to scheduling pool documented in this encounter Plan of Treatment Upcoming Encounters Date Type Department Care Team (Late st Contact Info) Description 02/02/2023 8:45 AM EST Office Visit Grinding Machine Tender Obstetrics Maternal Medicine, [place] [address] [place] [address] Quincy Brown, [address] [place] [address] 02/02/2023 8:45 AM EST Imaging [facility], [place] [address] [place] [address] 02/23/2023 8:10 AM EST [facility] [address] [place] [phone] [facility] [address] [place] [address] 02/23/2023 8:30 AM EST Office [facility] [address] [place] [address] Miriam Abdi CRNP [address] [place] [address] 03/01/2023 1:45 PM EST Office Visit Grinding Machine Tender Obstetrics Maternal Medicine, [facility] [address] [facility] [place] [address] Margaret Rosenthal, [address] [place] [address] 03/01/2023 1:45 PM EST Imaging [facility] [address] [place] [phone] 03/29/2023 10:15 AM EST Office Visit Grinding Machine Tender Obstetrics Maternal Medicine, [place] Mendozas [address] [place] [address] Margaret Rosenthal DO [address] [facility] [place] [address] 03/29/2023 10:15 AM EST Imaging Maternal Medicine Imaging, [place] Mendozas [address] [place] [phone] Health Maintenance Due Date Last Done Comments [...] filedocumented as of this encounter Care Teams Suspension Cord Tier Relationship Specialty Start Date End Date Lorelei Mccormack DO [address] [place] [address] PCP - General Family Medicine 03/07/22 documented as of this encounter
--- OUTSIDE RECORDS SUMMARY | 2023-05-04 07:46 | External Medical Summary ---
Author Name Unknown Address Unknown Organization [id number]:[facility] - [address] [place] [address] Laboratory Report Ordering Provider Test Date Status KARMENBRYCE 12/22/2022 15:54:22 Final Normal: <150 mg/ g creatinine
High: 150-500 mg/g creatinine
Very High: >500 mg/g creatinine
Nephrotic: >3000 mg/g creatinine Observation Date Value Abnormality Reference (Units ) Status Protein/Creatinine [Ratio] in Urine 12/22/2022 15:54:22 78 <150 (mg/g ) Final Protein, Urine 12/22/2022 15:54:22 8 (mg/dL) Final Creatinine, Urine 12/22/2022 15:54:22 103 (mg/dL) Final Performing Location [facility] - [address] [place] [address]
--- OUTSIDE RECORDS SUMMARY | 2023-05-04 07:46 | External Medical Summary ---
Author Name Unknown Address Unknown Organization : Laboratory Report Ordering Provider Test Date Status ISABEL PHAN 01/26/2023 09:51:31 Final Observation Date Value Abnormality Reference (Units ) Status TRAB 01/26/2023 09:51:31 <1.00 <=2.00 (IU /L) Final This test was performed usin g the TRAb Antibody OBED
method which is standardized against the 1st
International Standard 90/672 and is reported in
International Units (IU/L). The reference range
reported was established specifically for this test
method.

Test Performed at:
[facility]
[address] [facility]
[place] [address]
Ayden Duvall M.D., Ph.D.,Director of Laboratories Performing Location
--- OUTSIDE RECORDS SUMMARY | 2023-05-04 07:46 | External Medical Summary | Summary of Care ---
Author Name Unknown Organization [facility] Address [address] [place] [address] Phone [phone] Care Team Providers Care Die Trouble Shooter Name Role Phone Lorelei Mccormack DO Primary Care Provider [phone] Reason for Visit * Evaluate & Treat - Unlimited Visits (Within 10 days (routine)) - Authorized Specialty Diagnoses / Procedures Referred By Olu roman Referred To Contact Obstetrics/Gynecology / Maternal Medicine Diagnoses Hypothyroidism affecting in first trimester Supervision of high-risk , unspecified trimester Prediabetes Class 2 obesity Karlie Infante PA-C [address] [place] [address] Referral ID Status Reason Start Date Expiration Date Visits Requested Visits Authorized [id number] Authorized Specialty Services Required 10/27/2022 10/28/2023 [id number] Encounter Details Date Type Department Care Team (Late st Contact Info) Description 12/29/2022 1:30 PM EST Office Visit Concrete Carpenter Obstetrics Maternal Medicine, [place] [address] [place] [address] Quincy Brown DO [address] [place] [address] Obesity in , antepartum*; Class 2 obesity; Hypothyroidism affecting in second trimester; 19 weeks gestation of ; Other specified related conditions, unspecified trimester Allergies No known active allergiesdocumented as of this encounter (statuses as of 12/29/2022) Medications Medication Sig Dispensed Refills Start Date [...] as of this encounter (statuses as of 12/29/2022) Active Problems Problem Noted Date Diagnosed Date [...] GLUCOSE, 100-G GESTATIONAL GLUCOSE, [facility]GLOBIN [facility]C - [facility] Baseline Preeclampsia Labs Lab Results Component Value [...] be handled at the discretion of the payroll accounting specialist. For women with a history of treated [...] as of this encounter (statuses as of 12/29/2022) Resolved Problems Problem Noted Date Diagnosed Date Resolved Date with 11 completed weeks gestation 10/31/2022 12/29/2022 documented as of this encounter (statuses as of 12/29/2022) Social History Tobacco Use Types Packs/Day Years [...] money to get more. Never true 12/08/2022 [place] Depression Scale Answer Date Recorded [place] Depression Scale Total 0 10/27/2022 The thought [...] encounter Progress Notes * Quincy Brown, - 12/29/2022 10:28 PM EST MATERNAL MEDICINE VISIT Sara Basurto is at 19w4d who presents to [facility] for an ultrasound and follow-up of her high risk . PHYSICAL EXAM: General: pleasant, alert and oriented, no acute distress She is being seen today by Maternal- Medicine for the following reasons: Problem List Items Addressed This Visit Hypothyroidism complicating Class 2 obesity Obesity in , antepartum - Primary She presents for a anatomy survey secondary [...] identify all anomalies, but it is reassuring thatno anomalies were seen today. Other Visit Diagnoses 19 weeks gestation of We reviewed today's ultrasound findings. (For full report, please refer to ultrasound report provided separately). Ms. Basurto's questions were answered to her satisfaction. RECOMMENDATIONS: Recommend surveillance starting at 37 weeks secondary to class II obesity. Recommend follow up ultrasound with MFM in 4-5 weeks for growth. Thank you for allowing us to participate in the care of this patient. Please call with any questions. Quincy Brown DO 12/29/2022 10:28 PM documented in this encounter Miscellaneous Notes * Assessment & Plan Note - Quincy Brown DO - 12/29/2022 2:38 PM EST Associated Problem(s): Obesity in , antepartum She presents for a anatomy survey secondary [...] identify all anomalies, but it is reassuring thatno anomalies were seen today. documented in this encounter Plan of Treatment Upcoming Encounters Date Type Department Care Team (Late st Contact Info) Description 01/26/2023 9:15 AM EST Office Visit Gynecology/Obstetrics Codey Villagomez [address] [facility] [place] [address] Karlie Infante PA-C [address] [facility] [address] 02/02/2023 8:45 AM EST Office Visit Concrete Carpenter Obstetrics Maternal Medicine, [place] [address] [place] [address] Quincy Brown, [facility] [place] [address] 02/02/2023 8:45 AM EST Imaging Radiology [facility] [place], [place] [address] [place] [address] 03/01/2023 1:45 PM EST Office Visit Concrete Carpenter Obstetrics Maternal Medicine, [place] Villagomez [address] [facility] [address] Margaret Rosenthal, [facility] [place] [address] 03/01/2023 1:45 PM EST Imaging Maternal Medicine Imaging, [place] [phone] 03/29/2023 10:15 AM EST Office Visit Concrete Carpenter Obstetrics Maternal Medicine, [place] [facility] [place] [address] Margaret Rosenthal, [address] [place] [address] 03/29/2023 10:15 AM EST Imaging Maternal Medicine Imaging, [place] [phone] Scheduled Orders Name Type Priority Associated Diagnoses Orde r Schedule MFM US PREG FOLLOW UP EACH FETUS Medical Imaging Routine Obesity in , antepartum Class 2 obesity Hypothyroidism affecting in second trimester Other specified related conditions, unspecified trimester 9 Occurrences starting 12/29/2022 until 06/29/2023 Health Maintenance Due Date Last Done Comments [...] 2 obesity Hypothyroidism affecting in second trimester 19 weeks gestation of state, incidental Other specified related conditions, unspecified trimester documented in this encounter Care Teams Die Trouble Shooter Relationship Specialty Start Date End Date Lorelei Mccormack DO [address] [facility] [place] [address] PCP - General Family Medicine 03/07/22 documented as of this encounter
== END 2023-05-03 20:33 | disposition home or self-care (01) ==
LOC: 4S1 17:51 → INTOOBSV 17:51

== ENCOUNTER 2023-05-21 07:33 | Inpatient (IN) ==
--- OUTSIDE RECORDS SUMMARY | 2023-05-21 07:41 | External Medical Summary | Summary of Care ---
Author Name Unknown Organization [facility] Address [address] [place] [address] Phone [phone] Care Team Providers Care Chief Marketing Officer Name Role Phone Lorelei Mccormack DO Primary Care Provider [phone] Reason for Visit * Reason Comments Outpatient Testing Encounter Details Date Type Department Care Team (Late st Contact Info) Description 05/11/2023 12:20 PM EDT Laboratory Laboratory, [facility] 132 [facility] [place] [phone] [facility] 132 [facility] [place] [address] High-risk in third trimester; Gestational hypertension without significant proteinuria in third trimester; Hypokalemia Allergies No known active allergiesdocumented as of this encounter (statuses as of 05/11/2023) Medications Medication Sig Dispensed Refills Start Date [...] as of this encounter (statuses as of 05/11/2023) Active Problems Problem Noted Date Diagnosed Date [...] as of this encounter (statuses as of 05/11/2023) Resolved Problems Problem Noted Date Diagnosed Date Resolved Date with 11 completed weeks gestation 10/31/2022 12/29/2022 Normal 10/30/2022 04/16/2023 Supervision of high risk pre gnancy in first trimester 10/30/2022 04/16/2023 documented as of this encounter (statuses as of 05/11/2023) Immunizations Name Administration Dates Next Due TDAP [...] money to get more. Never true 12/08/2022 [place] Depression Scale Answer Date Recorded [place] Depression Scale Total 0 03/12/2023 The thought of harming myself has occurred to me . Never 03/12/2023 Estimated Date of Delivery Comme nts Yes 05/21/2023 Based on Ultraso und Sex and Gender Information Value Date Recorded Sex Assigned at Female 05/11/2023 8:39 AM EDT Gender Identity Female 05/11/2023 8:39 AM EDT Sexual Orientation Straight 05/11/2023 8: 39 AM EDT Job Start Date Occupation Industry Not on file Not on file Not on file documented as of this encounter Plan of Treatment Upcoming Encounters Date Type Department Care Team (Late st Contact Info) Description 05/15/2023 11:15 AM EDT Office Visit Gynecology/Obstetrics Codey Villagomez [address] [place] [address] Valentine Barclay CRNP [address] [place] [address] [place] Non Stress [facility] [place] [address] [place] [address] 05/18/2023 9:15 AM EDT Office Visit Gynecology/Obstetrics Codey Villagomez [address] [place] [address] Ana Edwards PA-C [address] [place] [address] [place] Non Stress Tests [place] [address] [place] [address] 11/23/2023 1:40 PM EDT Office Visit Nephrology, [address] [place] [address] Simona Gutierrez MD [address] [place] [phone] Pending Results Name Type Priority Associated Diagnoses Date /Time HEPATIC FUNCTION PANEL Lab Routine High-risk in third trimester Gestational hypertension without significant proteinuria in third trimester 05/11/2023 11:38 AM EDT BASIC METABOLIC PANEL Lab Routine Hypokalemia 05/11/2023 11:38 AM EDT Health Maintenance Due Date Last Done Comments Hepatitis B (1 of 3 - 19+ 3-dose series) 2009 COVID-19 Vaccine (2022- season) 2022 Influenza Vaccine (FLU shot) (Season Ended) 2023 11/06/2015, 10/15/2014, 10/14/2014 TSH 02/24/2024 02/23/2023, 10/15/2022 Depression Screening 04/18/2024 04/19/2023 GFR 04/23/2024 04/24/2023, 04/05, 04/13/2023, Additional history exists Pap Smear 05/31/2025 05/31/2022 Cervical Cancer Screening 06/01/2027 HPV/Co-Test 06/01/2027 05/31/2022, 01/23/2020 DTaP,Tdap,and Td Vaccines (2 - Td or [...] encounter Visit Diagnoses Diagnosis High-risk in third trimester Gestational hypertension without significant proteinuria in third trimester Transient hypertension of , antepartum Hypokalemia Hypopotassemia documented in this encounter Care Teams Chief Marketing Officer Relationship Specialty Start Date End Date Lorelei Mccormack DO [address] [place] [address] PCP - General Family Medicine 03/07/22 documented as of this encounter
--- OUTSIDE RECORDS SUMMARY | 2023-05-21 07:41 | External Medical Summary | Summary of Care ---
Author Name Unknown Organization [facility] Address [address] [place] [address] Phone [phone] Care Team Providers Care Waiter/Waitress Take Out Name Role Phone Lorelei Mccormack DO Primary Care Provider Reason for Visit * Reason Comments Outpatient Testing Encounter Details Date Type Department Care Team (Late st Contact Info) Description 05/11/2023 12:20 PM EDT Laboratory Laboratory, [facility] 132 [place] [phone] [facility] [address] [place] [address] High-risk in third trimester; Gestational hypertension without [...] money to get more. Never true 12/08/2022 [place] Depression Scale Answer Date Recorded [place] Depression Scale Total 0 03/12/2023 The thought [...] Gynecology/Obstetrics Codey Villagomez [address] [place] [address] Valentine Barclay CRNP [address] [place] [address] [place] Non Stress Tests [place] [address] [place] [address] 05/18/2023 9:15 AM EDT Office Visit Gynecology/Obstetrics Codey Villagomez [address] [place] [address] Ana Edwards PA-C [address] [place] [place] [address] [place] Non Stress Tests [place] [address] [place] [address] 11/23/2023 1:40 PM EDT Office Visit Nephrology, [address] [place] [address] Simona Gutierrez MD [address] [place] [phone] Pending Results Name Type Priority Associated Diagnoses [...] Hypopotassemia documented in this encounter Care Teams Waiter/Waitress Take Out Relationship Specialty Start Date End Date Lorelei Mccormack DO [address] [place] [address] PCP - General Family Medicine 03/07/22 documented as of this encounter
--- OUTSIDE RECORDS SUMMARY | 2023-05-21 07:41 | External Medical Summary | Summary of Care ---
Author Name Unknown Organization [facility] Address [address] [place] [facility] [address] Phone [phone] Care Team Providers Care Judo Teacher Name Role Phone Lorelei Mccormack DO Primary Care Provider Reason for Visit * Reason Comments Non Stress Test Encounter Details Date Type Department Care Team (Late st Contact Info) Description 05/15/2023 11:15 AM EDT Office Visit Gynecology/Obstetric s [facility] [place] [address] [facility] [place] [address] Valentine Barclay CRNP [address] [place] [address] [place] Non Stress Tests [place] [address] [place] [address] High-risk in third trimester*; Hypothyroidism affecting in third trimester; Prediabetes; Class 2 obesity; Obesity in , antepartum; Antepartum anemia complicating ; Gestational hypertension without significant proteinuria in third trimester Allergies No known active allergiesdocumented as of this encounter (statuses as of 05/15/2023) Medications Medication Sig Dispensed Refills Start Date [...] as of this encounter (statuses as of 05/15/2023) Active Problems Problem Noted Date Diagnosed Date [...] as of this encounter (statuses as of 05/15/2023) Resolved Problems Problem Noted Date Diagnosed Date Resolved Date with 11 completed weeks gestation 10/31/2022 12/29/2022 Normal 10/30/2022 04/16/2023 Supervision of high risk pre gnancy in first trimester 10/30/2022 04/16/2023 documented as of this encounter (statuses as of 05/15/2023) Immunizations Name Administration Dates Next Due TDAP [...] money to get more. Never true 12/08/2022 [place] Depression Scale Answer Date Recorded [place] Depression Scale Total 0 03/12/2023 The thought [...] Sign Reading Time Taken Comments Blood Pressure 112/64 05/15/2023 11:24 AM EDT Pulse - - Temperature - - Respiratory Rate - - Oxygen Saturation - - Inhaled Oxygen Concentration - - Weight 101.2 kg (223 lb) 05/15/2023 11:24 AM EDT Height - - Body Mass Index 38.28 05/11/2023 10:06 AM EDT documented in this encounter Progress Notes * Valentine Barclay CRNP - 05/15/2023 11:35 AM EDT 39w1d Has induction scheduled for Sunday. Feels well, good movement. Some cramping/pressure, no regular ctx. No leaking/bleeding. Neg proteinuria. ASSESSMENT assessment with Non-stress Test completed on 05/15/2023 at 39.1 weeks gestation for indication of obesity and ?GHTN heart baseline: 145 bpm Variability: Moderate Decelerations: absent Accelerations: present Contractions: None NST start time: 1114 NST stop time: 1136 NST strip reviewed, interpreted, and approved by OB provider, BISI Mcgregor . NST strip stored in clinic storage file documented in this encounter Plan of Treatment Upcoming Encounters Date Type Department Care Team (Late st Contact Info) Description 05/18/2023 9:15 AM EDT Office Visit Gynecology/Obstetrics [facility]ag[facility] [address] [place] [address] Ana Edwards PA-C [address] [employer] [place] [phone] [place], Non Stress Tests [place] [address] [facility] [place] [address] 11/23/2023 1:40 PM EDT Office Visit Nephrology, [facility] [address] [place] [address] Simona [facility]ierrez MD [address] [facility] [phone] Health Maintenance Due Date Last Done Comments Hepatitis B (1 of 3 - 19+ 3-dose series) 2009 COVID-19 Vaccine (2022- season) 2022 Influenza Vaccine (FLU shot) (Season Ended) 2023 11/06/2015, 10/15/2014, 10/14/2014 TSH 02/24/2024 02/23/2023, 10/15/2022 Depression Screening 04/18/2024 04/19/2023 GFR 05/12/2024 05/13/2023, 04/0 08/2023, 05/11/2023, Additional history exists Pap Smear 05/31/2025 05/31/2022 [...] Comments URINALYSIS, POINT OF CARE (ENTER/EDIT) Routine 05/15/2023 Gestational hypertension without significant proteinuria in third trimester High-risk in third trimester documented in this encounter Results * URINALYSIS, POINT OF CARE (ENTER/EDIT) (05/15/2023) Color, Urine Dark Yellow Yellow or Light Yellow Clarity, Urine Clear Clear Glucose, Urine Negative Negative mg/dL Bilirubin, Urine Negative Negative Ketone, Urine Negative Negative mg/dL Specific [place], Urine 1.025 1.003 - 1.030 Blood, Urine Negative Negative pH, Urine 7.0 5.0 - 7.5 units Protein, Urine Negative Negative mg/dL Urobilinogen, Urine 0.2 0.2 - 1.0 mg/dL Nitrite, Urine Negative Negative Esterase, Urine Small Negative Urine 05/15/2023 Valentine Matsoner BISI LAB POINT O F CARE TEST ENTER/EDIT [...] antepartum documented in this encounter Care Teams Judo Teacher Relationship Specialty Start Date End Date Lorelei Mccormack DO [address] [facility] [place] [address] PCP - General Family Medicine 03/07/22 documented as of this encounter
--- OUTSIDE RECORDS SUMMARY | 2023-05-21 07:41 | External Medical Summary ---
Author Name Unknown Address Unknown Organization [facility] - [address] [place] [address] Laboratory Report Ordering Provider Test Date Status EMILIEISABEL 05/11/2023 11:38:15 Final Observation Date Value Abnormality Reference (Units ) Status Albumin 05/11/2023 11:38:15 3.5 Below low normal 3.8-5.0 (g/dL) Final AST (Aspartate aminotransferase) 05/11/2023 11:38:15 15 10-35 (U/L) Final Alk Phos 05/11/2023 11:38:15 135 Above high normal 35-130 (U/L) Final ALT (Alanine aminotransferase) 05/11/2023 11:38:15 11 10-35 (U/L) Final Bilirubin, Total 05/11/2023 11:38:15 0.2 <=1.2 (mg/dL) Final Bilirubin, Direct 05/11/2023 11:38:15 <0.2 0.0-0.3 (mg/dL) Final Protein 05/11/2023 11:38:15 6.2 6.0-8.3 (g/dL) Final Performing Location [facility] [place] [address]
--- OUTSIDE RECORDS SUMMARY | 2023-05-21 07:41 | External Medical Summary | Summary of Care ---
Author Name Unknown Organization [facility] Address [address] [place] [address] Phone [phone] Care Team Providers Care Software Applications Developer Name Role Phone Lorelei Mccormack DO Primary Care Provider Reason for Visit * Reason Comments Outpatient Testing Encounter Details Date Type Department Care Team (Late st Contact Info) Description 05/11/2023 12:20 PM EDT Laboratory Laboratory, [facility] [address] [place] [phone] [facility] [address] [place] [address] High-risk in third trimester; Gestational hypertension without [...] money to get more. Never true 12/08/2022 [place] Depression Scale Answer Date Recorded [place] Depression Scale Total 0 03/12/2023 The thought [...] Gynecology/Obstetrics Codey Villagomez [address] [place] [address] Valentine Barclay CRNP [address] [place] [address] [place] Non Stress Tests [place] [address] [place] [address] 05/18/2023 9:15 AM EDT Office Visit Gynecology/Obstetrics Codey Villagomez [address] [place] [address] Ana Edwards PA-C [address] [place] [address] [place] Non Stress Tests [place] [address] [place] [address] 11/23/2023 1:40 PM EDT Office Visit Nephrology, [address] [place] [address] Simona Gutierrez MD [address] [place] [place] [phone] Pending Results Name Type Priority Associated Diagnoses [...] Hypopotassemia documented in this encounter Care Teams Software Applications Developer Relationship Specialty Start Date End Date Lorelei Mccormack DO [address] [place] [address] PCP - General Family Medicine 03/07/22 documented as of this encounter
--- OUTSIDE RECORDS SUMMARY | 2023-05-21 07:41 | External Medical Summary | Summary of Care ---
Author Name Unknown Organization [facility] Address [address] [place] [facility] [place] [address] Phone [phone] Care Team Providers Care Broaching Machine Set Up Operator Name Role Phone Lorelei Mccormack DO Primary Care Provider Reason for Visit * Reason Comments Return Visit Non Stress Test Encounter Details Date Type Department Care Team (Late st Contact Info) Description 05/18/2023 9:15 AM EDT Office Visit Gynecology/Obstetric s [facility] [address] [place] [address] Ana Edwards PA-C [address] [place], [place] [address] [phone] [place], Non Stress Tests [place] [address] [place] [address] High-risk in third trimester*; Hypothyroidism affecting in third trimester; Prediabetes; Class 2 obesity; Obesity in , antepartum; Antepartum anemia complicating ; Gestational hypertension without significant proteinuria in third trimester Allergies No known active allergiesdocumented as of this encounter (statuses as of 05/18/2023) Medications Medication Sig Dispensed Refills Start Date [...] as of this encounter (statuses as of 05/18/2023) Active Problems Problem Noted Date Diagnosed Date [...] AM 05/19/2022 TSH = 0.71 Follows with [facility] endocrinology. Follows with Endocrinology every [...] as of this encounter (statuses as of 05/18/2023) Resolved Problems Problem Noted Date Diagnosed Date Resolved Date with 11 completed weeks gestation 10/31/2022 12/29/2022 Normal 10/30/2022 04/16/2023 Supervision of high risk pre gnancy in first trimester 10/30/2022 04/16/2023 documented as of this encounter (statuses as of 05/18/2023) Immunizations Name Administration Dates Next Due TDAP [...] money to get more. Never true 12/08/2022 [place] Depression Scale Answer Date Recorded [place] Depression Scale Total 0 03/12/2023 The thought [...] Sign Reading Time Taken Comments Blood Pressure 104/62 05/18/2023 9:09 AM EDT Pulse - - Temperature - - Respiratory Rate - - Oxygen Saturation - - Inhaled Oxygen Concentration - - Weight 102.1 kg (225 lb) 05/18/2023 9:09 AM EDT Height 162.6 cm (5' 4") 05/18/2023 9:09 AM EDT Body Mass Index 38.62 05/18/2023 9:09 AM EDT documented in this encounter Progress Notes * Ana Edwards PA-C - 05/18/2023 9:48 AM EDT Sara Basurto 05/18/2023 Sara is a 32 year old female presenting at 39w4d for NST. She expresses no concerns at this time. BP 104/62 | Ht 1.626 m (5' 4") | Wt 102.1 kg (225 lb) | LMP 08/02/2022 | BMI 38.62 kg/m | BSA 2.15 m ASSESSMENT assessment with Non-stress Test completed on 05/18/2023 at 39w4d weeks gestation for indication of gestational hypertension, class II obesity. heart baseline: 120 bpm Variability: Moderate Decelerations: absent Accelerations: present Contractions: None NST start time: 857 NST stop time: 936 NST strip reviewed, interpreted, and approved by OB provider, Ana Edwards PA-C. NST strip stored in clinic storage file Supervision of - BP WNL today. Will continue 2x weekly NSTs - IOL scheduled 05/20 Ana Edwards PA-C 05/18/2023 documented in this encounter Nursing Notes * Katherine Ny LPN - 05/18/2023 9:42 AM EDT 39w4d NST IOL 05/20 documented in this encounter Miscellaneous Notes * Addendum Note - Ashlee Magallanes LPN - 05/18/2023 10:02 AM EDTAddended by: ASHLEE MAGALLANES on: 05/18/2023 10:02 AM Modules accepted: Orders documented in this encounter Plan of Treatment Upcoming Encounters Date Type Department Care Team (Late st Contact Info) Description 11/23/2023 1:40 PM EDT Office Visit Nephrology, [address] [place] [address] Simona Gutierrez MD [address] [place] [address] [place] [address] Health Maintenance Due Date Last Done Comments Hepatitis B (1 of 3 - 19+ 3-dose series) 2009 COVID-19 Vaccine ( - 2022-24 season) 2022 Influenza Vaccine (FLU shot) (Season Ended) 2023 11/06/2015, 10/15/2014, 10/14/2014 TSH 02/24/2024 02/23/2023, 10/15/2022 Depression Screening 04/18/2024 04/19/2023 GFR 05/12/2024 05/13/2023, 08/2023, 05/11/2023, Additional history exists Pap Smear [...] Comments URINALYSIS, POINT OF CARE (ENTER/EDIT) Routine 05/18/2023 Gestational hypertension without significant proteinuria in third trimester High-risk in third trimester documented in this encounter Results * URINALYSIS, POINT OF CARE (ENTER/EDIT) (05/18/2023) Color, Urine Yellow Yellow or Light Yellow Clarity, Urine Clear Clear Glucose, Urine Negative Negative mg/dL Bilirubin, Urine Negative Negative Ketone, Urine Trace Negative mg/dL Specific [place], Urine 1.025 1.003 - 1.030 Blood, Urine Negative Negative pH, Urine 7.0 5.0 - 7.5 units Protein, Urine Negative Negative mg/dL Urobilinogen, Urine 0.2 0.2 - 1.0 mg/dL Nitrite, Urine Negative Negative Esterase, Urine Trace Negative Urine 05/18/2023 Ana Edwards PA-C LAB POINT OF CARE TEST ENTER/EDIT ORDERABLES documented in this [...] antepartum documented in this encounter Care Teams Broaching Machine Set Up Operator Relationship Specialty Start Date End Date Lorelei Mccormack DO [address] [facility]Note 2] [place] [address] PCP - General Family Medicine 03/07/22 documented as of this encounter
--- OUTSIDE RECORDS SUMMARY | 2023-05-21 07:41 | External Medical Summary ---
Author Name Unknown Address Unknown Organization [facility] - [address] [place] [address] Laboratory Report Ordering Provider Test Date Status CARLOZ CRAWFORD 05/11/2023 11:38:15 Final Observation Date Value Abnormality Reference (Units ) Status BUN 05/11/2023 11:38:15 6 6-20 (mg/dL) Final Creatinine 05/11/2023 11:38:15 0.5 0.5-1.0 (mg/dL) Final Glomerular filtration rate/1.73 sq M.predicted [Volume Rate/Area] in Serum, Plasma or Blood by Creatinine-based formula (CKD-EPI) 05/11/2023 11:38:15 >90 >=60 (mL/min) Final eGFR is calculated based on the CKD-EPI 2020 equation Sodium 05/11/2023 11:38:15 136 135-146 (m mol/L) Final Potassium 05/11/2023 11:38:15 4.2 3.5-5.1 (m mol/L) Final Cl 05/11/2023 11:38:15 102 98-107 (mm ol/L) Final CO2 05/11/2023 11:38:15 17 Below low normal 22- 32 (mmol/L) Final Anion gap 05/11/2023 11:38:15 17 Above high normal 7- 15 (mmol/L) Final Glucose 05/11/2023 11:38:15 92 70-120 (mg /dL) Final Calcium 05/11/2023 11:38:15 9.7 8.4-10.2 ( mg/dL) Final Performing Location [facility] [place] [address]
--- OUTSIDE RECORDS SUMMARY | 2023-05-21 07:41 | External Medical Summary | Summary of Care ---
Author Name Unknown Organization [facility] Address [address] [place] [address] Phone [phone] Care Team Providers Care Electric Appliance Installer Name Role Phone Lorelei Mccormack DO Primary Care Provider Reason for Visit * Reason Onset Date Comments Test Results 05/15/2023 Encounter Details Date Type Department Care Team (Late st Contact Info) Description 05/15/2023 Telephone Nephrology, [address] [address] Simona Gutierrez MD [address] [place] [id number] Test Results Allergies No known active [...] GLUCOSE, 100-G GESTATIONAL GLUCOSE, HEMOGLOBIN A1C - [facility] Baseline Preeclampsia Labs Lab Results Component Value [...] money to get more. Never true 12/08/2022 [place] Depression Scale Answer Date Recorded [place] Depression Scale Total 0 03/12/2023 The thought [...] Telephone Encounter - Palak Denton LPN - 05/15/2023 9:00 AM EDT MyG sent * Telephone Encounter - Palak Denton LPN - 05/15/2023 8:58 AM EDT ----- Message from Simona Gutierrez MD sent at 05/11/2023 4:27 PM EDT ----- Potassium is stable which is good. No changes documented in this encounter Plan of Treatment Upcoming Encounters Date Type Department Care Team (Late st Contact Info) Description 05/15/2023 11:15 AM EDT Office Visit Gynecology/Obstetrics Codey Villagomez [address] [place] [address] BackerValentine CRNP [address] [place] [address] Jodi Villagomez Stress Tests [place] [address] [place] [address] 05/18/2023 9:15 AM EDT Office Visit Gynecology/Obstetrics Codey Villagomez [address] [place] [address] Ana Edwards PA-C [address] [place] [address] [place], Non Stress Tests [place] [facility] [place] [address] 11/23/2023 1:40 PM EDT Office Visit Nephrology, [facility] [address] [place] [address] Simona Gutierrez MD [address] [place] [address] Health Maintenance Due Date Last Done Comments Hepatitis B (1 of 3 - 19+ 3-dose series) 2009 COVID-19 Vaccine (2022- season) 2022 Influenza Vaccine (FLU shot) (Season Ended) 2023 11/06/2015, 10/15/2014, 10/14/2014 TSH 02/24/2024 02/23/2023, 10/15/2022 Depression Screening 04/18/2024 04/19/2023 GFR 05/10/2024 05/11/2023, 04/05, 04/21/2023, Additional history exists Pap Smear 05/31/2025 05/31/2022 [...] filedocumented as of this encounter Care Teams Electric Appliance Installer Relationship Specialty Start Date End Date Lorelei Mccormack DO [address] [place] [address] PCP - General Family Medicine 03/07/22 documented as of this encounter
--- OUTSIDE RECORDS SUMMARY | 2023-05-21 07:41 | External Medical Summary | Summary of Care ---
Author Name Unknown Organization [facility] Address [address] [facility] [place] [address] Phone [phone] Care Team Providers Care Scout Executive Name Role Phone Lorelei Mccormack DO Primary Care Provider [phone] Reason for Visit * Reason Comments Return Visit Non Stress Test Encounter Details Date Type Department Care Team (Late st Contact Info) Description 05/18/2023 9:15 AM EDT Office Visit Gynecology/Obstetric s [facility] [address] [place] [address] Ana Edwards PA-C [address] [place], [place] [address] [place] [phone] [place], Non Stress Tests [place] [address] [place] [address] High-risk in third trimester*; Hypothyroidism affecting in [...] money to get more. Never true 12/08/2022 [place] Depression Scale Answer Date Recorded [place] Depression Scale Total 0 03/12/2023 The thought [...] 11/23/2023 1:40 PM EDT Office Visit Nephrology, [address] [place] [address] Simona Gutierrez MD [address] [place] [address] [place] [address] Health Maintenance Due Date [...] Negative Ketone, Urine Trace Negative mg/dL Specific [place], Urine 1.025 1.003 - 1.030 Blood, Urine [...] antepartum documented in this encounter Care Teams Scout Executive Relationship Specialty Start Date End Date Lorelei Mccormack DO [address] [facility] [place] [address] PCP - General Family Medicine 03/07/22 documented as of this encounter
--- OUTSIDE RECORDS SUMMARY | 2023-05-21 07:41 | External Medical Summary | Summary of Care ---
Author Name Unknown Organization [facility] Address [address] [facility] [place] [address] Phone [phone] Care Team Providers Care Gyroscope Repairer Name Role Phone Lorelei Mccormack DO Primary Care Provider Encounter Details Date Type Department Care Team (Late st Contact Info) Description 05/11/2023 10:00 AM EDT Office Visit Gynecology/Obstetric s Trey'panda Villagomez [address] [place] [address] Karlie Infante PA-C [address] [place] [address] [place] Non Stress Tests [place] [address] [place] [address] High-risk in third trimester*; Hypothyroidism affecting in [...] money to get more. Never true 12/08/2022 [place] Depression Scale Answer Date Recorded [place] Depression Scale Total 0 03/12/2023 The thought [...] Sign Reading Time Taken Comments Blood Pressure 114/68 05/11/2023 10:06 AM EDT Pulse - - Temperature - - Respiratory Rate - - Oxygen Saturation - - Inhaled Oxygen Concentration - - Weight 101.2 kg (223 lb) 05/11/2023 10:06 AM EDT Height 162.6 cm (5' 4") 05/11/2023 10:06 AM EDT Body Mass Index 38.28 05/11/2023 10:06 AM EDT documented in this encounter Progress Notes * Karlie Infante PA-C - 05/11/2023 11:46 AM EDT 38w4d BP 114/68 | Ht 1.626 m (5' 4") | Wt 101.2 kg (223 lb) | LMP 08/02/2022 | BMI 38.28 kg/m | BSA 2.14 m ASSESSMENT assessment with Non-stress Test completed on 05/11/2023 at 38.4 weeks gestation for indication of previously elevated BP concerning for IOL, class 2 obesity heart baseline: 150 bpm Variability: Moderate Decelerations: absent Accelerations: present Contractions: None NST start time: 10:00 NST stop time: 11:15 NST strip reviewed, interpreted, and approved by OB provider, Karlie Infante PA-C and Dr. Andre May MD. NST strip stored in clinic storage file BP WNL. Continue twice weekly NST. Scheduled 05/15/2023. Repeat PEC labs today Karlie Infante PA-C documented in this encounter Plan of Treatment Upcoming Encounters Date Type Department Care Team (Late st Contact Info) Description 05/11/2023 12:20 PM EDT Laboratory Laboratory, Codey Villagomez [place] [address] [place] [phone] Nato Villagomez [address] [place] [address] High-risk in third trimester; Gestational hypertension without significant proteinuria in third trimester; Hypokalemia 05/15/2023 11:15 AM EDT Office Visit Gynecology/Obstetric s Codey Villagomez [address] [place] [address] Valentine Barclya CRNP [address] [place] [address] [place] Non Stress Tests [place] [address] [place] [address] 05/18/2023 9:15 AM EDT Office Visit Gynecology/Obstetric s Codey Villagomez [address] [place] [address] Ana Edwards PA-C [address] [place] [address] [place] [address] [place] Non Stress Tests [place] [address] [place] [address] 11/23/2023 1:40 PM EDT Office Visit Nephrology, [address] [place] [address] Simona Gutierrez MD [address] [place] [address] [place] [address] Pending Results Name Type Priority Associated Diagnoses Date /Time HEPATIC FUNCTION PANEL Lab Routine High-risk in third trimester Gestational hypertension without significant proteinuria in third trimester 05/11/2023 11:38 AM EDT PROTEIN/ CREATININE RATIO, URINE Lab Routine High-risk in third trimester Gestational hypertension without significant proteinuria in third trimester 05/11/2023 11:36 AM EDT Scheduled Orders Name Type Priority Associated Diagnoses Orde r Schedule HEPATIC FUNCTION PANEL Lab Routine High-risk in third trimester Gestational hypertension without significant proteinuria in third trimester Expected: 05/11/2023, Expires: 05/10/2024 Health Maintenance Due Date Last Done Comments Hepatitis B (1 of 3 - 19+ 3-dose series) 2009 COVID-19 Vaccine ( season) 2022 Influenza Vaccine (FLU shot) (Season [...] of , antepartum High-risk in third trimester Gestational hypertension without significant proteinuria in third trimester Transient hypertension of , antepartum Hypokalemia Hypopotassemia documented in this encounter Care Teams Gyroscope Repairer Relationship Specialty Start Date End Date Lorelei Mccormack DO [address] [facility] [place] [address] PCP - General Family Medicine 03/07/22 documented as of this encounter
--- OUTSIDE RECORDS SUMMARY | 2023-05-21 07:42 | External Medical Summary | Summary of Care ---
Author Name Unknown Organization [facility] Address [address] [facility] [place] [address] Phone [phone] Care Team Providers Care Bias Cutter Name Role Phone Lorelei Mccormack DO Primary Care Provider Reason for Visit * Reason Comments Return Visit Non Stress Test Encounter Details Date Type Department Care Team (Late st Contact Info) Description 05/07/2023 2:00 PM EDT Office Visit Gynecology/Obstetric s Codey Villagomez [address] [place] [phone] Karlie Infante PA-C [address] [place] [address] [place] Non Stress Tests [place] [address] [place] [address] High-risk in third trimester*; Hypothyroidism affecting in third trimester; Prediabetes; Class 2 obesity; Obesity in , antepartum; Antepartum anemia complicating ; Gestational hypertension without significant proteinuria in third trimester Allergies No known active allergiesdocumented as of this encounter (statuses as of 05/07/2023) Medications Medication Sig Dispensed Refills Start Date [...] as of this encounter (statuses as of 05/07/2023) Active Problems Problem Noted Date Diagnosed Date [...] as of this encounter (statuses as of 05/07/2023) Resolved Problems Problem Noted Date Diagnosed Date Resolved Date with 11 completed weeks gestation 10/31/2022 12/29/2022 Normal 10/30/2022 04/16/2023 Supervision of high risk pre gnancy in first trimester 10/30/2022 04/16/2023 documented as of this encounter (statuses as of 05/07/2023) Immunizations Name Administration Dates Next Due TDAP [...] money to get more. Never true 12/08/2022 Summit Depression Scale Answer Date Recorded Summit Depression Scale Total 0 03/12/2023 The thought [...] Sign Reading Time Taken Comments Blood Pressure 116/64 05/07/2023 2:00 PM EDT Pulse - - Temperature - - Respiratory Rate - - Oxygen Saturation - - Inhaled Oxygen Concentration - - Weight 100.2 kg (221 lb) 05/07/2023 2:00 PM EDT Height 162.6 cm (5' 4") 05/07/2023 2:00 PM EDT Body Mass Index 37.93 05/07/2023 2:00 PM EDT documented in this encounter Progress Notes * Karlie Infante PA-C - 05/07/2023 2:43 PM EDT 38w0d Patient here for NST. Patient was scheduled for IOL 05/03/2023 secondary to GHTN. Decision made by labor relations specialist provider Dr. Manrique and patient not to proceed with IOL as blood pressure have been normal over last few weeks of . I personally have not seen her since 04/13/2023, following elevated blood pressure. Review of blood pressure for last several encounter indicate normotensive. BP today 116/64. Reports intermittent h/a,resolve. Denies RUQ pain, cp, SOB. BP Readings from Last 9 Encounters: 04/03/23 118/66 03/30/23 122/70 03/30/23 125/81 03/30/23 140/68 03/23/23 126/83 03/23/23 143/84 03/12/23 128/64 02/23/23 120/70 01/26/23 124/66 ASSESSMENT assessment with Non-stress Test completed on 05/07/2023 at 38.0 weeks gestation for indication of concerns for elevated BP's, previously GHTN heart baseline: 145 bpm Variability: Moderate Decelerations: absent Accelerations: present Contractions: None NST start time: 14:08 NST stop time: 14:35 NST strip reviewed, interpreted, and approved by OB provider, Karlie Infante PA-C. NST strip stored in clinic storage file A/P: Continue twice weekly NST with BP checks in office. See separate encounters. Pt was understandable about change in delivery plan. Asking about delivery plan. Discussed deliveryplan with Dr. Koroma by phone prior to seeing patient in office. Patient asking if IOL close to due date can be done as does not feel comfortable waiting to 41 weeks. Pt asking if can review with hospital regarding timing and whether they are agreeable to date selected. She is aware that date may bemoved if there is no available beds. Will review with them as first available is on due date. Karlie Infante PA-C documented in this encounter Nursing Notes * Katherine Ny LPN - 05/07/2023 2:29 PM EDT 38w0d DURGAT, JERRY documented in this encounter Plan of Treatment Upcoming Encounters Date Type Department Care Team (Late st Contact Info) Description 05/11/2023 10:00 AM EDT Office Visit Gynecology/Obstetrics Codey Villagomez [address] [place] [address] Karlie Infante PA-C [address] [place] [address] [place], Non Stress Tests [place] [address] [place] [phone] 05/15/2023 11:15 AM EDT Office Visit Gynecology/Obstetrics Codey Villagomez [address] [place] [address] BackerValentine CRNP [address] [place] [address] [place], Non Stress Tests [place] [address] [place] [address] 05/18/2023 9:15 AM EDT Office Visit Gynecology/Obstetrics Codey Villagomez [address] [place] [address] Ana Edwards PA-C [address] [place] [address] [place] Non Stress Tests [place] [address] [place] [phone] 11/23/2023 1:40 PM EDT Office Visit Nephrology, [address] [place] [address] Simona Gutierrez MD [address] [place] [address] Scheduled Orders Name Type Priority Associated Diagnoses Orde r Schedule CBC Lab Routine Antepartum anemia complicating Ordered: 05/07/2023 Health Maintenance Due Date Last Done Comments Hepatitis B (1 of 3 - 19+ 3-dose series) 2009 COVID-19 Vaccine ( - 2022-24 season) 2022 Influenza Vaccine (FLU shot) (Season Ended) 2023 TSH 02/24/2024 02/23/2023, 10/15/2022 Depression Screening 04/18/2024 [...] antepartum documented in this encounter Care Teams Bias Cutter Relationship Specialty Start Date End Date Lorelei Mccormack DO [address] [facility] [place] [address] PCP - General Family Medicine 03/07/22 documented as of this encounter
--- OUTSIDE RECORDS SUMMARY | 2023-05-21 07:42 | External Medical Summary ---
Author Name Unknown Address Unknown Organization [id number]:[facility] [place] [facility] [address] [place] [address] Laboratory Report Ordering Provider Test Date Status ISABEL PHAN 05/11/2023 11:36:52 Final Normal: <150 mg/ g creatinine
High: 150-500 mg/g creatinine
Very High: >500 mg/g creatinine
Nephrotic: >3000 mg/g creatinine Observation Date Value Abnormality Reference (Units ) Status Protein/Creatinine [Ratio] in Urine 05/11/2023 11:36:52 154 Above high normal <150 (mg/g ) Final Protein, Urine 05/11/2023 11:36:52 4 (mg/dL) Final Creatinine, Urine 05/11/2023 11:36:52 26 (mg/dL) Final Performing Location [facility] [place] [address] [place] [address]
--- OUTSIDE RECORDS SUMMARY | 2023-05-21 07:42 | External Medical Summary | Summary of Care ---
Author Name Unknown Organization [facility] Address [address] [facility] [place] [address] Phone [phone] Care Team Providers Care Third Shift Lieutenant Name Role Phone Lorelei Mccormack DO Primary Care Provider Encounter Details Date Type Department Care Team (Late st Contact Info) Description 05/09/2023 Telephone Gynecology/Obstetrics Codey Villagomez [address] [place] [address] Karlie Infante PA-C [address] [place] [address] Allergies No known active allergiesdocumented as of this encounter (statuses as of 05/09/2023) Medications Medication Sig Dispensed Refills Start Date [...] as of this encounter (statuses as of 05/09/2023) Active Problems Problem Noted Date Diagnosed Date [...] as of this encounter (statuses as of 05/09/2023) Resolved Problems Problem Noted Date Diagnosed Date Resolved Date with 11 completed weeks gestation 10/31/2022 12/29/2022 Normal 10/30/2022 04/16/2023 Supervision of high risk pre gnancy in first trimester 10/30/2022 04/16/2023 documented as of this encounter (statuses as of 05/09/2023) Immunizations Name Administration Dates Next Due TDAP [...] money to get more. Never true 12/08/2022 Elbe Depression Scale Answer Date Recorded Elbe Depression Scale Total 0 03/12/2023 The thought [...] Codey Villagomez [address] [place] [address] Karlie Infante PA-C [address] [place] [address] Jodi Villagomez Stress Tests [place] [address] [place] [address] 05/15/2023 11:15 AM EDT Office Visit Gynecology/Obstetrics Codey Villagomez [address] [place] [address] Valentine Barclay CRNP [address] [place] [address] Jodi Villagomez Stress Tests [place] [address] [place] [address] 05/18/2023 9:15 AM EDT Office Visit Gynecology/Obstetrics Codey Villagomez [address] [place] [address] Ana Edwrads PA-C [address] [place] [address] [place] [address] Jodi Villagomez Stress Tests [place] [address] [place] [address] 11/23/2023 1:40 PM EDT Office Visit Nephrology, [facility] Kebede [address] [facility] [address] Simona Gutierrez MD [address] [place] [id number] Health Maintenance Due Date Last Done Comments [...] filedocumented as of this encounter Care Teams Third Shift Lieutenant Relationship Specialty Start Date End Date Lorelei Mccormack DO [address] [facility] [place] [address] PCP - General Family Medicine 03/07/22 documented as of this encounter
--- OUTSIDE RECORDS SUMMARY | 2023-05-21 07:42 | External Medical Summary ---
Author Name Unknown Address Unknown Organization [id number]:LAB[facility]ORY [facility] [place] [address] [place] [address] Laboratory Report Ordering Provider Test Date Status ISABEL PHAN 05/11/2023 11:36:52 Final Observation Date Value Abnormality Reference (Units ) Status WBC, Total 05/11/2023 11:36:52 11.94 Above high normal 4 .00-10.80 (K/uL) Final RBC 05/11/2023 11:36:52 3.91 3.85-5.15 (M/uL) Final Hemoglobin 05/11/2023 11:36:52 12.0 12.0-15.3 (g/dL) Final HCT 05/11/2023 11:36:52 36.1 36.0-45.2 (%) Final MCV 05/11/2023 11:36:52 92.3 81.5-97.5 (fL) Final MCH 05/11/2023 11:36:52 30.7 27.0-34.0 (pg) Final MCHC 05/11/2023 11:36:52 33.2 32.0-36.0 (g/dL) Final RDW 05/11/2023 11:36:52 16.0 11.5-15.5 (%) Final Platelets 05/11/2023 11:36:52 293 140-400 (K /uL) Final MPV 05/11/2023 11:36:52 9.7 6.6-11.1 ( fL) Final Per[facility] Location [facility] [place] [address]
[2023-05-21] MEDS ORDERED: LIDOCAINE 1% LOCAL 20 ML VIAL INFIL PRN (08:21)
[2023-05-21 09:00] LABS: Hematocrit (blood only) 34.9 % (37.0-47.0); Hemoglobin 11.7 g/dl (12.0-16.0); Mean Corpuscular Hemoglobin 30.1 pg (25.0-34.0); Mean Corpuscular Hgb Conc 33.5 g/dL (32.0-36.0); Mean Corpuscular Volume 89.7 fL (80.0-100.0); Mean Platelet Volume 9.5 fL (9.4-12.4); Platelet Count 278 K/uL (130-400); RDW Coefficient of Variation 15.8 % (11.5-14.5); RDW Standard Deviation 51.8 fL (36.4-46.3); Red Blood Count 3.89 M/uL (4.20-5.40)
[2023-05-21] MEDS: DINOPROSTONE 10 MG INSERT PV ONE (09:10)
[2023-05-21 09:14] LABS: Alanine Aminotransferase 10 U/L (7-52); Albumin Globulin Ratio 1.1 (0.9-2); Albumin Level 3.5 gm/dl (3.4-5.0); Alkaline Phosphatase 132 U/L (34-104); Anion Gap 10 (3-11); Aspartate Aminotransferase 13 U/L (13-39); BUN Creatinine Ratio 16.7 (10-20); Bilirubin,Total 0.3 mg/dl (0.2-1.0); Blood Urea Nitrogen 8 mg/dl (6-23); Calcium 9.8 mg/dl (8.6-10.3); Carbon Dioxide 20 mmol/L (21-32); Chloride 106 mmol/L (98-107); Creatinine Clr Calc Pharmacy 195.6 ml/min; Est GFR (African American) > 150.0 ml/min; Est GFR (Non-African American) 129.8 ml/min; Globulin 3.2 gm/dl (2.5-4.0); Glucose 104 mg/dl (70-99(Fasting)); Potassium 3.7 mmol/L (3.5-5.1); Sodium 136 mmol/L (136-145); Total Protein 6.7 gm/dl (6.0-8.3)
[2023-05-21] MEDS ORDERED: CALCIUM CARBONATE 500 MG CHEWABLE TAB PO PRN (09:15)
[2023-05-21] MEDS ORDERED: BUTORPHANOL TARTRATE 2 MG/ML VIAL IV PRN (09:15)
--- NOTE | 2023-05-21 09:21 | History & Physical Report ---
Date of Service May 21, 2023 Assessment & Plan (1) Class 2 obesity: (2) Hypothyroidism: (3) Pre-diabetes: (4) 40 weeks gestation of : Plan: 32-year-old G1, P0 at 40 weeks of gestation presenting today for scheduled history of labor, Vital signs stable afebrile, GBS negative, Cervix unfavorable, Discussed the findings and cervical ripening with Cervidil and what to expect during induction of labor, All questions were answered, Bedside ultrasound confirmed vertex presentation and Cervidil is placed. Admission and Anticipated Discharge Date Admission Date: May 21, 2023 History of Present Illness Primary Care Provider: Lorelei Mccormack Patient is a 32-year-old G1, P0 at 40 weeks of gestation who was scheduled for induction of labor at term, Patient feels well, no complaints. She denies contractions, leakage of fluid, vaginal bleeding. She reports good movements. She denies headaches, change in her vision, nausea vomiting. Her has been uncomplicated except, Class II obesity, growth ultrasound was within normal limits. Hypothyroidism, on levothyroxine, Anemia, status post IV iron infusions. GBS negative. Allergies Allergy/AdvReac Type Severity Reaction Status Date / Time No Known Allergies Allergy Unverified 05/21/23 08:45 Home Medications Medication Instructions Recorded Confirmed Type Vitamin D3 2,000 units PO DAILY 05/03/23 05/21/23 History aspirin 81 mg chewable tablet 81 mg PO DAILY 05/03/23 05/21/23 History levothyroxine 75 mcg tablet 75 mcg PO DAILY 05/03/23 05/21/23 History potassium 20 mg chewable tablet 20 mg PO TID 05/03/23 05/03/23 History prenat.vits,del,ofk-iirr-kbony 1 tab PO DAILY 05/03/23 05/21/23 History Patient History Medical History Hypothyroidism Pre-diabetes PCOS (polycystic ovarian syndrome) Surgical History History of tonsillectomy Social History Smoking Status: Never smoker Hx Alcohol Use: No Hx Substance Use: No Preferred Language: [place] [employer] Maintenance Worker Required: No Beliefs That Will Affect Care: None marital status: Current Living Situation: Spouse Current Living Situation Comment: mother in law lives with patient and Other Information That Helps Us Care for You: No Feels Safe at Home: Yes Safety Concerns: Feels Safe At This Time Assistive Devices: None 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 History No history of STDs, no history of chlamydia, gonorrhea, herpes Review of Systems as per Subjective / HPI Physical Exam Constitutional: WD/WN, vitals as above well developed, well nourished and comfortable Gastrointestinal (Abdomen): normal bowel sounds, soft, nontender, no hepatosplenomegaly (Gravid) Bedside ultrasound confirmed vertex presentation Genitourinary: normal external appearance OB Exam Abdomen: + vertex Manual OB Exam: + cervical dilation (0), + cervical effacement 50% and + station high (-4, posterior) OB Exam Monitor Tracing: + external uterine monitor used and + category I Results & Data Vital Signs (Past 12 Hours) Vital Signs Temp Pulse Resp BP 05/21/23 07:55 121 H 134/74 05/21/23 07:48 37.0 C 18 Diagnostic Findings Lab Results 05/21/23 Range/Units 08:39 WBC 15.30 H (4.8-10.8) K/ul RBC 3.89 L (4.20-5.40) M/uL Hgb 11.7 L (12.0-16.0) g/dl Hct 34.9 L (37.0-47.0) % MCV 89.7 (80.0-100.0) fL MCH 30.1 (25.0-34.0) pg MCHC 33.5 (32.0-36.0) g/dL RDW Std Deviation 51.8 H (36.4-46.3) fL RDW Coeff of Mar 15.8 H (11.5-14.5) % Plt Count 278 (130-400) K/uL MPV 9.5 (9.4-12.4) fL Sodium 136 (136-145) mmol/L Potassium 3.7 (3.5-5.1) mmol/L Chloride 106 (98-107) mmol/L Carbon Dioxide 20 L (21-32) mmol/L Anion Gap 10 (3-11) BUN 8 (6-23) mg/dl Creatinine 0.48 L (0.6-1.2) mg/dl Est Cr Clr Drug Dosing 195.6 ml/min Est GFR ( Amer) > 150.0 ml/min Est GFR (Non-Af Amer) 129.8 ml/min BUN/Creatinine Ratio 16.7 (10-20) Glucose 104 H (70-99(Fasting)) mg/dl Calcium 9.8 (8.6-10.3) mg/dl Total Bilirubin 0.3 (0.2-1.0) mg/dl AST 13 (13-39) U/L ALT 10 (7-52) U/L Alkaline Phosphatase 132 H (34-104) U/L Total Protein 6.7 (6.0-8.3) gm/dl Albumin 3.5 (3.4-5.0) gm/dl Globulin 3.2 (2.5-4.0) gm/dl Albumin/Globulin Ratio 1.1 (0.9-2) (2) Hypothyroidism Hypothyroidism type: acquired Qualified Code(s): E03.9 - Hypothyroidism, unspecified
[2023-05-21] MEDS: LEVOTHYROXINE SODIUM 75 MCG TABLET PO SCH (10:53)
[2023-05-21] MEDS: CHOLECALCIFEROL 25 MCG (1000 UNITS) TAB PO SCH (10:53)
[2023-05-21] MEDS: PRENATAL VITAMIN 1 TAB PO SCH (10:53)
[2023-05-21] MEDS ORDERED: Nursing to Pharmacy Communication SCH (23:30)
--- NOTE | 2023-05-21 23:44 | Obstetrical Progress Note ---
Date of Service May 21, 2023 Assessment & Plan Admission and Anticipated Discharge Date Admission Date: May 21, 2023 Subjective Patient is reevaluated. Surgery was removed at 9:20 PM by her nurse and her cervix cervix was closed. She has been feeling mild tightening every 2 to 3 minutes lasting short for only seconds. She states are not painful just uncomfortable. Vital signs stable afebrile, heart rate category 1, [place] is monitoring contractions every 2 to 4 minutes, patient does not feel them all. I checked her cervix and it is now tight 1 cm, still taking about 40% effaced, posterior, head is -3, cervix is softer than before. Discussed the findings and recommended to continue with cervical ripening with p.o. Cytotec. She is about to receive the first dose of Cytotec. Discussed about the pain management, IV Stadol initially and then epidural as needed. All questions were answered. Results & Data Vital Signs (Past 12 Hours) Vital Signs Temp Pulse Resp BP 05/21/23 23:14 36.8 C 108 H 18 118/64 05/21/23 19:50 113 H 132/89 05/21/23 19:45 36.8 C 18 05/21/23 18:46 117 H 123/84 05/21/23 18:45 18 05/21/23 18:45 36.9 C 18 05/21/23 15:27 36.9 C 100 H 18 125/65
[2023-05-21] MEDS: miSOPROStoL 50 MCG TAB PO SCH (23:46)
[2023-05-22] MEDS: LACTATED RINGER'S 1,000 ML IV PRN (08:04)
[2023-05-22] MEDS: ONDANSETRON INJ 2 MG/ML 2 ML VIAL IV PRN (09:51)
--- NOTE | 2023-05-22 10:02 | Obstetrical Progress Note ---
Date of Service May 22, 2023 Assessment & Plan (1) 40 weeks gestation of : Plan Induction for gestational HTN and post dates stable BP Day #2 Received Cervidil and Cytotec FHR; CAT1 Ctx ; Minimal VE; ft/thick/post [place] bulb with 40 cc saline placed w/o difficulty will start Pitocin Admission and Anticipated Discharge Date Admission Date: May 21, 2023 Results & Data Vital Signs (Past 12 Hours) Vital Signs Temp Pulse Resp BP 05/22/23 08:03 100 H 117/65 05/22/23 08:00 36.8 C 16 05/22/23 03:02 36.8 C 99 H 16 117/58 L 05/21/23 23:14 36.8 C 108 H 18 118/64
[2023-05-22] MEDS: OXYTOCIN 30 UNITS/NSS 30 UNITS/500 ML BAG IV PRN (10:19)
--- NOTE | 2023-05-22 11:40 | Anesthesiology Consultation ---
Date of Service May 22, 2023 Assessment & Plan (1) Encounter for pre-operative examination: Chart Review Chart Review: Acceptable Risk for Labor Epidural History Height/Weight Height: 5 ft 4 in Weight: 102.058 kg Allergies Allergy/AdvReac Type Severity Reaction Status Date / Time No Known Allergies Allergy Unverified 05/21/23 08:45 Medications Home Medications Medication Instructions Recorded Confirmed Last Taken Vitamin D3 2,000 units PO DAILY 05/03/23 05/21/23 05/02/23 21:00 aspirin 81 mg chewable tablet 81 mg PO DAILY 05/03/23 05/21/23 05/02/23 21:00 levothyroxine 75 mcg tablet 75 mcg PO DAILY 05/03/23 05/21/23 05/03/23 06:00 potassium 20 mg chewable tablet 20 mg PO TID 05/03/23 05/03/23 05/03/23 06:00 prenat.vits,del,tce-pjde-yhlko 1 tab PO DAILY 05/03/23 05/21/23 05/03/23 06:00 Active Medications Generic Name Dose Route Start Last Admin Trade Name Freq PRN Reason Stop Dose Admin Lactated Ringer's 1,000 mls @ 150 mls/hr 05/21/23 08:21 05/22/23 08:04 Lr IV 05/23/23 08:20 150 mls/hr .Q6H40M PRN Administration L&D Protocol Protocol Oxytocin 30 units in 500 mls @ 4 mls/hr 05/22/23 10:02 05/22/23 11:00 Pitocin 30 Units/Nss IV 05/24/23 10:01 0.24 units/hr .Q24H PRN 4 mls/hr Labor Induction/Augmentation Titration Protocol 0.24 UNITS/HR Levothyroxine Sodium 75 mcg 05/21/23 09:00 05/22/23 06:01 Levothyroxine Sodium 75 Mcg Tablet PO 06/20/23 08:59 75 mcg DAILYBB GEORGINA Administration Misoprostol 50 mcg 05/21/23 23:30 05/22/23 06:00 Misoprostol 50 Mcg Tab PO 06/20/23 23:29 Not Given Q4H GE[place]GINA Ondansetron HCl 4 mg 05/21/23 09:15 05/22/23 09:51 Ondansetron Inj 2 Mg/Ml 2 Ml Vial IV 06/20/23 09:14 4 mg Q4H PRN Administration Nausea Prenat Multivit/[place]/Iron/Folic Ac 1 tab 05/21/23 09:00 05/22/23 08:05 Vitamin 1 Tab PO 06/20/23 08:59 1 tab DAILY GEORGINA Administration Vitamin D 50 mcg 05/21/23 09:00 05/22/23 08:05 Cholecalciferol 25 Mcg (1000 Units) Tab PO 06/20/23 08:59 50 mcg DAILY GEORGINA Administration Past Medical History Medical History Hypothyroidism Pre-diabetes PCOS (polycystic ovarian syndrome) Past Surgical History Surgical History History of tonsillectomy Social History Smoking Status: Never smoker Hx Alcohol Use: No Hx Substance Use: No substance use type: does not use Physical Exam Vital Signs Last Vital Signs Temp 36.8 C 05/22/23 08:00 Pulse 92 H 05/22/23 11:11 Resp 16 05/22/23 08:00 BP 112/71 05/22/23 11:11 Testing Laboratory Results 05/21/23 08:39 05/21/23 08:39 Blood Type A Positive 05/21/23 08:39 Antibody Screen NEGATIVE 05/21/23 08:39
[2023-05-22] MEDS: fentaNYL citrate PF 100 MCG/2 ML VIAL ONE (12:00)
[2023-05-22] MEDS: BUPIVACAINE 0.25% PF 30 ML VIAL ONE (12:00)
[2023-05-22] MEDS: LIDOCAINE 2%/EPINEPHRINE 1:200,000 20 ML PF ONE (12:00)
[2023-05-22] MEDS: fentANYL 2 MCG/ML BUPIVacaine 0.125%-NSS 100ML BAG ONE (12:03)
[2023-05-22] MEDS ORDERED: ROPIVACAINE 0.5% PF 5 MG/ML 20 ML VIAL EPI PRN (12:06)
[2023-05-22] MEDS ORDERED: SODIUM CHLORIDE 0.9% PF INJ 10 ML VIAL EPI PRN (12:06)
[2023-05-22] MEDS ORDERED: BUPIVACAINE 0.25% PF 30 ML VIAL EPI PRN (12:06)
[2023-05-22] MEDS ORDERED: LIDOCAINE 2% MPF LOCAL 5 ML VIAL EPI PRN (12:06)
[2023-05-22] MEDS ORDERED: NALOXONE HCL 0.4 MG/1 ML VIAL/CARP IV PRN (12:06)
[2023-05-22] MEDS ORDERED: NALOXONE HCL 1 MG in SODIUM CHLORIDE 0.9% 1,000 ML IV PRN (12:06)
[2023-05-22] MEDS ORDERED: ePHEDrine sulfate 50 MG/ML AMP IV PRN (12:06)
[2023-05-22] MEDS ORDERED: fentaNYL citrate PF 100 MCG/2 ML VIAL EPI PRN (12:06)
--- NOTE | 2023-05-22 15:50 | Obstetrical Progress Note ---
Date of Service May 22, 2023 Assessment & Plan (1) 40 weeks gestation of : Plan: Pt doing well FHR; CAT1 Ctx 2-4mins VE 4/50/-2 Pitocin; 10mu AROM with FSE- clear fluid continue Pitocin augmention Admission and Anticipated Discharge Date Admission Date: May 21, 2023 Results & Data Vital Signs (Past 12 Hours) Vital Signs Temp Pulse Resp BP Pulse Ox 05/22/23 15:43 91 H 98 05/22/23 15:40 36.7 C 05/22/23 15:38 90 129/67 98 05/22/23 15:33 99 H 98 05/22/23 15:30 18 05/22/23 15:30 18 05/22/23 15:28 93 H 98 05/22/23 15:25 85 105/54 L 05/22/23 15:23 101 H 98 05/22/23 15:18 107 H 98 05/22/23 15:13 88 97 05/22/23 15:08 97 H 105/57 L 98 05/22/23 15:03 84 98 05/22/23 15:00 18 05/22/23 15:00 18 05/22/23 14:58 88 98 05/22/23 14:53 102 H 98 05/22/23 14:52 103 H 106/59 L 05/22/23 14:48 89 98 05/22/23 14:43 93 H 98 05/22/23 14:38 96 H 98 05/22/23 14:37 102 H 105/57 L 05/22/23 14:33 87 98 05/22/23 14:30 18 05/22/23 14:30 18 05/22/23 14:28 100 H 99 05/22/23 14:23 100 H 100 05/22/23 14:22 96 H 115/80 05/22/23 14:18 85 99 05/22/23 14:13 95 H 116/64 100 05/22/23 14:08 84 99 05/22/23 14:03 92 H 98 05/22/23 14:01 99 H 107/60 05/22/23 14:00 18 05/22/23 14:00 18 05/22/23 13:58 80 100 05/22/23 13:53 96 H 108/64 100 05/22/23 13:48 111 H 98 05/22/23 13:43 90 100 05/22/23 13:42 96 H 117/61 05/22/23 13:38 84 100 05/22/23 13:33 80 100 05/22/23 13:31 82 111/60 05/22/23 13:30 18 05/22/23 13:30 18 05/22/23 13:28 81 99 05/22/23 13:23 98 H 98 05/22/23 13:22 85 106/63 05/22/23 13:18 86 98 05/22/23 13:13 87 100 05/22/23 13:11 100 H 110/67 05/22/23 13:08 75 100 05/22/23 13:03 84 100 05/22/23 13:02 100 H 131/70 05/22/23 13:00 16 05/22/23 13:00 05/22/23 12:58 82 99 05/22/23 12:53 105 H 100 05/22/23 12:49 80 110/57 L 05/22/23 12:48 81 99 05/22/23 12:43 103 H 99 05/22/23 12:38 107 H 99 05/22/23 12:33 106 H 109/56 L 98 05/22/23 12:30 16 05/22/23 12:30 36.8 C 16 05/22/23 12:28 95 H 98 05/22/23 12:23 100 H 99 05/22/23 12:18 103 H 99 05/22/23 12:17 104 H 109/58 L 05/22/23 12:15 102 H 111/63 05/22/23 12:13 107 H 110/57 L 98 05/22/23 12:11 105 H 110/56 L 05/22/23 12:10 16 05/22/23 12:10 16 05/22/23 12:09 102 H 108/58 L 05/22/23 12:08 107 H 98 05/22/23 12:07 90 106/53 L 05/22/23 12:05 111 H 16 114/56 L 05/22/23 12:03 85 109/54 L 97 05/22/23 12:01 88 16 120/56 L 05/22/23 11:58 88 98 05/22/23 11:57 93 H 114/68 05/22/23 11:55 93 H 126/73 05/22/23 11:53 115 H 99 05/22/23 11:48 115 H 98 05/22/23 11:43 117 H 99 05/22/23 11:11 92 H 112/71 05/22/23 10:42 86 103/62 05/22/23 10:12 86 116/68 05/22/23 08:03 100 H 117/65 05/22/23 08:00 36.8 C 16
[2023-05-22] MEDS: fentANYL 2 MCG/ML BUPIVacaine 0.125%-NSS 100ML BAG EPI PRN (20:11)
[2023-05-22] MEDS ORDERED: miSOPROStoL 50 MCG TAB PO SCH (22:30)
[2023-05-22] MEDS: LIDOCAINE 2%/EPINEPHRINE 1:200,000 20 ML PF EPI STA (22:59)
[2023-05-22] MEDS: SODIUM CHLORIDE 0.9% PF INJ 10 ML VIAL EPI STA (22:59)
[2023-05-22] MEDS: SODIUM CHLORIDE 0.9% PF INJ 10 ML VIAL ONE (22:59)
[2023-05-22] MEDS: ePHEDrine sulfate 50 MG/ML AMP ONE (22:59)
[2023-05-22] MEDS: BUPIVACAINE 0.25% PF 30 ML VIAL EPI STA (22:59)
[2023-05-22] MEDS: fentaNYL citrate PF 100 MCG/2 ML VIAL EPI STA (22:59)
[2023-05-22] MEDS: ACETAMINOPHEN 325 MG TAB PO PRN (23:47)
--- NOTE | 2023-05-22 23:59 | Obstetrical Progress Note ---
Date of Service May 22, 2023 Assessment & Plan (1) 40 weeks gestation of : Plan Pt doing well FHR; 160's Ctx 4-5 Pit 26mu VE; 6/80/-2 No purulent disch from vagina temp; 100.6 Plan IVF bolus, Tylenol. will start antibx . Admission and Anticipated Discharge Date Admission Date: May 21, 2023 Results & Data Vital Signs (Past 12 Hours) Vital Signs Temp Pulse Resp BP Pulse Ox 05/22/23 23:53 112 H 98 05/22/23 23:52 112 H 108/60 05/22/23 23:48 134 H 99 05/22/23 23:43 109 H 99 05/22/23 23:41 20 05/22/23 23:41 37.9 C H 20 05/22/23 23:38 117 H 98 05/22/23 23:33 101 H 98 05/22/23 23:28 118 H 97 05/22/23 23:23 102 H 05/22/23 23:23 96 H 109/60 97 05/22/23 23:18 98 H 97 05/22/23 23:13 95 H 97 05/22/23 23:08 107 H 05/22/23 23:08 98 H 116/63 98 05/22/23 23:03 101 H 98 05/22/23 22:58 110 H 99 05/22/23 22:54 108 H 114/62 05/22/23 22:53 37.1 C 115 H 20 99 05/22/23 22:48 113 H 99 05/22/23 22:43 114 H 99 05/22/23 22:38 116 H 115/65 100 05/22/23 22:33 133 H 100 05/22/23 22:30 20 05/22/23 22:30 20 05/22/23 22:28 137 H 100 05/22/23 22:23 141 H 100 05/22/23 22:18 116 H 100 05/22/23 22:13 95 H 100 05/22/23 22:09 106 H 121/61 05/22/23 22:08 94 H 100 05/22/23 22:03 102 H 100 05/22/23 22:00 18 05/22/23 22:00 18 05/22/23 21:58 100 H 100 05/22/23 21:53 100 H 122/64 100 05/22/23 21:48 112 H 100 05/22/23 21:43 115 H 100 05/22/23 21:40 20 05/22/23 21:40 37.3 C 20 05/22/23 21:38 120 H 100 05/22/23 21:33 87 100 05/22/23 21:30 18 05/22/23 21:30 18 05/22/23 21:28 100 H 99 05/22/23 21:23 104 H 100 05/22/23 21:22 105 H 106/59 L 05/22/23 21:18 93 H 100 05/22/23 21:13 89 100 05/22/23 21:08 93 H 99 05/22/23 21:07 85 99/57 L 05/22/23 21:03 109 H 99 05/22/23 21:00 18 05/22/23 21:00 18 05/22/23 20:58 89 100 05/22/23 20:57 93 H 100/52 L 05/22/23 20:55 36.8 C 05/22/23 20:53 93 H 98/48 L 99 05/22/23 20:48 97 H 99 05/22/23 20:43 95 H 100 05/22/23 20:38 101 H 99 05/22/23 20:33 110 H 99 05/22/23 20:30 18 05/22/23 20:30 18 05/22/23 20:28 111 H 100 05/22/23 20:23 108 H 05/22/23 20:23 101 H 104/59 L 99 05/22/23 20:18 114 H 100 05/22/23 20:13 98 H 99 05/22/23 20:08 106 H 99 05/22/23 20:07 116 H 101/55 L 05/22/23 20:03 102 H 97 05/22/23 20:00 18 05/22/23 20:00 18 05/22/23 19:58 97 H 97 05/22/23 19:53 95 H 05/22/23 19:53 96 H 102/54 L 98 05/22/23 19:48 94 H 97 05/22/23 19:43 95 H 97 05/22/23 19:40 93 H 119/55 L 05/22/23 19:38 95 H 98 05/22/23 19:33 108 H 99 05/22/23 19:30 18 05/22/23 19:30 18 05/22/23 19:28 105 H 97 05/22/23 19:23 100 H 109/59 L 98 05/22/23 19:18 93 H 98 05/22/23 19:13 91 H 98 05/22/23 19:08 99 H 97 05/22/23 19:07 91 H 105/59 L 05/22/23 19:05 18 05/22/23 19:05 37.0 C 18 05/22/23 19:03 95 H 98 05/22/23 19:00 16 05/22/23 19:00 16 05/22/23 18:58 88 98 05/22/23 18:53 94 H 109/59 L 98 05/22/23 18:48 90 98 05/22/23 18:43 89 98 05/22/23 18:38 99 H 98 05/22/23 18:37 96 H 95/50 L 05/22/23 18:33 96 H 97 05/22/23 18:30 18 05/22/23 18:30 18 05/22/23 18:28 106 H 98 05/22/23 18:24 93 H 109/59 L 05/22/23 18:23 93 H 97 05/22/23 18:19 98 H 92 05/22/23 18:18 88 97 05/22/23 18:13 86 99 05/22/23 18:08 98 05/22/23 18:08 103 H 05/22/23 18:08 98 H 110/63 05/22/23 18:03 92 H 97 05/22/23 18:00 18 05/22/23 18:00 18 05/22/23 17:58 88 97 05/22/23 17:53 94 H 97 05/22/23 17:52 91 H 109/57 L 05/22/23 17:48 96 H 97 05/22/23 17:43 99 H 97 05/22/23 17:40 36.8 C 05/22/23 17:38 102 H 98 05/22/23 17:37 104 H 112/58 L 05/22/23 17:33 99 H 98 05/22/23 17:30 16 05/22/23 17:30 16 05/22/23 17:28 86 97 05/22/23 17:23 87 110/56 L 98 05/22/23 17:18 97 H 98 05/22/23 17:13 94 H 97 05/22/23 17:08 101 H 97 05/22/23 17:07 90 111/53 L 05/22/23 17:03 101 H 99 05/22/23 17:00 16 05/22/23 17:00 16 05/22/23 16:58 82 97 05/22/23 16:54 96 H 125/59 L 05/22/23 16:53 97 H 97 05/22/23 16:48 86 98 05/22/23 16:43 101 H 97 05/22/23 16:39 106 H 112/61 05/22/23 16:38 95 H 97 05/22/23 16:33 102 H 98 05/22/23 16:30 18 05/22/23 16:30 18 05/22/23 16:28 99 H 97 05/22/23 16:23 91 H 96 05/22/23 16:22 104 H 112/56 L 05/22/23 16:18 93 H 96 05/22/23 16:13 92 H 96 05/22/23 16:08 84 108/56 L 97 05/22/23 16:03 100 H 97 05/22/23 15:58 98 H 97 05/22/23 15:53 97 05/22/23 15:53 106 H 05/22/23 15:53 105 H 116/61 05/22/23 15:48 108 H 98 05/22/23 15:43 91 H 98 05/22/23 15:40 36.7 C 05/22/23 15:38 90 129/67 98 05/22/23 15:33 99 H 98 05/22/23 15:30 18 05/22/23 15:30 18 05/22/23 15:28 93 H 98 05/22/23 15:25 85 105/54 L 05/22/23 15:23 101 H 98 05/22/23 15:18 107 H 98 05/22/23 15:13 88 97 05/22/23 15:08 97 H 105/57 L 98 05/22/23 15:03 84 98 05/22/23 15:00 18 05/22/23 15:00 18 05/22/23 14:58 88 98 05/22/23 14:53 102 H 98 05/22/23 14:52 103 H 106/59 L 05/22/23 14:48 89 98 05/22/23 14:43 93 H 98 05/22/23 14:38 96 H 98 05/22/23 14:37 102 H 105/57 L 05/22/23 14:33 87 98 05/22/23 14:30 18 05/22/23 14:30 18 05/22/23 14:28 100 H 99 05/22/23 14:23 100 H 100 05/22/23 14:22 96 H 115/80 05/22/23 14:18 85 99 05/22/23 14:13 95 H 116/64 100 05/22/23 14:08 84 99 05/22/23 14:03 92 H 98 05/22/23 14:01 99 H 107/60 05/22/23 14:00 18 05/22/23 14:00 18 05/22/23 13:58 80 100 05/22/23 13:53 96 H 108/64 100 05/22/23 13:48 111 H 98 05/22/23 13:43 90 100 05/22/23 13:42 96 H 117/61 05/22/23 13:38 84 100 05/22/23 13:33 80 100 05/22/23 13:31 82 111/60 05/22/23 13:30 18 05/22/23 13:30 18 05/22/23 13:28 81 99 05/22/23 13:23 98 H 98 05/22/23 13:22 85 106/63 05/22/23 13:18 86 98 05/22/23 13:13 87 100 05/22/23 13:11 100 H 110/67 05/22/23 13:08 75 100 05/22/23 13:03 84 100 05/22/23 13:02 100 H 131/70 05/22/23 13:00 16 05/22/23 13:00 16 05/22/23 12:58 82 99 05/22/23 12:53 105 H 100 05/22/23 12:49 80 110/57 L 05/22/23 12:48 81 99 05/22/23 12:43 103 H 99 05/22/23 12:38 107 H 99 05/22/23 12:33 106 H 109/56 L 98 05/22/23 12:30 16 05/22/23 12:30 36.8 C 16 05/22/23 12:28 95 H 98 05/22/23 12:23 100 H 99 05/22/23 12:18 103 H 99 05/22/23 12:17 104 H 109/58 L 05/22/23 12:15 102 H 111/63 05/22/23 12:13 107 H 110/57 L 98 05/22/23 12:11 105 H 110/56 L 05/22/23 12:10 16 05/22/23 12:10 16 05/22/23 12:09 102 H 108/58 L 05/22/23 12:08 107 H 98 05/22/23 12:07 90 106/53 L 05/22/23 12:05 111 H 16 114/56 L 05/22/23 12:03 85 109/54 L 97 05/22/23 12:01 88 16 120/56 L 05/22/23 11:58 88 98 05/22/23 11:57 93 H 114/68
[2023-05-23] MEDS ORDERED: GENTAMICIN CONSULT ACTIVE PRN (00:02)
[2023-05-23] MEDS ORDERED: Nursing to Pharmacy Communication SCH (00:30)
[2023-05-23] MEDS: AMPICILLIN 2,000 MG in SODIUM CHLOR 0.9% MINI-B 100 ML IV SCH (00:36)
[2023-05-23] MEDS: GENTAMICIN SULFATE 120 MG in DEXTROSE 5% 100 ML IV STA (01:10)
[2023-05-23] MEDS ORDERED: AMPICILLIN SOD 1 GM VIAL IV SCH (06:00)
[2023-05-23] MEDS: METHYLERGONOVINE MALEATE 0.2 MG/ML AMP IM ONE (06:36)
[2023-05-23] MEDS: miSOPROStoL 200 MCG TAB PR ONE (06:38)
[2023-05-23] MEDS: OXYTOCIN 30 UNITS/NSS 30 UNITS/500 ML BAG IV PRN (06:48)
[2023-05-23] MEDS ORDERED: HYDROCORTISONE ACETATE 25 MG SUPP PR PRN (06:58)
[2023-05-23] MEDS ORDERED: OXYTOCIN 30 UNITS/NSS 30 UNITS/500 ML BAG IV PRN (06:58)
[2023-05-23] MEDS ORDERED: bisacodyL 10 MG SUPP PR PRN (06:58)
[2023-05-23] MEDS ORDERED: OXYTOCIN 20 UNITS in LACTATED RINGER'S 1,000 ML IV SCH (07:00)
--- NOTE | 2023-05-23 07:04 | Delivery Summary ---
Vaginal Delivery Summary Date of Service May 23, 2023 Vaginal Delivery Summary DELIVERY NOTE Patient delivered a live infant male in left occiput anterior presentation there was 1 nuchal cord which was not easily reduced. It was cut and delivered and placed on mother's abdomen. Cord blood is obtained Cord gasses are obtained Meconium is absent Placenta is spontaneously delivered. Placenta appears grossly normal and has 3 vessel cord Inspection of the perineum showed a first-degree midline laceration. Laceration is repaired with 2-0 Vicryl in layers Rectal exam post repair showed good sphincter tone no sutures palpated in the rectum. Estimated blood loss is 450 cc per Infants weight and scores are in the pediatric record Mother and baby are stable in in the recovery
[2023-05-23] MEDS: ONDANSETRON INJ 2 MG/ML 2 ML VIAL IV PRN (08:09)
[2023-05-23] MEDS: ACETAMINOPHEN 325 MG TAB PO PRN (08:14)
[2023-05-23] MEDS: IBUPROFEN 600 MG TAB PO PRN (08:29)
[2023-05-23] MEDS: DOCUSATE SODIUM 100 MG CAP PO SCH (08:36)
[2023-05-23] MEDS: PRENATAL VITAMIN 1 TAB PO SCH (08:36)
[2023-05-23] MEDS: GENTAMICIN SULFATE 120 MG in DEXTROSE 5% 100 ML IV SCH (09:24)
--- NOTE | 2023-05-23 10:13 | Anesthesia Procedure Note ---
Date of Service May 23, 2023 Anesthesia Post Epidural Note Vital Signs Vital Signs: Temp Pulse Resp BP Pulse Ox 36.8 C 103 H 18 124/70 98 05/23/23 04:40 05/23/23 09:52 05/23/23 06:30 05/23/23 09:52 05/23/23 07:04 Pain Intensity Vaginal: Pain Intensity: 3 Lower Back: Pain Intensity: 0 Notes Mental Status: alert / awake / arousable and participated in evaluation Nausea / Vomiting: adequately controlled Pain: adequately controlled Airway Patency, RR, SpO2: stable & adequate BP & HR: stable & adequate Hydration State: stable & adequate Neuraxial Anesthesia: was administered and sensory block is resolving Anesthetic Complications: no major complications apparent and Pt Satisfied with anesthetic care Epidural: Removed without complications and With tip intact
[2023-05-23 11:02] LABS: Base Excess Cord Arterial Bld -6.8 mEq/L (-9-1.8); CO2 Cord Arterial Blood 42 mmHg (39.1-73.5); HCO3 Cord Arterial Blood 20 mmol/L (19.7-28.5); PO2 Cord Arterial Blood 44 mmHg (4.1-31.7); pH Cord Arterial Blood 7.28 (7.1-7.38)
[2023-05-23 11:05] LABS: Base Excess Cord Venous Blood -8.2 mEq/L (-7.7-1.9); Cord Venous Blood HCO3 19 mmol/L (18.4-26.8); Cord Venous Blood PCO2 43 mmHg (30.4-57.2); Cord Venous Blood PO2 46 mmHg (14.1-43.3); Cord Venous Blood pH 7.25 (7.20-7.44); O2 Saturation Cord Venous Bld 77.1 % (<68)
[2023-05-23] MEDS: DIPHTHER/TETAN/PERTUS Vaccine (Tdap, Adol/Adult) 0.5mL IM ONE (11:42)
[2023-05-23 12:59] LABS: Creatinine Clr Calc Pharmacy 195.6 ml/min; Est GFR (African American) > 150.0 ml/min; Est GFR (Non-African American) 129.8 ml/min
--- NOTE | 2023-05-23 13:39 | Pharmacy Report ---
Pharmacy PK ABX Note - Date of Service May 23, 2023 - Assessment and Plan Assessment 32 year old F , receiving gentamicin and ampicillin for treatment of chorioamnionitis. Plan Gentamicin * Gentamicin 120 mg iv q 8 hours started early this AM (~1.5 mg/kg adj bw) prior to delivery. Both extended interval and conventional dosing have been studied in intrapartum and patients. * Patient with fever overnight, but afebrile today - reasonable to continue current dosing regimen. Discussed with provider and likely will continue for 24 hours . * Will hold off on collecting any levels, unless extended out further than 24 hours Pharmacy will continue to follow and will adjust dose/frequency as necessary. Thank you.
[2023-05-23] MEDS: BENZOCAINE 20% SPRY 85 APPLN/85 GM CAN EXT PRN (14:23)
--- NOTE | 2023-05-23 19:47 | Communication Note ---
Date of Service: May 23, 2023 Called to bedside d/t pt c/o left "toe numbness." pt reports ambulating without difficulty. reports left sided hip pain with no radiation. no bowel/bladder dysfunction. epidural site looks c/d/i with no erythema or ecchymoses. On exam the patient has cold discrimination on left toes and dorsum of foot. ankle flexion grossly weaker when compared to contralateral extremity. At this point, I am concerned that the patient has a peroneal nerve injury from impingement during labor. have advised watchful waiting and advised the patient to report any additional symptoms or worsening of symptoms. [facility]
[2023-05-24 06:30] LABS: Hemoglobin 9.9 g/dl (12.0-16.0); Mean Corpuscular Hemoglobin 30.2 pg (25.0-34.0); Mean Corpuscular Volume 91.5 fL (80.0-100.0); Mean Platelet Volume 9.8 fL (9.4-12.4); Platelet Count 255 K/uL (130-400); RDW Coefficient of Variation 16.1 % (11.5-14.5); RDW Standard Deviation 53.7 fL (36.4-46.3); Red Blood Count 3.28 M/uL (4.20-5.40); White Blood Count 13.99 K/ul (4.8-10.8)
[2023-05-24 06:54] LABS: Creatinine Clr Calc Pharmacy 204.1 ml/min; Est GFR (African American) > 150.0 ml/min; Est GFR (Non-African American) 131.6 ml/min
[2023-05-24] MEDS ORDERED: GENTAMICIN TROUGH SCH (09:00)
--- NOTE | 2023-05-24 09:38 | Obstetrical Progress Note ---
Date of Service May 24, 2023 Assessment & Plan Admission and Anticipated Discharge Date Admission Date: May 21, 2023 Subjective Patient is seen and examined. She feels well, no complaints. Ambulating without dizziness Voiding without difficulty Tolerating regular diet with out N&V Bleeding is minimal No fever/ chills/ CP/ SOB/ N&V/ Leg pain Breast feeding without problems Vital Signs Temp Pulse Pulse Resp BP BP O2 Del Method 05/24/23 04:00 37.0 C 90 18 124/78 Room Air 05/24/23 00:00 37.0 C 90 18 118/72 Room Air 05/23/23 20:00 36.8 C 98 H 18 112/77 Room Air 05/23/23 16:00 37.0 C 94 H 20 103/69 Room Air 05/23/23 09:52 37.1 C 22 05/23/23 09:52 103 H 124/70 Intake and Output 05/23/23 05/24/23 05/24/23 22:59 06:59 14:59 Intake Total 203 / 506 Balance 203 / 506 Intake: IV 203 / 506 Ampicillin 2,000 mg In Sodium 100 / 300 Chlor 0.9% Mini-B 100 ml @ 200 mls/hr IV Q6H [facility] Rx#:[id number] Gentamicin Sulfate 120 mg In 103 / 206 Dextrose 5% 100 ml @ 100 mls/hr IV Q8H [facility] Rx#:[id number] Lab Results 05/21/23 05/23/23 05/23/23 Range/Units 08:39 06:30 06:30 WBC 15.30 H (4.8-10.8) K/ul RBC 3.89 L (4.20-5.40) M/uL Hgb 11.7 L (12.0-16.0) g/dl Hct 34.9 L (37.0-47.0) % MCV 89.7 (80.0-100.0) fL MCH 30.1 (25.0-34.0) pg MCHC 33.5 (32.0-36.0) g/dL RDW Std Deviation 51.8 H (36.4-46.3) fL RDW Coeff of Mar 15.8 H (11.5-14.5) % Plt Count 278 (130-400) K/uL MPV 9.5 (9.4-12.4) fL Cord ABG pH 7.28 (7.1-7.38) Cord ABG pCO2 42 (39.1-73.5) mmHg Cord ABG pO2 44 H (4.1-31.7) mmHg Cord ABG HCO3 20 (19.7-28.5) mmol/L Cord ABG Base Excess -6.8 (-9-1.8) mEq/L Cord ABG O2 Sat 73.0 H (<60) % Cord VBG pH 7.25 (7.20-7.44) Cord VBG pCO2 43 (30.4-57.2) mmHg Cord VBG pO2 46 H (14.1-43.3) mmHg Cord VBG HCO3 19 (18.4-26.8) mmol/L Cord VBG Base Excess -8.2 L (-7.7-1.9) mEq/L Cord VBG O2 Sat 77.1 H (<68) % Blood Gas Comments ARTHUR ARTHUR Sodium 136 (136-145) mmol/L Potassium 3.7 (3.5-5.1) mmol/L Chloride 106 (98-107) mmol/L Carbon Dioxide 20 L (21-32) mmol/L Anion Gap 10 (3-11) BUN 8 (6-23) mg/dl Creatinine 0.48 L (0.6-1.2) mg/dl Est Cr Clr Drug Dosing 195.6 ml/min Est GFR ( Amer) > 150.0 ml/min Est GFR (Non-Af Amer) 129.8 ml/min BUN/Creatinine Ratio 16.7 (10-20) Glucose 104 H (70-99(Fasting)) mg/dl Calcium 9.8 (8.6-10.3) mg/dl Total Bilirubin 0.3 (0.2-1.0) mg/dl AST 13 (13-39) U/L ALT 10 (7-52) U/L Alkaline Phosphatase 132 H (34-104) U/L Total Protein 6.7 (6.0-8.3) gm/dl Albumin 3.5 (3.4-5.0) gm/dl Globulin 3.2 (2.5-4.0) gm/dl Albumin/Globulin Ratio 1.1 (0.9-2) Blood Type A Positive Antibody Screen NEGATIVE 05/23/23 05/24/23 Range/Units 12:24 05:50 WBC 13.99 H (4.8-10.8) K/ul RBC 3.28 L (4.20-5.40) M/uL Hgb 9.9 L (12.0-16.0) g/dl Hct 30.0 L (37.0-47.0) % MCV 91.5 (80.0-100.0) fL MCH 30.2 (25.0-34.0) pg MCHC 33.0 (32.0-36.0) g/dL RDW Std Deviation 53.7 H (36.4-46.3) fL RDW Coeff of Mar 16.1 H (11.5-14.5) % Plt Count 255 (130-400) K/uL MPV 9.8 (9.4-12.4) fL Cord ABG pH (7.1-7.38) Cord ABG pCO2 (39.1-73.5) mmHg Cord ABG pO2 (4.1-31.7) mmHg Cord ABG HCO3 (19.7-28.5) mmol/L Cord ABG Base Excess (-9-1.8) mEq/L Cord ABG O2 Sat (<60) % Cord VBG pH (7.20-7.44) Cord VBG pCO2 (30.4-57.2) mmHg Cord VBG pO2 (14.1-43.3) mmHg Cord VBG HCO3 (18.4-26.8) mmol/L Cord VBG Base Excess (-7.7-1.9) mEq/L Cord VBG O2 Sat (<68) % Blood Gas Comments Sodium (136-145) mmol/L Potassium (3.5-5.1) mmol/L Chloride (98-107) mmol/L Carbon Dioxide (21-32) mmol/L Anion Gap (3-11) BUN (6-23) mg/dl Creatinine 0.48 L 0.46 L (0.6-1.2) mg/dl Est Cr Clr Drug Dosing 195.6 204.1 ml/min Est GFR ( Amer) > 150.0 > 150.0 ml/min Est GFR (Non-Af Amer) 129.8 131.6 ml/min BUN/Creatinine Ratio (10-20) Glucose (70-99(Fasting)) mg/dl Calcium (8.6-10.3) mg/dl Total Bilirubin (0.2-1.0) mg/dl AST (13-39) U/L ALT (7-52) U/L Alkaline Phosphatase (34-104) U/L Total Protein (6.0-8.3) gm/dl Albumin (3.4-5.0) gm/dl Globulin (2.5-4.0) gm/dl Albumin/Globulin Ratio (0.9-2) Blood Type Antibody Screen PE: General: Alert, orientedx3, NAD Abd: soft, NT, fundus firm, below Umbilicus Perineum intact, Lochia rubra minimal Ext; NT, no edema AP: 32 yo s/p , ppd# 1 VSS Afebrile doing well Continue routine care All questions were answered D/C home tomorrow Results & Data Vital Signs (Past 12 Hours) Vital Signs Temp Pulse Resp BP O2 Del Method 05/24/23 04:00 37.0 C 90 18 124/78 Room Air 05/24/23 00:00 37.0 C 90 18 118/72 Room Air
[2023-05-24] MEDS ORDERED: GENTAMICIN PEAK SCH (11:00)
--- NOTE | 2023-05-24 16:03 | Communication Note ---
Date of Service: May 24, 2023 Patient last PM had c/o left foot paresthesia and weakness. Today strength has returned and she has normal sensation. Patient has been OOB and ambulating w ithout difficulty. Likely this was a very transient nerve palsy that has appeared to have resolved.
[2023-05-24] MEDS: bisacodyL 5 MG TABEC PO SCH (21:22)
[2023-05-25 07:40] LABS: Hematocrit (blood only) 33.4 % (37.0-47.0); Hemoglobin 11.4 g/dl (12.0-16.0)
[2023-05-25 08:04] LABS: Creatinine Clr Calc Pharmacy 204.1 ml/min; Est GFR (African American) > 150.0 ml/min; Est GFR (Non-African American) 131.6 ml/min
--- NOTE | 2023-05-25 10:23 | Obstetrical Progress Note ---
Date of Service May 25, 2023 Subjective Ambulation: ambulating normally Voiding: no voiding problems Passing Gas:: Yes Diet Tolerance:: regular diet Lochia:: Small Feeding Type:: breast feeding Current Pain Level(1-10): 0 doing well Physical Exam Constitutional WD/WN, vitals as above Gastrointestinal (Abdomen) Inspection/Auscultation: abdomen normal to inspection fundus firm. abdomen soft and non-tender Musculoskeletal Extremities: extremities normal to inspection Skin no rashes, warm and dry Neurologic patellar DTR's 2+ bilat, sensation intact Results & Data Vital Signs (Past 12 Hours) Vital Signs Temp Pulse Resp BP Pulse Ox O2 Del Method 05/25/23 10:08 37.1 C 98 H 18 117/76 99 05/25/23 08:00 37.1 C 98 H 18 117/76 Room Air 05/24/23 23:00 36.7 C 87 20 109/74 99 Room Air Laboratory Results Laboratory Results - last 72 hr 05/23/23 05/23/23 05/23/23 06:30 06:30 12:24 WBC RBC Hgb Hct MCV MCH MCHC RDW Std Deviation RDW Coeff of Mar Plt Count MPV Cord ABG pH 7.28 Cord ABG pCO2 42 Cord ABG pO2 44 H Cord ABG HCO3 20 Cord ABG Base Excess -6.8 Cord ABG O2 Sat 73.0 H Cord VBG pH 7.25 Cord VBG pCO2 43 Cord VBG pO2 46 H Cord VBG HCO3 19 Cord VBG Base Excess -8.2 L Cord VBG O2 Sat 77.1 H Blood Gas Comments ARTHUR ARTHUR Creatinine 0.48 L Est Cr Clr Drug Dosing 195.6 Est GFR ( Amer) > 150.0 Est GFR (Non-Af Amer) 129.8 Gentamicin Trough 05/24/23 05/24/23 05/25/23 05:50 08:47 07:06 WBC 13.99 H RBC 3.28 L Hgb 9.9 L 11.4 L Hct 30.0 L 33.4 L MCV 91.5 MCH 30.2 MCHC 33.0 RDW Std Deviation 53.7 H RDW Coeff of Mar 16.1 H Plt Count 255 MPV 9.8 Cord ABG pH Cord ABG pCO2 Cord ABG pO2 Cord ABG HCO3 Cord ABG Base Excess Cord ABG O2 Sat Cord VBG pH Cord VBG pCO2 Cord VBG pO2 Cord VBG HCO3 Cord VBG Base Excess Cord VBG O2 Sat Blood Gas Comments Creatinine 0.46 L 0.46 L Est Cr Clr Drug Dosing 204.1 204.1 Est GFR ( Amer) > 150.0 > 150.0 Est GFR (Non-Af Amer) 131.6 131.6 Gentamicin Trough 0.77
== END 2023-05-25 10:45 | disposition home or self-care (01) | DRG 806 ==
LOC: 4S1 07:33 → 4E2 05-23 11:16
DX: S94.22XA Injury of deep peroneal nerve at ankle and foot level, left leg, initial encounter; O99.355 Diseases of the nervous system complicating the puerperium; Z37.0 Single live birth; Z79.890 Hormone replacement therapy; O9A.23 Injury, poisoning and certain other consequences of external causes complicating the puerperium; O13.4 Gestational [pregnancy-induced] hypertension without significant proteinuria, complicating childbirth; E28.2 Polycystic ovarian syndrome; Y84.8 Other medical procedures as the cause of abnormal reaction of the patient, or of later complication, without mention of misadventure at the time of the procedure; Z3A.40 40 weeks gestation of pregnancy; O99.214 Obesity complicating childbirth; O69.1XX0 Labor and delivery complicated by cord around neck, with compression, not applicable or unspecified; Y92.238 Other place in hospital as the place of occurrence of the external cause; O99.814 Abnormal glucose complicating childbirth; O48.0 Post-term pregnancy; O70.0 First degree perineal laceration during delivery; O99.284 Endocrine, nutritional and metabolic diseases complicating childbirth; E03.9 Hypothyroidism, unspecified; Z79.82 Long term (current) use of aspirin